=== PATIENT | female | born 1975 | race Caucasian/White ===

== ENCOUNTER 2017-12-19 15:24 | Emergency (ER) | payer OTHER ==
[2017-12-19] MEDS ORDERED: HYDROCODONE/APAP 7.5/325 MG TAB ONE (15:48)
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
== END 2017-12-19 16:55 | disposition home or self-care (01) ==
LOC: ER 15:24
DX: S60.222A Contusion of left hand, initial encounter (principal); V58.5XXA Driver of pick-up truck or van injured in noncollision transport accident in traffic accident, initial encounter; Z88.0 Allergy status to penicillin; Z88.1 Allergy status to other antibiotic agents; Z88.5 Allergy status to narcotic agent; Z88.6 Allergy status to analgesic agent
CPT/HCPCS: 99283

== ENCOUNTER 2020-07-30 17:23 | Inpatient (IN) | payer BC, OTHER ==
--- OUTSIDE RECORDS SUMMARY | 2020-07-30 17:25 | XMS REPORT | Continuity of Care Document ---
:1975 Author Organization [facility] t Address [address] [place] [address] [address] [place] [address] Care Team Providers Name Role Phone Unavailable Unavailable Unavailable Problems This patient has no known problems. Allergies, Adverse Reactions, Alerts This patient has no known allergies or adverse reactions. Medications This patient has no known medications. Procedures This patient has no known procedures. Results This patient has no known results.
[2020-07-30 19:56] LABS: Absolute Lymphocytes (CBC) 3.1 K/uL (0.7-4.9); Basophils % 0.6 % (0-1.3); Hematocrit 41.4 % (36.0-45.0); Lymphocytes % 33.3 % (15.3-44.8); MPV 9.8 fL (7.6-11.3); RBC Red Blood Cell Count 4.84 M/uL (3.86-4.86)
[2020-07-30 20:02] LABS: Protime INR 1.03
--- NOTE | 2020-07-30 20:03 | RAD REPORT ---
EXAM DESCRIPTION: RAD - Chest Single View - 07/30/2020 7:54 pm CLINICAL HISTORY: COUGH, possible preop chest examination for foot surgery COMPARISON: Single-view chest April 2010, rib series June 2016 TECHNIQUE: AP portable chest image was obtained 07/30/2020 7:54 pm . FINDINGS: No mass or consolidation. Interstitial pattern is increased slightly from comparison. Hear t and vasculature are normal. No measurable pleural effusion and no pneumothorax. No acute bony abnor mality seen. No acute aortic findings suspected. IMPRESSION: No focal mass or consolidation. Slight increase in interstitial opacification compared to prior study. A mild edema or infiltrate wou ld be possible.
--- NOTE | 2020-07-30 20:04 | RAD REPORT ---
EXAM DESCRIPTION: RAD - Foot Left 3 View - 07/30/2020 7:55 pm CLINICAL HISTORY: PAINischemic changes first toe COMPARISON: No comparisons FINDINGS: No fracture, dislocation or periosteal reaction. No acute or destructive bony process. No air or foreign body in the soft tissues. IMPRESSION: Negative left foot examination.
[2020-07-30 20:16] LABS: BUN Blood Urea Nitrogen 8 mg/dL (7-18); Bicarbonate 32 mmol/L (21-32); Glucose Level 298 mg/dL (74-106); Potassium 3.6 mmol/L (3.5-5.1); Sodium Level 138 mmol/L (136-145)
[2020-07-30 20:17] LABS: ALT/SGPT 19 U/L (12-78); AST/SGOT 11 U/L (15-37); Albumin 3.2 g/dL (3.4-5.0); Alkaline Phosphatase 74 U/L (45-117); Bilirubin Direct < 0.1 mg/dL (0-0.2); Bilirubin Total 0.3 mg/dL (0.2-1.0); Magnesium 1.5 mg/dL (1.8-2.4); NT PRO-BNP 17 pg/mL (<125); Troponin (Emerg Dept Use Only) < 0.02 ng/mL (0.0-0.045)
[2020-07-30] MEDS ORDERED: NA CHLORIDE 0.9% 1,000 ML ONE (20:18)
[2020-07-30 20:19] LABS: Urine Blood NEGATIVE (NEG); Urine Glucose 2+ (NEG); Urine Protein NEGATIVE (NEG); Urine pH 5.5 (5.0-7.0)
[2020-07-30 20:29] LABS: Barbiturates NEGATIVE (NEGATIVE); Benzodiazepines NEGATIVE (NEGATIVE); Cocaine NEGATIVE (NEGATIVE); METHAMPHETAM NEGATIVE (NEGATIVE); Methadone NEGATIVE (NEGATIVE); Opiates POSITIVE (NEGATIVE); Phencyclidine NEGATIVE (NEGATIVE); THC Cannibis NEGATIVE (NEGATIVE)
--- NOTE | 2020-07-30 21:38 | ER ---
Nurse's Notes [facility] Name: Nohelia Llanes Age: 44 yrs Sex: Female : 1975 Arrival Date: 07/30/2020 Time: 17:24 Bed 19 Private MD: Diagnosis: Type 2 diabetes mellitus;Other peripheral vascular diseases-left foot, ischemic toes;Urinary tract infection, site not specified;Hypomagnesemia Presentation: 07/30 17:52 Chief complaint: Patient states: Woke up this morning with my left big toe purple, jl7 denies trauma, denies pain. Coronavirus screen: Client denies travel out of the [place] in the last 14 days. At this time, the client does not indicate any symptoms associated with coronavirus-19. Ebola Screen: No symptoms or risks identified at this time. Initial Sepsis Screen: Does the patient meet any 2 criteria? No. Patient's initial sepsis screen is negative. Does the patient have a suspected source of infection? No. Patient's initial sepsis screen is negative. Risk Assessment: Do you want to hurt yourself or someone else? Patient reports no desire to harm self or others. Onset of symptoms was July 30, 2020. Care prior to arrival: None. 17:52 Method Of Arrival: Wheelchair jl7 17:52 Acuity: ALISIA 3 jl7 Triage Assessment: 17:55 General: Appears in no apparent distress. uncomfortable, Behavior is calm, cooperative, jl7 appropriate for age. Pain: Denies pain. 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 - Social history:: Smoking status: Patient reports the use of cigarette tobacco products, smokes one pack cigarettes per day. - Family history:: not pertinent. Screenin:00 Abuse screen: Denies threats or abuse. Denies injuries from another. Nutritional ca1 screening: No deficits noted. Tuberculosis screening: No symptoms or risk factors identified. Fall Risk None identified. Assessment: 18:00 General: Appears in no apparent distress. comfortable, Behavior is calm, cooperative, ca1 appropriate for age. Pain: Denies pain. Neuro: Level of Consciousness is awake, alert, obeys commands, Oriented to person, place, time, situation. Derm: Skin is intact, is healthy with good turgor, Skin is pink, warm \\T\\ dry. Bruising that is bright red, on left first toe, left second toe, left third toe, left fourth toe, left fifth toe, Left first toenail, Left second toenail, Left third toenail, Left fourth toenail and Left fifth toenail. Musculoskeletal: Circulation, motion, and sensation intact. Capillary refill is > 3 seconds, in left toes. Range of motion: intact in all extremities. 19:00 Reassessment: Patient appears in no apparent distress at this time. Patient and/or ca1 family updated on plan of care and expected duration. Pain level reassessed. Patient is alert, oriented x 3, equal unlabored respirations, skin warm/dry/pink. 20:00 Reassessment: Patient appears in no apparent distress at this time. Patient and/or ca1 family updated on plan of care and expected duration. Pain level reassessed. Patient is alert, oriented x 3, equal unlabored respirations, skin warm/dry/pink. 20:51 Reassessment: Patient appears in no apparent distress at this time. Patient and/or ca1 family updated on plan of care and expected duration. Pain level reassessed. Patient is alert, oriented x 3, equal unlabored respirations, skin warm/dry/pink. 22:00 Reassessment: pt requesting to go smoke, pt informed that this is a non smoking campus, sg offered a nicoderm patch, pt told me to go to [facility] with that nicoderm patch, told patient I cannot do that, Ashley RN at bedside with pt educated on staying in the ED for the sake of her toe and per orders, pt refusing, notified, he is at bedside speaking with patient at this time. 22:03 Reassessment: Pt crying, states, "I won't do anything unless I get a cigarette. I will ca1 not take these medications. And I don't want the patch, I want a cigarette". Notified charge nurse. Notified provider. Went to pt inform smoking policy. Pt states, "take the IV out, I want to find my " Took the the IV out, pt walked out. Notified CN and Dr. Kay. 22:10 Reassessment: Pt and at pt's room right now. ca1 22:44 Reassessment: Cardiology has been paged, spoke with the answering service who states sg that has been notified and will call the ED to speak with , awaiting a call back at this time. 22:50 Reassessment: Patient would like to know when she will be moved upstairs. Informed aj1 patient that we have no beds available upstairs, but we will get her a hospital bed and keep treating her in ER. Patient states "Then I'm leaving! No way in hell am I staying in this ER all night! Hell no!" Notified Dr. Kay who will speak to the patient. 23:00 Reassessment: Patient and/or family updated on plan of care and expected duration. Pain aj1 level reassessed. General: Appears in no apparent distress. comfortable, Behavior is calm, cooperative, appropriate for age. Pain: Denies pain. Neuro: Level of Consciousness is awake, alert, obeys commands, Oriented to person, place, time, situation. Cardiovascular: Denies chest pain, Heart tones S1 S2 present Patient's skin is warm and dry. Rhythm is sinus rhythm. Respiratory: Airway is patent Respiratory effort is even, unlabored, Respiratory pattern is regular, symmetrical. GI: No signs and/or symptoms were reported involving the gastrointestinal system. : No signs and/or symptoms were reported regarding the genitourinary system. EENT: No signs and/or symptoms were reported regarding the EENT system. Derm: Skin is pink, warm \\T\\ dry. purple discoloration to toes on left foot. Musculoskeletal: Circulation, motion, and sensation intact. Capillary refill is > 3 seconds, in left toes. Range of motion: intact in all extremities. 07/31 00:00 Reassessment: Patient appears in no apparent distress at this time. No changes from aj1 previously documented assessment. Patient and/or family updated on plan of care and expected duration. Pain level reassessed. Patient is alert, oriented x 3, equal unlabored respirations, skin warm/dry/pink. 01:00 Reassessment: Patient appears in no apparent distress at this time. No changes from aj1 previously documented assessment. Patient and/or family updated on plan of care and expected duration. Pain level reassessed. Patient is alert, oriented x 3, equal unlabored respirations, skin warm/dry/pink. 02:00 Reassessment: Patient appears in no apparent distress at this time. No changes from aj1 previously documented assessment. Patient and/or family updated on plan of care and expected duration. Pain level reassessed. Patient is alert, oriented x 3, equal unlabored respirations, skin warm/dry/pink. Vital Signs: 07/30 17:52 BP 112 / 77; Pulse 91; Resp 17; Temp 98.1; Pulse Ox 99% ; Weight 68.04 kg; Height 5 ft. jl7 5 in. (165.10 cm); Pain 0/10; 19:00 BP 114 / 69; Pulse 82; Resp 16 S; Pulse Ox 95% on R/A; ca1 19:45 BP 130 / 79; Pulse 85; Resp 18 S; Pulse Ox 96% on R/A; ca1 20:30 BP 121 / 73; Pulse 70; Resp 15 S; Pulse Ox 98% on R/A; ca1 23:30 BP 140 / 78; Pulse 79; Resp 18; Pulse Ox 100% on R/A; aj1 07/31 00:30 BP 124 / 70; Pulse 81; Resp 18; Pulse Ox 100% on R/A; aj1 01:30 BP 120 / 72; Pulse 98; Resp 18; Pulse Ox 99% on R/A; aj1 02:30 BP 128 / 70; Pulse 79; Resp 18; Pulse Ox 98% on R/A; aj1 07/30 17:52 Body Mass Index 24.96 (68.04 kg, 165.10 cm) jl7 ED Course: 07/30 17:24 Patient arrived in ED. ag5 17:54 Triage completed. jl7 17:55 Arm band placed on right wrist. jl7 17:57 Ashley Kazt, RN is Primary Nurse. ca1 18:00 Patient has correct armband on for positive identification. Placed in gown. Bed in low ca1 position. Call light in reach. Side rails up X2. Pulse ox on. NIBP on. Warm blanket given. 19:22 Danish Kay MD is Attending Physician. [facility] 19:48 Initial lab(s) drawn, by me, sent to lab. Inserted saline lock: 20 gauge in right ca1 antecubital area, using aseptic technique. Blood collected. 19:54 XRAY Chest (1 view) In Process Unspecified. EDMS 19:54 Foot Left 3 View XRAY In Process Unspecified. EDMS 21:35 Socorro Mendosa MD is Hospitalizing Provider. michael 22:03 IV discontinued, intact, bleeding controlled, No redness/swelling at site. Pressure ca1 dressing applied. 22:23 Report given to DARRICK Bains. ca1 22:30 No provider procedures requiring assistance completed. Inserted saline lock: 20 gauge aj1 in right antecubital area, using aseptic technique. 22:41 US LE Arterial Bilateral In Process Unspecified. EDMS 07/31 03:36 Patient admitted, IV remains in place. aj1 Administered Medications: 07/30 20:06 Drug: NS 0.9% 1000 ml Route: IV; Rate: 1 bolus; Site: right antecubital; ca1 21:45 Drug: Pepcid 20 mg Route: IVP; Site: right antecubital; ca1 23:03 Drug: levofloxacin 500 mg Volume: 100 ml; Route: IVPB; Infused Over: 60 mins; Site: aj1 right antecubital; 07/31 00:08 Drug: Nicoderm CQ 21 mg/24 hr 21 mg {Note: Patch applied to right deltoid.} Route: aj1 Transdermal; Site: affected area; 00:08 Drug: Lipitor 20 mg Route: PO; 00:08 Drug: ProTONIX 40 mg Route: IVP; Site: right antecubital; aj 00:08 Drug: Maalox Suspension (200 mg-200 mg-20 mg/5 mL) 30 ml Route: PO; 00:09 Drug: Magnesium Sulfate 1 grams Route: IVPB; Infused Over: 1 hrs; Site: right aj1 antecubital; 00:09 Drug: Aspirin Chewable Tablet 324 mg Route: PO; 00:09 Drug: PlaVIX 300 mg Route: PO; aj1 00:27 Drug: Heparin (MT Drip) 12 units/kg/hr - (HEParin 67427 units, D5W 500 ml) aj1 {Co-Signature: ll2 (Jena Jimenez RN).} Route: IV; Rate: calculated rate; Site: right antecubital; 00:28 Drug: Heparin (MT-Bolus No thrombolytic) - HEParin 60 units/kg {Co-Signature: ll2 aj1 (Jena Jimenez RN).} Route: IVP; Site: right antecubital; Outcome: 07/30 21:37 Decision to Hospitalize by Provider. [facility] 07/31 03:36 Admitted to ER Hold. [facility]. aj1 Condition: good Discharge instructions given to patient, Instructed on the need for admit, Demonstrated understanding of instructions. 11:07 Patient left the ED. sv Signatures: Dispatcher [employer] EDMS Nara Ace RN RN aj1 Lisseth Bedolla RN RN sv Gay, Steven, RN RN sg Anderson, Corey, MD MD cha Leal, Jahala, RN RN jl7 Ashley Katz RN RN ca1 Jaspreet, Gosia 5 Jena Jimenez RN ll2 Corrections: (The following items were deleted from the chart) 07/30 22:22 18:00 Musculoskeletal: Circulation, motion, and sensation intact. Capillary refill < 3 ca1 seconds, Range of motion: intact in all extremities, ca1
--- NOTE | 2020-07-30 21:38 | EDPHYS ---
Physician Documentation [facility] Name: Nohelia Llanes Age: 44 yrs Sex: Female : 1975 Arrival Date: 07/30/2020 Time: 17:24 Bed 19 Private MD: ED Physician Danish Kay HPI: 07/30 21:30 This 44 yrs old Female presents to ER via Wheelchair with complaints of Foot michael Pain, Toe Pain. 21:30 The patient presents with pain, that is acute. The complaints affect the left foot, michael plantar aspect of left first toe, plantar aspect of left second toe, plantar aspect of left fourth toe, left first toe, left second toe and left third toe. Context: The problem was sustained at an unknown location, resulted from an unknown cause. Onset: The symptoms/episode began/occurred 2 day(s) ago. Modifying factors: The symptoms are alleviated by nothing, the symptoms are aggravated by nothing. Associated signs and symptoms: The patient has no apparent associated signs or symptoms. Severity of symptoms: At their worst the symptoms were mild, moderate, in the emergency department the symptoms are unchanged. The patient has not experienced similar symptoms in the past. 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 - Social history:: Smoking status: Patient reports the use of cigarette tobacco products, smokes one pack cigarettes per day. - Family history:: not pertinent. ROS: 21:30 MS/extremity: Positive for ecchymosis, of the lateral aspect of left toes, left first michael toe, left second toe, left third toe and left fourth toe. 21:30 Constitutional: Negative for fever, chills, and weight loss, Eyes: Negative for injury, pain, redness, and discharge, ENT: Negative for injury, pain, and discharge, Neck: Negative for injury, pain, and swelling, Cardiovascular: Negative for chest pain, palpitations, and edema, Respiratory: Negative for shortness of breath, cough, wheezing, and pleuritic chest pain, Abdomen/GI: Negative for abdominal pain, nausea, vomiting, diarrhea, and constipation, Back: Negative for injury and pain, : Negative for injury, bleeding, discharge, and swelling, Neuro: Negative for headache, weakness, numbness, tingling, and seizure, Psych: Negative for depression, anxiety, suicide ideation, homicidal ideation, and hallucinations, Allergy/Immunology: Negative for hives, rash, and allergies, Endocrine: Negative for neck swelling, polydipsia, polyuria, polyphagia, and marked weight changes. 21:30 MS/extremity: Positive for ecchymosis, pain, of the left foot. Exam: 21:30 Constitutional: This is a well developed, well nourished patient who is awake, alert, michael and in no acute distress. Head/Face: Normocephalic, atraumatic. Eyes: Pupils equal round and reactive to light, extra-ocular motions intact. Lids and lashes normal. Conjunctiva and sclera are non-icteric and not injected. Cornea within normal limits. Periorbital areas with no swelling, redness, or edema. ENT: Nares patent. No nasal discharge, no septal abnormalities noted. Tympanic membranes are normal and external auditory canals are clear. Oropharynx with no redness, swelling, or masses, exudates, or evidence of obstruction, uvula midline. Mucous membranes moist. Neck: Trachea midline, no thyromegaly or masses palpated, and no cervical lymphadenopathy. Supple, full range of motion without nuchal rigidity, or vertebral point tenderness. No Meningismus. Chest/axilla: Normal chest wall appearance and motion. Nontender with no deformity. No lesions are appreciated. Cardiovascular: Regular rate and rhythm with a normal S1 and S2. No gallops, murmurs, or rubs. Normal PMI, no JVD. No pulse deficits. Respiratory: Lungs have equal breath sounds bilaterally, clear to auscultation and percussion. No rales, rhonchi or wheezes noted. No increased work of breathing, no retractions or nasal flaring. Abdomen/GI: Soft, non-tender, with normal bowel sounds. No distension or tympany. No guarding or rebound. No evidence of tenderness throughout. Back: No spinal tenderness. No costovertebral tenderness. Full range of motion. Skin: Warm, dry with normal turgor. Normal color with no rashes, no lesions, and no evidence of cellulitis. Psych: Awake, alert, with orientation to person, place and time. Behavior, mood, and affect are within normal limits. 21:30 Musculoskeletal/extremity: ROM: full active range of motion, full passive range of motion, Pulses: noted to be 1+ in the left posterior tibial artery and left dorsalis pedis artery, decreased sensation, Compartment Syndrome exam of affected extremity: is normal. DVT Exam: no swelling, no tenderness, negative Homans' sign noted on exam, no erythema, no increased warmth, pain, bluish discoloration, left great toe cool to touch, decrease capilllary refill. Vital Signs: 17:52 BP 112 / 77; Pulse 91; Resp 17; Temp 98.1; Pulse Ox 99% ; Weight 68.04 kg; Height 5 ft. jl7 5 in. (165.10 cm); Pain 0/10; 19:00 BP 114 / 69; Pulse 82; Resp 16 S; Pulse Ox 95% on R/A; ca1 19:45 BP 130 / 79; Pulse 85; Resp 18 S; Pulse Ox 96% on R/A; ca1 20:30 BP 121 / 73; Pulse 70; Resp 15 S; Pulse Ox 98% on R/A; ca1 23:30 BP 140 / 78; Pulse 79; Resp 18; Pulse Ox 100% on R/A; aj1 07/31 00:30 BP 124 / 70; Pulse 81; Resp 18; Pulse Ox 100% on R/A; aj1 01:30 BP 120 / 72; Pulse 98; Resp 18; Pulse Ox 99% on R/A; aj1 02:30 BP 128 / 70; Pulse 79; Resp 18; Pulse Ox 98% on R/A; aj1 07/30 17:52 Body Mass Index 24.96 (68.04 kg, 165.10 cm) jl7 MDM: 07/30 19:25 Patient medically screened. [facility] 21:34 Differential diagnosis: fracture, sprain, gout, cellulitis. Data reviewed: vital signs, [facility] nurses notes, lab test result(s), EKG, radiologic studies, doppler, plain films. Data interpreted: monitoring specialist: rate is 70 beats/min, rhythm is regular, Pulse oximetry: on room air is 98 %. Test interpretation: by ED physician or midlevel provider: ECG, plain radiologic studies. Counseling: I had a detailed discussion with the patient and/or guardian regarding: the historical points, exam findings, and any diagnostic results supporting the discharge/admit diagnosis, lab results, radiology results, the need for further work-up and treatment in the hospital. 07/30 19:23 Order name: Basic Metabolic Panel; Complete Time: 21:25 [facility] 07/30 19:23 Order name: CBC with Diff; Complete Time: 21:25 [facility] 07/30 19:23 Order name: LFT's; Complete Time: 21:25 [facility] 07/30 19:23 Order name: Magnesium; Complete Time: 21:25 [facility] 07/30 19:23 Order name: NT PRO-BNP; Complete Time: 21:25 [facility] 07/30 19:23 Order name: PT-INR; Complete Time: 21:25 [facility] 07/30 19:23 Order name: Troponin (emerg Dept Use Only); Complete Time: 21:25 [facility] 07/30 19:23 Order name: UDS; Complete Time: 21:25 [facility] 07/30 20:13 Order name: Urine Dipstick--Ancillary (enter results); Complete Time: 21:25 tt3 07/30 20:57 Order name: Blood Culture Adult (2) 07/30 21:29 Order name: Urine Culture [facility] 07/30 21:29 Order name: Ptt, Activated [facility] 07/31 05:57 Order name: Protime (+INR) [facility] 07/31 05:57 Order name: PTT, Activated Partial Thromb [facility] 07/30 19:23 Order name: XRAY Chest (1 view); Complete Time: 21:25 [facility] 07/30 19:23 Order name: Foot Left 3 View XRAY; Complete Time: 21:25 [facility] 07/30 21:29 Order name: US LE Arterial Bilateral [facility] 07/31 06:05 Order name: Lipid Profile [facility] 07/31 06:50 Order name: Magnesium [facility] 07/31 07:28 Order name: Hemoglobin A1c [facility] 07/31 07:51 Order name: Glucose, Ancillary Testing [facility] 07/31 10:35 Order name: PTT, Activated Partial Thromb [facility] 07/30 19:23 Order name: EKG; Complete Time: 19:24 [facility] 07/30 19:23 Order name: Cardiac monitoring; Complete Time: 20:25 [facility] 07/30 19:23 Order name: EKG - Nurse/Tech; Complete Time: 20:25 [facility] 07/30 19:23 Order name: IV Saline Lock; Complete Time: 19:50 [facility] 07/30 19:23 Order name: Labs collected and sent; Complete Time: 19:50 [facility] 07/30 19:23 Order name: O2 Per Protocol; Complete Time: 19:50 [facility] 07/30 19:23 Order name: O2 Sat Monitoring; Complete Time: 19:50 [facility] 07/30 19:23 Order name: Urine Dipstick-Ancillary (obtain specimen); Complete Time: 20:07 [facility] Administered Medications: 20:06 Drug: NS 0.9% 1000 ml Route: IV; Rate: 1 bolus; Site: right antecubital; ca1 21:45 Drug: Pepcid 20 mg Route: IVP; Site: right antecubital; ca1 23:03 Drug: levofloxacin 500 mg Volume: 100 ml; Route: IVPB; Infused Over: 60 mins; Site: aj1 right antecubital; 07/31 00:08 Drug: Nicoderm CQ 21 mg/24 hr 21 mg {Note: Patch applied to right deltoid.} Route: aj1 Transdermal; Site: affected area; 00:08 Drug: Lipitor 20 mg Route: PO; 00:08 Drug: ProTONIX 40 mg Route: IVP; Site: right antecubital; aj1 00:08 Drug: Maalox Suspension (200 mg-200 mg-20 mg/5 mL) 30 ml Route: PO; 00:09 Drug: Magnesium Sulfate 1 grams Route: IVPB; Infused Over: 1 hrs; Site: right aj1 antecubital; 00:09 Drug: Aspirin Chewable Tablet 324 mg Route: PO; 00:09 Drug: PlaVIX 300 mg Route: PO; 00:27 Drug: Heparin (AL Drip) 12 units/kg/hr - (HEParin 82213 units, D5W 500 ml) aj {Co-Signature: ll2 (Jena Jimenez RN).} Route: IV; Rate: calculated rate; Site: right antecubital; 00:28 Drug: Heparin (AL-Bolus No thrombolytic) - HEParin 60 units/kg {Co-Signature: ll2 mahesh1 (Jena Jimenez RN).} Route: IVP; Site: right antecubital; Disposition: 07/30/20 21:37 Hospitalization ordered by Socorro Mendosa for Inpatient Admission. Preliminary diagnosis are Type 2 diabetes mellitus, Other peripheral vascular diseases - left foot, ischemic toes, Urinary tract infection, site not specified, Hypomagnesemia. - Bed requested for Telemetry/MedSurg (Inpatient). - Status is Inpatient Admission. sv - Condition is Stable. - Problem is new. - Symptoms have improved. Signatures: Dispatcher [employer] EDMS Nara Ace RN RN aj1 Lisseth Bedolla RN RN sv Woody, Diana, RN RN dw Anderson, Corey, MD MD cha Leal, Jahala, RN RN jl7 Bettie Logan Cheryl, RN RN ca1 Lacie Linscombe RN ll2 Corrections: (The following items were deleted from the chart) 07/30 21:46 21:37 Hospitalization Ordered by Socorro Mendosa MD for Inpatient Admission. Preliminary dw diagnosis is Type 2 diabetes mellitus; Other peripheral vascular diseases - left foot, ischemic toes. Bed requested for Telemetry/MedSurg (Inpatient). Status is Inpatient Admission. Condition is Stable. Problem is new. Symptoms have improved. michael 21:49 21:46 07/30/2020 21:37 Hospitalization Ordered by Socorro Mendosa MD for Inpatient michael Admission. Preliminary diagnosis is Type 2 diabetes mellitus; Other peripheral vascular diseases - left foot, ischemic toes. Bed requested for [facility]. Status is Inpatient Admission. Condition is Stable. Problem is new. Symptoms have improved. dw 07/31 09:11 07/30 21:49 07/30/2020 21:37 Hospitalization Ordered by Socorro Mendosa MD for Inpatient eb Admission. Preliminary diagnosis is Type 2 diabetes mellitus; Other peripheral vascular diseases - left foot, ischemic toes; Urinary tract infection, site not specified; Hypomagnesemia. Bed requested for [facility]. Status is Inpatient Admission. Condition is Stable. Problem is new. Symptoms have improved. michael 07/31 11:07 09:11 07/30/2020 21:37 Hospitalization Ordered by Socorro Mendosa MD for Inpatient sv Admission. Preliminary diagnosis is Type 2 diabetes mellitus; Other peripheral vascular diseases - left foot, ischemic toes; Urinary tract infection, site not specified; Hypomagnesemia. Bed requested for Telemetry/MedSurg (Inpatient). Status is Inpatient Admission. Condition is Stable. Problem is new. Symptoms have improved. eb
[2020-07-30] MEDS ORDERED: ASPIRIN 81 MG CHEWABLE TABLET ONE (22:01)
[2020-07-30] MEDS ORDERED: FAMOTIDINE 20 MG/2 ML VIAL IV ONE (22:01)
[2020-07-30] MEDS ORDERED: MAGNESIUM SULFATE 1 gm IVPB 1 GM/100 ML BAG IV ONE (22:01)
[2020-07-30] MEDS ORDERED: Levofloxacin500mg IV 500 MG/100 ML BAG IV ONE (22:01)
[2020-07-30] MEDS ORDERED: NICOTINE 21 MG/PAT TD ONE (23:47)
[2020-07-30] MEDS ORDERED: CLOPIDOGREL 75 MG TABLET ONE (23:47)
[2020-07-30] MEDS ORDERED: HEPARIN/D5W 25,000 UNIT/500 ML BAG IV ONE (23:48)
[2020-07-30] MEDS ORDERED: ATORVASTATIN 20 MG TAB ONE (23:48)
[2020-07-31] MEDS ORDERED: MAGNES/ALUMIN/SIMET 30ML UCUP ONE (00:03)
[2020-07-31] MEDS ORDERED: PANTOPRAZOLE 40 MG INJ ONE (00:04)
--- NOTE | 2020-07-31 02:58 | P.HP ---
Certification for Inpatient Patient admitted to: Inpatient With expected LOS: >2 Midnights Patient will require the following post-hospital care: None Practitioner: I am a practitioner with admitting privileges, knowledge of patient current condition, hospital course, and medical plan of care. Services: Services provided to patient in accordance with Admission requirements found in Title 42 Section 412.3 of the Code of Federal Regulations <Myron Yousif - Last Filed: 07/31/20 02:52> Patient History Date of Service: 07/31/20 Reason for admission: Ischemia left leg History of Present Illness: This is a 44-year-old female with history of chronic pain that presented to the emergency room with a 2 day history of increased lower extremity pain to the left side. Patient stated that her foot started to become discolored. Patient was brought to the emergency room at that time were she was worked up for acute arterial occlusion. Patient had ultrasound with arterial Doppler completed to both legs. Right leg stable. Left leg showed biphasic from the common iliac to the common femoral vein which had then went to monophasic all the way down to the distal pedal artery. Patient labs show glucose of 298, magnesium 1.5. Otherwise no other laboratory abnormalities. Patient stated that she is a daily smoker but denies diabetic history although she has had gestational diabetes in the past. Unknown if she has hyperlipidemia. Medicine was consulted at that time for further evaluation. Cardiology was also consulted in the emergency room for the monophasic limb ischemia. Cardiology accepted consult and plans to do angiogram. Home medications list reviewed: Yes - Past Medical/Surgical History Has patient received pneumonia vaccine in the past: No Diabetic: No - Social History Smoking Status: Current every day smoker Counseled patient to stop smoking for: less than 10 minutes Smoking therapy provided: Yes Patient receptive to therapy: Yes Alcohol use: No CD- Drugs: No Caffeine use: Yes Place of Residence: Home <Myron Yousif - Last Filed: 07/31/20 02:52> Date of Service: 07/31/20 <Socorro Mendosa - Last Filed: 08/01/20 06:30> Allergies meperidine HCl [From Demerol] Allergy (Severe, Verified 07/31/20 14:20) Itching/Hives/Rash propoxyphene [From Darvocet-N 100] Allergy (Severe, Verified 07/31/20 14:20) Itching/Hives/Rash acetaminophen [From Darvocet-N 100] Allergy (Intermediate, Verified 07/31/20 14:20) Itching/Hives/Rash cephalexin monohydrate [From Keflex] Allergy (Intermediate, Verified 07/31/20 14:20) Itching/Hives/Rash Penicillins Allergy (Intermediate, Uncoded 07/31/20 14:20) Itching Review of Systems General: Unremarkable Eyes: Unremarkable ENT: Unremarkable Respiratory: Unremarkable Cardiovascular: Unremarkable Gastrointestinal: Unremarkable Genitourinary: Unremarkable Musculoskeletal: As per HPI Integumentary: Unremarkable Neurological: Unremarkable Lymphatics: Unremarkable <Myron Yousif - Last Filed: 07/31/20 02:52> Physical Examination - Vital Signs Temperature: 98.1 F Blood Pressure: 112/77 Pulse: 91 Respirations: 18 Pulse Ox (%): 99 (Room air) - Physical Exam General: Alert, In no apparent distress, Oriented x3, Cooperative HEENT: PERRLA, Mucous membr. moist/pink, EOMI Neck: Supple, 2+ carotid pulse no bruit, JVD not distended, No Thyromegaly Respiratory: Clear to auscultation bilaterally, Normal air movement Cardiovascular: No edema, Normal S1 S2, No gallops, No rubs, No murmurs, Abnormal pulses (Faint left pedal pulse. Right pedal 1+) Capillary refill: <2 Seconds Gastrointestinal: Normal bowel sounds, Soft and benign, Non-distended, No ascites, No tenderness, No masses, No rebound, No guarding Musculoskeletal: No clubbing, No swelling, No contractures, No erythema, No tenderness, No warmth, Other (Patient with Rubar regions to distal left foot and toes. No ulcerative wounds noted) Integumentary: No rashes, No breakdown, No significant lesion, No tenderness/swelling, No erythema, No warmth Neurological: Normal gait, Normal strength at 5/5 x4 extr, Normal tone, Sensation intact, Cranial nerves 3-12 intact, Normal affect Lymphatics: No axilla or inguinal lymphadenopathy - Studies Laboratory Data (last 24 hrs) 07/30/20 19:48: APTT 30.3 07/30/20 19:48: PT 12.2, INR 1.03 12/17/20 19:48: WBC 9.2, Hgb 14.6, Hct 41.4, Plt Count 230 07/30/20 19:48: Sodium 138, Potassium 3.6, BUN 8, Creatinine 0.53 L, Glucose 298 H, Magnesium 1.5 L, Total Bilirubin 0.3, AST 11 L, ALT 19, Alkaline Phosphatase 74 <Myron Yousif - Last Filed: 07/31/20 02:52> Assessment and Plan - Problems (Diagnosis) (1) Chronic pain Current Visit: Yes Status: Chronic Plan: Patient started on her [place] on gabapentin for chronic pain Qualifiers: Chronic pain type: other chronic pain Qualified Code(s): G89.29 - Other chronic pain (2) Peripheral arterial disease Current Visit: Yes Status: Acute Plan: Monophasic left lower extremity noted on arterial Doppler. Cardiology has been consulted for further assessment of this with plan to do angiogram and possible stenting to improve blood flow. Patient also put on heparin to nasrin any further thrombosis. (3) Limb ischemia Current Visit: Yes Status: Acute Plan: Patient has monophasic left lower extremity requiring angiogram with possible angioplasty. Patient started on heparin to nasrin any thrombosis in the lower extremity to improve blood flow. Cardiology has been consulted for the angiogram. Will await further assessment by cardiology to determine next steps. (4) Hyperlipidemia Current Visit: Yes Status: Chronic Plan: Drawn lipid panel in the morning to further assess hyperlipidemic conditions. As patient has prefer arterial disease present and is current smoker. Qualifiers: Hyperlipidemia type: unspecified Qualified Code(s): E78.5 - Hyperlipidemia, unspecified (5) UTI (urinary tract infection) Current Visit: Yes Status: Acute Plan: Patient found to have acute urinary tract infection as well. Patient started on antibiotics for urinary tract infection. Urine was sent for culture and sensitivity and will wait for report. Qualifiers: Urinary tract infection type: acute cystitis Hematuria presence: without hematuria Qualified Code(s): N30.00 - Acute cystitis without hematuria Discharge Plan: Home Plan to discharge in: 48 Hours - Advance Directives Does patient have a Living Will: No Does patient have a Durable POA for Healthcare: No - Code Status/Comfort Care Code Status Assessed: Yes Code Status: Full Code Critical Care: No Time Spent Managing Pts Care (In Minutes): 70 <Myron Yousif - Last Filed: 07/31/20 02:52> Date of Service: 07/31/20 Patient with peripheral arterial disease. Cardiology wants patient on heparin. Arteriogram on Monday chart review reviewed. Agree with the events as above. Continue anticoagulation over the weekend. Continue anti-platelet therapy and statin therapy as well <Socorro Mendosa - Last Filed: 08/01/20 06:30>
[2020-07-31] MEDS ORDERED: D50W 25 GM/50 ML SYRINGE IV PRN (03:01)
[2020-07-31] MEDS ORDERED: GLUCAGON 1 MG/VIAL IM PRN (03:01)
[2020-07-31] MEDS ORDERED: HEPARIN/D5W 25,000 UNIT/500 ML BAG IV SCH (03:01)
[2020-07-31] MEDS ORDERED: ONDANSETRON 4 MG/2 ML VIAL IV PRN (03:01)
[2020-07-31 05:30] VITALS: BMI 25.0
[2020-07-31 05:53] LABS: Protime INR 1.04
[2020-07-31] MEDS: INSULIN -REGULAR HUMAN 50 UNIT/0.5 ML ML SQ SCH ×4 (07:30→20:59)
--- NOTE | 2020-07-31 07:57 | RAD REPORT ---
EXAM DESCRIPTION: US - Lower Extremity Arterial Bilat - 07/30/2020 10:40 pm CLINICAL HISTORY: ecchymosis;Pain;Swelling Preliminary findings provided at the time of the study. COMPARISON: None. TECHNIQUE: Waveforms were obtained along the length of each lower extremity. Doppler evaluation of t he arterial tree performed. Visual inspection of the lower extremity arterial tree performed. FINDINGS: No occlusion or focal flow restricting lesion identifiable. Triphasic waveform pattern see n in the right common femoral, superficial femoral and popliteal arteries. Popliteal artery transitio n to a biphasic waveform pattern with transition to monophasic waveform at the posterior tibial and d orsalis pedis arteries. The left common femoral and superficial femoral arteries were biphasic. Superficial femoral artery tr ansition to a monophasic waveform at the distal aspect and this monophasic pattern continued in the p opliteal posterior tibial and dorsalis pedis arteries. IMPRESSION: No occlusion or flow restricting lesion identified. Atherosclerotic changes are evident but without significant luminal narrowing. Patient does show abnormal waveform patterns indicating underlying peripheral arterial disease.
[2020-07-31] MEDS ORDERED: INSULIN -REGULAR HUMAN 50 UNIT/0.5 ML ML ONE (08:51)
[2020-07-31] MEDS: GABAPENTIN 300 MG CAP PO SCH ×3 (09:00→20:58)
[2020-07-31] MEDS: NICOTINE 21 MG/PAT TD SCH (09:00)
[2020-07-31] MEDS ORDERED: GABAPENTIN 400 MG CAP ONE (09:07)
[2020-07-31] MEDS: HYDROCODONE/APAP 7.5/325 MG TAB PO PRN ×3 (09:08→23:26)
[2020-07-31] MEDS ORDERED: NICOTINE 21 MG/PAT TD ONE (09:09)
[2020-07-31] MEDS ORDERED: HYDROCODONE/APAP 7.5/325 MG TAB ONE (09:14)
[2020-07-31] MEDS ORDERED: Levofloxacin500mg IV 500 MG/100 ML BAG IV SCH (20:00)
[2020-07-31 22:55] VITALS: O2SAT 98
--- NOTE | 2020-08-01 04:11 | CON ---
Date of Consultation: 07/31/2020 Reason For Consultation: Ischemic left foot. History Of Present Illness: Ms. Llanes is a 44-year-old woman with a history of tobacco abuse. She also has a history of gestational diabetes, chronic pain, neuropathy, cholecystectomy, and . She came in with an ischemic foot, cyanotic left toes. No cardiac symptoms. Symptoms have been go ing on for about 2 to 3 days. Has had claudication prior to that. She was placed on Plavix load, he ralph and aspirin. After consultation with Dr. Kay, was admitted for further evaluation and mary atment. Past Medical History: As stated above. Allergies: TO DARVOCET, DEMEROL, KEFLEX, AND PENICILLIN. Medications: At home include gabapentin and [place]. Review of Systems: Negative. Social History: Positive for tobacco. Family History: Noncontributory. Physical Examination: Vital Signs: Stable. She was afebrile. HEENT: Negative. Neck: Supple. No bruit. Chest: Clear to auscultation and percussion. Cardiac: Revealed a regular rhythm and rate. No murmurs, gallops, or rubs. Abdomen: Benign. Extremities: Revealed no clubbing, but she had cyanosis on the left toes. No edema. She had poor p ulses distally bilaterally. Diagnostic Data: Fairly unremarkable. Her glucose was 153, otherwise she was negative. She was pos itive for opiates on her urinalysis. Her chest x-ray was negative. Her Doppler arterial ultrasound showed no occlusion or flow restriction lesion had identified. She had atherosclerotic changes evide nt that were without any luminal narrowing. She had some abnormal waveform pattern indicating underl uche peripheral arterial disease. Impression And Plan: Peripheral artery disease, acute ischemic limb. We will put her on aspirin, Plavix, heparin and see how she does. I would prefer to treat her medica lly for few days on aspirin and Plavix, before performing an abdominal angiogram with runoff. She sh ould really be on nystatin as well. Definitely quit tobacco. We will see how she does over the next day or 2 and make further decisions regarding her on progress. LINDA/KELLEY Voice ID: [id number] Report ID: [id number]
[2020-08-01] MEDS: HYDROCODONE/APAP 10/325 TAB PO PRN ×2 (04:19→12:08)
[2020-08-01] MEDS ORDERED: HYDROCODONE/APAP 10/325 TAB ONE (04:32)
[2020-08-01] MEDS: GABAPENTIN 300 MG CAP PO SCH ×3 (05:09→12:19)
[2020-08-01 05:48] LABS: Absolute Lymphocytes (CBC) 2.7 K/uL (0.7-4.9); Basophils % 0.2 % (0-1.3); Hematocrit 40.4 % (36.0-45.0); Lymphocytes % 29.8 % (15.3-44.8); MPV 9.7 fL (7.6-11.3); RBC Red Blood Cell Count 4.71 M/uL (3.86-4.86)
[2020-08-01 06:01] LABS: BUN Blood Urea Nitrogen 7 mg/dL (7-18); Bicarbonate 30 mmol/L (21-32); Glucose Level 216 mg/dL (74-106); Potassium 3.3 mmol/L (3.5-5.1); Sodium Level 141 mmol/L (136-145)
[2020-08-01 06:09] LABS: Protime INR 1.03
--- NOTE | 2020-08-01 06:39 | P.PN ---
Subjective Date of Service: 07/31/20 Subjective: No new changes, No C/O voiced, Improving Review of Systems 10-point ROS is otherwise unremarkable Physical Examination - Vital Signs Temperature: 97.4 F Blood Pressure: 125/70 Pulse: 79 Respirations: 16 Pulse Ox (%): 97 - Physical Exam General: Alert, In no apparent distress, Oriented x3 HEENT: Atraumatic, PERRLA, EOMI Neck: Supple, JVD not distended Respiratory: Clear to auscultation bilaterally, Normal air movement Cardiovascular: Regular rate/rhythm, Normal S1 S2 Gastrointestinal: Normal bowel sounds, No tenderness Musculoskeletal: No clubbing, No swelling, No tenderness Integumentary: No rashes Neurological: Normal speech, Normal tone, Normal affect Lymphatics: No axilla or inguinal lymphadenopathy - Studies Medications List Reviewed: Yes Assessment & Plan - Problems (Diagnosis) (1) Limb ischemia Current Visit: Yes Status: Acute (2) Peripheral arterial disease Current Visit: Yes Status: Acute (3) Hyperlipidemia Current Visit: Yes Status: Chronic Qualifiers: Hyperlipidemia type: unspecified Qualified Code(s): E78.5 - Hyperlipidemia, unspecified - Plan Plan: 1. Heparin drip 2. PTT q.4 hours 3. Arteriogram on Monday 4. Anti-platelet therapy along with statin therapy 5. Pain control 6. Cardiology consultation 7. GI and DVT prophylaxis Discharge Plan: Home Plan to discharge in: Greater than 2 days - Advance Directives Does patient have a Living Will: No Does patient have a Durable POA for Healthcare: No - Code Status/Comfort Care Code Status: Full Code Critical Care: No Time Spent Managing PTS Care (In Minutes): 35
[2020-08-01] MEDS: INSULIN -REGULAR HUMAN 50 UNIT/0.5 ML ML SQ SCH ×2 (08:52→11:49)
[2020-08-01] MEDS: NICOTINE 21 MG/PAT TD SCH (08:52)
[2020-08-01 09:35] VITALS: BP 108/59; TEMP 97
--- NOTE | 2020-08-01 10:55 | P.PN ---
Subjective Date of Service: 08/01/20 Chief Complaint: Ischemia left leg Subjective: No new changes, No C/O voiced Review of Systems 10-point ROS is otherwise unremarkable Physical Examination - Vital Signs Temperature: 97.0 F Blood Pressure: 108/59 Pulse: 74 Respirations: 16 Pulse Ox (%): 96 - Physical Exam General: Alert, In no apparent distress, Oriented x3 HEENT: Atraumatic, Normocephalic Neck: Supple Respiratory: Clear to auscultation bilaterally, Normal air movement Cardiovascular: Regular rate/rhythm, Normal S1 S2 Capillary refill: <2 Seconds Gastrointestinal: Soft and benign, Non-distended Musculoskeletal: No clubbing, No swelling Integumentary: No rashes, No breakdown Neurological: Normal speech, Normal strength at 5/5 x4 extr Lymphatics: No axilla or inguinal lymphadenopathy - Studies Medications List Reviewed: Yes Assessment & Plan - Problems (Diagnosis) (1) Limb ischemia Current Visit: Yes Status: Acute (2) Peripheral arterial disease Current Visit: Yes Status: Acute Physician Review Additional Text: Monitor closely under telemetry Pain control Continue antiplatelet along with statin Appreciate help from cardiology Continue heparin drip Titrate as per protocol Cardiology consult appreciated Recommended conservative management with antiplatelet and heparin for now Possible abdominal aortogram with distal runoff as outpatient GI/DVT prophylaxis Time Spent Managing Pts Care (In Minutes): 42
--- NOTE | 2020-08-01 13:19 | P.DS ---
Admission Date: 07/31/20 Discharge Date: 08/01/20 Reason for Admission: Ischemia left leg - Problems (1) Limb ischemia Current Visit: Yes Status: Acute (2) Peripheral arterial disease Current Visit: Yes Status: Acute Brief History of Present Illness: 44-year-old female with history of chronic pain that presented to the emergency room with a 2 day history of increased lower extremity pain to the left side. Patient stated that her foot started to become discolored. Patient was brought to the emergency room at that time were she was worked up for acute arterial occlusion. Patient had ultrasound with arterial Doppler completed to both legs. Right leg stable. Left leg showed biphasic from the common iliac to the common femoral vein which had then went to monophasic all the way down to the distal pedal artery. Patient labs show glucose of 298, magnesium 1.5. Otherwise no other laboratory abnormalities. Patient stated that she is a daily smoker but denies diabetic history although she has had gestational diabetes in the past. Unknown if she has hyperlipidemia. Medicine was consulted at that time for further evaluation. Cardiology was also consulted in the emergency room for the monophasic limb ischemia. Cardiology accepted consult and plans to do angiogram. 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 Vital Signs/Physical Exam: Temp Pulse Resp BP Pulse Ox 97.0 F 74 16 108/59 L 96 08/01/20 12:36 08/01/20 12:36 08/01/20 12:36 08/01/20 12:36 08/01/20 12:36 General: Alert, In no apparent distress HEENT: Atraumatic, Normocephalic Neck: Supple Respiratory: Clear to auscultation bilaterally Cardiovascular: Regular rate/rhythm, Normal S1 S2 Capillary refill: <2 Seconds Gastrointestinal: Soft and benign, Non-distended Laboratory Data at Discharge: WBC 9.0 K/uL (4.3-10.9) 08/01/20 05:14 Hgb 14.2 g/dL (12.0-15.0) 08/01/20 05:14 Hct 40.4 % (36.0-45.0) 08/01/20 05:14 Plt Count 213 K/uL (152-406) 08/01/20 05:14 PT 12.2 SECONDS (9.5-12.5) 08/01/20 05:14 INR 1.03 08/01/20 05:14 APTT 65.9 SECONDS (24.3-36.9) H 08/01/20 05:14 Sodium 141 mmol/L (136-145) 08/01/20 05:14 Potassium 3.3 mmol/L (3.5-5.1) L 08/01/20 05:14 BUN 7 mg/dL (7-18) 08/01/20 05:14 Creatinine 0.45 mg/dL (0.55-1.3) L 08/01/20 05:14 Glucose 216 mg/dL (74-106) H 08/01/20 05:14 Magnesium 2.0 mg/dL (1.8-2.4) D 07/31/20 05:02 Total Bilirubin 0.3 mg/dL (0.2-1.0) 07/30/20 19:48 AST 11 U/L (15-37) L 07/30/20 19:48 ALT 19 U/L (12-78) 07/30/20 19:48 Alkaline Phosphatase 74 U/L (45-117) 07/30/20 19:48 Triglycerides 253 mg/dL (<150) H 07/31/20 05:02 Cholesterol 153 mg/dL (<200) 07/31/20 05:02 HDL Cholesterol 35 mg/dL (40-60) L 07/31/20 05:02 Cholesterol/HDL Ratio 4.37 07/31/20 05:02 Home Medications: Gabapentin 300 mg PO TID 07/31/20 Hydrocodone 10/APAP 325 [[place] 10/325*] 1 tab PO Q6H PRN 07/31/20 Aspirin [Aspirin EC 81 MG] 81 mg PO DAILY #30 tablet. 08/01/20 Atorvastatin Calcium 40 mg PO BEDTIME #30 tablet 08/01/20 Clopidogrel Bisulfate [Plavix] 75 mg PO DAILY #30 tablet 08/01/20 New Medications: Aspirin [Aspirin EC 81 MG] 81 mg PO DAILY #30 tablet. Atorvastatin Calcium 40 mg PO BEDTIME #30 tablet Clopidogrel Bisulfate [Plavix] 75 mg PO DAILY #30 tablet Followup: NONE,NONE [Primary Care Provider] - Adolfo Monreal MD [ACTIVE - CAN ADMIT] - Time spent managing pt's care (in minutes): 32
--- NOTE | 2020-08-01 14:02 | EKG ---
Test Date: 2020-07-30 Test Time: 20:17:35 Aggregate Conveyor Operator: TRACEY MEASUREMENT RESULTS: Intervals: Rate: 69 NJ: 144 QRSD: 88 QT: 396 QTc: 424 [place]: P: 54 NJ: 144 QRS: 78 T: 67 INTERPRETIVE STATEMENTS: Normal sinus rhythm Normal ECG Compared to ECG 05/09/1997 09:00:00 Sinus bradycardia no longer present Sinus arrhythmia no longer present Electronically Signed On 08-01-20 13:58:50 LEAD COATER by Adolfo Monreal
== END 2020-08-01 13:16 | disposition left against medical advice (07) | DRG 300 ==
LOC: ER 17:23 → ERHOLD 07-31 00:36 → 2ND 07-31 10:11
PROVIDERS: ADMIT Hospitalist; ATTEND Hospitalist
DX: I73.9 Peripheral vascular disease, unspecified (principal); N30.00 Acute cystitis without hematuria; G89.29 Other chronic pain; E78.5 Hyperlipidemia, unspecified; F17.210 Nicotine dependence, cigarettes, uncomplicated; Z88.6 Allergy status to analgesic agent; Z88.1 Allergy status to other antibiotic agents; Z88.5 Allergy status to narcotic agent; Z88.0 Allergy status to penicillin; Z79.891 Long term (current) use of opiate analgesic; Z79.899 Other long term (current) drug therapy; Z90.49 Acquired absence of other specified parts of digestive tract; Z53.29 Procedure and treatment not carried out because of patient's decision for other reasons; Z79.82 Long term (current) use of aspirin; Z79.02 Long term (current) use of antithrombotics/antiplatelets; Z20.828 Contact with and (suspected) exposure to other viral communicable diseases
CPT/HCPCS: 36415; 71045; 80048; 80061; 80076; 80307; 81003; 82947; 83036; 83735; 83880; 84484; 85025; 85610; 85730; 87040; 87077; 87086; 87088; 87186; 93005; 93925; 96374; 96375; 99285; J1644; J3475; J7030; U0003

== ENCOUNTER 2020-12-02 12:05 | Inpatient (IN) | payer BC ==
[2020-12-02] MEDS ORDERED: NICOTINE 21 MG/PAT TD ONE (15:41)
[2020-12-02] MEDS ORDERED: Levofloxacin 750mg IV 750 MG/150 ML BAG IV ONE (15:41)
[2020-12-02 15:52] LABS: Absolute Lymphocytes (CBC) 2.5 K/uL (0.7-4.9); Basophils % 0.4 % (0-1.3); Hematocrit 36.9 % (36.0-45.0); MPV 8.9 fL (7.6-11.3); RBC Red Blood Cell Count 4.44 M/uL (3.86-4.86)
[2020-12-02] MEDS ORDERED: VANCOMYCIN/NS 1 gm 1 GM/250 ML BAG IVPB ONE (16:00)
--- NOTE | 2020-12-02 16:03 | RAD REPORT ---
EXAM DESCRIPTION: RAD - Foot Left 3 View - 12/02/2020 3:09 pm CLINICAL HISTORY: wound;Pain, left fourth toe COMPARISON: Foot Left 3 View dated 07/30/2020 FINDINGS: Bone destructive changes are present involving the middle and distal phalanges of the left fourth toe. Only small remnants of bone remain for the middle and distal phalanges. No destruction o f the fourth proximal phalanx seen. No air or foreign body in the soft tissues of the left fourth toe. Remaining bony structures show no acute findings. IMPRESSION: Osteomyelitis bone destructive changes involving the left fourth toe middle and distal p halanges
--- NOTE | 2020-12-02 16:06 | EDPHYS ---
Physician Documentation [facility] Name: Nohelia Llanes Age: 45 yrs Sex: Female : 1975 Arrival Date: 12/02/2020 Time: 12:08 Bed 16 Private MD: ED Physician Xander Ortega HPI: 12/02 14:58 This 45 yrs old Female presents to ER via Ambulatory with complaints of Wound jr8 Check - toe infection. 14:58 Patient reports developing wound on lateral aspect of 4th metatarsal in July. She jr8 is non-compliant diabetic. She presents with wound, toe, and foot swelling, redness,and warmth. . Historical: - Allergies: 12:30 Darvocet-N 100; ss 12:30 Demerol; ss 12:30 Keflex; ss 12:30 PENICILLINS; ss - PMHx: 12:30 Chronic pain; neuroapthy; Diabetes - IDDM; ss - PSHx: 12:30 Cholecystectomy; ; ss - Immunization history:: Adult Immunizations up to date. - Social history:: Smoking status: Patient reports the use of cigarette tobacco products, smokes one pack cigarettes per day. ROS: 15:03 Cardiovascular: Negative for chest pain, palpitations, and edema, Respiratory: Negative jr8 for shortness of breath, cough, wheezing, and pleuritic chest pain, Abdomen/GI: Negative for abdominal pain, nausea, vomiting, diarrhea, and constipation, Neuro: Negative for headache, weakness, numbness, tingling, and seizure. 15:03 MS/extremity: Positive for injury or acute deformity, paresthesias, warmth, of the right foot and left foot, L foot swelling with wound on 4th metatarsal . . Exam: 15:04 Constitutional: This is a well developed, well nourished patient who is awake, alert, jr8 and in no acute distress. Cardiovascular: Regular rate and rhythm with a normal S1 and S2. No gallops, murmurs, or rubs. Normal PMI, no JVD. No pulse deficits. Respiratory: Lungs have equal breath sounds bilaterally, clear to auscultation and percussion. No rales, rhonchi or wheezes noted. No increased work of breathing, no retractions or nasal flaring. Abdomen/GI: Soft, non-tender, with normal bowel sounds. No distension or tympany. No guarding or rebound. No evidence of tenderness throughout. Neuro: Awake and alert, GCS 15, oriented to person, place, time, and situation. Cranial nerves II-XII grossly intact. Motor strength 5/5 in all extremities. Sensory grossly intact. Cerebellar exam normal. Normal gait. 15:04 Musculoskeletal/extremity: Extremities: grossly normal except: noted in the right foot and left foot: Wound on lateral 4th metatarsal, ROM: full active range of motion, in all extremities, Circulation is intact in all extremities. Perfusion: the patient is warm, pale, Perfusion: the extremity is pale, the right foot and left foot numbness, decreased sensation. Vital Signs: 12:28 BP 127 / 70; Pulse 98; Resp 18; Temp 98.2(TE); Pulse Ox 99% on R/A; Weight 67.13 kg; ss Pain 9/10; 17:00 BP 116 / 82; Pulse 90; Resp 18; Pulse Ox 98% on R/A; zb 18:00 BP 119 / 78; Pulse 91; Resp 16; Pulse Ox 98% on R/A; zb MDM: 14:[address] 16:01 Data reviewed: vital signs, nurses notes, lab test result(s), radiologic studies, plain [facility] films. Data interpreted: Pulse oximetry: on room air is 99 %. Interpretation: normal. Counseling: I had a detailed discussion with the patient and/or guardian regarding: the historical points, exam findings, and any diagnostic results supporting the discharge/admit diagnosis, lab results, radiology results, the need for further work-up and treatment in the hospital. 12/02 14:51 Order name: CBC with Diff 12/02 14:51 Order name: Basic Metabolic Panel [facility] 12/02 14:51 Order name: LFT's [facility] 12/02 14:51 Order name: Protime (+inr) [facility] 12/02 14:51 Order name: Ptt, Activated; Complete Time: 16:27 [facility] 12/02 14:51 Order name: ESR; Complete Time: 17:52 [facility] 12/02 14:51 Order name: CRP; Complete Time: 16:13 [facility] 12/02 14:51 Order name: Blood Culture Adult (2) [facility] 12/02 14:52 Order name: CBC with Automated Diff; Complete Time: 17:52 EDMS 12/02 14:52 Order name: Basic Metabolic Panel; Complete Time: 16:13 EDMS 12/02 14:52 Order name: Liver (Hepatic) Function; Complete Time: 16:13 EDTN 12/02 14:52 Order name: Protime (+INR); Complete Time: 16:27 EDMS 12/02 19:12 Order name: COVID-19 : Document "Date of Symptom Onset" if Symptomatic. mw2 12/02 19:42 Order name: CORONAVIRUS EDTN 12/02 14:51 Order name: XRAY Foot LEFT 3 View; Complete Time: 16:05 jr8 12/02 20:29 Order name: SARS-COV-2 RT PCR; Complete Time: 21:33 EDMS 12/02 22:17 Order name: Glucose, Ancillary Testing EDMS Administered Medications: 15:40 Drug: Nicoderm CQ 21 mg/24 hr 1 patches Route: Transdermal; Site: affected area; zb 18:04 Follow up: Response: No adverse reaction zb 15:41 Drug: LevaQUIN (levofloxacin) 750 mg Volume: 150 ml; Route: IVPB; Infused Over: 90 zb mins; Site: left antecubital; 18:06 Follow up: Response: No adverse reaction; Marked relief of symptoms; IV Status: zb Completed infusion; IV Intake: 100ml 18:04 Drug: vancoMYCIN 1 grams Route: IVPB; Infused Over: 2 hrs; Site: left antecubital; zb Disposition: 12/03 06:59 Co-signature as Attending Physician, Xander Ortega MD. rn Disposition: 12/02/20 16:05 Hospitalization ordered by Naun Salvador for Inpatient Admission. Preliminary diagnosis are Osteomyelitis, Cellulitis of left lower limb. - Bed requested for Telemetry/MedSurg (Inpatient). - Status is Inpatient Admission. ea - Condition is Stable. - Problem is new. - Symptoms have improved. Signatures: Dispatcher [employer] EDTN Donna Mooney RN RN kl Nieto, Roman, MD MD rn Smirch, Shelby, RN RN ss Roszak, Josh, PA PA jr8 Poly Wooten RN RN ea Brown, Zipporah, RN RN zb Corrections: (The following items were deleted from the chart) 00:06 12/02 16:05 Hospitalization Ordered by Naun Salvador for Inpatient Admission. kl Preliminary diagnosis is Osteomyelitis; Cellulitis of left lower limb. Bed requested for Telemetry/MedSurg (Inpatient). Status is Inpatient Admission. Condition is Stable. Problem is new. Symptoms have improved. jr8 12/03 01:29 00:06 12/02/2020 16:05 Hospitalization Ordered by Naun Salvador for Inpatient ea Admission. Preliminary diagnosis is Osteomyelitis; Cellulitis of left lower limb. Bed requested for Telemetry/MedSurg (Inpatient). Status is Inpatient Admission. Condition is Stable. Problem is new. Symptoms have improved. kl
--- NOTE | 2020-12-02 16:06 | ER ---
Nurse's Notes [facility] Name: Nohelia Llanes Age: 45 yrs Sex: Female : 1975 Arrival Date: 12/02/2020 Time: 12:08 Bed 16 Private MD: Diagnosis: Osteomyelitis;Cellulitis of left lower limb Presentation: 12/02 12:28 Chief complaint: Patient states: "I have an infection in my toe and it needs to be ss amputated." Pt sent by Dr. Conway office and was told to come to the ER. Coronavirus screen: Client denies travel out of the [place] in the last 14 days. Ebola Screen: Patient denies exposure to infectious person. Patient denies travel to an Ebola-affected area in the 21 days before illness onset. Initial Sepsis Screen: Does the patient meet any 2 criteria? No. Patient's initial sepsis screen is negative. Does the patient have a suspected source of infection? No. Patient's initial sepsis screen is negative. Risk Assessment: Do you want to hurt yourself or someone else? Patient reports no desire to harm self or others. Onset of symptoms was July 2021. 12:28 Method Of Arrival: Ambulatory ss 12:28 Acuity: ALISIA 3 ss Historical: - Allergies: 12:30 Darvocet-N 100; ss 12:30 Demerol; ss 12:30 Keflex; ss 12:30 PENICILLINS; ss - PMHx: 12:30 Chronic pain; neuroapthy; Diabetes - IDDM; ss - PSHx: 12:30 Cholecystectomy; ; ss - Immunization history:: Adult Immunizations up to date. - Social history:: Smoking status: Patient reports the use of cigarette tobacco products, smokes one pack cigarettes per day. Screenin:25 Abuse screen: Denies threats or abuse. Denies injuries from another. Nutritional zb screening: No deficits noted. Tuberculosis screening: No symptoms or risk factors identified. Fall Risk None identified. Assessment: 14:30 General: Appears in no apparent distress. comfortable, unkempt, Behavior is agitated. zb Pain: Denies pain. Neuro: Level of Consciousness is awake, alert, obeys commands, Oriented to person, place, time, situation. Cardiovascular: Patient's skin is warm and dry. Edema is 2+ to left foot. Respiratory: Airway is patent Respiratory effort is even, unlabored, Respiratory pattern is regular, symmetrical. GI: No deficits noted. Derm: Wound noted left foot Other: 4th digit toe wound oozing, purulent drainage. and open, foot warm to touch. malodorous smell. patient denies pain states she has numbness to the foot. Musculoskeletal: Swelling present in left foot Reports numbness in left foot. 15:30 Reassessment: Patient appears in no apparent distress at this time. Patient and/or zb family updated on plan of care and expected duration. Pain level reassessed. Patient is alert, oriented x 3, equal unlabored respirations, skin warm/dry/pink. supplied warm blankets. 16:30 Reassessment: Patient appears in no apparent distress at this time. Patient and/or zb family updated on plan of care and expected duration. Pain level reassessed. Patient is alert, oriented x 3, equal unlabored respirations, skin warm/dry/pink. patient refused covid swab notified charge nurse and ecp /. Vital Signs: 12:28 BP 127 / 70; Pulse 98; Resp 18; Temp 98.2(TE); Pulse Ox 99% on R/A; Weight 67.13 kg; ss Pain 9/10; 17:00 BP 116 / 82; Pulse 90; Resp 18; Pulse Ox 98% on R/A; zb 18:00 BP 119 / 78; Pulse 91; Resp 16; Pulse Ox 98% on R/A; zb ED Course: 12:08 Patient arrived in ED. as 12:29 Triage completed. ss 12:30 Arm band placed on right wrist. ss 14:18 Camilo Yousif PA is PHCP. jr8 14:18 Xander Ortega MD is Attending Physician. jr8 14:28 Sarah Thompson RN is Primary Nurse. zb 15:09 XRAY Foot LEFT 3 View In Process Unspecified. EDMS 15:25 No provider procedures requiring assistance completed. Missed attempt(s): 22 gauge in zb right forearm. 15:26 Patient has correct armband on for positive identification. Bed in low position. Call zb light in reach. Side rails up X 1. Pulse ox on. NIBP on. 15:46 Inserted saline lock: 20 gauge in left antecubital area, using aseptic technique. Blood dh4 collected. 16:02 Naun Salvador is Hospitalizing Provider. jr8 12/03 01:28 Patient admitted, IV remains in place. ea Administered Medications: 12/02 15:40 Drug: Nicoderm CQ 21 mg/24 hr 1 patches Route: Transdermal; Site: affected area; zb 18:04 Follow up: Response: No adverse reaction zb 15:41 Drug: LevaQUIN (levofloxacin) 750 mg Volume: 150 ml; Route: IVPB; Infused Over: 90 zb mins; Site: left antecubital; 18:06 Follow up: Response: No adverse reaction; Marked relief of symptoms; IV Status: zb Completed infusion; IV Intake: 100ml 18:04 Drug: vancoMYCIN 1 grams Route: IVPB; Infused Over: 2 hrs; Site: left antecubital; zb Intake: 18:06 IV: 100ml; Total: 100ml. zb Outcome: 16:05 Decision to Hospitalize by Provider. jr8 12/03 01:28 Admitted to Med/surg accompanied by nurse, with chart, Report called to Receiving ea nurse on fourth Condition: stable Instructed on the need for admit, Demonstrated understanding of instructions. 01:29 Patient left the ED. ea Signatures: Dispatcher [employer] EDMS Manisha Miner Shelby, RN Camilo Carranza PA PA jr8 Poly Wooten RN Gerardo Whitaker ea 4 Sarah Thompson RN RN zb
[2020-12-02 16:09] LABS: ALT/SGPT 28 U/L (12-78); AST/SGOT 15 U/L (15-37); Albumin 3.1 g/dL (3.4-5.0); Alkaline Phosphatase 78 U/L (45-117); BUN Blood Urea Nitrogen 9 mg/dL (7-18); Bicarbonate 31 mmol/L (21-32); Bilirubin Direct 0.1 mg/dL (0-0.2); Bilirubin Total 0.4 mg/dL (0.2-1.0); Glucose Level 148 mg/dL (74-106); Potassium 3.5 mmol/L (3.5-5.1); Protein, Total 7.4 g/dL (6.4-8.2); Protime INR 1.09; Sodium Level 138 mmol/L (136-145)
--- NOTE | 2020-12-02 17:20 | P.HP ---
Certification for Inpatient Patient admitted to: Inpatient With expected LOS: >2 Midnights Practitioner: I am a practitioner with admitting privileges, knowledge of patient current condition, hospital course, and medical plan of care. Services: Services provided to patient in accordance with Admission requirements found in Title 42 Section 412.3 of the Code of Federal Regulations Patient History Date of Service: 12/02/20 Reason for admission: Wound check History of Present Illness: 45 Yo woman with a history of diabetes mellitus, noncompliant with therapy, history of chronic wound of the left lower extremity presented to the emergency department due to worsening left 1st toe and 4th toe chronic wounds. Patient stated she her PCP who directed her to the emergency department because her wound was getting worse. X-ray of the foot shows destructive changes involving the phalances of the left 4th toe. Patient has no leukocytosis, not septic. There is a concern for osteomyelitis. She is admitted for further management. Allergies meperidine HCl [From Demerol] Allergy (Severe, Verified 07/31/20 14:20) Itching/Hives/Rash propoxyphene [From Darvocet-N 100] Allergy (Severe, Verified 07/31/20 14:20) Itching/Hives/Rash acetaminophen [From Darvocet-N 100] Allergy (Intermediate, Verified 07/31/20 14:20) Itching/Hives/Rash cephalexin monohydrate [From Keflex] Allergy (Intermediate, Verified 07/31/20 14:20) Itching/Hives/Rash Penicillins Allergy (Intermediate, Uncoded 07/31/20 14:20) Itching Home Medications: Gabapentin 300 mg PO TID 07/31/20 Hydrocodone 10/APAP 325 [[place] 10/325*] 1 tab PO Q6H PRN 07/31/20 Aspirin [Aspirin EC 81 MG] 81 mg PO DAILY #30 tablet. 08/01/20 Atorvastatin Calcium 40 mg PO BEDTIME #30 tablet 08/01/20 Clopidogrel Bisulfate [Plavix] 75 mg PO DAILY #30 tablet 08/01/20 - Past Medical/Surgical History Diabetic: No -: Neuropathy -: Mitral valve prolapse -: Cholecystectomy -: Tubal ligation -: - Social History Alcohol use: No CD- Drugs: No Caffeine use: Yes Review of Systems Other: Except as documented, all other systems reviewed and negative. Physical Examination - Physical Exam General: Alert, In no apparent distress, Oriented x3 HEENT: Mucous membr. moist/pink, Sclerae nonicteric Neck: Supple, JVD not distended Respiratory: Clear to auscultation bilaterally, Normal air movement Cardiovascular: No edema, Regular rate/rhythm, Normal S1 S2 Gastrointestinal: Normal bowel sounds, Soft and benign, Non-distended, No tenderness Musculoskeletal: Other Integumentary: No rashes, Erythema (Left 4th toe.) Neurological: Normal strength at 5/5 x4 extr, Cranial nerves 3-12 intact - Studies Laboratory Data (last 24 hrs) 12/02/20 15:40: PT 12.5, INR 1.09, APTT 28.2 12/02/20 15:40: Sodium 138, Potassium 3.5, BUN 9, Creatinine 0.41 L, Glucose 148 H, Total Bilirubin 0.4, AST 15, ALT 28, Alkaline Phosphatase 78 12/02/20 15:40: WBC 9.30, Hgb 12.3, Hct 36.9, Plt Count 359 Assessment and Plan - Problems (Diagnosis) (1) Osteomyelitis of foot, left, acute Current Visit: Yes Status: Acute (2) Diabetes mellitus type 2 in nonobese Current Visit: Yes Status: Acute (3) Peripheral neuropathy Current Visit: Yes Status: Acute (4) Peripheral arterial disease Current Visit: No Status: Acute - Plan Admit to the medical floor. Start IV vancomycin and cefepime. Consult infectious disease Consult general surgery to evaluate for amputation. Glucose management with insulin sliding scale. Check hemoglobin A1c. Continue home dose gabapentin for peripheral neuropathy. - Advance Directives Does patient have a Living Will: No Does patient have a Durable POA for Healthcare: No
[2020-12-02] MEDS ORDERED: ACETAMINOPHEN 500 MG TAB PO PRN (19:58)
[2020-12-02] MEDS: NA CHLORIDE 0.9% 1,000 ML IV SCH (19:58)
[2020-12-02] MEDS: CEFEPIME/SWI 1gm 10 ML IV SCH (21:00)
[2020-12-02] MEDS ORDERED: CEFEPIME 1 GM/VIAL IV SCH (21:00)
[2020-12-02] MEDS ORDERED: ATORVASTATIN 40 MG TAB PO SCH (21:00)
[2020-12-02] MEDS: INSULIN -REGULAR HUMAN 50 UNIT/0.5 ML ML SQ SCH (21:00)
[2020-12-02] MEDS ORDERED: NA CHLORIDE 0.9% 1,000 ML ONE (22:27)
[2020-12-02] MEDS ORDERED: CEFEPIME/SWI 1gm 10 ML ONE (22:27)
[2020-12-02] MEDS: MORPHINE 2 MG/ML SYR IV PRN (23:52)
[2020-12-02] MEDS: ONDANSETRON 4 MG/2 ML VIAL IV PRN (23:52)
[2020-12-03] MEDS ORDERED: MORPHINE 2 MG/ML SYR ONE (00:01)
[2020-12-03] MEDS ORDERED: ONDANSETRON 4 MG/2 ML VIAL ONE (00:04)
[2020-12-03 00:59] VITALS: BMI 24.6
[2020-12-03] MEDS: HYDROCODONE/APAP 10/325 TAB PO PRN ×3 (02:25→16:59)
[2020-12-03] MEDS: MORPHINE 2 MG/ML SYR IV PRN ×3 (03:32→13:39)
[2020-12-03] MEDS: ONDANSETRON 4 MG/2 ML VIAL IV PRN ×3 (03:37→13:39)
[2020-12-03] MEDS: VANCOMYCIN 1.25 GM in NA CHLORIDE 0.9% 250 ML IVPB SCH ×2 (04:00→17:01)
[2020-12-03 04:18] LABS: Absolute Lymphocytes (CBC) 2.5 K/uL (0.7-4.9); Basophils % 0.4 % (0-1.3); Hematocrit 35.7 % (36.0-45.0); Lymphocytes % 31.2 % (15.3-44.8); RBC Red Blood Cell Count 4.28 M/uL (3.86-4.86)
[2020-12-03 04:35] LABS: BUN Blood Urea Nitrogen 8 mg/dL (7-18); Bicarbonate 31 mmol/L (21-32); Glucose Level 114 mg/dL (74-106); Phosphorus 3.5 mg/dL (2.5-4.9); Potassium 3.4 mmol/L (3.5-5.1); Sodium Level 140 mmol/L (136-145)
[2020-12-03 04:46] LABS: Magnesium 1.4 mg/dL (1.8-2.4)
[2020-12-03] MEDS ORDERED: Magnesium Sulfate 2gm IVPB 2 G/50 ML BAG IV ONE (05:05)
[2020-12-03] MEDS ORDERED: POTASSIUM CL SA 10 MEQ TAB PO ONE (05:06)
[2020-12-03] MEDS: INSULIN -REGULAR HUMAN 50 UNIT/0.5 ML ML SQ SCH ×3 (07:30→16:30)
[2020-12-03] MEDS: ENOXAPARIN 40 MG/0.4 ML SQ SCH (08:49)
[2020-12-03] MEDS ORDERED: ASPIRIN EC 81 MG TAB PO SCH (09:00)
[2020-12-03] MEDS ORDERED: CLOPIDOGREL 75 MG TABLET PO SCH (09:00)
[2020-12-03] MEDS: NA CHLORIDE 0.9% 1,000 ML IV SCH (09:18)
[2020-12-03] MEDS ORDERED: GABAPENTIN 300 MG CAP PO SCH ×2 (09:38→14:00)
[2020-12-03 10:13] LABS: Urine Appearance CLEAR (Clear); Urine Bilirubin NEGATIVE (Negataive); Urine Blood NEGATIVE (Negative); Urine Color YELLOW (Yellow); Urine Glucose NEGATIVE (Negative); Urine Protein NEGATIVE (Negative); Urine Specific Gravity 1.015 (1.005-1.030)
[2020-12-03 10:21] LABS: Urine Microscopic Reflex NO UMIC
[2020-12-03] MEDS: CEFEPIME/SWI 1gm 10 ML IV SCH ×2 (10:52→21:54)
--- NOTE | 2020-12-03 13:11 | P.PN ---
Subjective Date of Service: 12/03/20 Chief Complaint: Wound check Patient has no new complain. Her blood sugar readings are within normal range. Physical Examination - Vital Signs Temperature: 97.5 F Blood Pressure: 106/60 Pulse: 89 Respirations: 15 Pulse Ox (%): 96 - Physical Exam General: Alert, In no apparent distress, Oriented x3 Neck: Supple Respiratory: Clear to auscultation bilaterally, Normal air movement Cardiovascular: No edema, Regular rate/rhythm, Normal S1 S2 Gastrointestinal: Soft and benign, Non-distended, No tenderness Musculoskeletal: No contractures Integumentary: No rashes Neurological: Normal strength at 5/5 x4 extr - Studies Laboratory Data (last 24 hrs) 12/02/20 15:40: PT 12.5, INR 1.09, APTT 28.2 12/02/20 15:40: Sodium 138, Potassium 3.5, BUN 9, Creatinine 0.41 L, Glucose 148 H, Total Bilirubin 0.4, AST 15, ALT 28, Alkaline Phosphatase 78 12/02/20 15:40: WBC 9.30, Hgb 12.3, Hct 36.9, Plt Count 359 Assessment And Plan - Current Problems (Diagnosis) (1) Osteomyelitis of foot, left, acute Current Visit: Yes Status: Acute (2) Diabetes mellitus type 2 in nonobese Current Visit: Yes Status: Acute (3) Peripheral neuropathy Current Visit: Yes Status: Acute (4) Peripheral arterial disease Current Visit: No Status: Acute - Plan Continue IV vancomycin and cefepime. Infectious disease consulted to evaluate. Dr. Miner also consulted to evaluate. Glucose management with insulin sliding scale. Continue home dose gabapentin for peripheral neuropathy.
[2020-12-03] MEDS: GABAPENTIN 300 MG CAP PO SCH ×2 (13:39→21:54)
--- NOTE | 2020-12-03 14:09 | CON ---
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 History Of Present Illness: This is the case of a 45-year-old patient with multiple medical problems , comes to us with the open wounds over the left fourth toe region. She has been seen by the primary doctor. They were making some progress, but recently she has not been able to go to him and she cla imed that it is her fault that she did not pay much attention to this and now when they came to the [facility] doctor, found to have extensive deterioration of the area with ulcerations and broken bone fee ling when she had an x-ray done and shows destructive osteomyelitis. She was admitted to the [facility] for IV antibiotics and for amputation, and a surgical consult was obtained. She does not remember any other trauma. Review of Systems: Denies any dysuria, hematuria, hematochezia, melena. Denies any recent traveling out of the country. [place] points otherwise unremarkable. Medications: Include hydrocodone, aspirin, Plavix, gabapentin. Past Medical History: Includes neuropathy, mitral valve prolapse. Past Surgical History: Includes cholecystectomy, tubal ligation, C-sections. Allergies: INCLUDE DEMEROL, DARVOCET, KEFLEX, PENICILLIN. Physical Examination: General: The patient is awake, alert. HEENT: Pupils anicteric. Neck: Supple. Chest: Clear. Abdomen: Soft and depressible. Extremity: Good capillary refill. Peripheral pulses still present, although diminished. The patien t advised the importance of peripheral vascular disease workup. On the fourth toe, the patient has m ultiple ulcerations medial and lateral of the fourth toe with ischemic changes in the area, cyanosis of the toe consistent with early gangrene. The patient has neuropathy over the area. Laboratory Data: WBC count of 8, hemoglobin of 12. INR is 1.09. Potassium 3.4. 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 Assessment: This is a 45-year-old patient with osteomyelitis, ischemic changes over the left fourth toe and destructive osteomyelitis. She fully explained different options. She wants an amputation o f the toe with benefits, alternatives, and risks fully explained to her including, but not limited to infection, bleeding, damage to adjacent structures, anesthesia complication, nonhealing wound, [place] an d even . She also understands this may not relieve any symptoms. She might need more than one surgical intervention. She understands the importance of avoiding trauma to that region and also the importance of following up [facility] since we are going to have to do woun d care in this patient and eventually send her for a peripheral vascular disease workup if she has no t done that yet. The patient just ate, so we are going to keep her n.p.o. after midnight and we will proceed accordingly with the amputation of the fourth toe. TAMI/KELLEY Voice ID: [id number] Report ID: [id number]
[2020-12-03 17:38] LABS: Magnesium 1.9 mg/dL (1.8-2.4); Potassium 4.2 mmol/L (3.5-5.1)
[2020-12-03] MEDS: NICOTINE 21 MG/PAT TD SCH (17:39)
--- NOTE | 2020-12-03 21:56 | CON ---
Date of Consultation: 12/03/2020 Reason For Consultation: Preop evaluation for toe amputation. History Of Present Illness: A 45-year-old female with history of diabetes, who was admitted with a f oot wound and planned for a fourth toe amputation on the left. I was asked to evaluate her preoperat ively. The patient denies having any history of cardiac disease, reported normal stress test back in August and normal arterial Doppler as well. Denies having any chest pain. No shortness of breath. She is active and can climb stairs to the second floor without shortness of breath or chest pain. Past Medical History: As outlined above in HPI. Medications: Refer to reconciliation sheet for detailed list. Allergies: LIST OF ALLERGIES WAS REVIEWED. Social History: Does not smoke or drink. Does not use any drugs. Family History: No premature coronary artery disease or cancer. Review of Systems: All systems reviewed and they were negative except for what is mentioned in the HPI. Physical Examination: Vital Signs: Temperature is 97.5, pulse is 89, breathing at 15, blood pressure 106/60, saturating 96 % on room air. General: Pleasant young female, in no distress. Head and Neck: Pupils are equal, reactive to light. Intact eye movements. No JVD. No cervical lym phadenopathy. Neck: Supple. Thyroid is not enlarged. Lungs: Clear to auscultation bilaterally. No rhonchi, rales, or crackles. No accessory muscle use. Heart: Regular rate and rhythm. No extra sounds. Abdomen: Soft, nontender. Bowel sounds positive. No organomegaly. No masses or hernia. No rigidi ty or rebound. Extremities: No clubbing, cyanosis. Intact pulses. Skin: No rash noted. Neurologic: Alert, awake. No acute focal deficits appreciated. Investigations: Creatinines 0.37. Assessment And Recommendation: Cardiac preoperative evaluation. The patient had reported a normal s tress test recently and no symptoms. Able to climb more than 2 flights of stairs without symptoms th at will put her at low cardiac risk for the toe amputation. Recommend to proceed without further wor kup. Thank you for the consult. /KELLEY Voice ID: [id number] Report ID: [id number]
[2020-12-04] MEDS: INSULIN -REGULAR HUMAN 50 UNIT/0.5 ML ML SQ SCH ×3 (00:08→11:30)
[2020-12-04] MEDS: ONDANSETRON 4 MG/2 ML VIAL IV PRN ×2 (03:45→11:39)
[2020-12-04] MEDS: MORPHINE 2 MG/ML SYR IV PRN ×2 (03:45→11:39)
[2020-12-04] MEDS: NA CHLORIDE 0.9% 1,000 ML IV SCH ×2 (03:45→09:40)
[2020-12-04] MEDS: VANCOMYCIN 1.25 GM in NA CHLORIDE 0.9% 250 ML IVPB SCH (06:22)
[2020-12-04] MEDS: NICOTINE 21 MG/PAT TD SCH (06:22)
[2020-12-04] MEDS ORDERED: propofoL 200 MG/20 ML VIAL IV ONE (07:35)
[2020-12-04] MEDS ORDERED: MIDAZOLAM HCL 2 MG/2 ML INJ ONE (07:35)
[2020-12-04] MEDS ORDERED: FENTANYL CITR 100 MCG/2 ML ONE (07:35)
[2020-12-04] MEDS ORDERED: KETOROLAC 30 MG/ML INJ ONE (07:38)
[2020-12-04] MEDS ORDERED: ONDANSETRON 4 MG/2 ML VIAL ONE (07:38)
[2020-12-04] MEDS ORDERED: LIDOCAINE 2% MPF 5 ML VIAL ONE (07:38)
--- NOTE | 2020-12-04 08:00 | P.BOP ---
Preoperative diagnosis: gangrenous left 4th toe, destructive osteomyelitis Postoperative diagnosis: same Primary procedure: LEft 4th toe amputation Estimated blood loss: <5cc Specimen: toe Findings: as above Anesthesia: General Complications: None Drain(s): Other (wet to dry NS packing) Transferred to: Recovery Room Condition: Good
[2020-12-04] MEDS: ENOXAPARIN 40 MG/0.4 ML SQ SCH (09:00)
[2020-12-04] MEDS: GABAPENTIN 300 MG CAP PO SCH ×2 (09:38→13:23)
[2020-12-04] MEDS: CEFEPIME/SWI 1gm 10 ML IV SCH (09:38)
--- NOTE | 2020-12-04 09:45 | OP ---
Date of Procedure: 12/04/2020 Surgeon: Case Miner MD Preoperative Diagnosis: Gangrenous left fourth toe with destructive osteomyelitis. Postoperative Diagnosis: Gangrenous left fourth toe with destructive osteomyelitis. Procedure: Left fourth toe amputation. Estimated Blood Loss: Less than 5 cc. Anesthesia: General plus local. Findings: Destructive osteomyelitis. Pieces of bone were taken out of the site of the toe. Indications: This is the case of a 45-year-old patient with destructive osteomyelitis with multiple fracture in the toe, bone exposed, recommended to have amputation of left fourth toe with benefits, a lternatives, and risks including, but not limited to infection, bleeding, damage to adjacent structur es, anesthesia complication, nonhealing wound, PR, and even . She also understands this may not relieve any symptoms. She might need more than one surgical intervention. She understands importan ce of wound care after surgery, also the importance of glucose control and keep the area clean. She signed a consent. Description Of Procedure: The patient was brought to the operating room and placed in supine positio n. Anesthesia was done without complication. A time-out was called. Left foot was prepped and drap ed in a sterile fashion. We proceeded to make an incision on the base of the toe. Incision was aiken ied down to subcutaneous tissue. Cauterization was done of the bleeding. We removed the toe at the metatarsophalangeal joint and then excoriated the proximal metatarsal region. The toe was removed. This consists of a fragment of the bone distally from that destructive osteomyelitis. The area was i rrigated profusely and then the area was packed with normal saline, wet-to-dry dressing. The patient tolerated the procedure well. Local anesthesia was applied. The patient will be sent to the floor. TAMI/DOTTIEL Voice ID: [id number] Report ID: [id number]
[2020-12-04 10:44] VITALS: O2SAT 97
[2020-12-04 12:42] VITALS: BP 138/71; TEMP 98
--- NOTE | 2020-12-04 12:57 | P.DS ---
Admission Date: 12/02/20 Discharge Date: 12/04/20 Disposition: ROUTINE DISCHARGE Discharge Condition: FAIR Reason for Admission: Wound check - Problems (1) Osteomyelitis of foot, left, acute Current Visit: Yes Status: Acute (2) Diabetes mellitus type 2 in nonobese Current Visit: Yes Status: Acute (3) Peripheral neuropathy Current Visit: Yes Status: Acute (4) Peripheral arterial disease Current Visit: No Status: Acute Brief History of Present Illness: 45 Yo woman with a history of diabetes mellitus, noncompliant with therapy, history of chronic wound of the left lower extremity presented to the emergency department due to worsening left 1st toe and 4th toe chronic wounds. Patient stated she her PCP who directed her to the emergency department because her wound was getting worse. X-ray of the foot shows destructive changes involving the phalances of the left 4th toe. Patient has no leukocytosis, not septic. There was concern for osteomyelitis. Patient admitted for further management. Hospital Course: Patient started on IV vancomycin and Cefepime. General surgery consulted, patient seen by Dr. Miner who performed left 4th toe amputation. Surgery was uneventful. Patient is currently without symptoms. Blood sugar readings are within normal range. Hemoglobin A1c 7.9. Patient is discharged with oral Levaquin and doxycycline to continue treatment. She will follow with Dr. Miner next week Monday. She can bear weight on her heel. Her metformin dose has been increased to 1000 mg b.i.d. to improve blood sugar control. Vital Signs/Physical Exam: Temp Pulse Resp BP Pulse Ox 98 F 79 18 138/71 96 12/04/20 12:00 12/04/20 12:00 12/04/20 12:09 12/04/20 12:00 12/04/20 12:09 General: Alert, In no apparent distress, Oriented x3 Respiratory: Clear to auscultation bilaterally, Normal air movement Cardiovascular: No edema, Regular rate/rhythm, Normal S1 S2 Gastrointestinal: Soft and benign, Non-distended, No tenderness Integumentary: No rashes Neurological: Normal strength at 5/5 x4 extr Laboratory Data at Discharge: WBC 8.00 K/uL (4.3-10.9) 12/03/20 03:32 Hgb 12.0 g/dL (12.0-15.0) 12/03/20 03:32 Hct 35.7 % (36.0-45.0) L 12/03/20 03:32 Plt Count 312 K/uL (152-406) 12/03/20 03:32 PT 12.5 SECONDS (9.5-12.5) 12/02/20 15:40 INR 1.09 12/02/20 15:40 APTT 28.2 SECONDS (24.3-36.9) 12/02/20 15:40 Sodium 140 mmol/L (136-145) 12/03/20 03:32 Potassium 4.2 mmol/L (3.5-5.1) 12/03/20 16:55 BUN 8 mg/dL (7-18) 12/03/20 03:32 Creatinine 0.37 mg/dL (0.55-1.3) L 12/03/20 03:32 Glucose 114 mg/dL (74-106) H 12/03/20 03:32 Phosphorus 3.5 mg/dL (2.5-4.9) 12/03/20 03:32 Magnesium 1.9 mg/dL (1.8-2.4) D 12/03/20 16:55 Total Bilirubin 0.4 mg/dL (0.2-1.0) 12/02/20 15:40 AST 15 U/L (15-37) 12/02/20 15:40 ALT 28 U/L (12-78) 12/02/20 15:40 Alkaline Phosphatase 78 U/L (45-117) 12/02/20 15:40 Home Medications: Aspirin [Aspirin EC 81 MG] 81 mg PO DAILY #30 tablet. 08/01/20 Atorvastatin Calcium 40 mg PO BEDTIME #30 tablet 08/01/20 Clopidogrel Bisulfate [Plavix*] 75 mg PO DAILY #30 tablet 08/01/20 Doxycycline Hyclate 100 mg PO BID #20 capsule 12/04/20 Gabapentin 1,200 mg PO TID #180 tablet 12/04/20 Hydrocodone 10/APAP 325 [[place] 10/325*] 1 tab PO Q6H PRN #15 tab 12/04/20 Lactobacillus Acidophilus [Acidophilus] 1 each PO TID #90 capsule 12/04/20 Metformin HCl 1,000 mg PO BID #60 tablet 12/04/20 levoFLOXacin [Levaquin] 750 mg PO DAILY #10 tab 12/04/20 New Medications: Lactobacillus Acidophilus [Acidophilus] 1 each PO TID #90 capsule Doxycycline Hyclate 100 mg PO BID #20 capsule Gabapentin 1,200 mg PO TID #180 tablet levoFLOXacin [Levaquin] 750 mg PO DAILY #10 tab Metformin HCl 1,000 mg PO BID #60 tablet Hydrocodone 10/APAP 325 [[place] 10/325*] 1 tab PO Q6H PRN #15 tab PRN Reason: Pain Diet: ADA Activity: Non-weight bearing (left foot) Followup: NONE,NONE [Primary Care Provider] - Case Miner MD [ACTIVE - CAN ADMIT] - ([facility] Time spent managing pt's care (in minutes): 40
[2020-12-04] MEDS ORDERED: VANCOMYCIN 1.5 GM in NA CHLORIDE 0.9% 500 ML IVPB SCH (16:00)
[2020-12-04] MEDS ORDERED: METFORMIN HCL 500 MG TAB PO SCH (17:00)
--- NOTE | 2020-12-05 13:08 | PN ---
Date of Progress Note: 12/04/2020 Subjective: Ms. Llanes was seen by Dr. Littlejohn for cardiac clearance for a left fourth toe amputation . On 12/04/2020, she underwent the surgery successfully by Dr. Miner. There were no hemodynamic compromise. She remained in sinus rhythm. No reports of chest pain or congestive heart failure. Sh e is to continue her present regimen. No needs for any cardiac workup. I am comfortable with her go ing home whenever it is okay with Dr. Miner and Dr. Salvador. We will see her in the office as an o utpatient. LINDA/DOTTIEL Voice ID: [id number] Report ID: [id number]
== END 2020-12-04 14:56 | disposition home or self-care (01) | DRG 617 ==
LOC: ER 12:05 → ERHOLD 17:09 → 4TH 12-03 01:20
PROVIDERS: ADMIT Internal Medicine; ATTEND Internal Medicine
PROC: 0Y6W0Z0 Detachment at Left 4th Toe, Complete, Open Approach (ICD-10-PCS; principal; 2020-12-04 07:30)
DX: E11.69 Type 2 diabetes mellitus with other specified complication (principal); E11.52 Type 2 diabetes mellitus with diabetic peripheral angiopathy with gangrene; I96 Gangrene, not elsewhere classified; M86.172 Other acute osteomyelitis, left ankle and foot; E11.42 Type 2 diabetes mellitus with diabetic polyneuropathy; F17.210 Nicotine dependence, cigarettes, uncomplicated; Z88.0 Allergy status to penicillin; Z88.5 Allergy status to narcotic agent; Z88.8 Allergy status to other drugs, medicaments and biological substances; Z88.1 Allergy status to other antibiotic agents; Z91.19 Patient's noncompliance with other medical treatment and regimen; Z79.82 Long term (current) use of aspirin; Z79.02 Long term (current) use of antithrombotics/antiplatelets; Z79.84 Long term (current) use of oral hypoglycemic drugs; Z79.899 Other long term (current) drug therapy; Z90.49 Acquired absence of other specified parts of digestive tract; Z98.51 Tubal ligation status; Z20.822 Contact with and (suspected) exposure to COVID-19
CPT/HCPCS: 36415; 80048; 80076; 80202; 81003; 82947; 83036; 83735; 84100; 84132; 85025; 85610; 85652; 85730; 86140; 87040; 88305; 88311; 94760; 96365; 96366; 96375; 99285; J0692; J1650; J2250; J2270; J2405; J2704; J3010; J3370; J3475; J7030; J7040; J7050; U0003

== ENCOUNTER 2021-12-01 18:18 | Emergency (ER) | payer BC, SELFPAY ==
--- OUTSIDE RECORDS SUMMARY | 2021-12-01 18:21 | XMS REPORT | Continuity of Care Document ---
:1975 Author Organization [facility] t Address [address] [place] [address] Dr. Marshall [address] [place] [address] Care Team Providers Name Role Phone Unavailable Unavailable Unavailable Problems This patient has no known problems. Allergies, Adverse Reactions, Alerts This patient has no known allergies or adverse reactions. Medications This patient has no known medications. Procedures This patient has no known procedures. Results This patient has no known results.
--- NOTE | 2021-12-01 19:24 | EDPHYS ---
Physician Documentation [facility] Name: Nohelia Llanes Age: 46 yrs Sex: Female : 1975 Arrival Date: 12/01/2021 Time: 18:20 Bed Waiting Private MD: Roselyn Machado ED Physician Xander Ortega HPI: 12/01 19:20 This 46 yrs old Female presents to ER via Ambulatory with complaints of Redness of Eye, rn Eye Swelling. 19:20 The patient is experiencing matting or discharge, pain, redness, tearing, The patient rn sustained None. to both eyes, caused by an unknown mechanism. Onset: The symptoms/episode began/occurred 1 week(s) ago. Aggravated by nothing. Alleviated by nothing. Associated signs and symptoms: Pertinent positives: None. Pertinent negatives: fever, headache. Patient does not utilize any form of vision correction. Severity of symptoms: At their worst the symptoms were moderate in the emergency department the symptoms are unchanged. The patient has not experienced similar symptoms in the past. The patient has not recently seen a physician. Pt reports both eyes hurting and draining for 1 week, wakes up with eyes matted shut. No fever. No trauma or splash. Began after mowing yard. Does not recall anything getting into eyes. . Historical: - Allergies: 19:18 Darvocet-N 100; ab2 19:18 Demerol; ab2 19:18 Keflex; ab2 19:18 PENICILLINS; ab2 - PMHx: 19:18 Chronic pain; gestational diabetes; Diabetes - IDDM; neuroapthy; ab2 - Immunization history:: Adult Immunizations up to date. - Social history:: Smoking status: Patient reports the use of cigarette tobacco products, smokes one pack cigarettes per day. - Family history:: not pertinent. - Hospitalizations: : No recent hospitalization is reported. ROS: 19:20 Constitutional: Negative for fever, chills, and weight loss, Eyes: + bilateral eye rn drainage and redness ENT: Negative for injury, pain, and discharge, Neck: Negative for injury, pain, and swelling, Cardiovascular: Negative for chest pain, palpitations, and edema, Neuro: Negative for headache, weakness, numbness, tingling, and seizure. Exam: 19:20 Visual Acuity: Visual acuity is within normal limits. rn 19:20 Constitutional: This is a well developed, well nourished patient who is awake, alert, and in no acute distress. Head/Face: Normocephalic, atraumatic. Eyes: + bilateral conjunctival injection with clear drainage, no swelling around eyes, no pain with ocular ROM. Cornea intact and normal. No foriegn bodies identified. NO hyphema or hypopyon. Vital Signs: 19:16 BP 142 / 82; Pulse 99; Resp 18; Temp 97.9; Pulse Ox 99% on R/A; Weight 69.85 kg; Height ab2 5 ft. 4 in. (162.56 cm); Pain 8/10; 19:16 Body Mass Index 26.43 (69.85 kg, 162.56 cm) ab2 MDM: 19:20 Patient medically screened. rn 19:20 Differential diagnosis: Acute iritis of Data reviewed: vital signs, nurses notes, and rn as a result, I will discharge patient. Counseling: I had a detailed discussion with the patient and/or guardian regarding: the historical points, exam findings, and any diagnostic results supporting the discharge/admit diagnosis, the need for outpatient follow up, to return to the emergency department if symptoms worsen or persist or if there are any questions or concerns that arise at home. Special discussion: I discussed with the patient/guardian in detail that at this point there is no indication for admission to the hospital. It is understood, however, that if the symptoms persist or worsen the patient needs to return immediately for re-evaluation. Based on the history and exam findings, there is no indication for further emergent testing or inpatient evaluation. I discussed with the patient/guardian the need to see the opthamologist for further evaluation of the symptoms. Administered Medications: No medications were administered Disposition Summary: 12/01/21 19:23 Discharge Ordered Location: Home rn Problem: new rn Symptoms: are unchanged rn Condition: Stable rn Diagnosis - Unspecified acute conjunctivitis, bilateral rn Followup: rn - With: Yo Freeman MD - When: As needed - Reason: Recheck today's complaints, Re-evaluation by your physician Discharge Instructions: - Discharge Summary Sheet rn - Bacterial Conjunctivitis, Adult rn Forms: - Medication Reconciliation Form rn - Thank You Letter rn - Antibiotic rn home health - Prescription Opioid Use rn Prescriptions: - Vigamox 0.5 % Ophthalmic Drops - instill 1 drop by OPHTHALMIC route every 8 hours for 7 days; 5 milliliter; rn Refills: 0, Product Selection Permitted Signatures: Xander Ortega MD MD rn Bleininger, Alexis ab2
--- NOTE | 2021-12-01 19:24 | ER ---
Nurse's Notes [facility] Name: Nohelia Llanes Age: 46 yrs Sex: Female : 1975 Arrival Date: 12/01/2021 Time: 18:20 Bed Waiting Private MD: Roselyn Machado Diagnosis: Unspecified acute conjunctivitis, bilateral Presentation: 12/01 19:16 Chief complaint: Patient states: "A week ago I was mowing the grass and my eyes were ab2 all itchy and burning. My eyes are still red and swollen and have not gotten better." Pt c/o bilateral eye pain, itching and swelling. Pt denies any trauma to the eyes. Coronavirus screen: Vaccine status: Patient reports being unvaccinated. Client denies travel out of the [place] in the last 14 days. Ebola Screen: Patient negative for fever greater than or equal to 101.5 degrees Fahrenheit, and additional compatible Ebola Virus Disease symptoms Patient denies exposure to infectious person. Patient denies travel to an Ebola-affected area in the 21 days before illness onset. No symptoms or risks identified at this time. Initial Sepsis Screen: Does the patient meet any 2 criteria? Does the patient have a suspected source of infection? Yes: Skin breakdown/wound. Risk Assessment: Do you want to hurt yourself or someone else? Patient reports no desire to harm self or others. Onset of symptoms is unknown. 19:16 Method Of Arrival: Ambulatory ab2 19:16 Acuity: ALISIA 4 ab2 Triage Assessment: 19:18 General: Appears in no apparent distress. uncomfortable, Behavior is calm, cooperative, ab2 appropriate for age. Pain: Complains of pain in right eye and left eye Pain currently is 8 out of 10 on a pain scale. EENT: Reports pain in right eye and left eye. Historical: - Allergies: 19:18 Darvocet-N 100; ab2 19:18 Demerol; ab2 19:18 Keflex; ab2 19:18 PENICILLINS; ab2 - PMHx: 19:18 Chronic pain; gestational diabetes; Diabetes - IDDM; neuroapthy; ab2 - Immunization history:: Adult Immunizations up to date. - Social history:: Smoking status: Patient reports the use of cigarette tobacco products, smokes one pack cigarettes per day. - Family history:: not pertinent. - Hospitalizations: : No recent hospitalization is reported. Screenin:32 Abuse screen: Denies threats or abuse. Denies injuries from another. Nutritional ab2 screening: No deficits noted. Tuberculosis screening: No symptoms or risk factors identified. Fall Risk None identified. Vital Signs: 19:16 BP 142 / 82; Pulse 99; Resp 18; Temp 97.9; Pulse Ox 99% on R/A; Weight 69.85 kg; Height ab2 5 ft. 4 in. (162.56 cm); Pain 8/10; 19:16 Body Mass Index 26.43 (69.85 kg, 162.56 cm) ab2 ED Course: 18:20 Patient arrived in ED. as 18:21 Roselyn Machado is Private Physician. as 19:18 Triage completed. ab2 19:19 Arm band placed on right wrist. ab2 19:20 Xander Ortega MD is Attending Physician. rn 19:23 Yo Freeman MD is Referral Physician. rn 19:32 No provider procedures requiring assistance completed. Patient did not have IV access ab2 during this emergency room visit. Administered Medications: No medications were administered Outcome: 19:23 Discharge ordered by . rn 19:32 Discharged to home ambulatory, with family. ab2 19:32 Condition: good 19:32 Discharge instructions given to patient, family, Instructed on discharge instructions, follow up and referral plans. medication usage, Demonstrated understanding of instructions, follow-up care, medications, Prescriptions given X 1. 19:32 Patient left the ED. ab2 Signatures: Manisha Miner as Xander Ortega MD MD rn Bleininger, Alexis ab2
[2021-12-02 01:57] VITALS: BP 142/82; TEMP 97.9; O2SAT 99
== END 2021-12-01 19:32 | disposition home or self-care (01) ==
LOC: ER 18:18
DX: H10.33 Unspecified acute conjunctivitis, bilateral (principal); E11.9 Type 2 diabetes mellitus without complications; F17.210 Nicotine dependence, cigarettes, uncomplicated; Z88.0 Allergy status to penicillin; Z88.1 Allergy status to other antibiotic agents; Z88.5 Allergy status to narcotic agent
CPT/HCPCS: 99282

== ENCOUNTER 2022-03-29 19:21 | Emergency (ER) | payer SELFPAY ==
--- OUTSIDE RECORDS SUMMARY | 2022-03-29 19:24 | XMS REPORT | Continuity of Care Document ---
:1975 Author Organization [facility] t Address [address] [place] [address] Dr. Marshall [address] [place] [address] Care Team Providers Name Role Phone Unavailable Unavailable Unavailable Problems This patient has no known problems. Allergies, Adverse Reactions, Alerts This patient has no known allergies or adverse reactions. Medications This patient has no known medications. Procedures This patient has no known procedures. Results This patient has no known results.
--- NOTE | 2022-03-29 21:43 | ER ---
Nurse's Notes [facility] Name: Nohelia Llanes Age: 46 yrs Sex: Female : 1975 Arrival Date: 03/29/2022 Time: 19:23 Bed Waiting Private MD: Diagnosis: Blister (nonthermal) of foot-right foot Presentation: 03/29 19:55 Chief complaint: Blister on bottom of right foot x 2 days. Coronavirus screen: At this hb time, the client does not indicate any symptoms associated with coronavirus-19. Ebola Screen: No symptoms or risks identified at this time. Initial Sepsis Screen: Does the patient meet any 2 criteria? No. Patient's initial sepsis screen is negative. Does the patient have a suspected source of infection? No. Patient's initial sepsis screen is negative. Risk Assessment: Do you want to hurt yourself or someone else? Patient reports no desire to harm self or others. Onset of symptoms was March 27, 2022. 19:55 Method Of Arrival: Ambulatory hb 19:55 Acuity: ALISIA 4 hb Triage Assessment: 19:58 General: Appears in no apparent distress. Behavior is calm, cooperative. Pain: Denies hb pain. Neuro: Level of Consciousness is awake, alert, obeys commands, Oriented to person, place, time, situation. Cardiovascular: Patient's skin is warm and dry. Respiratory: Respiratory effort is even, unlabored, Respiratory pattern is regular, symmetrical. Historical: - Allergies: 19:58 Darvocet-N 100; hb 19:58 Demerol; hb 19:58 Keflex; hb 19:58 PENICILLINS; hb - Home Meds: 19:58 gabapentin 300 mg Oral cap 1 cap 3 times per day [Active]; [place] 10-325 mg Oral tab 1 hb tab every 4-6 hours [Active]; - PMHx: 19:58 Chronic pain; Diabetes - IDDM; neuroapthy; gestational diabetes; hb - Immunization history:: Adult Immunizations up to date. - Social history:: Smoking status: Patient reports the use of cigarette tobacco products, smokes one pack cigarettes per day. Vital Signs: 19:55 BP 162 / 84; Pulse 99; Resp 18; Temp 98.2; Pulse Ox 99% on R/A; Weight 72.57 kg; Height hb 5 ft. 4 in. (162.56 cm); Pain 0/10; 19:55 Body Mass Index 27.46 (72.57 kg, 162.56 cm) hb ED Course: 19:23 Patient arrived in ED. ag3 19:44 Danish Smalls PA is PHCP. cp 19:44 Jaiden Greene MD is Attending Physician. cp 19:55 Arm band placed on. hb 19:57 Triage completed. hb Administered Medications: No medications were administered Outcome: 21:43 Discharge ordered by . cp 21:48 Patient left the ED. hb Signatures: Danish Smalls PA PA cp Wen Gomez, RN RN hb Patty Wolfe ag3
--- NOTE | 2022-03-29 21:44 | EDPHYS ---
Physician Documentation [facility] Name: Nohelia Llanes Age: 46 yrs Sex: Female : 1975 Arrival Date: 03/29/2022 Time: 19:23 Bed Waiting Private MD: ED Physician Jaiden Greene HPI: 03/29 21:30 This 46 yrs old Female presents to ER via Ambulatory with complaints of BLISTER ON cp BOTTOM OF FOOT. 21:30 The patient presents with tenderness, blister, concern for infection. cp 21:30 The complaints affect the plantar surface of right foot. Context: resulted from an cp unknown cause, the patient can fully bear weight, the patient is able to ambulate, without difficulty. Onset: The symptoms/episode began/occurred yesterday. Associated signs and symptoms: The patient has no apparent associated signs or symptoms. Historical: - Allergies: 19:58 Darvocet-N 100; hb 19:58 Demerol; hb 19:58 Keflex; hb 19:58 PENICILLINS; hb - Home Meds: 19:58 gabapentin 300 mg Oral cap 1 cap 3 times per day [Active]; [place] 10-325 mg Oral tab 1 hb tab every 4-6 hours [Active]; - PMHx: 19:58 Chronic pain; Diabetes - IDDM; neuroapthy; gestational diabetes; hb - Immunization history:: Adult Immunizations up to date. - Social history:: Smoking status: Patient reports the use of cigarette tobacco products, smokes one pack cigarettes per day. ROS: 21:33 Skin: Positive for of the plantar surface medial arch of right foot, blister. cp 21:33 Constitutional: Negative for body aches, chills, fever, poor PO intake. cp 21:33 Eyes: Negative for injury, pain, redness, and discharge. cp 21:33 ENT: Negative for drainage from ear(s), ear pain, sore throat, difficulty swallowing, difficulty handling secretions. 21:33 Cardiovascular: Negative for chest pain, edema, palpitations. 21:33 Respiratory: Negative for cough, shortness of breath, wheezing. 21:33 Abdomen/GI: Negative for abdominal pain, nausea, vomiting, and diarrhea. 21:33 Back: Negative for pain at rest, pain with movement. 21:33 Neuro: Negative for altered mental status, headache, weakness. 21:33 All other systems are negative. Exam: 21:37 Constitutional: The patient appears in no acute distress, alert, awake, comfortable, cp non-toxic, well developed, well nourished. 21:37 Head/Face: Normocephalic, atraumatic. cp 21:37 Cardiovascular: Rate: normal. 21:37 Respiratory: the patient does not display signs of respiratory distress, Respirations: normal. 21:37 Skin: quarter size fluid filled bullae noted medial aspect of arch plantar surface right foot with minimal erythema and minimal tenderness to touch. no swelling noted. Vital Signs: 19:55 BP 162 / 84; Pulse 99; Resp 18; Temp 98.2; Pulse Ox 99% on R/A; Weight 72.57 kg; Height hb 5 ft. 4 in. (162.56 cm); Pain 0/10; 19:55 Body Mass Index 27.46 (72.57 kg, 162.56 cm) hb MDM: 21:43 Patient medically screened. cp 21:43 Differential diagnosis: cellulitis, abscess, skin blister. cp 21:43 Data reviewed: vital signs, nurses notes, and as a result, I will discharge patient. cp Counseling: I had a detailed discussion with the patient and/or guardian regarding: the historical points, exam findings, and any diagnostic results supporting the discharge/admit diagnosis, to return to the emergency department if symptoms worsen or persist or if there are any questions or concerns that arise at home. Administered Medications: No medications were administered Disposition: 03/30 06:38 Co-signature as Attending Physician, Jaiden Greene MD. [email or web address] Disposition Summary: 03/29/22 21:43 Discharge Ordered Location: Home cp Problem: new cp Symptoms: are unchanged cp Condition: Stable cp Diagnosis - Blister (nonthermal) of foot - right foot cp Followup: cp - With: Private Physician - When: 1 - 2 days - Reason: Worsening of condition Discharge Instructions: - Discharge Summary Sheet cp - Blisters, Adult cp Forms: - Medication Reconciliation Form cp - Thank You Letter cp - Antibiotic Education cp - Prescription Opioid Use cp Prescriptions: - Doxycycline Hyclate 100 mg Oral Tablet - take 1 tablet by ORAL route 2 times per day for 7 days; 14 tablet; Refills: 0, cp Product Selection Permitted Signatures: Danish Smalls PA PA cp Baxter, Heather, RN RN hb Jaiden Greene MD MD [email or web address] Corrections: (The following items were deleted from the chart) 03/29 21:42 21:41 This 46 yrs old Female presents to ER via Ambulatory with complaints of BLISTER cp ON BOTTOM OF FOOT. cp :42 21:41 Skin: Positive for of the plantar surface medial arch of right foot, blister, cp cp
[2022-03-29 23:01] VITALS: BP 162/84; TEMP 98.2; O2SAT 99
== END 2022-03-29 21:48 | disposition home or self-care (01) ==
LOC: ER 19:21
DX: S90.821A Blister (nonthermal), right foot, initial encounter (principal); E11.40 Type 2 diabetes mellitus with diabetic neuropathy, unspecified; F17.210 Nicotine dependence, cigarettes, uncomplicated; Z88.0 Allergy status to penicillin; Z88.1 Allergy status to other antibiotic agents; Z88.5 Allergy status to narcotic agent

== ENCOUNTER 2022-06-01 16:47 | Inpatient (IN) | payer SELFPAY ==
--- OUTSIDE RECORDS SUMMARY | 2022-06-01 16:50 | XMS REPORT | Continuity of Care Document ---
:1975 Author Organization [facility] t Address [address] [place] [address] Dr. Marshall [address] [place] [id number] Care Team Providers Name Role Phone Unavailable Unavailable Unavailable Problems This patient has no known problems. Allergies, Adverse Reactions, Alerts This patient has no known allergies or adverse reactions. Medications This patient has no known medications. Procedures This patient has no known procedures. Results This patient has no known results.
--- NOTE | 2022-06-01 18:53 | RAD REPORT ---
EXAM DESCRIPTION: RAD - Foot Left 3 View - 06/01/2022 6:44 pm CLINICAL HISTORY: PAIN COMPARISON: Foot Left 3 View dated 12/02/2020; Foot Left 3 View dated 07/30/2020 FINDINGS: Previous fourth toe amputation noted. There is soft tissue swelling along the dorsum of th e forefoot. Mild demineralization affects the fourth metatarsal head, suspicious for osteomyelitis. M RI the foot could be obtained for confirmation.
[2022-06-01] MEDS ORDERED: FENTANYL CITR 100 MCG/2 ML ONE (19:16)
--- NOTE | 2022-06-01 19:41 | RAD REPORT ---
EXAM DESCRIPTION: US - Extremity Venous Uni Ltd - 06/01/2022 7:25 pm CLINICAL HISTORY: SWELLING Leg swelling and edema. COMPARISON: No comparisons FINDINGS: Left lower extremity venous system was interrogated with Doppler technique. Normal flow, c ompressibility and augmentation was noted. There is no DVT present. IMPRESSION: No evidence of left lower extremity deep venous thrombosis.
[2022-06-01] MEDS ORDERED: MORPHINE 4 MG/ML SYR ONE (19:53)
[2022-06-01] MEDS ORDERED: NICOTINE 21 MG/PAT TD ONE (19:53)
[2022-06-01 20:09] LABS: Hematocrit 41.3 % (36.0-45.0); MCV 86.4 fL (80-100); MPV 9.4 fL (7.6-11.3); RBC Red Blood Cell Count 4.78 M/uL (3.86-4.86)
[2022-06-01 20:19] LABS: Absolute Lymphocytes (CBC) 2.5 K/uL (0.7-4.9); Lymphocytes % 30.2 % (15.3-44.8)
[2022-06-01 20:22] LABS: Albumin 3.2 g/dL (3.4-5.0); Bilirubin Total 0.6 mg/dL (0.2-1.0); C-Reactive Protein 44.5 mg/L (<3.00); Potassium 3.6 mmol/L (3.5-5.1); Protein, Total 7.2 g/dL (6.4-8.2)
[2022-06-01] MEDS ORDERED: ONDANSETRON 4 MG/2 ML VIAL ONE (20:45)
--- NOTE | 2022-06-01 21:29 | ER ---
Nurse's Notes [facility] Name: Nohelia Llanes Age: 46 yrs Sex: Female : 1975 Arrival Date: 06/01/2022 Time: 16:54 Bed External Waiting Private MD: Roselyn Machado Diagnosis: Presentation: 06/01 17:04 Chief complaint: Patient states: Left foot ulcer on bottom of foot - my foot began to ld1 smell two days ago. Coronavirus screen: At this time, the client does not indicate any symptoms associated with coronavirus-19. Ebola Screen: No symptoms or risks identified at this time. Initial Sepsis Screen: Does the patient meet any 2 criteria? No. Patient's initial sepsis screen is negative. Does the patient have a suspected source of infection? No. Patient's initial sepsis screen is negative. Risk Assessment: Do you want to hurt yourself or someone else? Patient reports no desire to harm self or others. Onset of symptoms was June 01, 2022 at 17:06. 17:04 Method Of Arrival: Wheelchair ld1 17:04 Acuity: ALISIA 3 ld1 Triage Assessment: 17:04 General: Appears in no apparent distress. comfortable, Behavior is calm, cooperative, ld1 appropriate for age. Pain: Complains of pain in left foot Pain does not radiate. Pain currently is 10 out of 10 on a pain scale. Quality of pain is described as throbbing. EENT: No signs and/or symptoms were reported regarding the EENT system. Neuro: Level of Consciousness is awake, alert, obeys commands, Oriented to person, place, time, situation. Cardiovascular: Capillary refill < 3 seconds Patient's skin is warm and dry. Respiratory: Airway is patent Respiratory effort is even, unlabored. GI: Abdomen is flat, non-distended. : No signs and/or symptoms were reported regarding the genitourinary system. Derm: No signs and/or symptoms reported regarding the dermatologic system. Musculoskeletal: No signs and/or symptoms reported regarding the musculoskeletal system. 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 - Social history:: Smoking status: Patient reports the use of cigarette tobacco products, smokes one pack cigarettes per day. Patient/guardian denies using alcohol. Screenin:54 Abuse screen: Denies threats or abuse. Denies injuries from another. Nutritional ph screening: No deficits noted. Tuberculosis screening: No symptoms or risk factors identified. Fall Risk None identified. Assessment: 18:52 General: Appears in no apparent distress. comfortable, well groomed, Behavior is calm, ph cooperative, appropriate for age, Denies fever, feeling ill. Pain: Denies pain. Neuro: Level of Consciousness is awake, alert, obeys commands, Oriented to person, place, time, situation. Cardiovascular: Capillary refill < 3 seconds in bilateral fingers Patient's skin is warm and dry. Respiratory: Airway is patent Respiratory effort is even, unlabored, Respiratory pattern is regular, symmetrical. Derm: Skin is pink, warm \\T\\ dry. Derm: Wound noted sole of left foot below 5 th toe. Musculoskeletal: Circulation, motion, and sensation intact. Range of motion: intact in all extremities. 19:15 Reassessment: US at bedside. ph 19:55 General: Appears comfortable, Behavior is calm, cooperative, pt given a warm blanket kd3 for comfort . Pt would not like fentanyl for her pain because "she has seen her friend get it before and she went crazy" This RN requested change in patient medication. . 21:45 General: Appears comfortable. kd3 21:45 Reassessment: Patient and/or family updated on plan of care and expected duration. Pain kd3 level reassessed. Patient is alert, oriented x 3, equal unlabored respirations, skin warm/dry/pink. Patient states feeling better. Patient states symptoms have improved. 22:14 General: PT notified that in order to be admitted to the hospital, a COVID test would kd3 have to be done. pt refused covid test. pt notified that there may be a delay in assigning a room to the patient if she refuse a covid test. Pt stated "then ill just go home. Why would I stay here if I don't have insurance. what am I supposed to do, wait until Monday? " This RN explained to the patient that she does have infection in the bone of her foot and she would potentially loose the foot entirely but if she stayed we would treat her with antibiotics until further planning was made.. Pt stated "I don't know why they give me all the shitty nurses. Take this IV out. I am leaving. Ill just go to [facility]." This RN removed the IV. PT reminded that she can loose her foot due to the infection in the bone and it would be in her best interest to stay and receive treatment despite lack of insurance. PT continued to call this RN derogatory names as she left. . Vital Signs: 17:04 BP 166 / 87; Pulse 96; Resp 18; Temp 97.8(O); Pulse Ox 99% on R/A; Weight 72.57 kg; ld1 Height 5 ft. 6 in. (167.64 cm); Pain 10/10; 17:04 Body Mass Index 25.82 (72.57 kg, 167.64 cm) ld1 ED Course: 16:54 Patient arrived in ED. am2 16:55 Roselyn Machado is Private Physician. am2 16:56 [facility] cp 16:56 Danish Kay MD is Attending Physician. cp 17:04 Arm band placed on right wrist. ld1 17:06 Triage completed. ld1 17:38 Nancy Cardozo, RN is Primary Nurse. ld1 18:46 XRAY Foot LEFT 3 View In Process Unspecified. EDMS 18:54 Patient has correct armband on for positive identification. Call light in reach. Side ph rails up X2. Pulse ox on. NIBP on. 19:27 US Extremity Venous Unilateral Ltd In Process Unspecified. EDMS 20:02 No provider procedures requiring assistance completed. Inserted saline lock: 22 gauge kd3 in right antecubital area, using aseptic technique. Blood collected. Missed attempt(s): 22 gauge in left forearm. 20:03 CRP Sent. kd3 20:03 Wound Culture Sent. kd3 20:03 ESR Sent. kd3 20:03 Procalcitonin Sent. kd3 20:04 CBC with Diff Sent. kd3 20:04 CMP Sent. kd3 21:27 Naun Salvador is Hospitalizing Provider. cp 22:27 IV discontinued, intact, bleeding controlled, No redness/swelling at site. Pressure kd3 dressing applied. Administered Medications: 19:52 Not Given (Physician Discretion): fentaNYL (PF) 25 mcg IVP once cp 20:03 Drug: Nicoderm CQ Patch 21 mg/24 hr 1 patches Route: Transdermal; Site: affected area; kd3 20:03 Drug: morphine 4 mg Route: IVP; Infused Over: 4 mins; Site: right antecubital; kd3 22:28 Follow up: Response: No adverse reaction; Pain is decreased kd3 22:09 Not Given (Patient Refused): vancoMYCIN 1 grams IVPB once over 2 hrs kd3 22:09 Not Given (Patient Refused): Cefepime 1 grams IVPB at 200 ml/hr once over 30 mins; (mix kd3 in NS 100 mL) Medication: 18:54 VIS not applicable for this client. ph Outcome: 21:29 Decision to Hospitalize by Provider. cp 22:27 Discharged to home ambulatory. kd3 22:27 Condition: stable 22:27 Condition: stable 22:27 Discharge instructions given to patient, family, Instructed on discharge instructions, follow up and referral plans. possible worsting of infection in the bone of the foot. possible worsting of condition. Demonstrated understanding of instructions. 23:35 Patient left the ED. kl Signatures: Dispatcher [employer] EDDonna Dixon RN RN kl Hall, Patricia, RN RN ph Page, Corey, PA PA cp Sheryl Riddle am2 Nancy Cardozo RN RN ld1 Lena Gama RN RN kd3 Corrections: (The following items were deleted from the chart) 22:26 19:55 General: Appears comfortable, Behavior is calm, cooperative, pt given a warm kd3 blanket for comfort . kd3
--- NOTE | 2022-06-01 21:30 | EDPHYS ---
Physician Documentation [facility] Name: Nohelia Llanes Age: 46 yrs Sex: Female : 1975 Arrival Date: 06/01/2022 Time: 16:54 Bed External Waiting Private MD: Roselyn Machado ED Physician Danish Kay HPI: 06/01 18:15 This 46 yrs old Female presents to ER via Wheelchair with complaints of Foot Pain - cp diabetic ulcer. 18:15 The patient presents with pain, that is acute. The complaints affect the left foot. cp 18:15 Context: resulted from an unknown cause, the patient can fully bear weight, the patient cp is able to ambulate, with mild difficulty. 18:15 Onset: The symptoms/episode began/occurred last week, and became worse 2 day(s) ago. cp Associated signs and symptoms: Pertinent negatives fever. 18:15 Treatment prior to arrival includes: no previous treatment. Patient reports noticing cp wound to bottom of left foot last week. Patient c/o foul smelling drainage over past 2 days. Patient reports history of left fourth toe amputation last year due to infection. 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 - Social history:: Smoking status: Patient reports the use of cigarette tobacco products, smokes one pack cigarettes per day. Patient/guardian denies using alcohol. ROS: 18:20 MS/extremity: Positive for pain, tenderness. cp 18:20 Constitutional: Negative for body aches, chills, fever, poor PO intake. cp 18:20 Eyes: Negative for injury, pain, redness, and discharge. cp 18:20 Cardiovascular: Negative for chest pain, palpitations. 18:20 Respiratory: Negative for cough, shortness of breath, wheezing. 18:20 Abdomen/GI: Negative for abdominal pain, nausea, vomiting, and diarrhea. 18:20 Back: Negative for pain at rest, pain with movement. 18:20 Skin: Positive for of the plantar surface of left foot, wound. 18:20 Neuro: Negative for altered mental status, headache, weakness. 18:20 All other systems are negative. Exam: 18:25 Constitutional: The patient appears in no acute distress, alert, awake, cp non-diaphoretic, non-toxic, well developed, well nourished. 18:25 Head/Face: Normocephalic, atraumatic. cp 18:25 Eyes: Periorbital structures: appear normal, Conjunctiva: normal, no exudate, no injection, Sclera: no appreciated abnormality, Lids and lashes: appear normal, bilaterally. 18:25 ENT: External ear(s): are unremarkable, Nose: is normal, Mouth: Lips: moist, Oral mucosa: moist, Posterior pharynx: Airway: no evidence of obstruction, patent. 18:25 Neck: ROM/movement: is normal, is supple, without pain, no range of motions limitations. 18:25 Chest/axilla: Inspection: normal. 18:25 Cardiovascular: Rate: normal, Rhythm: regular, Pulses: Pulses are 2+ in left dorsalis pedis artery. JVD: is not appreciated. 18:25 Respiratory: the patient does not display signs of respiratory distress, Respirations: normal, no use of accessory muscles, no retractions, labored breathing, is not present, Breath sounds: are clear throughout, no decreased breath sounds, no stridor, no wheezing. 18:25 Abdomen/GI: Exam negative for discomfort, distension, guarding, Inspection: abdomen appears normal. 18:25 Back: pain, is absent, ROM is normal. 18:25 Musculoskeletal/extremity: Extremities: grossly normal except: noted in the left foot: amputated fourth toe, small dime size superficial wound noted left fifth metatarsal head plantar side with scant drainage expressed, erythema and swelling noted. 18:25 Neuro: Orientation: to person, place \T\ time. Mentation: is normal, Motor: moves all fours, strength is normal. Vital Signs: 17:04 BP 166 / 87; Pulse 96; Resp 18; Temp 97.8(O); Pulse Ox 99% on R/A; Weight 72.57 kg; ld1 Height 5 ft. 6 in. (167.64 cm); Pain 10; 17:04 Body Mass Index 25.82 (72.57 kg, 167.64 cm) ld1 MDM: 17:15 Patient medically screened. cp 20:00 Differential diagnosis: cellulitis, abscess, osteomyelitis, sepsis. cp 21:20 Physician consultation: Cynthia Thompson PA-C was contacted at 21:20, regarding admission, cp to the medical/surgical unit. patient's condition, and will see patient in ED, shortly. 22:00 Data reviewed: vital signs, nurses notes, lab test result(s), radiologic studies, plain cp films, ultrasound. 22:00 Test interpretation: by ED physician or midlevel provider: plain radiologic studies. cp 06/01 18:00 Order name: CBC with Diff; Complete Time: 20:42 cp 06/01 20:43 Interpretation: Reviewed. cp 06/01 18:00 Order name: CMP; Complete Time: 20:42 cp 06/01 20:42 Interpretation: Normal except: NA 135; GLUC 289; BUN 6; AST 13; ALB 3.2; GLOB 4.0; A/G cp 0.8. 06/01 18:00 Order name: CRP; Complete Time: 20:42 cp 06/01 20:42 Interpretation: Abnormal: C-REACTIVE PROT 44.50. cp 06/01 18:00 Order name: Wound Culture cp 06/01 18:00 Order name: ESR; Complete Time: 20:42 cp 06/01 18:00 Order name: Procalcitonin; Complete Time: 20:42 cp 06/01 18:00 Order name: US Extremity Venous Unilateral Ltd; Complete Time: 19:49 cp 06/01 19:50 Interpretation: Report reviewed. cp 06/01 18:00 Order name: XRAY Foot LEFT 3 View; Complete Time: 19:49 cp 06/01 19:50 Interpretation: Reviewed report. cp 06/01 20:59 Order name: Lactate; Complete Time: 21:56 cp 06/01 20:59 Order name: Blood Culture Adult (2) cp 06/01 21:57 Order name: SARS RAPID kd3 06/01 18:00 Order name: IV Saline Lock; Complete Time: 20:03 cp 06/01 18:00 Order name: Labs collected and sent; Complete Time: 20:03 cp Administered Medications: 19:52 Not Given (Physician Discretion): fentaNYL (PF) 25 mcg IVP once cp 20:03 Drug: Nicoderm CQ Patch 21 mg/24 hr 1 patches Route: Transdermal; Site: affected area; kd3 20:03 Drug: morphine 4 mg Route: IVP; Infused Over: 4 mins; Site: right antecubital; kd3 22:28 Follow up: Response: No adverse reaction; Pain is decreased kd3 22:09 Not Given (Patient Refused): vancoMYCIN 1 grams IVPB once over 2 hrs kd3 22:09 Not Given (Patient Refused): Cefepime 1 grams IVPB at 200 ml/hr once over 30 mins; (mix kd3 in NS 100 mL) Disposition Summary: 06/01/22 22:39 Eloped Disposition: after being seen by provider sb4 Reason: (see nurse's notes) sb4 Signatures: Dispatcher [employer] EDMS Danish Smalls PA PA cp Garcia, Cindy, RN RN cg Nancy Cardozo RN RN ld1 Lena Gama RN RN kd3 Cynthia Thompson PA-C PA-C sb4 Corrections: (The following items were deleted from the chart) 22:03 21:29 Telemetry/MedSurg (Inpatient) cp cg 22:03 21:29 cp cg 22:38 21:29 Inpatient Admission cp sb4 22:38 21:29 Naun Salvador cp sb4 22:38 21:29 Stable cp sb4 22:38 21:29 new cp sb4 22:38 21:29 have improved cp sb4 22:38 21:29 Standard cp sb4 22:38 21:29 Other acute osteomyelitis, other site - left fourth metatarsal cp sb4 22:38 22:03 [facility] ER HOLD cg sb4 22:38 22:03 ERHOLD- cg sb4
[2022-06-01] MEDS ORDERED: VANCOMYCIN 1 GM/VIAL ONE (21:58)
[2022-06-01] MEDS ORDERED: NA CHLORIDE 0.9% 250 ML ONE (21:59)
[2022-06-01] MEDS ORDERED: NA CHLORIDE 0.9% 100 ML IV ONE (21:59)
[2022-06-01] MEDS ORDERED: CEFEPIME 1 GM/VIAL ONE (21:59)
[2022-06-01 23:46] VITALS: BP 166/87; TEMP 97.8; O2SAT 99
== END 2022-06-01 23:00 | disposition left against medical advice (07) | DRG 639 ==
LOC: ER 16:47 → ERHOLD 21:35
PROVIDERS: ADMIT Internal Medicine; ATTEND Internal Medicine
DX: E11.621 Type 2 diabetes mellitus with foot ulcer (principal); L97.529 Non-pressure chronic ulcer of other part of left foot with unspecified severity; E11.40 Type 2 diabetes mellitus with diabetic neuropathy, unspecified; F17.210 Nicotine dependence, cigarettes, uncomplicated; Z88.0 Allergy status to penicillin; Z88.5 Allergy status to narcotic agent; Z88.8 Allergy status to other drugs, medicaments and biological substances; Z53.29 Procedure and treatment not carried out because of patient's decision for other reasons; Z89.422 Acquired absence of other left toe(s)
CPT/HCPCS: 36415; 80053; 83605; 84145; 85025; 85652; 86140; 87040; 87070; 87205; 93971; 96374; 99284; J0692; J2405; J3010; J3370; J7050

== ENCOUNTER 2023-04-20 12:05 | Inpatient (IN) | payer SELFPAY ==
--- OUTSIDE RECORDS SUMMARY | 2023-04-20 13:01 | XMS REPORT | Continuity of Care Document ---
:1975 Author Organization [facility] [place] t Address [address] [place] [address] Care Team Providers Name Role Phone Kerry Pichardo Primary Care Physician Denia Rios MD Attending Clinician Tirso Dias DO Attending Clinician TIRSO DIAS Attending Clinician Unavailable LAURENCE COTA Attending Clinician Unavailable JASPER FIELDS Attending Clinician Unavailable JASON DIAMOND Attending Clinician Unavailable LAB90 Attending Clinician Unavailable LAB91 Attending Clinician Unavailable BARB BENITO Attending Clinician Unavailable KARLA SR Attending Clinician Unavailable MEKHI TRAN Attending Clinician Unavailable Mekhi Tran NP Attending Clinician SUSANA CRUZ Attending Clinician Unavailable Susana Cruz MD Attending Clinician Tirso Dias DO Admitting Clinician TIRSO DIAS Admitting Clinician Unavailable MEKHI TRAN Admitting Clinician Unavailable SUSANA CRUZ Admitting Clinician Unavailable Payers Payer Name Policy Type Policy Number Effective Date Expiration Date Janis malhotra [employer]GARDOMERLIN [employer] 9 [id number] 2022 SILVER: HMO ON 00:00:00 [facility] [id number] 2016 PPO 00:00:00 Problems Condition Condition Condition Status Onset Resolution Last Treating Co mments Source Name Details Category Date Date Treatment Clinician Date Ulcer of Ulcer of Disease Active Unive rs left foot, left foot, 04-19 it y of unspecifie [place] ulcer d ulcer 00 Medical stage stage Branch 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- Seybold claudicati claudicati 00:00: - on on Externa l Diabetes 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- Seybol d with with 00:00: - peripheral peripheral 00 Ex terna vascular vascular l disease disease Immunodefi Immunodefi Disease Active K elsey ciency due ciency due 09-13 Se ybold to to 00:00: - conditions conditions 00 Ex terna classified classified l elsewhere elsewhere No known No known Disease Kelse y active active Seybold problems problems - Externa l Allergies, Adverse Reactions, Alerts Allergy Allergy Status Severity Reaction(s) Onset Inactive Treating Comm ents Source Name Type Date Date Clinician Vancomyc Propensi Active Hives 2021-08 Cynthia in ty to 0-20 Seybold adverse 00:00: - reaction 00 Externa s l VANCOMYC DRUG Active ITCHING 2021-08 Univers IN 0-20 ity of (BULK) 00:00: [place] 00 Medical Branch Vancomyc Propensi Active Itching 2021-08 Unive rs in ty to 0-20 ity of (Bulk) adverse 00:00: [place] reaction 00 Medical s Branch Acetamin Propensi Active Other Cynthia ophen ty to 4-22 reaction( Seybold Injectio adverse 00:00: s): - n reaction 00 Itching/H Exter na s trupti/Rash l Cephalex Propensi Active Other Cynthia in ty to 4-22 reaction( Seybold Monohydr adverse 00:00: s): - ate reaction 00 Itching/H Exter na s trupti/Rash l Meperidi Propensi Active Other Cynthia ne Hcl ty to 4-22 reaction( Seybold adverse 00:00: s): - reaction 00 Itching/H Exter na s trupti/Rash l Propoxyp Propensi Active Other Cynthia hene ty to 4-22 reaction( Seybold adverse 00:00: s): - reaction 00 Itching/H Exter na s trupti/Rash l Penicill Propensi Active 2019-08 Other Cynthia ins ty to 2-18 reaction( Seybold adverse 00:00: s): - reaction 00 Itching Externa s l Propoxyp Propensi Active Swelling Allergic Un olamide hene ty to 8-14 to ity of N-Acetam adverse 00:00: propoxyph [place] inophen reaction 00 [facility] Cephalex Propensi Active Rash Univer s in ty to 814 ity of adverse 00:00: [place] reaction 00 Medical s Branch PROPOXYP DRUG Active Swelling Univer s HENE 814 ity of N-ACETAM 00:00: [place] INOPHEN 00 Medical Branch CEPHALEX DRUG Active Rash Univers IN INGREDI 8 ity of 00:00: [address] Social History Social Habit Start Date Stop Date Quantity Comments Source History of tobacco Passive smoker Un iversity of use [facility] Gender identity Universit y of [facility] Sexual orientation Univer sity of [facility] Tobacco use and 2023-04-19 2023-04-19 Smokeless Universit y of exposure 00:00:00 00:00:00 tobacco non-user [facility] [place] History of Social 2023-04-19 2023-04-19 Univers ity of function 00:00:00 00:00:00 [facility] Education 2023-04-19 2023-04-19 13 University of 00:00:00 00:00:00 [facility] Tobacco Comment 2023-04-19 2023-04-19 Patient stated Unive rsity of 00:00:00 00:00:00 that she wants [facility] [place] [facility] to quit but [facility] is too stressful at this times due to life. Patient reports 1PPD Cigarettes smoked 2022-09-01 2022-09-01 Cynthia Evans - current (pack per 00:00:00 00:00:00 Externa l day) - Reported Cigarette 2022-09-01 2022-09-01 Cynthia Evans - pack-years 00:00:00 00:00:00 External Exposure to 2022-07-06 2022-07-16 Not sure University of SARS-CoV-2 (event) 00:00:00 18:31:00 [facility] Sex Ass[birth year] At [birth year] Cynthia Campbell ybold - 00:00:00 00:00:00 External Smoking Status Start Date Stop Date Source Tobacco smoking consumption [facility] unknown Branch Smokes tobacco daily 2023-04-19 00:00:00 Univers ity [facility] Medications Ordered Filled Start Stop Current Ordering Indication Dosage Frequency Signature Comments Components Source Medication Medication Date Date Medication? Clinician (SIG) Name Name docusate Yes 100mg 100 mg, Unive rs (COLACE) 07 Oral, ity of capsule 100 14:00: DAILY, [place] mg 00 First dose Medical on [place] Branch 04/20/23 at 0900, Until Discontinu ed, Routine nicotine Yes 1{patch 1 Patch, Un olamide (NICODERM) 9-06 } Topical, ity o f 21 mg/24 hr 23:30: Administer [place] patch 1 00 over 24 Medical Patch Hours, Branch Q24H, First dose on Mon04/19/23 at 1830, Until Discontinu ed, Routine HYDROcodone Yes 1{tbl} Take 1 Un olamide -acetaminop 9-06 tablet by ity of hen (NORCO) 22:35: mouth [place] 10-325 mg 45 every 6 Medical tablet (six) Branch hours as needed. gabapentin 0 Yes 900mg Take 3 Univ ers (NEURONTIN) 9-06 capsules ity of 300 mg 22:35: by mouth [place] capsule 45 in the Medical morning Branch and 3 capsules at noon and 3 capsules in the evening. atorvastati 0 Yes 10mg Take 1 Univ ers n 10 mg 9-06 tablet by ity of tablet 22:35: mouth at [place] 45 bedtime. Medical Patient Branch reports she is supposed to take this medication but has not since October. Due to "lost (her) insurance and can not afford it." glipiZIDE 5 2022-0 Yes 5mg Take 1 Univ ers mg tablet 9-06 tablet by ity o f 22:35: mouth in [place] 45 the Medical morning. Branch Patient reports she is supposed to take this medication but has not since October. Due to "lost (her) insurance and can not afford it." aspirin 81 Yes 81mg Take 1 Unive rs mg chewable 04-19 tablet by ity of tablet 22:35: mouth in [place] [address] the Medical morning. Branch metFORMIN Yes 500mg Take 1 Unive rs 500 mg 04-19 tablet by ity of tablet 22:35: mouth in [place] [address] the Medical morning Branch and 1 tablet in the evening. Take with meals. Patient reports she is supposed to take this medication but has not since October. Due to "lost (her) insurance and can not afford it." DULoxetine Yes 60mg Take 1 Unive rs 60 mg 04-19 capsule by ity of capsule 22:35: mouth in [place] [address] the Medical morning. Branch Sliding Yes Subcutaneo Univ ers Scale 04-19 us, TID ity of Insulin - 22:00: MEALS+HS, Albert as Lispro 00 First dose Medical (HumaLOG) on Mon Branch 04/19/23 at 1700, Until Discontinu ed, Routine enoxaparin Yes 40mg 40 mg, Unive rs (LOVENOX) 04-19 Subcutaneo ity of injection 22:00: [place], DAILY, [place] 40 mg 00 First dose Medical on Mon Branch 04/19/23 at 1700, Until Discontinu ed, Routine metroNIDAZO 2022- Yes 500mg 500 mg, IV Univers LE in NaCl 04-19 Infusion, ity of (iso-os) 19:30: 19:29 Q12H ABX, Albert as (FLAGYL 00 :00 14 doses, Medical I.V.) RTU First dose Bran ch IV infusion on Mon 500 mg 04/19/23 at 1430, Last dose on Mon04/26/23 at 0230, Administer over 60 Minutes, 100 mL
Reas on for Anti-Infec tive: Empiric Therapy for Suspected Infection< br>Empiric Therapy Site: Skin / Soft tissue
Duration of therapy: 5 days levoFLOXaci 2022- Yes 750mg 750 mg, IV Univers n in D5W 04-19 Piggyback, ity of (LEVAQUIN) 19:30: 19:29 Q24H ABX, [place] 750 mg/150 00 :00 7 doses, Medic al mL First dose Branch Piggyback on Mon 750 mg 04/19/23 at 1430, Last dose on Mon04/25/23 at 1430, Administer over 90 Minutes, 150 mL
Reas on for Anti-Infec tive: Empiric Therapy for Suspected Infection< br>Empiric Therapy Site: Wound
D uration of therapy: 5 days glucagon 2022-0 Yes 1mg 1 mg, Univers (GLUCAGEN 04-19 Intramuscu ity of DIAGNOSTIC 18:43: lar, PRN, [place] KIT) 34 Starting Medical injection 1 on Mon Branch mg 04/19/23 at 1343, Until Discontinu ed, KENNY, Blood Glucose < or = 70 mg/dL and patient is NPO, unable to swallow or has mental changes. dextrose 50 2022-0 Yes 25mL 25 mL, Univ ers % in water 04-19 Slow IV ity of (D50W) 18:43: Push, PRN, [place] injection 34 Starting Medica l 25 mL on Mon Branch 04/19/23 at 1343, Until Discontinu ed, KENNY, Blood Glucose < or = 70 mg/dL and patient is NPO, unable to swallow or has mental status changes. ondansetron 2022-0 Yes 4mg 4 mg, Slow Univers (ZOFRAN 04-19 IV Push, ity of (PF)) 18:43: Q6HPRN, [place] injection 4 20 Starting Medi bill mg on Mon Branch 04/19/23 at 1343, Until Discontinu ed, Routine, Nausea and Vomiting (N/V) HYDROcodone 2022-0 202- Yes 1{tbl} 1 tablet, Univers -acetaminop 04-19 09-08 Oral, ity of hen (NORCO 18:43: 18:42 Q6HPRN, Albert as 5) 5-325 mg 12 :12 Starting Medi bill tablet 1 on Mon Branch tablet 04/19/23 at 1343, Until Mon04/21/23 at 1342, Routine, Pain (scale 4-6) acetaminoph 2022-0 Yes 650mg 650 mg, Un olamide en 04-19 Oral, ity of (TYLENOL) 18:43: Q6HPRN, [place] tablet 650 09 Starting Medic al mg on Mon04/19/23 at 1343, Until Discontinu ed, Routine, Pain (scale 1-3) HYDROcodone 0 Yes 1{tbl} Q.25D Take 1 K elsey -Acetaminop 2-02 tablet by Linnea Quat-E hen 09:03: mouth - MG oral 04 every 6 Externa Tablet hours as l needed Gabapentin 2022-0 2022- No 900mg Take 900 K elsey 300 MG oral 2-02 02-02 mg by Seybol d Capsule 09:02: 00:00 mouth 3 - 44 :00 times Externa daily l Trulicity 0 Yes [id number] .75mg Inject K elsey 0.75 2-02 0.75 mg Seybold MG/0.5ML 00:00: into the - subcutaneou 00 skin once Ext mariam s Solution a week l Pen-injecto r Mupirocin Yes [id number] Apply 1 Cynthia (BACTROBAN) 2-02 [id number] applicatio Seybold 2 % apply 00:00: n - externally 00 topically Exte rna Ointment 3 times l daily Metformin 2022-0 Yes [id number] 1000mg Take 2 Cynthia HCl 500 MG 1-20 tablets Seybol d oral Tablet 00:00: (1,000 mg - 00 total) by Externa mouth in l the morning and 2 tablets (1,000 mg total) in the evening. Take with meals. Duloxetine 0 Yes 120mg Take 120 Ke lsey HCl 60 MG 1-19 mg by Seybold oral Cap DR 15:17: mouth - Particles 08 daily Externa l HYDROcodone 2022-0 Yes 1{tbl} Q.25D Take 1 K elsey -Acetaminop 1-19 tablet by Linnea Quat-E gillian 15:11: mouth - MG oral 36 every 6 Externa Tablet hours as l needed Metformin 2022-0 Yes [id number] 1000mg Take 2 Cynthia HCl 500 MG 1-19 tablets Seybol d oral Tablet 00:00: (1,000 mg - 00 total) by Externa mouth in l the morning and 2 tablets (1,000 mg total) in the evening. Take with meals. Duloxetine Yes [id number] 120mg Take 2 Cynthia HCl 60 MG 1-19 capsules Seybol d oral Cap DR 00:00: (120 mg - Particles 00 total) by Exter na mouth l daily Gabapentin Yes [id number] 1200mg Take 2 Cynthia 600 MG oral -19 tablets Seybo ld Tablet 00:00: (1,200 mg - 00 total) by Externa mouth 3 l times daily Benzonatate 2022- No [id number] 100mg [id number] Take 1 Cynthia (Tessalon 09-01 [id number] capsule Seybold Maximilian) 100 00:00: 00:00 3D (100 mg - MG oral 00 :00 total) by Externa Capsule mouth 3 l times daily as needed for cough methylPREDN 2022- No [id number] 1{lana} Take 1 lana Cynthia ISolone 4 09-01 by mouth Seybo ld MG oral 00:00: 00:00 See Admin - Tablet 00 :00 Instructio Externa Therapy ns Use as l Pack directed Dicloxacill 2021-08- No 1{capsu Take 1 Cynthia in Sodium 10-03 le} capsule by Sey bold 500 MG oral 00:00: 00:00 mouth - Capsule 00 :00 daily Externa l Metformin 2021-08- No TAKE 1 Kelse y HCl 500 MG 09-18 TABLET BY Sey bold oral Tablet 00:00: 00:00 MOUTH - 00 :00 TWICE Externa DAILY IN l THE MORNING AND IN THE EVENING- DO ALL THIS FOR 30 DAYS Indomethaci 2021-08- No TAKE 1 Wilman sey n 50 MG 09-18 CAPSULE BY Seybo ld oral 00:00: 00:00 MOUTH - Capsule 00 :00 THREE Externa TIMES l DAILY WITH MEALS NEEDED FOR PAIN ketorolac 2021-08- No 30mg 30 mg, Unive rs (TORADOL) 09-17- Slow IV ity of injection 03:15: 02:15 Push, [place] 30 mg 00 :00 ONCE, 1 Medical dose, On Branch 07/16/22 at 2115, Routine NaCl 0.9% 2021-08- No 1000mL at 999 Uni vers (NS) bolus 09-17-04 mL/hr, ity of infusion 01:00: 02:29 1,000 mL, Albert as 1,000 mL 00 :00 IV Medical Infusion, Branch ONCE, 1 dose, On 07/16/22 at 1900, KENNY ampicillin- 2021-08- No 3g 3 g, IV Un olamide sulbactam 09-17 Piggyback, ity of (UNASYN) 3 00:15: 02:12 ONCE, 1 Albert as g in NaCl 00 :00 dose, On Medica l 0.9% (NS) Sat Branch 100 mL 07/16/22 at MINI-BAG 1815, Administer over 30 Minutes, 100 mL
Reas on for Anti-Infec tive: Documented Infection< br>Documen ronald Infection Site: Skin / Soft Tissue
Duration of Therapy: 7 days indomethaci 2021-08 Yes [id number] 50mg Take 1 Univers n 50 mg 29100 capsule by ity of capsule 00:00: mouth 3 [place] 00 (three) Medical times Branch daily with meals as needed for Pain. indomethaci 2021-08- No [id number] 50mg Take 1 Univers n 50 mg 09-16 9101 capsule by ity o f capsule 00:00: 00:00 mouth 3 [place] 00 :00 (three) Medical times Branch daily with meals as needed for Pain. metFORMIN 2021-08- No [id number] 500mg Take 1 Univers 500 mg 09-16 tablet by ity of tablet 00:00: 05:59 mouth in [place] 00 :00 the Medical morning Branch and 1 tablet in the evening. Do all this for 30 days. dicloxacill 2021-08- No [id number] 500mg Take 1 Univers in 500 mg 09-16 capsule by ity of capsule 00:00: 05:59 mouth 4 [place] 00 :00 (four) Medical times Branch daily for 7 days. Gabapentin 2021-08 Yes 1200mg Take 1,200 Cynthia 600 MG oral 1-12 mg by Seybold Tablet 00:00: mouth 3 - 00 times Externa daily l nicotine 2021-08 Yes 1{patch 1 Patch, Un olamide (NICODERM) 0-20 } Topical, ity o f 21 mg/24 hr 21:30: Administer [place] patch 1 00 over 24 Medical Patch Hours, Branch Q24H, First dose on Roc[place]le 06/02/22 at 1630, Until Discontinu ed, Routine diphenhydrA 2021-08 No 25mg 25 mg, Uni vers MINE 0-20 10-20 Oral, ity of (BENADRYL) 21:30: 21:24 ONCE, 1 Albert as tablet 25 00 :00 dose, On Medica l mg [place] Branch 06/02/22 at 1630, KENNY vancomycin 2021-08 Yes 1000mg 1,000 mg, Univers (VANCOCIN) 0-20 IV ity of 1,000 mg in 20:00: Piggyback, [place] NaCl 0.9% 00 Q12H ABX, Medic al (NS) 250 mL First dose Br anch VIAL-MATE on Rochelle IV 06/02/22 piggyback at 1500, Until Discontinu ed, Administer over 60 Minutes, 250 mL
Reas on for Anti-Infec tive: Documented Infection< br>Documen ronald Infection Site: Skin / Soft Tissue
Duration of Therapy: Other (see Comments) ondansetron 2021-08 No 4mg 4 mg, Slow Univers (ZOFRAN 0-20 10-20 IV Push, ity of (PF)) 19:45: 19:47 ONCE, 1 [place] injection 4 00 :00 dose, On Medi blil mg [place] Branch 06/02/22 at 1445, KENNY morpHINE (4 2021-08 No 4mg 4 mg, Slow Univers mg/mL) 0-20 10-20 IV Push, ity of injection 4 19:00: 19:52 ONCE, 1 [place] mg 00 :00 dose, On Medical [place] Branch 06/02/22 at 1400, STAT piperacilli 2021-08- No 3.375g 3.375 g, Univers n-tazobacta 0-20 10-20 IV ity of m (ZOSYN) 19:00: 20:29 [place]gyback, [place] 3.375 g in 00 :00 ONCE, 1 Medica l NaCl 0.9% dose, On Branch (NS) 50 mL [place] MINI-BAG 06/02/22 at 1400, Administer over 30 Minutes, 50 mL
Reas on for Anti-Infec tive: Documented Infection< br>Documen ronlad Infection Site: Skin / Soft Tissue
Duration of Therapy: Other (see Comments) gabapentin 2021-08 Yes 900mg Take 900 Un olamide (NEURONTIN) 0-20 mg by ity of 300 mg 16:10: mouth 3 [place] capsule 56 (three) Medical times Branch daily. gabapentin 2021-08 Yes 900mg Take 900 Un olamide (NEURONTIN) 0-20 mg by ity of 300 mg 16:10: mouth 3 [place] capsule 56 (three) Medical times Branch daily. sulfamethox 2021-08- No [id number] 1{tbl} Take 1 Univers azole-trime 0-20 10-28 tablet by it y of thoprim 00:00: 04:59 mouth [place] 800-160 mg 00 :00 every 12 Medic al per tablet (twelve) Branc h hours for 7 days. dicloxacill 2021-08- No [id number] 500mg Take 1 Univers in 500 mg 0-20 10-28 capsule by ity of capsule 00:00: 04:59 mouth 4 [place] 00 :00 (four) Medical times Branch daily for 7 days. gabapentin 2021-08- No [id number] 300mg Take 1 Univers 300 mg 0-20 10-28 capsule by ity of capsule 00:00: 04:59 mouth in [place] 00 :00 the Medical morning Branch and 1 capsule at noon and 1 capsule in the evening. Do all this for 7 days. lidocaine Yes [id number] 1{patch Apply 1 Univers % (700 5 [id number] } Patch to ity of mg/patch) 00:00: area(s) [place] patch 00 every 8 Medical (eight) Branch hours as needed for Localized pain. lidocaine Yes [id number] 1{patch Apply 1 Univers % (700 5-07 [id number] } Patch to ity of mg/patch) 00:00: area(s) [place] patch 00 every 8 Medical (eight) Branch hours as needed for Localized pain. lidocaine 2022- No [id number] 1{patch Apply 1 Univers % (700 5-07 09-06 [id number] } Patch to ity of mg/patch) 00:00: 00:00 area(s) [place] patch 00 :00 every 8 Medical (eight) Branch hours as needed for Localized pain. HYDROcodone Yes 1{tbl} Take 1 Un olamide -acetaminop 8-20 tablet by ity of hen (NORCO) 01:38: mouth [place] 10-325 mg 54 every 6 Medical tablet (six) Branch hours as needed. HYDROcodone Yes 1{tbl} Take 1 Un olamide -acetaminop 8-20 tablet by ity of hen (NORCO) 01:38: mouth [place] 10-325 mg 54 every 6 Medical tablet (six) Branch hours as needed. albuterol Yes 2{puff} Inhale 2 U nivers (VENTOLIN) 8-20 Puffs ity of 90 00:00: every 4 [place] mcg/actuati 00 (four) Medica l on inhaler hours as Branc h needed for Wheezing or Shortness of Breath. albuterol Yes 2{puff} Inhale 2 U nivers (VENTOLIN) 8-20 Puffs ity of 90 00:00: every 4 [place] mcg/actuati 00 (four) Medica l on inhaler hours as Branc h needed for Wheezing or Shortness of Breath. albuterol Yes 2{puff} Inhale 2 U nivers (VENTOLIN) 8-20 Puffs ity of 90 00:00: every 4 [place] mcg/actuati 00 (four) Medica l on inhaler hours as Branc h needed for Wheezing or Shortness of Breath. Vital Signs Vital Name Observation Time Observation Value Comments Source Systolic blood 2023-04-20 00:27:00 122 mm[Hg] [facility] Diastolic blood 2023-04-20 00:27:00 79 mm[Hg] [facility] Heart rate 2023-04-20 00:27:00 93 /min [facility] Body temperature 2023-04-20 00:27:00 36.22 [facility] Respiratory rate 2023-04-20 00:27:00 18 /min [facility] Oxygen saturation in 2023-04-20 00:27:00 100 /min [facility] Arterial blood by [facility] [place] [facility] Pulse oximetry Branch Body height 2023-04-19 20:54:00 162.6 cm [facility] Body weight 2023-04-19 20:54:00 72 kg [facility] BMI 2023-04-19 20:54:00 27.25 kg/m2 [facility] Systolic blood 2022-09-15 14:58:00 148 mm[Hg] Cynthia Seybold - pressure External Diastolic blood 2022-09-15 14:58:00 74 mm[Hg] Kelse y Seybold - pressure External Heart rate 2022-09-15 14:58:00 101 /min Cynthia S eybold - External Body temperature 2022-09-15 14:58:00 36.67 Cecilia Katherine ey Seybold - External Respiratory rate 2022-09-15 14:58:00 15 /min Katherine ey Seybold - External Body height 2022-09-15 14:58:00 162.6 cm Cynthia S eybold - External Body weight 2022-09-15 14:58:00 70.761 kg Cynthia S eybold - External BMI 2022-09-15 14:58:00 26.78 kg/m2 Cynthia S eybold - External Systolic blood 2022-09-01 21:12:00 137 mm[Hg] Cynthia Seybold - pressure External Diastolic blood 2022-09-01 21:12:00 74 mm[Hg] Kelse y Seybold - pressure External Heart rate 2022-09-01 21:12:00 82 /min Cynthia S eybold - External Body temperature 2022-09-01 21:12:00 36.61 Cecilia Katherine ey Seybold - External Respiratory rate 2022-09-01 21:12:00 12 /min Katherine ey Seybold - External Body height 2022-09-01 21:12:00 165.1 cm Cynthia S eybold - External Body weight 2022-09-01 21:12:00 70.308 kg Cynthia S eybold - External BMI 2022-09-01 21:12:00 25.79 kg/m2 Cynthia Bruce eybold - External Oxygen saturation in 2022-09-01 21:12:00 97 /min Cynthia Evans - Arterial blood by External Pulse oximetry Systolic blood 2022-07-17 01:40:00 128 mm[Hg] Univer sity of pressure [place] [facility] [place] Diastolic blood 2022-07-17 01:40:00 66 mm[Hg] Unive rsity of pressure [facility] Heart rate 2022-07-17 01:40:00 88 /min Universi ty of [facility] Respiratory rate 2022-07-17 01:40:00 16 /min Univ ersity of [facility] Oxygen saturation in 2022-07-17 01:40:00 99 /min University of Arterial blood by [facility] [place] [facility] Pulse oximetry Branch Body temperature 2022-07-16 23:42:00 37.22 Cecilia Univ ersity of [facility] Body height 2022-07-16 23:42:00 165.1 cm Universi ty of [facility] Body weight 2022-07-16 23:42:00 72.122 kg Universi ty of [facility] BMI 2022-07-16 23:42:00 26.46 kg/m2 Universi ty [facility] Systolic blood 2022-06-02 22:00:00 132 mm[Hg] Univer sity of pressure [facility] Diastolic blood 2022-06-02 22:00:00 78 mm[Hg] Unive rsity of pressure [facility] Heart rate 2022-06-02 22:00:00 89 /min Universi ty of [facility] Respiratory rate 2022-06-02 22:00:00 15 /min Univ ersity of [facility] Oxygen saturation in 2022-06-02 22:00:00 100 /min University of Arterial blood by [facility] [place] [facility] Pulse oximetry Branch Body temperature 2022-06-02 18:10:00 36.72 Cecilia Univ ersity of [facility] Body weight 2022-06-02 18:10:00 72.576 kg Universi ty of [facility] BMI 2022-06-02 18:10:00 26.63 kg/m2 Universi ty [facility] Procedures Procedure Date / Time Performing Clinician Source Performed MR FOOT LEFT WO CONTRAST 2023-04-19 23:19:07 Tirso Dias [facility] POCT GLUCOSE (AUTOMATED) 2023-04-19 21:45:00 Tirso Dias [facility] TEST, SERUM 2023-04-19 18:39:00 Larissa, Tirso [facility] [place] XR FOOT 3+ VW LEFT 2023-04-19 17:31:[address] [facility] COMP. METABOLIC PANEL 2023-04-19 17:01:00 Denia Rios [facility] ([id number]) Medical [place] CBC WITH DIFF 2023-04-19 17:01:00 Gabriel Denia [place] o f [facility] GLYCOSYLATED HEMOGLOBIN 2023-04-19 17:01:00 Tirso Dias [facility] (A1C) Medical [place] CONSENT/REFUSAL FOR 2023-04-19 16:10:45 [facility] Name Medical Branch XR FOOT <3 VW LEFT 2022-07-17 00:48:57 Mekhi Tran [facility] COMP. METABOLIC PANEL 2022-07-17 00:35:00 Mekhi Tran [facility] ([id number]) [facility] CBC WITH DIFF 2022-07-17 00:35:00 Mekhi Tran [facility] GLYCOSYLATED HEMOGLOBIN 2022-07-17 00:35:00 Mekhi Tran [facility] (A1C) [facility] URINALYSIS 2022-07-17 00:35:00 Mekhi Tran [facility] URINE DRUG (IMMUNOASSAY) 2022-07-17 00:35:00 Mekhi Tran Un [facility] DRUG [facility] nch SCREEN W/O REFLEX LACTIC ACID WHOLE BLOOD 2022-07-17 00:32:00 Mekhi Tran [facility] CONSENT/REFUSAL FOR 2022-07-16 23:35:46 Doctor Unassigned, No Un [facility] DIAGNOSIS AND TREATMENT Name Medical Branch XR FOOT 3+ VW LEFT 2022-06-02 19:31:01 Susana Cruz [facility] COMP. METABOLIC PANEL 2022-06-02 19:20:00 Susana Cruz [facility] ([id number]) [facility] CBC WITH DIFF 2022-06-02 19:20:00 Susana Cruz [facility] URINALYSIS 2022-06-02 19:20:00 Susana Cruz [facility] CONSENT/REFUSAL FOR 2022-06-02 17:56:13 Doctor Unassigned, No Un [facility] DIAGNOSIS AND TREATMENT Name [facility] Plan of Care Planned Activity Planned Date Details Comments Source Encounters Start End Encounter Admission Attending Care Care Encounter Source Date/Time Date/Time Type Type Clinicians Facility Department ID 2023-04-19 2023-04-19 [facility] Denia Rios [facility] [id number] Univers 11:22:00 21:15:00 Encounter LarissaTirso [id number] [facility] [id number] [facility] [id number] [place] [id number] [address] 2023-04-19 2023-04-19 Inpatient X LARISSA [facility] NIMA [id number] Univers 11:22:00 21:15:00 TIRSO velazquez [facility] 2023-02-23 2023-02-23 Outpatient CYNTHIA COTA [id number] Cynthia 00:00:00 00:00:00 LAURENCE Seybol d 2023-01-20 2023-01-20 Outpatient JASPER FIELDS [id number] Cynthia 14:40:00 14:40:00 Seybol d 2022-12-31 2022-12-31 Outpatient CYNTHIA COTA [id number] Cynthia 00:00:00 00:00:00 LAURENCE Seybol d 2022-12-11 2022-12-11 Outpatient CYNTHIA COTA [id number] Cynthia 00:00:00 00:00:00 LAURENCE Seybol d 2022-12-08 2022-12-08 Outpatient JASON DIAMOND [id number] Cynthia 00:00:00 00:00:00 Seybol d 2022-11-07 2022-11-07 Outpatient CYNTHIA COTA [id number] Cynthia 00:00:00 00:00:00 LAURENCE Seybol d 2022-11-02 2022-11-02 Outpatient CYNTHIA COTA [id number] Cynthia 00:00:00 00:00:00 LAURENCE Seybol d 2022-10-31 2022-10-31 Outpatient HUNDL, CYNTHIA CYNTHIA [id number] Cynthia 14:00:00 14:00:00 LAURENCE Seybol d 2022-10-13 2022-10-13 Outpatient HUNDL, CYNTHIA CYNTHIA [id number] Cynthia 09:00:00 09:00:00 LAURENCE Seybol d 2022-10-13 2022-10-13 Outpatient HUNDL, CYNTHIA DIAZ [id number] Cynthia 00:00:00 00:00:00 LAURENCE Seybol d 2022-10-13 2022-10-13 Outpatient HUNDL, CYNTHIA CYNTHIA [id number] Cynthia 00:00:00 00:00:00 LAURENCE Seybol d 2022-09-26 2022-09-26 Outpatient HUNDL, CYNTHIA DIAZ [id number] Cynthia 00:00:00 00:00:00 LAURENCE Seybol d 2022-09-20 2022-09-20 Outpatient HUNDL, CYNTHIA DIAZ [id number] Cynthia 00:00:00 00:00:00 LAURENCE Seybol d 2022-09-17 2022-09-17 Outpatient HUNDL, CYNTHIA DIAZ [id number] Cynthia 00:00:00 00:00:00 LAURENCE Seybol d 2022-09-15 2022-09-15 Outpatient LAB90 CYNTHIA DIAZ [id number] Cynthia 10:05:00 10:05:00 Seybol d 2022-09-15 2022-09-15 Outpatient HUNDL, CYNTHIA DIAZ [id number] Cynthia 09:00:00 09:00:00 LAURENCE Seybol d 2022-09-07 2022-09-07 Outpatient LAB91 CYNTHIA DIAZ [id number] Cynthia 11:45:00 11:45:00 Seybol d 2022-09-07 2022-09-07 Outpatient CYNTHIA BENITO [id number] Cynthia 11:00:00 11:00:00 BARB Seybol d 2022-09-06 2022-09-06 Outpatient CYNTHIA BENITO [id number] Cynthia 00:00:00 00:00:00 BARB Seybol d 2022-09-01 2022-09-01 Outpatient CYNTHIA COTA CYNTHIA [id number] Cynthia 15:00:00 15:00:00 LAURENCE Seybol d 2022-09-01 2022-09-01 Outpatient CYNTHIA COTASEY [id number] Cynthia 00:00:00 00:00:00 LAURENCE Seybol d 2022-09-01 2022-09-01 Outpatient CYNTHIA SR CYNTHIA [id number] Cynthia 00:00:00 00:00:00 AHMED Seybol d 2022-08-29 2022-08-29 Outpatient CYNTHIA COTA CYNTHIA [id number] Cynthia 11:00:00 11:00:00 LAURENCE Seybol d 2022-07-16 2022-07-16 Emergency X [facility] ERT [id number] Univers 17:45:00 21:16:00 MEKHI velazquez [facility] 2022-07-16 2022-07-16 Emergency [facility] [id number] Univers 17:45:00 21:16:00 Mekhichintan POWELL [id number] [facility] [id number] [facility] [id number] [address] 2022-06-02 2022-06-02 Emergency X [facility] ERT [id number] Univers 13:12:00 17:06:00 SUSANA [facility] 2022-06-02 2022-06-02 Emergency [facility] [id number] Univers 13:12:00 17:06:00 Susana POWELL [id number] [facility] [id number] [facility] [id number] [address] Results Test Description Test Time Test Comments Results Result Comments Source POCT GLUCOSE (AUTOMATED) 2023-04-19 21:46:40 Test Item Value Reference Range Interpretation Comme nts POCT GLU (test code = 9900936770) 347 mg/dL 70-110 H Lab Interpretation (test code = 85127-8) [id number] 00:43:06 Test Item Value Reference Range Interpretation Comments LACTIC ACID (test code = 1.18 mmol/L 0.50-2.20 0287897288) Lab Interpretation (test code = Normal 20750-0) [facility]. METABOLIC PANEL (81820)2022-06-02 19:55:41 Test Item Value Reference Range Interpretation Comments NA (test code = 135 mmol/L 135-145 1518809969) K (test code = 4.0 mmol/L 3.5-5 5903406892) CL (test code = 99 mmol/L 98-108 7613353661) CO2 TOTAL (test code = 29 mmol/L 23-31 4436767874) AGAP (test code = 2-16 2567040250) BUN (test code = 5 mg/dL 7-23 L 2888563472) GLUCOSE (test code = 281 mg/dL 70-110 H 8364032901) CREATININE (test code = 0.35 mg/dL 0.5-1.04 L 2239120727) TOTAL BILI (test code = 1.0 mg/dL 0.1-1.5 2903372876) CALCIUM (test code = 9.2 mg/dL 8.6-10.6 7059044391) T PROTEIN (test code = 6.2 g/dL 6.3-8.2 L 6003135766) ALBUMIN (test code = 3.6 g/dL 3.5-5 9410680987) ALK PHOS (test code = 72 U/L 34-122 3642800881) ALTv (test code = 18 U/L 5-35 1742-6) AST(SGOT) (test code = 20 U/L 13-40 3428250183) eGFR (test code = mL/min/1.73m2 7970490121) FRANCISCO (test code = FRANCISCO) Association of Glomerular Filtration Rate (GFR) and Staging of Kidney Disease* + --+ --+ ------+| GFR (mL/min/1.73 m2) ?| With Kidney Damage ?| ?Without Kidney Damage+ --------+ --------+ +| ?>90 ?| ?Stage one ?| ? Normal ?+ ---+ ---+ -------+| ?60-89 ?| ?Stage two ?| ? Decreased GFR ? + --+ --+ ------+| ?30-59 ?| ?Stage three ?| ? Stage three ? + --+ --+ ------+| ?15-29 ?| ?Stage four ? | ? Stage four ?+ ---+ ---+ -------+| ?<15 (or dialysis) ? ?| ?Stage five ? | ? Stage five ?+ ---+ ---+ -------+ *Each stage assumes the associated GFR level has been in effect for at least three months. ?Stages 1 to 5, with or without kidney disease, indicate chronic kidney disease. Notes: Determination of stages one and two (with eGFR >59mL/min/1.73 m2) requires estimation of kidney damage for at least three months as defined by structural or functional abnormalities of the kidney, manifested by either:Pathological abnormalities or Markers of kidney damage (including abnormalities in the composition of the blood or urine or abnormalities in imaging tests). Lab Interpretation Abnormal (test code = 03179-6) [facility] WITH [id number] 19:41:53 Test Item Value Reference Range Interpretation Comments WBC (test code = See_Comment [Automated message] 6690-2) The system [employer] generated this result transmitted ref erence range: 4.30 - 1 1.10 10*3/?L. The re ference range was not u sed to interpret this result as normal/abnor mal. RBC (test code = See_Comment [Automated message] 789-8) The system [employer] generated this result transmitted ref erence range: 3.93 - 5 .25 10*6/?L. The re ference range was not u sed to interpret this result as normal/abnor mal. HGB (test code = 14.6 g/dL 11.6-15 718-7) HCT (test code = 42.2 % 35.7-45.2 4544-3) MCV (test code = 86.5 fL 80.6-95.5 787-2) MCH (test code = 29.9 pg 25.9-32.8 785-6) MCHC (test code = 34.6 g/dL 31.6-35.1 786-4) RDW-SD (test code 41.0 fL 39-49.9 = 65318-7) RDW-CV (test code 13.2 % 12-15.5 = 788-0) PLT (test code = See_Comment [Automated message] 777-3) The system whic h generated this result transmitted ref erence range: 166 - 35 8 10*3/?L. The re ference range was not u sed to interpret this result as normal/abnor mal. MPV (test code = 11.3 fL 9.5-12.9 58662-6) NRBC/100 WBC (test See_Comment [Automat ed message] code = 7379359788) The syste m which generated this result transmitted ref erence range: 0.0 - 10 .0 /100 WBCs. The refer ence range was not u sed to interpret this result as normal/abnor mal. NRBC x10^3 (test See_Comment [Automated message] code = 3989702859) The syste m which generated this result transmitted ref erence range: 10*3/?L. The reference range was not used to interpr et this result as normal/abnormal . GRAN MAT (NEUT) % 74.6 % (test code = 770-8) IMM GRAN % (test 0.60 % code = 3412801936) LYMPH % (test code 18.5 % = 736-9) MONO % (test code 5.4 % = 5905-5) EOS % (test code = 0.6 % 713-8) BASO % (test code 0.3 % = 706-2) GRAN MAT 6.61 10*3/uL 1.88-7.09 x10^3(ANC) (test code = 8612571392) IMM GRAN x10^3 0.05 10*3/uL 0-0.06 (test code = 0489907257) LYMPH x10^3 (test 1.64 10*3/uL 1.32-3.29 code = 731-0) MONO x10^3 (test 0.48 10*3/uL 0.33-0.92 code = 742-7) EOS x10^3 (test 0.05 10*3/uL 0.03-0.39 code = 711-2) BASO x10^3 (test 0.03 10*3/uL 0.01-0.07 code = 704-7) [facility] Notes Date/Time Note Provider Source 2023-04-19 Formatting of this note might be differe nt from the original. Jennifer Schneider RN [facility] 14:58:37-00:00 Pt up via personal wheelchair to 2214 with PCT Electronically signed by Jennifer Schneider RN a t 04/19/2023 2:58 PM CDT 2023-04-19 [facility] 14:53:50-00:00 Nurse Report Report given to Juani HOLLINGSWORTH, Chief complaint, assessment findings, infusion verify and orders reviewed. Pt prepared for transport Jennifer Schneider RN Electronically signed by Jennifer Schneider RN a t 04/19/2023 2:54 PM CDT 2023-04-19 [facility] 14:34:00-00:00 Called to give report reciving unavailable Electronically signed by Jennifer Schneider RN a t 04/19/2023 2:42 PM CDT 2023-04-19 [facility] 13:27:01-00:00 Pt continues in no distress, awaiting dispositio n Electronically signed by Jennifer Schneider RN a t 04/19/2023 1:27 PM CDT 2023-04-19 [facility] 11:50:38-00:00 Pt hasn't been to the doctor in almost a year, had a callus on the bottom of her foot 2 yrs ago and while in the shower in came off and she has had an open wound since then. doesn't take her diabetes medicine d/t no insurance, last took meds in October, states her foot is more swollen and warmer than usual, no drainage from the foot wound noted, quarter size to bottom of left foot, smokes daily, denies etoh, does take gabapentin and norco that she gets from friends, states takes 3 norco daily Electronically signed by Jennifer Schneider RN a t 04/19/2023 12:05 PM CDT 2023-04-19 [facility] 11:15:54-00:00 Pt arrived via private car w ith c/o a chronic diabetic wound on her left foot. States states that "it was doing really well, and a couple of weeks ago it started getting bigger and by foot swells, this is the first time I have not been able to walk on it." States since october she has been off her diabetic medications due to finances and insurance issues. 2023-04-19 Formatting of this note is different from the or iginal. [facility] 11:10:00-00:00 Images from the original note were not included. EMERGENCY DEPARTMENT ENCOUNTER [facility] Patient Name: Kenny Llanes Date of : 1975 47 year old Exam Room:9/9 Primary Care Physician: Kerry Pichardo [facility] Patient Escorted by: Family [5] Mode of Arrival: Personal means [1] EMS Treatment Prior to ED Arrival: ED Events Date/Time Event User Comments 04/19/23 1149 Medical Screening Begins DENIA LARES -- 04/19/23 1149 First Provider Evaluation DENIA RIOS MD -- Chief Complaint Chief Complaint Patient presents with Diabetic Foot Ulcer left ED Triage Notes Jenny Mccloud RN 04/19/2023 11:20 Pt arrived via private car w ith c/o a chronic diabetic wound on her left foot. States states that "it was doing really well, and a couple of weeks ago it started getting bigger and by foot swells, this is the first time I have not been able to walk on it." States since october she has been off her diabetic medications due to finances and insurance issues. HPI The is the patient is a 47-y ear-old female with history of diabetes who presents for left foot swelling. The patient states she has had funding issues and has not taken her medications follow-up with an y physicians. She denies any systemic symptoms for such as nausea, vomiting, or fever. The patient presents for evaluation. Foot Pain Location: Foot Time since incident: 2 weeks Injury: no Foot location: L foot Pain details: Quality: swelling. Radiates to: Does not radiate Severity: Moderate Onset quality: Gradual Duration: 2 weeks Timing: Constant Chronicity: New Relieved by: Nothing Worsened by: Nothing Associated symptoms: no fatigue and no fever Past Medical History / Immunizations Past Medical History: Diagnosis Date Mitral valve prolapse Neuropathy Tetanus received in last 5 years: Unknown Childhood immunizations: Up-to-date Past Surgical History No past surgical history on file. Allergies Allergies Allergen Reactions Darvocet A500 [Propoxyphene N-Acetaminophen] Sw elling Keflex [Cephalexin] Rash Vancomycin (Bulk) Itching Social History Substance & Sexual Activity No substance use or sexual activity history on file. Review of Systems Review of Systems Constitutional: Negative. Ne gative for chills, fatigue, fever and unexpected weight change. HENT: Negative. Eyes: Negative. Negative for discharge and itchi ng. Respiratory: Negative. Negat yoli for cough, chest tightness, shortness of breath and wheezing. Cardiovascular: Negative. Negative for chest pablito n and palpitations. Gastrointestinal: Negative. Negative for abdominal distention, abdominal pain, nausea and vomiting. Genitourinary: Negative. Neg ative for dysuria, urgency, frequency and flank pain. Musculoskeletal: Negative. Skin: Negative. Negative for color change, pallo r and wound. Neurological: Negative. Nega tive for dizziness, syncope, light-headedness and headaches. Psychiatric/Behavioral: Nega tive. Negative for agitation and behavioral problems. All other systems reviewed and are negative. Endocrine: Endocrine negative Physical Exam ED Triage Vitals [04/19/23 1119] Weight 69.9 kg (154 lb) Actual or estimated Estimated by patient/family report Height BP (!) 154/91 Pulse 93 Resp 16 Temp 36.7 ?C (98.1 ?F) Temp source Oral SpO2 100 % Measured on Room air Physical Exam Vitals reviewed. Constitutional: Appearance: She is well-developed. HENT: Head: Normocephalic and atraumatic. Nose: Nose normal. Eyes: Conjunctiva/sclera: Conjunctivae normal. Neck: Trachea: No tracheal deviation. Cardiovascular: Rate and Rhythm: Normal rate and regular rhythm . Heart sounds: Normal heart sounds. No murmur he max. No friction rub. Pulmonary: Effort: Pulmonary effort is normal. No respirat ory distress. Breath sounds: Normal breath sounds. No stridor . No wheezing or rales. Abdominal: General: Bowel sounds are normal. There is no d istension. Palpations: Abdomen is soft. Tenderness: There is no abd ominal tenderness. There is no guarding or rebound. Musculoskeletal: General: Normal range of motion. Cervical back: Normal range of motion and neck supple. Legs: Skin: General: Skin is warm. Comments: Cellulitis Left foot Neurological: Mental Status: She is alert and oriented to per son, place, and time. Cranial Nerves: No cranial nerve deficit. Sensory: No sensory deficit. Psychiatric: Behavior: Behavior normal. Thought Content: Thought content normal. Judgment: Judgment normal. Labs Lab Results - No data to display Imaging No orders to display Orders and Treatments Orders Placed This Encounter Procedures XR FOOT 3+ VW LEFT CBC WITH DIFF COMP. METABOLIC PANEL (40086) No orders of the defined types were placed in th is encounter. Procedures Procedures Notes & MDM Patient was evaluated for an emergency medical condition related to Diabetic Foot Ulcer (left) . History and/or review of systems is limited by:H istory limited: None. Diagnosis/Impression as of 04/19/23 1208 Ulcer of left foot, unspecified ulcer stage Medical Decision Making Problems Addressed: Ulcer of left foot, unspecified ulcer stage: acu te illness or injury Amount and/or Complexity of Data Reviewed Labs: ordered. Decision-making details documente d in ED Course. Radiology: ordered and indep endent interpretation performed. Decision-making details documented in ED Course. Risk Decision regarding hospitalization. Limitations to patient care and compliance: none . Assessment/Summary: The patient is a 47-year-old female with a history of diabetes and a diabetic foot ulcer who presents for redness and swelling of the left foot. She has been having difficulty this wound for some time. She has been noncompliant wi th her at home meds secondary to funding issues. She states recently left foot has become more swollen. Work-up today demonstrates that she has cellulitis of the left foot x- ray does not demonstrate any free air however she does have signs of osteomyelitis. The patient was started on IV antibiotics. The patient was admitted to the medicine service. History, physical exam findi ngs, results of visit, differential diagnosis, medication regimens and plan of future care have been considered. Additional MDM may be found in the ED course. Differential di agnosis considered and final disposition made based on information gathered during evaluation and may not be completely ruled out or specifically listed. Vital signs were rechecked before final disposition. Diagnosis Final diagnoses: [L94.154] Ulcer of left foot, unspecified ulcer stage (Primary) Disposition & Follow Up ED Disposition None Patient's Medications START taking these medications No medications on file CONTINUE taking these medications which have NOT CHANGED ALBUTEROL (VENTOLIN) 90 MCG /ACTUATION INHALER Inhale 2 Puffs every 4 (four) hours as needed for Wheezing or Shortness of Breath. GABAPENTIN (NEURONTIN) 300 MG CAPSULE Take 900 mg by mouth 3 (three) times daily. HYDROCODONE-ACETAMINOPHEN ( NORCO) 10-325 MG TABLET Take 1 tablet by mouth every 6 (six) hours as needed. INDOMETHACIN 50 MG CAPSULE Take 1 capsule by mouth 3 (three) times daily with meals as needed for Pain. LIDOCAINE 5 % (700 MG/PATCH ) PATCH Apply 1 Patch to area(s) every 8 (eight) hours as needed for Localized pain. START taking Modified Medications as Prescribed No medications on file STOP taking these medications No medications on file Denia Rios Jr., MD Clinical Office Employee [facility] Emergency Department [employer] is used frequently and may produce errors. Promptly contact for obvious discrepancies. Denia Rios MD 04/19/23 9700
--- NOTE | 2023-04-20 15:15 | EDPHYS ---
Physician Documentation [facility] Name: Nohelia Llanes Age: 47 yrs Sex: Female : 1975 Arrival Date: 04/20/2023 Time: 12:05 Bed 7 Private MD: ED Physician Matt Beth HPI: 04/20 17:04 This 47 yrs old Female presents to ER via Wheelchair with complaints of Foot Pain - ms3 left. 17:04 47-year-old female with past medical history of chronic pain, diabetes, neuropathy ms3 presents for left diabetic foot ulcer. Patient states she was admitted to [facility] yesterday for diabetic foot ulcer with new ulcer appearing and she signed out AMA last night after she was not given her pain medicationsgabapentin. Patient states her current pain is a 9/10 described as throbbing. Patient states the ulceration on the bottom of her foot has been there for 1 year and the new area of erythema has been present for 2 days. Patient denies fevers, chills, nausea, vomiting.. Historical: - Allergies: 12:34 Darvocet-N 100; cm10 12:34 Demerol; cm10 12:34 Keflex; cm10 12:34 PENICILLINS; cm10 12:34 Vancomycin; cm10 - PMHx: 12:34 Chronic pain; Diabetes - IDDM; gestational diabetes; neuroapthy; cm10 - PSHx: 12:34 toe amputation; Cholecystectomy; cm10 - Immunization history:: Adult Immunizations unknown. - Social history:: Smoking status: Patient reports the use of cigarette tobacco products, smokes one pack cigarettes per day. ROS: 17:04 MS/extremity: Positive for erythema, pain. ms3 17:04 Constitutional: Negative for fever, and chills. Neck: Negative for injury, pain, and swelling, Cardiovascular: Negative for chest pain, and palpitations. Respiratory: Negative for shortness of breath, cough, wheezing, and pleuritic chest pain, Abdomen/GI: Negative for abdominal pain, nausea, vomiting, diarrhea, and constipation, MS/Extremity: Negative for injury and deformity. 17:04 All other systems are negative. Exam: 17:04 Constitutional: This is a well developed, well nourished patient who is awake, alert, ms3 and in no acute distress. Head/Face: Normocephalic, atraumatic. Eyes: Pupils equal round and reactive to light, extra-ocular motions intact. Lids and lashes normal. Conjunctiva and sclera are non-icteric and not injected. Periorbital areas with no swelling, redness, or edema. Neck: Trachea midline, no cervical lymphadenopathy. Supple, full range of motion without nuchal rigidity, or vertebral point tenderness. No Meningismus. Chest/axilla: Normal chest wall appearance and motion. Nontender with no deformity. Cardiovascular: Regular rate and rhythm with a normal S1 and S2. No gallops, murmurs, or rubs. Normal PMI, no JVD. No pulse deficits. Respiratory: Lungs have equal breath sounds bilaterally, clear to auscultation and percussion. No rales, rhonchi or wheezes noted. No increased work of breathing, no retractions or nasal flaring. Abdomen/GI: Soft, non-tender, with normal bowel sounds. No distension or tympany. No guarding or rebound. No evidence of tenderness throughout. 17:04 Musculoskeletal/extremity: Extremities: noted in the left foot: erythema, pain, plantar ulceration; dorsum medial foot erythema. Vital Signs: 12:32 BP 120 / 68; Pulse 95; Resp 18; Temp 98.3; Pulse Ox 99% ; Weight 72.57 kg; Height 5 ft. cm10 4 in. ; Pain 9/10; 15:41 BP 127 / 62; Pulse 80; Resp 18; Pulse Ox 99% on R/A; mb9 16:45 BP 120 / 54; Pulse 75; Resp 16; Pulse Ox 97% on R/A; mb9 17:45 BP 136 / 79; Pulse 64; Resp 18; Pulse Ox 96% on R/A; mb9 19:54 BP 153 / 79; Pulse 74; Resp 16; Pulse Ox 97% on R/A; jb4 22:07 BP 149 / 70; Pulse 86; Resp 16; Temp 97.7(O); Pulse Ox 100% on R/A; jb4 12:32 Body Mass Index 27.46 (72.57 kg, 162.56 cm) cm10 12:32 Pain Scale: Adult cm10 MDM: 12:51 Patient medically screened. ms3 17:04 Differential diagnosis: cellulitis, Osteoarthritis vs Diabetic foot ulcer. Data ms3 reviewed: vital signs, nurses notes, and as a result, I will admit patient. Consideration of Admission/Observation Patient was admitted/placed on observation. Management of patient was discussed with the following: Hospitalist: . I considered the following discharge prescriptions or medication management in the emergency department Medications were administered in the Emergency Department. See MAR. Historians other than the Patient: Spouse/Significant Other: . Care significantly affected by the following Social Determinants of Health: Poor access to healthcare and/or lack of insurance. Counseling: I had a detailed discussion with the patient and/or guardian regarding the historical points, exam findings, and any diagnostic results supporting the discharge/admit diagnosis, lab results, the need for further work-up and treatment in the hospital, smoking cessation. 04/20 12:51 Order name: BMP; Complete Time: 16:58 ms3 04/20 12:51 Order name: CBC with Diff; Complete Time: 16:58 ms3 04/20 12:51 Order name: CRP; Complete Time: 16:58 ms3 04/20 15:15 Order name: Blood Culture Adult (2) ms3 04/20 20:12 Order name: Urinalysis w/ reflexes EDMS 04/20 20:12 Order name: Basic Metabolic Panel EDMS 04/20 20:12 Order name: Basic Metabolic Panel EDMS 04/20 20:12 Order name: Basic Metabolic Panel EDMS 04/20 20:12 Order name: Basic Metabolic Panel EDMS 04/20 20:12 Order name: Comprehensive Metabolic Panel EDMS 04/20 20:12 Order name: Comprehensive Metabolic Panel EDMS 04/20 20:12 Order name: Comprehensive Metabolic Panel EDMS 04/20 20:12 Order name: Comprehensive Metabolic Panel EDMS 04/20 20:12 Order name: Magnesium EDMS 04/20 20:12 Order name: Magnesium EDMS 04/20 20:12 Order name: Magnesium EDMS 04/20 20:12 Order name: Magnesium EDMS 04/20 20:18 Order name: Wound Culture EDMS 04/20 22:30 Order name: Glucose, Ancillary Testing EDMS 04/20 20:12 Order name: Foot Left 3 View EDMS 04/20 20:12 Order name: 60g Consistent Carbohydrate (ADA 1800/2000) EDMS 04/20 20:12 Order name: NPO EDMS 04/20 15:37 Order name: IV Saline Lock; Complete Time: 15:55 iw Administered Medications: No medications were administered Disposition Summary: 04/20/23 15:15 Hospitalization Ordered Hospitalization Status: Inpatient Admission ms3 Provider: Socorro Mendosa ms3 Location: Telemetry/MedSur (Inpatient) ms3 Condition: Stable ms3 Problem: new ms3 Symptoms: are unchanged ms3 Bed/Room Type: Standard ms3 Room Assignment: 225(04/20/23 21:48) mw Diagnosis - Diabetic foot ulcer ms3 - Foot cellulitis ms3 Forms: - Medication Reconciliation Form ms3 - SBAR form ms3 - Leadership Thank You Letter ms3 Signatures: Dispatcher [employer] Brit Fabian RN RN Gretta Sharma RN RN iw Sims, Marcus, DO DO ms3 Tess Miner RN RN cm10 Corrections: (The following items were deleted from the chart) 21:48 15:15 ms3 mw
--- NOTE | 2023-04-20 15:15 | ER ---
Nurse's Notes [facility] Name: Nohelia Llanes Age: 47 yrs Sex: Female : 1975 Arrival Date: 04/20/2023 Time: 12:05 Bed 7 Private MD: Diagnosis: Diabetic foot ulcer;Foot cellulitis Presentation: 04/20 12:32 Chief complaint: Patient states: diabetic foot ulcer X2 to left foot. PT states that he cm10 has had one wound for the last year and one started a few days ago and was seen at [facility] last night and was given IV ABX X2 and left AMA due to not being able to get pain medicine. Pt states that the wound is now getting bigger and is now having purulent drainage. Coronavirus screen: Vaccine status: Patient reports being unvaccinated. Client denies travel out of the [place] in the last 14 days. Ebola Screen: Patient denies travel to an Ebola-affected area in the 21 days before illness onset. No symptoms or risks identified at this time. Initial Sepsis Screen: Does the patient meet any 2 criteria? No. Patient's initial sepsis screen is negative. Does the patient have a suspected source of infection? Yes: Skin breakdown/wound. Risk Assessment: Do you want to hurt yourself or someone else? Patient reports no desire to harm self or others. Onset of symptoms was April 20, 2023. 12:32 Method Of Arrival: Wheelchair cm10 12:32 Acuity: ALISIA 3 cm10 Historical: - Allergies: 12:34 Darvocet-N 100; cm10 12:34 Demerol; cm10 12:34 Keflex; cm10 12:34 PENICILLINS; cm10 12:34 Vancomycin; cm10 - PMHx: 12:34 Chronic pain; Diabetes - IDDM; gestational diabetes; neuroapthy; cm10 - PSHx: 12:34 toe amputation; Cholecystectomy; cm10 - Immunization history:: Adult Immunizations unknown. - Social history:: Smoking status: Patient reports the use of cigarette tobacco products, smokes one pack cigarettes per day. Screenin:[facility] ED Fall Risk Assessment (Adult) History of falling in the last 3 months, mb9 including since admission No falls in past 3 months (0 pts) Confusion or Disorientation No (0 pts) Intoxicated or Sedated No (0 pts) Impaired Gait No (0 pts) Mobility Assist Device Used No (0 pt) Altered Elimination No (0 pt) Score/Fall Risk Level 0 - 2 = Low Risk Oriented to surroundings, Maintained a safe environment, Educated pt \T\ family on fall prevention, incl call for assistance when getting out of bed. Abuse screen: Denies threats or abuse. Nutritional screening: No deficits noted. Tuberculosis screening: No symptoms or risk factors identified. Assessment: 15:25 Reassessment: pt brought back to ER 7. mb9 15:45 General: Appears in no apparent distress. Behavior is calm, cooperative. mb9 15:45 Pain: Complains of pain in left hand Pain does not radiate. Quality of pain is mb9 described as throbbing. Neuro: Valadez Agitation-Sedation Scale (RASS): 0 - Alert and Calm Level of Consciousness is awake, alert, obeys commands, Oriented to person, place, time, situation, Appropriate for age. Cardiovascular: Heart tones S1 S2 present Patient's skin is warm and dry. Respiratory: Airway is patent Respiratory effort is even, unlabored, Respiratory pattern is regular, symmetrical, Breath sounds are clear bilaterally. GI: Abdomen is flat, non-distended, Bowel sounds present X 4 quads. Abd is soft and non tender X 4 quads. : No signs and/or symptoms were reported regarding the genitourinary system. EENT: No signs and/or symptoms were reported regarding the EENT system. Derm: Wound noted left foot Wound is ulcer with purulent drainage. Derm:. Musculoskeletal: Range of motion: intact in all extremities. Musculoskeletal: Swelling present in left foot. 16:45 Reassessment: No changes from previously documented assessment. Patient and/or family mb9 updated on plan of care and expected duration. Pain level reassessed. Patient is alert, oriented x 3, equal unlabored respirations, skin warm/dry/pink. 17:45 Reassessment: No changes from previously documented assessment. Patient and/or family mb9 updated on plan of care and expected duration. Pain level reassessed. Patient is alert, oriented x 3, equal unlabored respirations, skin warm/dry/pink. 19:15 Reassessment: Pt is resting in bed with eyes closed, respirations are even and jb4 unlabored with no s/s of pain or distress noted. 19:54 Reassessment: Patient appears in no apparent distress at this time. No changes from jb4 previously documented assessment. Patient and/or family updated on plan of care and expected duration. Pain level reassessed. 22:07 Reassessment: Patient appears in no apparent distress at this time. Patient and/or jb4 family updated on plan of care and expected duration. Pain level reassessed. Patient is alert, oriented x 3, equal unlabored respirations, skin warm/dry/pink. Pt is now being more agreeable. Allowed this nurse to restart her IV and recheck vital signs. Vital Signs: 12:32 BP 120 / 68; Pulse 95; Resp 18; Temp 98.3; Pulse Ox 99% ; Weight 72.57 kg; Height 5 ft. cm10 4 in. ; Pain 9/10; 15:41 BP 127 / 62; Pulse 80; Resp 18; Pulse Ox 99% on R/A; mb9 16:45 BP 120 / 54; Pulse 75; Resp 16; Pulse Ox 97% on R/A; mb9 17:45 BP 136 / 79; Pulse 64; Resp 18; Pulse Ox 96% on R/A; mb9 19:54 BP 153 / 79; Pulse 74; Resp 16; Pulse Ox 97% on R/A; jb4 22:07 BP 149 / 70; Pulse 86; Resp 16; Temp 97.7(O); Pulse Ox 100% on R/A; jb4 12:32 Body Mass Index 27.46 (72.57 kg, 162.56 cm) cm10 12:32 Pain Scale: Adult cm10 ED Course: 12:08 Patient arrived in ED. im 12:34 Triage completed. cm10 12:35 Arm band placed on Patient placed in waiting room. cm10 12:37 Matt Beth DO is Attending Physician. ms3 14:15 faxed release of information to [facility]. bd 15:15 Socorro Mendosa MD is Hospitalizing Provider. ms3 15:25 Alessandra Templeton, DARRICK is Primary Nurse. mb9 15:55 CRP Sent. ap3 15:55 CBC with Diff Sent. ap3 15:55 BMP Sent. ap3 15:55 Inserted saline lock: 22 gauge in right wrist, using aseptic technique. Blood collected.ap3 15:55 Initial lab(s) drawn, by me, sent to lab. First set of blood cultures drawn by me. ap3 16:31 Blood Culture Adult (2) Sent. mb9 20:50 Radiology exam delayed due to PT WAS ROUNDED TWICE AND WAS NOT FOUND IN THE ROOM. az 22:07 No provider procedures requiring assistance completed. Inserted saline lock: 22 gauge jb4 in right antecubital area, using aseptic technique. 23:53 Patient admitted, IV remains in place. as6 Administered Medications: No medications were administered Medication: 15:25 VIS not applicable for this client. mb9 Outcome: 15:15 Decision to Hospitalize by Provider. ms3 23:53 Admitted to Med/surg as6 23:53 Condition: stable 23:53 Instructed on the need for admit. 23:53 Patient left the ED. as6 Signatures: Mary Winston James, RN RN jb4 Sheryl Rojo RN RN ap3 Maria G Anna Marcus, DO DO ms3 Timi Otoole, RN RN as6 Alessandra Templeton, RN RN mb9 Luz Maria Horn Clarissa, RN RN cm10 Corrections: (The following items were deleted from the chart) 12:38 12:32 Chief complaint: Patient states: diabetic foot ulcer to left foot. PT states that cm10 he has had this wound for the last year and was seen at [facility] last night and was given IV ABX X2 and left AMA due to not being able to get pain medicine. Pt states that the wound is now getting bigger and is now having purulent drainage. cm10
[2023-04-20 16:01] LABS: Absolute Lymphocytes (CBC) 2.1 K/uL (0.7-4.9); Hematocrit 41.3 % (36.0-45.0); MCV 86.9 fL (80-100); MPV 9.1 fL (7.6-11.3); Platelets 386 thou/uL (152-406); RBC Red Blood Cell Count 4.75 M/uL (3.86-4.86)
[2023-04-20 16:18] LABS: C-Reactive Protein 57.1 mg/L (<3.00); Potassium 3.9 mEq/L (3.5-5.1)
--- NOTE | 2023-04-20 20:00 | P.HP ---
Certification for Inpatient Patient admitted to: Inpatient With expected LOS: <2 Midnights Patient will require the following post-hospital care: None Practitioner: I am a practitioner with admitting privileges, knowledge of patient current condition, hospital course, and medical plan of care. Services: Services provided to patient in accordance with Admission requirements found in Title 42 Section 412.3 of the Code of Federal Regulations Patient History Date of Service: 04/21/23 History of Present Illness: 47-year-old female with a history of DM, noncompliant with therapy, history of chronic wound of the left lower extremity, chronic pain, neuropathy, presents to the emergency room for worsening left diabetic foot ulcer, left lower extremity foot pain, patient was seen yesterday at [facility] and signed out AMA. She reports left lower extremity foot wound chronic greater over the last year, she reports that has a new ulcer with drainage that started a couple months ago Is progressively getting worse. She denies fever, chills, nausea vomiting diarrhea, shortness of breath or chest pain. She reports being uninsured, not being treated with recent antibiotics. She reports left lower extremity associated pain that is chronic. Prior toe amputation. She reports her current pain is 9 out of 10 and takes hydrocodone's 10 mg with gabapentin 1200 3 times daily. Patient is a current smoker, has left the room several times to smoke, nurse thought patient left AMA. patient later returned to room. Patient is very angry, argumentative, requesting pain meds, and nicotine patch. Patient refused further testing x-ray, cultures, due to test being completed at [facility]. ED physician requested prior medical records. Plan to admit for diabetic foot ulcer, uncontrolled diabetes, cellulitis, chronic pain. Surgery consulted to eval diabetic foot wound, infectious disease consulted for antibiotic management. Laboratory evaluation CBC unremarkable, mild hyponatremia 134, blood glucose 380, repeat 254, BUN/creatinine stable, patient refused left lower extremity foot x-ray, cultures. Allergies meperidine HCl [From Demerol] Allergy (Severe, Verified 12/03/20 00:43) Itching/Hives/Rash propoxyphene [From Darvocet-N 100] Allergy (Severe, Verified 12/03/20 00:43) Itching/Hives/Rash acetaminophen [From Darvocet-N 100] Allergy (Intermediate, Verified 12/03/20 00:43) Itching/Hives/Rash cephalexin monohydrate [From Keflex] Allergy (Intermediate, Verified 12/03/20 00:43) Itching/Hives/Rash Penicillins Allergy (Intermediate, Uncoded 07/31/20 14:20) Itching Home Medications: Aspirin [Aspirin EC 81 MG] 81 mg PO DAILY #30 tablet. 08/01/20 Atorvastatin Calcium 40 mg PO BEDTIME #30 tablet 08/01/20 Doxycycline Hyclate 100 mg PO BID #20 capsule 12/04/20 Gabapentin 1,200 mg PO TID #180 tablet 12/04/20 Hydrocodone 10/APAP 325 [[place] 10/325*] 1 tab PO Q6H PRN #15 tab 12/04/20 Clopidogrel Bisulfate [Plavix*] 1 tab PO DAILY 12/10/20 Metformin HCl 1 tab PO BID 12/10/20 levoFLOXacin [Levaquin*] 1 tab PO BEDTIME 12/10/20 - Past Medical/Surgical History Diabetic: Yes -: Neuropathy -: Mitral valve prolapse -: Diabetes -: Cholecystectomy 1996 -: Tubal ligation -: -: Left 4th toe Amputation - Social History Smoking Status: Current every day smoker Patient receptive to therapy: No Alcohol use: Yes CD- Drugs: No Caffeine use: Yes Review of Systems 10-point ROS is otherwise unremarkable Physical Examination - Physical Exam General: Alert, In no apparent distress, Oriented x3 HEENT: Atraumatic, Normocephalic, PERRLA, Mucous membr. moist/pink Neck: Supple, 2+ carotid pulse no bruit, JVD not distended Respiratory: Clear to auscultation bilaterally, Normal air movement Cardiovascular: No edema, Normal pulses, Regular rate/rhythm, Normal S1 S2 Capillary refill: <2 Seconds Gastrointestinal: Normal bowel sounds, Soft and benign Musculoskeletal: No clubbing, No swelling Integumentary: Other (LLE plantar ulceration, erythema) Neurological: Normal speech, Normal strength at 5/5 x4 extr, Sensation intact - Studies Laboratory Data (last 24 hrs) 04/20/23 04/20/23 15:52 15:52 WBC 7.80 Hgb 14.1 Hct 41.3 Plt Count 386 Sodium 134 L Potassium 3.9 BUN 11 Creatinine 0.77 Glucose 380 H Assessment and Plan - Plan Assessment plan Left lower extremity diabetic foot ulcer Diabetes type 2 uncontrolled History of osteomyelitis with toe amputation Peripheral neuropathy Peripheral arterial disease Tobacco use Assessment plan Left lower extremity diabetic foot ulcer History of osteomyelitis with toe amputation IV doxycycline, IV cefepime, allergies of vancomycin Blood cultures, wound cultures ordered, completed at [facility] yesterday Surgery consult, infectious disease consult Please obtain medical records requested from the ED department from [facility] 04/20/23 Wound care consult to evaluate left lower extremity wound Diabetes type 2 uncontrolled Accu-Cheks, sliding scale insulin A1c ordered for the a.m. Peripheral neuropathy Peripheral arterial disease Chronic pain As needed analgesics, resume gabapentin Tobacco use Nicotine patch educated on tobacco cessation Full code DVT SCDs Diet diabetic n.p.o. after midnight . Discharge Plan: Home Plan to discharge in: 48 Hours - Advance Directives Does patient have a Living Will: No Does patient have a Durable POA for Healthcare: No - Code Status/Comfort Care Code Status: Full Code Physician Review: Patient Assessed, Agree with Above Assessment and Plan Critical Care: No Time Spent Managing Pts Care (In Minutes): 50
[2023-04-20] MEDS ORDERED: ZOLPIDEM TARTRATE 5 MG TABLET PO PRN (20:10)
[2023-04-20] MEDS ORDERED: ONDANSETRON 4 MG/2 ML VIAL IV PRN (20:10)
[2023-04-20] MEDS ORDERED: INSULIN -REGULAR HUMAN 50 UNIT/0.5 ML ML SQ SCH (21:00)
[2023-04-20] MEDS ORDERED: NICOTINE 21 MG/PAT TD SCH (21:15)
[2023-04-20] MEDS: HYDROCODONE/APAP 10/325 TAB PO PRN (21:56)
[2023-04-20] MEDS ORDERED: NICOTINE 21 MG/PAT TD ONE (21:57)
[2023-04-20] MEDS: GABAPENTIN 300 MG CAP PO SCH (21:57)
[2023-04-20] MEDS ORDERED: GABAPENTIN 300 MG CAP ONE (21:58)
[2023-04-20] MEDS ORDERED: INSULIN -REGULAR HUMAN 50 UNIT/0.5 ML ML ONE (22:35)
[2023-04-20] MEDS: LACTOBACILLUS/ACIDOPHILUS TAB PO SCH (22:45)
[2023-04-20] MEDS: DOXYCYCLINE 100 MG in NA CHLORIDE 0.9% 100 ML IVPB SCH (22:45)
[2023-04-20] MEDS ORDERED: NA CHLORIDE 0.9% 100 ML ONE (22:46)
[2023-04-20] MEDS ORDERED: DOXYCYCLINE HYCLATE 100MG INJ ONE (22:46)
[2023-04-20] MEDS ORDERED: LACTOBACILLUS/ACIDOPHILUS TAB ONE (22:48)
[2023-04-20] MEDS ORDERED: GLUCAGON 1 MG/VIAL IM PRN (23:54)
[2023-04-20] MEDS ORDERED: D50W 25 GM/50 ML SYRINGE IV PRN (23:54)
[2023-04-21] MEDS: CEFEPIME 1 GM in NA CHLORIDE 0.9% 100 ML IV SCH ×3 (00:41→20:51)
[2023-04-21] MEDS ORDERED: D10W 125 ML IV PRN (00:55)
[2023-04-21 01:28] VITALS: BMI 27.6
[2023-04-21] MEDS: HYDROCODONE/APAP 10/325 TAB PO PRN ×2 (04:06→14:30)
[2023-04-21 04:33] LABS: Albumin 2.5 g/dL (3.4-5.0); Bilirubin Total 0.3 mg/dL (0.2-1.0); Magnesium 1.4 mg/dL (1.6-2.4); Potassium 3.4 mEq/L (3.5-5.1); Protein, Total 6.6 g/dL (6.4-8.2)
[2023-04-21] MEDS ORDERED: VANCOMYCIN 1.25 GM in NA CHLORIDE 0.9% 250 ML IVPB SCH (07:00)
[2023-04-21] MEDS: INSULIN -REGULAR HUMAN 50 UNIT/0.5 ML ML SQ SCH ×4 (07:30→22:11)
[2023-04-21] MEDS ORDERED: DOXYCYCLINE 100 MG in NA CHLORIDE 0.9% 100 ML IVPB SCH (08:00)
[2023-04-21] MEDS ORDERED: MORPHINE 2 MG/ML SYR IV PRN (08:18)
[2023-04-21 08:44] LABS: Urine Bacteria None Seen /HPF (<20); Urine Bilirubin NEGATIVE (Negative); Urine Blood Negative (Negative); Urine Clarity Turbid (Clear); Urine Color Light-Yellow (Yellow); Urine Glucose 1+ (Negative); Urine Mucus Slight /HPF (None Seen); Urine Protein TRACE (Negative); Urine RBC <5 /HPF (None Seen); Urine Urobilinogen Normal (Normal)
[2023-04-21] MEDS: GABAPENTIN 300 MG CAP PO SCH ×3 (08:46→20:52)
[2023-04-21] MEDS: LACTOBACILLUS/ACIDOPHILUS TAB PO SCH ×2 (08:46→20:53)
[2023-04-21] MEDS: DOXYCYCLINE 100 MG in NA CHLORIDE 0.9% 100 ML IVPB SCH ×3 (08:47→21:00)
[2023-04-21] MEDS ORDERED: CEFEPIME 1 GM in NA CHLORIDE 0.9% 100 ML IV SCH (09:00)
--- NOTE | 2023-04-21 09:01 | P.CNS ---
Date of Consult: 04/21/23 Reason for Consult: LLE diabetic foot ulcer Chief Complaint: Diabetic foot ulcer History of Present Illness: Patient is a 47-year-old female with a past medical history of diabetes with chronic diabetic foot wound of the left lower extremity, neuropathy who p resented to the emergency department with complaints of worsening left diabetic foot ulcer and pain. She was reportedly seen at [facility] 1 day prior to arrival which she signed out AMA. Infectious disease was consulted for infected diabetic foot ulcer. Allergies meperidine HCl [From Demerol] Allergy (Severe, Verified 12/03/20 00:43) Itching/Hives/Rash propoxyphene [From Darvocet-N 100] Allergy (Severe, Verified 12/03/20 00:43) Itching/Hives/Rash acetaminophen [From Darvocet-N 100] Allergy (Intermediate, Verified 12/03/20 00:43) Itching/Hives/Rash cephalexin monohydrate [From Keflex] Allergy (Intermediate, Verified 12/03/20 00:43) Itching/Hives/Rash vancomycin Allergy (Intermediate, Verified 04/21/23 00:58) Itching Penicillins Allergy (Intermediate, Uncoded 07/31/20 14:20) Itching Home Medications: Gabapentin 1,200 mg PO TID #180 tablet 12/04/20 Hydrocodone 10/APAP 325 [[place] 10/325*] 1 tab PO TID 04/21/23 - Past Medical/Surgical History Diabetic: Yes -: Neuropathy -: Mitral valve prolapse -: Diabetes -: HLD -: Cholecystectomy 1996 -: Tubal ligation -: -: Left 4th toe Amputation - Family History Father Medical History: Hypertension, Stroke, Other (see notes) Notes: PVD Mother Medical History: Hypertension, Diabetes - Social History Smoking Status: Current every day smoker Alcohol use: Yes CD- Drugs: No Caffeine use: Yes Place of Residence: Home Review of Systems 10-point ROS is otherwise unremarkable Integumentary: As per HPI Physical Examination Temp Pulse Resp BP Pulse Ox 97.8 F 83 16 125/62 95 04/21/23 04:00 04/21/23 04:00 04/21/23 04:00 04/21/23 04:00 04/21/23 04:00 General: Alert, In no apparent distress, Oriented x3 HEENT: Atraumatic, Normocephalic Neck: Supple Respiratory: Clear to auscultation bilaterally, Normal air movement Cardiovascular: No edema Gastrointestinal: Normal bowel sounds, Soft and benign Integumentary: Diabetic ulcer (left plantar foot) Laboratory Data (last 24 hrs) 04/20/23 04/20/23 15:52 15:52 WBC 7.80 Hgb 14.1 Hct 41.3 Plt Count 386 Sodium 134 L Potassium 3.9 BUN 11 Creatinine 0.77 Glucose 380 H Conclusions/Impression: Problem list Diabetes mellitus Diabetic foot ulcer, chronic Diabetic neuropathy Diabetic Ulcer of Left Foot with Abscess -Left foot wound culture 04/21 pending -Blood cultures 04/20 pending - No leukocytosis. afebrile - scheduled for debridement of left foot diabetic ulcer 04/21 - Currently on Cefepime Recommendations - Continue cefepime and doxycycline for now. - Depending on culture results, consider switch to Ciprofloxacin PO plus Clindamycin PO - Pending debridement 04/21; follow up with report - Strict blood glucose control Case discussed with Kwabean Bonilla
[2023-04-21] MEDS ORDERED: NA CHLORIDE 0.9% 1,000 ML ONE (11:59)
[2023-04-21] MEDS ORDERED: propofoL 200 MG/20 ML VIAL IV ONE (12:54)
[2023-04-21] MEDS ORDERED: KETOROLAC 30 MG/ML INJ ONE (12:54)
[2023-04-21] MEDS ORDERED: LIDOCAINE 2% MPF 5 ML VIAL ONE (12:54)
[2023-04-21] MEDS: BUPIVACAINE 0.25% PF 30 ML VIAL ONE ×2 (13:00→13:04)
--- NOTE | 2023-04-21 13:15 | P.OP ---
Preoperative diagnosis: LEFT Foot Infected Diabetic Foot Wound Postoperative diagnosis: LEFT Foot Infected Diabetic Foot Wound Primary procedure: Debridement of LEFT Foot Infected Diabetic Foot Wound Anesthesia: MAC + Local Estimated blood loss: <5cc Specimen: Cultures, Debridement Tissues Findings: Necrotic Tissue with exposed 5th MT head, abscess Complications: None Transferred to: Recovery Room Condition: Good
--- NOTE | 2023-04-21 15:00 | OP ---
Date of Procedure: 04/21/2023 Surgeon: Federico Lee MD, Preoperative Diagnosis: Left foot infected diabetic wound. Postoperative Diagnosis: Left foot infected diabetic wound. Procedure Performed: Debridement of left foot infected diabetic foot wound. Anesthesia: MAC plus local with 1% lidocaine without epinephrine. Estimated Blood Loss: Less than 5 cc. Specimen: Culture sent for aerobic and anaerobic speciation, debridement tissue. Findings: 1.Necrotic tissue was appreciated with obvious exposure of the fifth metatarsal head. 2.Abscess which was multiloculated extending from the plantar aspect of the foot to the dorsal aspec t of the foot on the lateral plantar aspect extending to the dorsal aspect of the fifth metatarsal. Complications: None. Disposition: The patient was transferred to the recovery room in good condition. Procedure In Detail: After informed consent was obtained, the patient was brought to the operating r oom, prepped and draped in the usual sterile fashion after adequate anesthesia was achieved. I made a curvilinear incision around an obvious diabetic foot wound along the fifth metatarsal head down to subcutaneous tissues. I could see the fifth metatarsal head prior to removing any tissue and I remov ed all necrotic tissue circumferentially using an electrocautery and sharp dissection extending up to the metatarsal head. I palpated the area and found to be fluctuance extending on the lateral aspect of the fifth digit extending to the dorsal aspect of the same said foot and as such, I made a counte r incision on the superior aspect of the plantar metatarsal head area and I immediately encountered a dditional abscess type material. As such, I dilated this tract and removed all necrotic tissue and I extended the incision from the plantar aspect of foot slightly lateral up to, but not communicating with the dorsal incision. At this point, all necrotic tissue was swept clean. I then packed the wou nd by passing a quarter-inch plain packing soaked in Vashe into the wound to allow for tight packing of this area and a sterile dressing placed over top. The patient tolerated the procedure well withou t evidence of complication and transferred to PACU in good condition. All counts were correct at the end of the case. VANESSA/MODL Voice ID: [id number] Report ID: [id number]
[2023-04-21] MEDS: HYDROCODONE/APAP 10/325 TAB PO SCH (20:52)
[2023-04-21 23:52] VITALS: O2SAT 95
[2023-04-22] MEDS: HYDROCODONE/APAP 10/325 TAB PO PRN (02:32)
[2023-04-22 02:51] LABS: Albumin 2.6 g/dL (3.4-5.0); Bilirubin Total 0.2 mg/dL (0.2-1.0); Magnesium 1.3 mg/dL (1.6-2.4); Potassium 3.7 mEq/L (3.5-5.1); Protein, Total 6.7 g/dL (6.4-8.2)
[2023-04-22] MEDS ORDERED: NICOTINE 21 MG/PAT TD SCH (02:56)
[2023-04-22] MEDS ORDERED: MAGNESIUM SULFATE 1 gm IVPB 1 GM/100 ML BAG IV ONE (06:00)
[2023-04-22] MEDS ORDERED: Magnesium Sulfate 2gm IVPB 2 G/50 ML BAG IV ONE (07:00)
[2023-04-22] MEDS: INSULIN -REGULAR HUMAN 50 UNIT/0.5 ML ML SQ SCH ×2 (07:30→11:30)
[2023-04-22] MEDS: LACTOBACILLUS/ACIDOPHILUS TAB PO SCH (08:40)
[2023-04-22] MEDS: GABAPENTIN 300 MG CAP PO SCH ×2 (08:40→14:11)
[2023-04-22] MEDS: HYDROCODONE/APAP 10/325 TAB PO SCH ×2 (08:41→14:11)
[2023-04-22] MEDS: CEFEPIME 1 GM in NA CHLORIDE 0.9% 100 ML IV SCH (08:42)
[2023-04-22] MEDS: DOXYCYCLINE 100 MG in NA CHLORIDE 0.9% 100 ML IVPB SCH (08:43)
[2023-04-22] MEDS ORDERED: POTASSIUM CL SA 10 MEQ TAB PO ONE (09:00)
[2023-04-22] MEDS ORDERED: CEFEPIME 2 GM in NA CHLORIDE 0.9% 100 ML IV SCH (09:00)
[2023-04-22 13:41] VITALS: BP 165/75; TEMP 98.4
== END 2023-04-22 15:45 | disposition home or self-care (01) | DRG 264 ==
LOC: ER 12:05 → ERHOLD 20:00 → 2ND 22:08
PROVIDERS: ADMIT Hospitalist; ATTEND Hospitalist
PROC: 0JBR0ZZ Excision of Left Foot Subcutaneous Tissue and Fascia, Open Approach (ICD-10-PCS; principal; 2023-04-21 11:30)
DX: E11.52 Type 2 diabetes mellitus with diabetic peripheral angiopathy with gangrene (principal); E87.1 Hypo-osmolality and hyponatremia; L02.612 Cutaneous abscess of left foot; E11.42 Type 2 diabetes mellitus with diabetic polyneuropathy; E11.40 Type 2 diabetes mellitus with diabetic neuropathy, unspecified; E11.621 Type 2 diabetes mellitus with foot ulcer; L97.529 Non-pressure chronic ulcer of other part of left foot with unspecified severity; G89.29 Other chronic pain; F17.210 Nicotine dependence, cigarettes, uncomplicated; Z88.0 Allergy status to penicillin; Z88.8 Allergy status to other drugs, medicaments and biological substances; Z88.1 Allergy status to other antibiotic agents; Z88.5 Allergy status to narcotic agent; Z98.51 Tubal ligation status; Z90.49 Acquired absence of other specified parts of digestive tract; Z79.82 Long term (current) use of aspirin; Z79.02 Long term (current) use of antithrombotics/antiplatelets; Z79.84 Long term (current) use of oral hypoglycemic drugs; Z79.899 Other long term (current) drug therapy; Z91.199 Patient's noncompliance with other medical treatment and regimen due to unspecified reason; Z89.429 Acquired absence of other toe(s), unspecified side; Z89.422 Acquired absence of other left toe(s)
CPT/HCPCS: 36415; 80048; 80053; 80061; 81001; 82947; 83036; 83735; 85025; 86140; 87040; 87070; 87075; 87077; 87186; 87205; 88304; 99285; J0692; J1815; J2001; J2270; J2704; J3475; J7030

== ENCOUNTER 2023-08-11 13:48 | Inpatient (IN) | payer OTHER, SELFPAY ==
--- OUTSIDE RECORDS SUMMARY | 2023-08-11 13:52 | XMS REPORT | Continuity of Care Document ---
Author Name Unknown Address [address] [facility] [address] th[address] Address [address] [facility]. [address] [place] [address] Care Team Providers [facility] [employer] [facility] Operator Name Role Phone LAURENCE COTA Attending Clinician Unavailable KARLA SR Attending Clinician Unavailable HUSSEIN PETERSON Attending Clinician Unavailable LAB90 Attending Clinician Unavailable JASPER FIELDS Attending Clinician Unavailable JASON DIAMOND Attending Clinician Unavailable LAB91 Attending Clinician Unavailable BARB BENITO Attending Clinician Unavailabl e Payers Payer Name Policy Type Policy Number Effective Date Expirati on Date Source [employer] MP [employer] 2: [employer] 94 ON 9 [id number] 2023 00:00:00 Problems Condition Name Condition Details Condition Category Status Onset Date Resolution Date Last Treatment Date Treating Clinician Comments Source Intermitte nt claudicati on Intermitte nt claudicati on Disease Active 09-15 00:00: 00 Cynthia Lopezold - Externa l Diabetes mellitus with peripheral vascular disease (multi HCC) Diabetes mellitus with peripheral vascular disease (multi HCC) Disease Active 09-15 00:00: 00 Cynthia Seybold - Externa l 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) Disease Active 09-13 00:00: 00 Cynthia Seybold - Externa l No known active problems No known active problems Disease Cynthia Seybold - Externa l Allergies, Adverse Reactions, Alerts Allergy Name Allergy Type Status Severity Reaction(s) Onset Date Inactive Date Treating Clinician Comments Source Vancomyc in Propensi ty to adverse reaction s Active Hives 2021-08 0-20 00:00: 00 Cynthia Seybold - Externa l Acetamin ophen Injectio n Propensi ty to adverse reaction s Active 12-03 00:00: 00 Other reaction( s): Itching/H trupti/Rash Cynthia Seybold - Externa l Cephalex in Monohydr ate Propensi ty to adverse reaction s Active 12-03 00:00: 00 Other reaction( s): Itching/H trupti/Rash Cynthia Seybold - Externa l Meperidi ne Hcl Propensi ty to adverse reaction s Active 12-03 00:00: 00 Other reaction( s): Itching/H trupti/Rash Cynthia Seybold - Externa l Propoxyp hene Propensi ty to adverse reaction s Active 12-03 00:00: 00 Other reaction( s): Itching/H trupti/Rash Cynthia Seybold - Externa l Penicill ins Propensi ty to adverse reaction s Active 2019-08 00:00: 00 Other reaction( s): Itching Cynthia Seybold - Externa l Social History Social Habit Start Date Stop Date Quantity Comments Source History of tobacco use Cigarette Smoker Cynthia farrar - External Sexual orientation K mana Nathan - External Cigarettes smoked current (pack per day) - Reported 2023-06-19 00:00:00 2023-06-19 00:00:00 Cynthia Evans - External Cigarette pack-years 2023-06-19 00:00:00 2023-06-19 00:00:00 Cynthia Evans - External History of Social function 2022-09-15 00:00:00 2022-09-15 00:00:00 Cynthia Evans - External Sex Assigned At 1975 00:00:00 1975 00:00:00 Cynthia Evans - External Smoking Status Start Date Stop Date Source Smokes tobacco daily 2023-06-19 00:00:00 Cynthia Evans - External Medications Ordered Medication Name Filled Medication Name Start Date Stop Date Current Medication? Ordering Clinician Indication Dosage Frequency Signature (SIG) Comments Components Source HYDROcodone -Acetaminop hen 10-325 MG oral Tablet 2022-08 12:46: 39 07-05 00:00 :00 No 1{tbl} Q.25D Take 1 tablet by mouth every 6 hours as needed. Cynthia wilkinson Clopidogrel Bisulfate (PLAVIX) 75 MG oral Tablet 2022-08 11:39: 35 Yes 1{tbl} Take 1 tablet (75 mg total) by mouth. Cynthia wilkinson HYDROcodone -Acetaminop hen 10-325 MG oral Tablet 2022-08 00:00: 00 Yes 1{tbl} Q.19073554 [id number] 3D Take 1 tablet by mouth every 8 hours as needed. Cynthia wilkinson Trazodone HCl 50 MG oral Tablet 2022-08 11:24: 16 06-19 00:00 :00 No Cynthia wilkinson HYDROcodone -Acetaminop hen 10-325 MG oral Tablet 2022-08 11:23: 52 Yes 1{tbl} Q.25D Take 1 tablet by mouth every 6 hours as needed. Cynthia wilkinson Flurandreno lide 0.05 % apply externally Lotion 2022-08 11:22: 36 06-19 00:00 :00 No Cynthia wilkinson Cyclobenzap rine HCl 10 MG oral Tablet 2022-08 11:22: 20 06-19 00:00 :00 No 10mg Q.5D Take 1 tablet (10 mg total) by mouth 2 times daily as needed. Cynthia wilkinson Clopidogrel Bisulfate (PLAVIX) 75 MG oral Tablet 2022-08 11:22: 19 Yes 75mg Take 1 tablet (75 mg total) by mouth. Cynthia wilkinson Aspirin 81 MG oral Chewable Tablet 2022-08 11:21: 56 06-19 00:00 :00 No 81mg Take 1 tablet (81 mg total) by mouth daily. Cynthia wilkinson Atorvastati n Calcium 10 MG oral Tablet 2022-08 00:00: 00 Yes [id number] 10mg Take 1 tablet (10 mg total) by mouth nightly. Cynthia wilkinson Duloxetine HCl [address] Particles 2022-08 00:00: 00 Yes [id number] 120mg Take 2 capsules (120 mg total) by mouth daily. Cynthia wilkinson Gabapentin 600 MG oral Tablet 2022-08 00:00: 00 Yes [id number] 1200mg Take 2 tablets (1,200 mg total) by mouth 3 times daily. Cynthia wilkinson GlipiZIDE 5 MG oral TABLET SR 24 HR 2022-08 00:00: 00 Yes [id number] 5mg Take 1 tablet (5 mg total) by mouth daily. Cynthia wilkinson Metformin HCl 1000 MG oral Tablet 2022-08 00:00: 00 Yes [id number] 1000mg Take 1 tablet (1,000 mg total) by mouth in the morning and 1 tablet (1,000 mg total) in the evening. Take with meals. Cynthia wilkinson Trulicity 0.75 MG/0.5ML subcutaneou s Solution Pen-injecto r 2022-08 00:00: 00 Yes [id number] .75mg Inject 0.75 mg into the skin once a week. Cynthia wilkinson Atorvastati n Calcium 10 MG oral Tablet 2022-08 00:00: 00 Yes [id number] 10mg Take 1 tablet (10 mg total) by mouth nightly. Cynthia wilkinson Duloxetine HCl [address] Particles 2022-08 00:00: 00 Yes [id number] 120mg Take 2 capsules (120 mg total) by mouth daily. Cynthia wilkinson Gabapentin 600 MG oral Tablet 2022-08 00:00: 00 Yes [id number] 1200mg Take 2 tablets (1,200 mg total) by mouth 3 times daily. Cynthia wilkinson GlipiZIDE 5 MG oral TABLET SR 24 HR 2022-08 00:00: 00 Yes [id number] 5mg Take 1 tablet (5 mg total) by mouth daily. Cynthia wilkinson Metformin HCl 1000 MG oral Tablet 2022-08 00:00: 00 Yes [id number] 1000mg Take 1 tablet (1,000 mg total) by mouth in the morning and 1 tablet (1,000 mg total) in the evening. Take with meals. Cynthia wilkinson Trulicity 0.75 MG/0.5ML subcutaneou s Solution Pen-injecto r 2022-08 00:00: 00 Yes [id number] .75mg Inject 0.75 mg into the skin once a week. Cynthia wilkinson Dulaglutide (Trulicity) 3 MG/0.5ML subcutaneou s Solution Pen-injecto r 2022-08 00:00: 00 06-19 00:00 :00 No [id number] 3mg Inject 3 mg into the skin once a week. Cynthia wilkinson TRIMETHOPRI M-SULFAMETH OXAZOLE (BACTRIM DS) 800-160 MG oral Tablet 04-22 00:00: 00 Yes 1{tbl} Take 1 tablet by mouth 2 times daily. Cynthia wilkinson TRIMETHOPRI M-SULFAMETH OXAZOLE (BACTRIM DS) 800-160 MG oral Tablet 04-22 00:00: 00 Yes 1{tbl} Take 1 tablet by mouth 2 times daily. Cynthia wilkinson Minocycline HCl 100 MG oral Capsule 04-22 00:00: 00 06-19 00:00 :00 No 100mg Take 1 capsule (100 mg total) by mouth 2 times daily. Cynthia wilkinson Duloxetine HCl [address] Particles 01-02 00:00: 00 06-19 00:00 :00 No [id number] TAKE 2 CAPSULES BY MOUTH EVERY DAY Cynthia wilkinson Trulicity 3 MG/0.5ML subcutaneou s Solution Pen-injecto r 01-02 00:00: 00 06-19 00:00 :00 No [id number] 3mg Inject 3 mg into the skin once a week Cynthia wilkinson Atorvastati n Calcium 10 MG oral Tablet 5- 00:00: 00 06-19 00:00 :00 No [id number] TAKE 1 TABLET BY MOUTH EVERY DAY yCnthia wilkinson Metformin HCl 1000 MG oral Tablet 11-08 00:00: 00 06-19 00:00 :00 No [id number] 1000mg Take 1 tablet (1,000 mg total) by mouth in the morning and 1 tablet (1,000 mg total) in the evening. Take with meals. Cynthia wilkinson GlipiZIDE 5 MG oral TABLET SR 24 HR 11-08 00:00: 00 06-19 00:00 :00 No [id number] 5mg TAKE 1 TABLET (5 MG TOTAL) BY MOUTH DAILY. Cynthia wilkinson Gabapentin 600 MG oral Tablet 10-13 00:00: 00 06-19 00:00 :00 No [id number] 1200mg Take 2 tablets (1,200 mg total) by mouth 3 times daily Cynthia wilkinson HYDROcodone -Acetaminop hen 10-325 MG oral Tablet 09-15 09:03: 04 Yes 1{tbl} Q.25D Take 1 tablet by mouth every 6 hours as needed Cynthia wilkinson Gabapentin 300 MG oral Capsule 09-15 09:02: 44 09-15 00:00 :00 No 900mg Take 900 mg by mouth 3 times daily Cynthia wilkinson Mupirocin (BACTROBAN) 2 % apply externally Ointment 09-15 00:00: 00 Yes [id number] Apply 1 applicatio n topically 3 times daily Cynthia wilkinson Trulicity 0.75 MG/0.5ML subcutaneou s Solution Pen-injecto r 09-15 00:00: 00 Yes [id number] .75mg Inject 0.75 mg into the skin once a week Cynthia wilkinson Mupirocin (BACTROBAN) 2 % apply externally Ointment 09-15 00:00: 00 Yes [id number] Apply 1 applicatio n topically 3 times daily Cynthia wilkinson Mupirocin (BACTROBAN) 2 % apply externally Ointment 09-15 00:00: 00 Yes [id number] Apply 1 applicatio n topically 3 times daily Cynthia wilkinson Metformin HCl 500 MG oral Tablet 09-02 00:00: 00 Yes [id number] 1000mg Take 2 tablets (1,000 mg total) by mouth in the morning and 2 tablets (1,000 mg total) in the evening. Take with meals. Cynthia wilkinson Duloxetine HCl [address] Particles 09-01 15:17: 08 Yes 120mg Take 120 mg by mouth daily Cynthia wilkinson HYDROcodone -Acetaminop hen 10-325 MG oral Tablet 09-01 15:11: 36 Yes 1{tbl} Q.25D Take 1 tablet by mouth every 6 hours as needed Cynthia wilkinson Metformin HCl 500 MG oral Tablet 09-01 00:00: 00 Yes [id number] 1000mg Take 2 tablets (1,000 mg total) by mouth in the morning and 2 tablets (1,000 mg total) in the evening. Take with meals. Cynthia wilkinson Duloxetine HCl [address] Particles 09-01 00:00: 00 Yes [id number] 120mg Take 2 capsules (120 mg total) by mouth daily Cynthia wilkinson Gabapentin 600 MG oral Tablet 09-01 00:00: 00 Yes [id number] 1200mg Take 2 tablets (1,200 mg total) by mouth 3 times daily Cynthia wilkinson Benzonatate (Tessalon Perles) 100 MG oral Capsule 09-01 00:00: 00 09-15 00:00 :00 No [id number] 100mg Q.[id number] 3D Take 1 capsule (100 mg total) by mouth 3 times daily as needed for cough Cynthia wilkinson methylPREDN ISolone 4 MG oral Tablet Therapy Pack 09-01 00:00: 00 09-15 00:00 :00 No [id number] 1{lana} Take 1 lana by mouth See Admin Instructio ns Use as directed Cynthia wilkinson Dicloxacill in Sodium 500 MG oral Capsule 2021-08 00:00: 00 09-01 00:00 :00 No 1{capsu le} Take 1 capsule by mouth daily Cynthia wilkinson Metformin HCl 500 MG oral Tablet 2021-08 00:00: 00 09-01 00:00 :00 No TAKE 1 TABLET BY MOUTH TWICE DAILY IN THE MORNING AND IN THE EVENING- DO ALL THIS FOR 30 DAYS Cynthia wilkinson Indomethaci n 50 MG oral Capsule 2021-08 00:00: 00 09-01 00:00 :00 No TAKE 1 CAPSULE BY MOUTH THREE TIMES DAILY WITH MEALS NEEDED FOR PAIN Cynthia wilkinson Gabapentin 600 MG oral Tablet 2021-08 00:00: 00 Yes 1200mg Take 1,200 mg by mouth 3 times daily Cynthia wilkinson Vital Signs Vital Name Observation Time Observation Value Comments S ource Systolic blood pressure 2023-07-05 17:39:00 126 mm[Hg] Cynthia Farr ld - External Diastolic blood pressure 2023-07-05 17:39:00 72 mm[Hg] Cynthia Farr ld - External Heart rate 2023-07-05 17:39:00 92 /min Kel y Seybold - External Respiratory rate 2023-07-05 17:39:00 16 /min Cynthia Evans - External Body height 2023-07-05 17:39:00 167.6 cm Katherine ey Seybold - External Body weight 2023-07-05 17:39:00 73.483 kg Katherine ey Seybold - External BMI 2023-07-05 17:39:00 26.15 kg/m2 Katherine ey Seybold - External Body weight 2023-06-19 17:18:00 70.308 kg Katherine ey Seybold - External BMI 2023-06-19 17:18:00 26.61 kg/m2 Katherine ey Seybold - External Systolic blood pressure 2023-06-19 17:18:00 122 mm[Hg] Cynthia Seybo ld - External Diastolic blood pressure 2023-06-19 17:18:00 64 mm[Hg] Cynthia Seybo ld - External Heart rate 2023-06-19 17:18:00 91 /min Kelse y Seybold - External Body temperature 2023-06-19 17:18:00 36.5 Cecilia Cynthia Seybold - External Body height 2023-06-19 17:18:00 162.6 cm Katherine ey Seybold - External Systolic blood pressure 2022-09-15 14:58:00 148 mm[Hg] Cynthia Seybo ld - External Diastolic blood pressure 2022-09-15 14:58:00 74 mm[Hg] Cynthia Seybo ld - External Heart rate 2022-09-15 14:58:00 101 /min Kelse y Seybold - External Body temperature 2022-09-15 14:58:00 36.67 Cecilia Cynthia Seybold - External Respiratory rate 2022-09-15 14:58:00 15 /min Cynthia Seybold - External Body height 2022-09-15 14:58:00 162.6 cm Katherine ey Seybold - External Body weight 2022-09-15 14:58:00 70.761 kg Katherine ey Seybold - External BMI 2022-09-15 14:58:00 26.78 kg/m2 Katherine ey Seybold - External Systolic blood pressure 2022-09-01 21:12:00 137 mm[Hg] Cynthia Seybo ld - External Diastolic blood pressure 2022-09-01 21:12:00 74 mm[Hg] Cynthia Seybo ld - External Heart rate 2022-09-01 21:12:00 82 /min Kelse y Seybold - External Body temperature 2022-09-01 21:12:00 36.61 Cecilia Cynthia Seybold - External Respiratory rate 2022-09-01 21:12:00 12 /min Cynthia Seybold - External Body height 2022-09-01 21:12:00 165.1 cm Katherine ey Seybold - External Body weight 2022-09-01 21:12:00 70.308 kg Katherine ey Seybold - External BMI 2022-09-01 21:12:00 25.79 kg/m2 Katherine ey Seybold - External Oxygen saturation in Arterial blood by Pulse oximetry 2022-09-01 21:12:00 97 /min Cynthia Farr ld - External Encounters Start Date/Time End Date/Time Encounter Type Admission Type Attending [facility] Care Department Encounter ID Source 2023-09-19 10:30:00 2023-09-19 10:30:00 Outpatient LAURENCE COTA [id number] Cynthia Nathan 2023-08-22 10:00:00 2023-08-22 10:00:00 Outpatient REMBERTO MACEYDARIUS DIAZ [id number] Cynthia Nathan 2023-07-19 00:00:00 2023-07-19 00:00:00 Outpatient NICOLEJanisHUSSEIN [id number] Cynthia [facility] 2023-07-10 00:00:00 2023-07-10 00:00:00 Outpatient REMBERTO MACEYDARIUS DAIZ [id number] [facility] 2023-07-05 13:45:00 2023-07-05 13:45:00 Outpatient REMBERTOMACEYDARIUS DIAZ [id number] [facility] 2023-06-21 00:00:00 2023-06-21 00:00:00 Outpatient LAURENCE COTA [id number] Cynthia [facility] 2023-06-21 00:00:00 2023-06-21 00:00:00 Outpatient LAURENCE COTA [id number] Cynthia [facility] 2023-06-19 11:55:00 2023-06-19 11:55:00 Outpatient LAB90 CYNTHIA DIAZ [id number] Cynthia Jessicacharan 2023-06-19 11:00:00 2023-06-19 11:00:00 Outpatient LAURENCE COTA [id number] Cynthia [facility] 2023-06-19 00:00:00 2023-06-19 00:00:00 Outpatient CYNTHIA DIAZ [id number] [facility]23-[facility] 00:00:00 2023-02-23 00:00:00 Outpatient HUNDL, LAURENCE CYNTHIA DIAZ [id number] Cynthia Seybold 2023-01-20 14:40:00 2023-01-20 14:40:00 Outpatient DONNIE, JASPER CYNTHIA DIAZ [id number] Cynthia Seybold 2022-12-31 00:00:00 2022-12-31 00:00:00 Outpatient HUNDL, LAURENCE DIAZ [id number] [facility] 2022-12-11 00:00:00 2022-12-11 00:00:00 Outpatient HUNDL, LAURENCE DIAZ [id number] [facility] 2022-12-08 00:00:00 2022-12-08 00:00:00 Outpatient TING, JASON CYNTHIA DIAZ [id number] [facility] 2022-11-07 00:00:00 2022-11-07 00:00:00 Outpatient HUNDL, LAURENCE DIAZ [id number] [facility] 2022-11-02 00:00:00 2022-11-02 00:00:00 Outpatient HUNDL, LAURENCE DIAZ [id number] [facility] 2022-10-31 14:00:00 2022-10-31 14:00:00 Outpatient HUNDL, LAURENCE DIAZ [id number] Cynthia Seybold 2022-10-13 09:00:00 2022-10-13 09:00:00 Outpatient HUNDL, LAURENCE DIAZ [id number] Cynthia Seybold 2022-10-13 00:00:00 2022-10-13 00:00:00 Outpatient HUNDL, LAURENCE DIAZ [id number] Cynthia Seybold 2022-10-13 00:00:00 2022-10-13 00:00:00 Outpatient HUNDL, LAURENCE DIAZ [id number] Cynthia Seybold 2022-09-26 00:00:00 2022-09-26 00:00:00 Outpatient HUNDL, LAURENCE DIAZ [id number] Cynthia Seybold 2022-09-20 00:00:00 2022-09-20 00:00:00 Outpatient HUNDL, ALURENCE CYNTHIA DIAZ [id number] Cynthia [facility] 2022-09-17 00:00:00 2022-09-17 00:00:00 Outpatient LAURENCE COTA CYNTHIA DIAZ [id number] Cynthia ybcharan 2022-09-15 10:05:00 2022-09-15 10:05:00 Outpatient LAB90 CYNTHIA DIAZ [id number] Cynthia Seybold 2022-09-15 09:00:00 2022-09-15 09:00:00 Outpatient LAURENCE COTA CYNTHIA DIAZ [id number] Cynthia ybcharan 2022-09-07 11:45:00 2022-09-07 11:45:00 Outpatient LAB91 [facility]NTHIA DIAZ [id number] [facility] 2022-09-07 11:00:00 2022-09-07 11:00:00 Outpatient ANSBARB BRASHER [id number] [facility] 2022-09-06 00:00:00 2022-09-06 00:00:00 Outpatient ANSOANLETICIAR, BARB DIAZ [id number] [facility] 2022-09-01 15:00:00 2022-09-01 15:00:00 Outpatient LAURENCE COTA CYNTHIA DIAZ [id number] [facility] 2022-09-01 00:00:00 2022-09-01 00:00:00 Outpatient JOSManan LAURENCE DIAZ [id number] Cynthia Seybcharan 2022-09-01 00:00:00 2022-09-01 00:00:00 Outpatient KARLA SR [id number] Cynthia Seybold 2022-08-29 11:00:00 2022-08-29 11:00:00 Outpatient CIPRIANO LAURENCE DIAZ [id number] Cynthia Campbellybold
--- NOTE | 2023-08-11 14:52 | RAD REPORT ---
EXAM DESCRIPTION: RAD - Foot Left 3 View - 08/11/2023 2:45 pm CLINICAL HISTORY: foot abscess COMPARISON: Foot Left 3 View dated 06/01/2022; Foot Left 3 View dated 12/02/2020 TECHNIQUE: Left foot, 3 views. FINDINGS: Deformity with periosteal reaction along the mid to distal shaft of the fifth metatarsal. Overlying pronounced lateral foot and dorsal soft tissue swelling as well as crescentic areas of mine ralization in the soft tissues near the fifth metatarsal head. Sequelae of fourth digit amputation ag ain seen. No air or foreign body in the soft tissues. IMPRESSION: Deformity with periosteal reaction along the mid to distal fifth metatarsal shaft with o verlying soft tissue swelling and mineralization as above. Findings may relate to acute or chronic os teomyelitis.
[2023-08-11 14:58] LABS: Absolute Lymphocytes (CBC) 2.1 K/uL (0.7-4.9); Hematocrit 41.5 % (36.0-45.0); Lymphocytes % 16.1 % (15.3-44.8); MCV 86.4 fL (80-100); MPV 9.5 fL (7.6-11.3); Platelets 250 thou/uL (152-406)
[2023-08-11 15:16] LABS: Protime INR 1.17
--- NOTE | 2023-08-11 15:22 | EDPHYS ---
Physician Documentation [facility] Name: Nohelia Llanes Age: 47 yrs Sex: Female : 1975 Arrival Date: 08/11/2023 Time: 13:48 Bed 18 Private MD: ED Physician Rambo Rey HPI: 08/11 15:25 This 47 yrs old Female presents to ER via Wheelchair with complaints of Foot Abscess. kb 15:25 Pt is a 47 year old female who presents with redness, swelling, pain and open wound to kb left foot. States symptoms started 2 days ago and became worse this morning. Reports she did have chills one night, but unknown fever. Historical: - Allergies: 14:06 Darvocet-N 100; hb 14:06 Demerol; hb 14:06 Keflex; hb 14:06 PENICILLINS; hb 14:06 Vancomycin; hb - PMHx: 14:06 Diabetes - IDDM; Chronic pain; gestational diabetes; neuroapthy; hb - PSHx: 14:06 toe amputation; Cholecystectomy; hb - Immunization history:: Adult Immunizations unknown. - Social history:: Smoking status: Patient reports the use of cigarette tobacco products, smokes one pack cigarettes per day. ROS: 15:23 Constitutional: Negative for fever, chills, and weight loss, kb 15:23 Skin: Positive for cellulitis, ecchymosis, swelling, of the left foot, open wound, 15:23 All other systems are negative, Exam: 15:23 Constitutional: This is a well developed, well nourished patient who is awake, alert, kb and in no acute distress. Head/Face: Normocephalic, atraumatic. ENT: Moist Mucous membranes Cardiovascular: Regular rate Respiratory: Respirations even and unlabored. No increased work of breathing. Talking in full sentences Neuro: Awake and alert, GCS 15, oriented to person, place, time, and situation. Moves all extremities. Normal gait. 15:23 Skin: cellulitis, that is moderate, on the left foot, open wound to lateral aspect of left foot. 16:07 ECG was reviewed by the Attending Physician. Vital Signs: 14:06 BP 136 / 84; Pulse 97; Resp 18; Temp 97.8(TE); Pulse Ox 98% ; Weight 72.57 kg; Height 5 hb ft. 0 in. ; Pain 8/10; 16:50 BP 126 / 71; Pulse 87; Resp 18; Pulse Ox 97% on R/A; db 19:45 BP 132 / 69; Pulse 86; Pulse Ox 97% on R/A; tm6 19:45 Pain 0/10; tm6 14:06 Body Mass Index 31.25 (72.57 kg, 152.4 cm) hb 14:06 Pain Scale: Adult hb 19:45 Pain Scale: Adult tm6 MDM: 13:53 Patient medically screened. kb 15:22 Data reviewed: vital signs, nurses notes. kb 15:24 Differential diagnosis: abscess, allergic reaction, cellulitis, insect bite. kb Consideration of Admission/Observation Patient was admitted/placed on observation. Escalation of care including admission/observation considered. Management of patient was discussed with the following: Hospitalist: Hospitalist team, accepted for admission under Dr Salvador. Inspector Process: Dr Lee consulted, out of town and unavailable until next week. Care significantly affected by the following chronic conditions: Diabetes. Counseling: I had a detailed discussion with the patient and/or guardian regarding the historical points, exam findings, and any diagnostic results supporting the discharge/admit diagnosis, lab results, radiology results, the need for further work-up and treatment in the hospital. 08/11 14:08 Order name: Blood Culture Adult (2) 08/11 14:08 Order name: CBC with Diff 08/11 14:08 Order name: CMP 08/11 14:08 Order name: Lactate w/ 2H reflex if indic. 08/11 14:08 Order name: Protime (+inr) 08/11 14:08 Order name: Ptt, Activated 08/11 15:05 Order name: CBC with Automated Diff; Complete Time: 17:28 EDNV 08/11 15:11 Order name: Lactate w/ 2H reflex if indic.; Complete Time: 17:28 EDNV 08/11 15:16 Order name: Protime (+INR); Complete Time: 17:28 EDNV 08/11 15:16 Order name: PTT, Activated Partial Thromb; Complete Time: 17:28 EDNV 08/11 17:35 Order name: Comprehensive Metabolic Panel; Complete Time: 17:37 EDNV 08/11 14:08 Order name: Foot Left 3 View XRAY 08/11 14:52 Order name: RAD; Complete Time: 14:57 EDMS 08/11 18:10 Order name: MRI; Complete Time: 18:10 EDMS 08/11 14:08 Order name: EKG; Complete Time: 19:10 kb 08/11 14:08 Order name: Accucheck; Complete Time: 17:19 kb 08/11 14:08 Order name: Cardiac monitoring; Complete Time: 17:18 kb 08/11 14:08 Order name: EKG - Nurse/Tech; Complete Time: 16:07 kb 08/11 14:08 Order name: IV Saline Lock - Large Bore; Complete Time: 17:18 kb 08/11 14:08 Order name: Labs collected and sent; Complete Time: 17:18 kb 08/11 14:08 Order name: O2 Per Protocol; Complete Time: 17:18 kb 08/11 14:08 Order name: O2 Sat Monitoring; Complete Time: 17:18 kb 08/11 14:08 Order name: Vital Signs; Complete Time: 17:18 kb 08/11 15:01 Order name: Labs - recollect needed: recollect green tube per pawan hemolyzed; eb Complete Time: 17:28 EC:07 Rate is 91 beats/min. Rhythm is regular. QRS [place] is Normal. MA interval is normal at kb 150 msec. QRS interval is normal at 80 msec. QT interval is normal at 432 msec. Administered Medications: 17:20 Drug: levofloxacin IVPB 750 mg 150 ml IVPB once over 90 mins Volume: 150 ml; Route: db IVPB; Infused Over: 90 mins; Site: right forearm; 18:59 Follow up: Response: No adverse reaction; IV Status: Completed infusion db 17:27 Drug: Nicotine Transdermal Patch 21 mg/24 hr 1 patches Transdermal once Route: db Transdermal; Site: affected area; 17:43 Drug: diphenhydrAMINE PO 25 mg PO once Route: PO; db Disposition Summary: 08/11/23 15:22 Hospitalization Ordered Notes: Hospitalization Status: Inpatient Admission kb Provider: Naun Salvador Condition: Stable kb Problem: new kb Symptoms: are unchanged kb Bed/Room Type: Standard kb Location: Telemetry/MedSurg (Inpatient)(08/11/23 18:12) iw Room Assignment: 410(08/11/23 18:12) iw Diagnosis - Cellulitis of left lower limb - foot kb - Osteomyelitis, unspecified kb Forms: - Medication Reconciliation Form kb - SBAR form kb - Leadership Thank You Letter kb Addendum: 08/12/2023 21:16 I was immediately available for consultation during this patient's visit. I did not e c2 personally see the patient or guide the patient's care. . Signatures: Dispatcher [employer] EDDana Teran, DIRECTOR OF BUSINESS DEVELOPMENT-C DIRECTOR OF BUSINESS DEVELOPMENT-Gretta Coronado, RN RN iw Wen Gomez RN RN Bettie Degroot Kelly RN RN kb3 Joceline He RN RN db Rambo Rey MD MD ec2 Corrections: (The following items were deleted from the chart) 08/11 16:45 15:22 Telemetry/MedSurg (Inpatient) kb kb3 16:45 15:22 kb kb3 18:12 16:45 [facility] ER HOLD kb3 iw 18:12 16:45 ERHOLD- kb3 iw
--- NOTE | 2023-08-11 15:22 | ER ---
Nurse's Notes [facility] Name: Nohelia Llanes Age: 47 yrs Sex: Female : 1975 Arrival Date: 08/11/2023 Time: 13:48 Bed 18 Private MD: Diagnosis: Cellulitis of left lower limb-foot;Osteomyelitis, unspecified Presentation: 08/11 14:05 Chief complaint: Left foot abscess + swelling and drainage x 2 days. Coronavirus hb screen: At this time, the client does not indicate any symptoms associated with coronavirus-19. Ebola Screen: No symptoms or risks identified at this time. Initial Sepsis Screen: Does the patient meet any 2 criteria? No. Patient's initial sepsis screen is negative. Does the patient have a suspected source of infection? No. Patient's initial sepsis screen is negative. Risk Assessment: Do you want to hurt yourself or someone else? Patient reports no desire to harm self or others. Onset of symptoms was August 09, 2023. 14:05 Method Of Arrival: Wheelchair hb 14:06 Acuity: ALISIA 3 hb Historical: - Allergies: 14:06 Darvocet-N 100; hb 14:06 Demerol; hb 14:06 Keflex; hb 14:06 PENICILLINS; hb 14:06 Vancomycin; hb - PMHx: 14:06 Diabetes - IDDM; Chronic pain; gestational diabetes; neuroapthy; hb - PSHx: 14:06 toe amputation; Cholecystectomy; hb - Immunization history:: Adult Immunizations unknown. - Social history:: Smoking status: Patient reports the use of cigarette tobacco products, smokes one pack cigarettes per day. Screenin:00 [facility] ED Fall Risk Assessment (Adult) History of falling in the last 3 months, db including since admission No falls in past 3 months (0 pts) Score/Fall Risk Level 0 - 2 = Low Risk Oriented to surroundings, Maintained a safe environment. Abuse screen: Denies threats or abuse. Denies injuries from another. Nutritional screening: No deficits noted. Tuberculosis screening: No symptoms or risk factors identified. Assessment: 15:45 Reassessment: Patient appears in no apparent distress at this time. Patient and/or db family updated on plan of care and expected duration. Pain level reassessed. Patient is alert, oriented x 3, equal unlabored respirations, skin warm/dry/pink. General: Appears in no apparent distress. comfortable, Behavior is calm, cooperative. Pain: Complains of pain in left foot. Neuro: Level of Consciousness is awake, alert, obeys commands, Oriented to person, place, time, situation. 16:35 Reassessment: PATIENT RETURNED TO ROOM FROM MRI. db 16:35 Reassessment: Patient appears in no apparent distress at this time. Patient and/or db family updated on plan of care and expected duration. Pain level reassessed. Patient is alert, oriented x 3, equal unlabored respirations, skin warm/dry/pink. 17:45 Reassessment: PT YELLING UPSET BECAUSE MEAL TRAY DID NOT COME. CALLED KITCHEN BUT NO db ANSWER. PROVIDED PT WITH CHIPS AND SANDWICH PT REFUSED STATES "I AM A DIABETIC I CAN'T EAT THAT.". 17:45 Reassessment: Patient appears in no apparent distress at this time. Patient and/or db family updated on plan of care and expected duration. Pain level reassessed. Patient is alert, oriented x 3, equal unlabored respirations, skin warm/dry/pink. PT NOW RESTING CALMLY. NAD REFUSES TO HAVE BP CUFF AND MONITORING DEVICE. Respiratory: Airway is patent Respiratory effort is even, unlabored, Respiratory pattern is regular, symmetrical. 18:29 Reassessment: CALLED 4TH FLOOR TO GIVE REPORT NO ANSWER. db 19:36 Reassessment: report called to Brigido HOLLINGSWORTH. tm6 19:38 Reassessment: Patient appears in no apparent distress at this time. Patient and/or tm6 family updated on plan of care and expected duration. Pain level reassessed. Patient is alert, oriented x 3, equal unlabored respirations, skin warm/dry/pink. Vital Signs: 14:06 BP 136 / 84; Pulse 97; Resp 18; Temp 97.8(TE); Pulse Ox 98% ; Weight 72.57 kg; Height 5 hb ft. 0 in. ; Pain 8/10; 16:50 BP 126 / 71; Pulse 87; Resp 18; Pulse Ox 97% on R/A; db 19:45 BP 132 / 69; Pulse 86; Pulse Ox 97% on R/A; tm6 19:45 Pain 0/10; tm6 14:06 Body Mass Index 31.25 (72.57 kg, 152.4 cm) hb 14:06 Pain Scale: Adult hb 19:45 Pain Scale: Adult 6 ED Course: 13:51 Patient arrived in ED. rg4 13:53 [facility]endiz FNP-C [facility] kb 13:53 Rambo Rey MD is Attending Physician. kb 14:06 Arm band placed on. hb 14:08 Triage completed. hb 15:21 Naun Salvador is Hospitalizing Provider. kb 15:47 Joceline He, RN is Primary Nurse. db 16:45 Lab(s) recollected, by me, sent to lab. Second set of blood cultures drawn by me. db 17:00 Client placed on continuous cardiac and pulse oximetry monitoring. NIBP monitoring db applied. 18:27 Patient has correct armband on for positive identification. Bed in low position. Call db light in reach. Side rails up X 1. Provided Education on: ADMISSION. 18:27 No provider procedures requiring assistance completed. Patient admitted, IV remains in db place. Administered Medications: 17:20 Drug: levofloxacin IVPB 750 mg 150 ml IVPB once over 90 mins Volume: 150 ml; Route: db IVPB; Infused Over: 90 mins; Site: right forearm; 18:59 Follow up: Response: No adverse reaction; IV Status: Completed infusion db 17:27 Drug: Nicotine Transdermal Patch 21 mg/24 hr 1 patches Transdermal once Route: db Transdermal; Site: affected area; 17:43 Drug: diphenhydrAMINE PO 25 mg PO once Route: PO; db Medication: 18:28 VIS not applicable for this client. db Outcome: 15:22 Decision to Hospitalize by Provider. kb 18:28 Admitted to ER Hold. Please see [facility] for further documentation. db 18:28 Condition: stable 18:28 Instructed on the need for admit, 19:45 Admitted to Med/surg accompanied by tech, room 410, with chart, Report called to tm6 Brigido HOLLINGSWORTH 20:07 Patient left the ED. 6 Signatures: Dana Resendiz FNP-C FNP-Ckb Baxter, Heather, RN Mignon Boland rg4 Joceline He, RN RN Nora Noel RN RN 6
[2023-08-11] MEDS ORDERED: CEFEPIME 1 GM/VIAL IV SCH (16:15)
--- NOTE | 2023-08-11 16:18 | P.HP ---
Certification for Inpatient Patient admitted to: Inpatient With expected LOS: <2 Midnights Practitioner: I am a practitioner with admitting privileges, knowledge of patient current condition, hospital course, and medical plan of care. Services: Services provided to patient in accordance with Admission requirements found in Title 42 Section 412.3 of the Code of Federal Regulations Patient History Date of Service: 08/11/23 Reason for admission: Osteomyelitis of the left foot, diabetic ulcer History of Present Illness: 47-year-old female with a past medical history with a history of DM, noncompliant with therapy, history of chronic wound of the left lower extremity, chronic pain, neuropathy, presents to the emergency room for worsening left diabetic foot ulcer, left lower extremity foot pain, She reports Left lower extremity foot wound that has gotten worse over the last 2 days. She reports foot wound with drainge, she denies fever, chills, NVD. She reports left lower extremity foot wound prior amputation. Plan to admit for osteomyelitis of the left lower extremity, diabetes type 2 with hyperglycemia, noncompliance. Surgery to eval. Laboratory evaluation leukocytosis WBCs 13.0, left shift 74.3, mild hypokalemia 3.4 blood glucose 354, left lower extremity foot x-ray IMPRESSION: Deformity with periosteal reaction along the mid to distal fifth metatarsal shaft with overlying soft tissue swelling and mineralization as above. Findings may relate to acute or chronic osteomyelitis. MRI of the left foot ordered in the emergency room. IV vancomycin, cefepime ordered, wound cultures, wound care consult. Allergies meperidine HCl [From Demerol] Allergy (Severe, Verified 12/03/20 00:43) Itching/Hives/Rash propoxyphene [From Darvocet-N 100] Allergy (Severe, Verified 12/03/20 00:43) Itching/Hives/Rash acetaminophen [From Darvocet-N 100] Allergy (Intermediate, Verified 12/03/20 00:43) Itching/Hives/Rash cephalexin monohydrate [From Keflex] Allergy (Intermediate, Verified 12/03/20 00:43) Itching/Hives/Rash vancomycin Allergy (Intermediate, Verified 04/21/23 00:58) Itching Penicillins Allergy (Intermediate, Uncoded 07/31/20 14:20) Itching Home Medications: Gabapentin 1,200 mg PO TID #180 tablet 12/04/20 Hydrocodone 10/APAP 325 [Isabel 10/325*] 1 tab PO Q6HP PRN #30 tab 04/22/23 Minocycline HCl 100 mg PO BID #20 tab 04/22/23 Mupirocin Oint [Bactroban 2% Ointment] 22 appl TOP TID #1 tube 04/22/23 Smz./Tmp. [Bactrim Ds 800 MG/160 MG] 1 tab PO BID #20 tab 04/22/23 Hydrocodone 10/APAP 325 [Isabel 10/325*] 1 tab PO TID #30 tab 04/23/23 - Past Medical/Surgical History Diabetic: Yes -: Neuropathy -: Mitral valve prolapse -: Diabetes -: HLD -: Cholecystectomy 1996 -: Tubal ligation -: -: Left 4th toe Amputation - Family History Father -: Hypertension, Stroke, Other (see notes) Notes: PVD Mother -: Hypertension, Diabetes - Social History Alcohol use: Yes CD- Drugs: No Caffeine use: Yes Review of Systems per HPI Physical Examination - Physical Exam General: Alert, In no apparent distress, Oriented x3 HEENT: Atraumatic, Normocephalic Neck: Supple, 2+ carotid pulse no bruit Respiratory: Clear to auscultation bilaterally, Normal air movement Cardiovascular: Normal pulses, Regular rate/rhythm Capillary refill: <2 Seconds Gastrointestinal: Normal bowel sounds, Soft and benign Musculoskeletal: Other (LLE foot pain, worse with range of motion,) Integumentary: Venous stasis ulcer (Left foot) Neurological: Normal speech, Normal strength at 5/5 x4 extr - Studies Laboratory Data (last 24 hrs) 08/11/23 08/11/23 14:35 14:35 WBC 13.00 H Hgb 14.2 Hct 41.5 Plt Count 250 PT 12.8 H INR 1.17 APTT 28.7 Assessment and Plan - Plan Assessment and Plan Assessment plan Left lower extremity diabetic foot ulcer Osteomyelitis left lower extremity History of osteomyelitis with toe amputation IV doxycycline, IV cefepime, allergies of vancomycin Blood cultures, wound cultures ordered Surgery consult, Dr Epperson Wound care consult to evaluate left lower extremity wound left lower extremity foot x-ray IMPRESSION: Deformity with periosteal reaction along the mid to distal fifth metatarsal shaft with overlying soft tissue swelling and mineralization as above. Findings may relate to acute or chronic osteomyelitis. MRI of the left foot ordered in the emergency room. Laboratory evaluation leukocytosis WBCs 13.0, left shift 74.3 Diabetes type 2 uncontrolled medication noncompliance Accu-Cheks, sliding scale insulin A1c ordered for the a.m. blood glucose 354, Hypokalemia mild hypokalemia 3.4 Peripheral neuropathy Peripheral arterial disease Chronic pain As needed analgesics, resume gabapentin Tobacco use Nicotine patch educated on tobacco cessation Full code DVT SCDs Diet diabetic n.p.o. after midnight Discharge Plan: Home - Advance Directives Does patient have a Living Will: No Does patient have a Durable POA for Healthcare: No - Code Status/Comfort Care Code Status: Full Code Critical Care: No Time Spent Managing Pts Care (In Minutes): 60
[2023-08-11] MEDS ORDERED: CEFEPIME 1 GM in NA CHLORIDE 0.9% 100 ML IV SCH (17:00)
[2023-08-11] MEDS ORDERED: Levofloxacin 750mg IV 750 MG/150 ML BAG IV ONE (17:12)
[2023-08-11] MEDS ORDERED: NICOTINE 21 MG/PAT TD ONE (17:12)
[2023-08-11 17:35] LABS: Albumin 2.7 g/dL (3.4-5.0); Bilirubin Total 0.7 mg/dL (0.2-1.0); Potassium 3.4 mEq/L (3.5-5.1); Protein, Total 7.1 g/dL (6.4-8.2)
[2023-08-11] MEDS ORDERED: DIPHENHYDRAMINE 25 MG TAB/CAP ONE (17:41)
[2023-08-11] MEDS ORDERED: VANCOMYCIN 1.75 GM in NA CHLORIDE 0.9% 500 ML IVPB ONE (18:00)
--- NOTE | 2023-08-11 18:10 | RAD REPORT ---
EXAM DESCRIPTION: MRI - Foot Left Wo Cont - 08/11/2023 4:45 pm CLINICAL HISTORY: Left foot open wound. Concern for osteomyelitis. COMPARISON: Left foot radiographs of the same day TECHNIQUE: Multiplanar multisequence left foot MRI, performed without IV contrast. FINDINGS: Cortical irregularity, nonhealing midshaft fracture, and periosteal reaction along the sha ft and head of the fifth metatarsal, with central marrow signal abnormalities including T1 hypointens e and T2 hyperintense signal. Multiloculated fluid collection along the subperiosteal zone of the fifth metatarsal shaft inferiorly , laterally, and superiorly, with components measuring up to 2 cm in greatest AP dimension and 8 mm i n thickness. A component extends peripherally towards the hypo dermal lateral forefoot margin, measur ing 13 mm in greatest dimension. See axial series 4 images 5-9, and sagittal series 8 image 21 among others. Sequelae of left toe amputation. Soft tissue irregularity along the lateral aspect of the foot. Linear hypointense structure coursing lateral to the shaft of the fifth metatarsal, with no continuat ion past the level of the head of the metatarsal, may relate to a torn flexor tendon. IMPRESSION: Findings suggestive of acute osteomyelitis of the left fifth metatarsal shaft, a tear hatfield perimposed on chronic osteomyelitis or a nonhealing fracture. Subperiosteal multiloculated abscess along the shaft of the fifth metatarsal with extension towards t he hypo dermal aspect of the lateral forefoot as described above.
[2023-08-11] MEDS ORDERED: NA CHLORIDE 0.9% 100 ML ONE ×2 (19:08→22:01)
[2023-08-11] MEDS ORDERED: CEFEPIME 1 GM/VIAL ONE (19:09)
[2023-08-11] MEDS ORDERED: ACETAMINOPHEN 500 MG TAB PO PRN (20:41)
[2023-08-11] MEDS ORDERED: ONDANSETRON 4 MG/2 ML VIAL IV PRN (20:41)
[2023-08-11] MEDS ORDERED: HYDROCODONE/APAP 10/325 TAB PO PRN (20:41)
[2023-08-11] MEDS ORDERED: VANCOMYCIN 1.25 GM in NA CHLORIDE 0.9% 250 ML IVPB SCH (21:00)
[2023-08-11] MEDS: INSULIN REGULAR (HUMAN) 100 UNIT/ML SQ SCH ×2 (21:00→22:32)
[2023-08-11] MEDS: DOXYCYCLINE 100 MG in NA CHLORIDE 0.9% 100 ML IVPB SCH (22:33)
[2023-08-12] MEDS: INSULIN REGULAR (HUMAN) 100 UNIT/ML SQ SCH ×4 (07:30→21:16)
[2023-08-12 07:42] LABS: Hematocrit 38.1 % (36.0-45.0); Lymphocytes % 25.4 % (15.3-44.8); MCV 86.4 fL (80-100); MPV 8.9 fL (7.6-11.3); Platelets 248 thou/uL (152-406)
[2023-08-12 07:54] LABS: Magnesium 1.5 mg/dL (1.6-2.4); Potassium 3.4 mEq/L (3.5-5.1)
[2023-08-12] MEDS: DOXYCYCLINE 100 MG in NA CHLORIDE 0.9% 100 ML IVPB SCH (08:09)
--- NOTE | 2023-08-12 08:40 | P.PN ---
Subjective Date of Service: 08/12/23 Chief Complaint: Osteomyelitis of the left foot, diabetic ulcer reports moderate pain with LLE foot wound, will resume home pain meds, surgery stated patient could eat today Physical Exam General: Alert, In no apparent distress, Oriented x3 HEENT: Atraumatic, Normocephalic Neck: Supple, 2+ carotid pulse no bruit Respiratory: Clear to auscultation bilaterally, Normal air movement Cardiovascular: Normal pulses, Regular rate/rhythm Capillary refill: <2 Seconds Gastrointestinal: Normal bowel sounds, Soft and benign Musculoskeletal: Other LLE edema, (LLE foot pain, worse with range of motion,) Integumentary: Venous stasis ulcer (Left foot) Neurological: Normal speech, Normal strength at 5/5 x4 extr <Laurel Toney - Last Filed: 08/12/23 15:58> Date of Service: 08/12/23 <Noe Rider - Last Filed: 08/12/23 18:41> Review of Systems per hpi <Laurel Toney - Last Filed: 08/12/23 15:58> Physical Examination - Vital Signs Temperature: 97.8 F Blood Pressure: 118/51 Pulse: 70 Respirations: 18 Pulse Ox (%): 97 - Studies Laboratory Data (last 24 hrs) 08/11/23 08/11/23 08/11/23 14:35 14:35 14:08 WBC 13.00 H Hgb 14.2 Hct 41.5 Plt Count 250 PT 12.8 H Cancelled INR 1.17 Cancelled APTT 28.7 Cancelled Sodium Potassium BUN Creatinine Glucose Total Bilirubin AST ALT Alkaline Phosphatase 08/11/23 08/11/23 14:08 14:08 WBC Cancelled Hgb Cancelled Hct Cancelled Plt Count Cancelled PT INR APTT Sodium Cancelled Potassium Cancelled BUN Cancelled Creatinine Cancelled Glucose Cancelled Total Bilirubin Cancelled AST Cancelled ALT Cancelled Alkaline Phosphatase Cancelled <Laurel Toney - Last Filed: 08/12/23 15:58> - Studies Laboratory Data (last 24 hrs) 08/11/23 08/11/23 08/11/23 14:08 14:08 14:08 WBC Cancelled Hgb Cancelled Hct Cancelled Plt Count Cancelled PT Cancelled INR Cancelled APTT Cancelled Sodium Cancelled Potassium Cancelled BUN Cancelled Creatinine Cancelled Glucose Cancelled Total Bilirubin Cancelled AST Cancelled ALT Cancelled Alkaline Phosphatase Cancelled <Noe Rider - Last Filed: 08/12/23 18:41> Assessment And Plan - Plan Assessment and Plan Assessment plan Left lower extremity diabetic foot ulcer Osteomyelitis left lower extremity History of osteomyelitis with toe amputation IV doxycycline, IV cefepime, allergies of vancomycin Blood cultures, wound cultures ordered Surgery consult, Dr Epperson Wound care consult to evaluate left lower extremity wound left lower extremity foot x-ray IMPRESSION: Deformity with periosteal reaction along the mid to distal fifth metatarsal shaft with overlying soft tissue swelling and mineralization as above. Findings may relate to acute or chronic osteomyelitis. MRI of the left foot ordered in the emergency room. Laboratory evaluation leukocytosis WBCs 13.0, left shift 74.3, wbc improved on IV ABX WBCs 8.10 no left shift, Elevated CRP 139 Wound culture no organism seen, blood culture canceled by attending resume home po prn pain medications Diabetes type 2 uncontrolled medication noncompliance Accu-Cheks, sliding scale insulin A1c ordered for the a.m. blood glucose 354, Hypokalemia mild hypokalemia 3.4, Repeat potassium 3.4 place prn Peripheral neuropathy Peripheral arterial disease Chronic pain As needed analgesics, resume gabapentin Tobacco use Nicotine patch educated on tobacco cessation Full code DVT SCDs Diet diabetic n.p.o. after midnight Discharge Plan: Home - Code Status/Comfort Care Code Status: Full Code Critical Care: No Time Spent Managing PTS Care (In Minutes): 35 <Laurel Toney - Last Filed: 08/12/23 15:58> Physician Review: Patient Assessed, Agree with Above Assessment and Plan Physician Review Additional Text: Her MRI is consistent with osteomyelitis. She reports burning/pruritus with the doxycycline, so this was stopped. She also reports an allergy to vancomycin. Per her prior microbiology results in April 2023, she grew fluoroquinolone- sensitive Enterobacter Cloacae. Will start her on levofloxacin. Infectious Diseases has been consulted and I spoke with NANCY Witt (for Dr. Miranda) - recommendations appreciated. Noe Rider M.D. <Noe Rider - Last Filed: 08/12/23 18:41>
[2023-08-12] MEDS ORDERED: HYDROCODONE/APAP 10/325 TAB PO PRN (08:54)
[2023-08-12] MEDS ORDERED: HOME MED 1 EA UNK (Gabapentin [Gabapentin] 600 MG Tablet) PO PRN (08:54)
[2023-08-12] MEDS ORDERED: CEFEPIME 1 GM in NA CHLORIDE 0.9% 100 ML IV SCH (09:00)
[2023-08-12] MEDS: HYDROCODONE/APAP 10/325 TAB PO PRN ×2 (14:09→20:53)
[2023-08-12] MEDS: GABAPENTIN 300 MG CAP PO PRN ×2 (14:10→20:53)
[2023-08-12] MEDS: Levofloxacin 750mg IV 750 MG/150 ML BAG IV SCH (16:34)
[2023-08-12] MEDS ORDERED: POTASSIUM CL SA 10 MEQ TAB PO ONE (19:25)
[2023-08-12] MEDS ORDERED: Magnesium Sulfate 2gm IVPB 2 G/50 ML BAG IV ONE (19:26)
[2023-08-12] MEDS: ATORVASTATIN 10 MG TAB PO SCH (21:16)
[2023-08-13] MEDS: NICOTINE 14 MG/PAT TD SCH ×2 (00:50→07:49)
[2023-08-13 02:13] LABS: Absolute Lymphocytes (CBC) 2.2 K/uL (0.7-4.9); Hematocrit 37.4 % (36.0-45.0); Lymphocytes % 34.1 % (15.3-44.8); MCV 86.1 fL (80-100); MPV 9.1 fL (7.6-11.3); Platelets 256 thou/uL (152-406); RBC Red Blood Cell Count 4.34 M/uL (3.86-4.86)
[2023-08-13 02:32] LABS: C-Reactive Protein 78.4 mg/L (<3.00); Magnesium 1.7 mg/dL (1.6-2.4); Potassium 4.3 mEq/L (3.5-5.1)
[2023-08-13] MEDS: INSULIN REGULAR (HUMAN) 100 UNIT/ML SQ SCH ×5 (07:30→21:28)
--- NOTE | 2023-08-13 08:58 | P.PN ---
Subjective Date of Service: 08/13/23 Chief Complaint: Osteomyelitis of the left foot, diabetic ulcer reports moderate pain with LLE foot wound, will resume home pain meds, she has refused nictotine patch, goes down in wheel chair to smoke, educated on smoking cessation Physical Exam General: Alert, In no apparent distress, Oriented x3 HEENT: Atraumatic, Normocephalic Neck: Supple, 2+ carotid pulse no bruit Respiratory: Clear to auscultation bilaterally, Normal air movement Cardiovascular: Normal pulses, Regular rate/rhythm Capillary refill: <2 Seconds Gastrointestinal: Normal bowel sounds, Soft and benign Musculoskeletal: Other LLE edema, (LLE foot pain, worse with range of motion,) Integumentary: Venous stasis ulcer (Left foot) Neurological: Normal speech, Normal strength at 5/5 x4 extr <Laurel Toney - Last Filed: 08/13/23 13:37> Date of Service: 08/13/23 <Noe Rider - Last Filed: 08/13/23 17:56> Review of Systems per HPI <Laurel Toney - Last Filed: 08/13/23 13:37> Physical Examination - Vital Signs Temperature: 97.2 F Blood Pressure: 141/61 Pulse: 66 Respirations: 18 Pulse Ox (%): 97 <Laurel Toney - Last Filed: 08/13/23 13:37> Assessment And Plan - Plan Assessment and Plan Assessment plan Left lower extremity diabetic foot ulcer Osteomyelitis left lower extremity History of osteomyelitis with toe amputation IV doxycycline, IV cefepime, allergies of vancomycin Blood cultures, wound cultures ordered Surgery consult, Dr Epperson Wound care consult to evaluate left lower extremity wound left lower extremity foot x-ray IMPRESSION: Deformity with periosteal reaction along the mid to distal fifth metatarsal shaft with overlying soft tissue swelling and mineralization as above. Findings may relate to acute or chronic osteomyelitis. MRI of the left foot ordered in the emergency room. Laboratory evaluation leukocytosis WBCs 13.0, left shift 74.3, wbc improved on IV ABX WBCs 8.10 no left shift, Elevated CRP 139, CRP 78.40 improving Wound culture no organism seen, blood culture canceled by attending resume home po prn pain medications Infectious disease consult will likely need long-term antibiotics, will eval need for PICC after ID note Diabetes type 2 uncontrolled medication noncompliance Accu-Cheks, sliding scale insulin A1c ordered for the a.m. blood glucose 354, A1C ordered Hypokalemia mild hypokalemia 3.4, Repeat potassium 3.4, normal 4.3 place prn Peripheral neuropathy Peripheral arterial disease Chronic pain As needed analgesics, resume gabapentin Tobacco use Nicotine patch educated on tobacco cessation refused patch, insists on going outside to smoke Full code DVT per surgery Diet diabetic diet Discharge Plan: Home - Code Status/Comfort Care Code Status: Full Code Critical Care: No Time Spent Managing PTS Care (In Minutes): 35 <Laurel Toney - Last Filed: 08/13/23 13:37> Physician Review: Patient Assessed, Agree with Above Assessment and Plan Physician Review Additional Text: No new changes today. Appreciate ID and Surgery recs. Noe Rider M.D. <Noe Rider - Last Filed: 08/13/23 17:56>
[2023-08-13] MEDS ORDERED: MAGNESIUM SULFATE 1 gm IVPB 1 GM/100 ML BAG IV ONE (09:00)
[2023-08-13] MEDS: GABAPENTIN 400 MG CAP PO PRN ×2 (14:22→21:27)
[2023-08-13] MEDS: HYDROCODONE/APAP 10/325 TAB PO PRN ×2 (14:22→21:27)
--- NOTE | 2023-08-13 15:21 | P.CNS ---
Date of Consult: 08/13/23 PC: I was asked to see this patient in regards to osteomyelitis of her left fifth metatarsal. HPC: Patient has been treated before for osteomyelitis of this fifth metatarsal. She has been having ongoing problems with it. She presents back now, MRI confirms again osteo. PSHx: Previous surgeries for peripheral vascular disease PMHx: Diabetic, PVD Social Hx: Allergies noted, still smokes cigarettes. Sys R: No cough, wheeze, or shortness of breath. No chest pain or palpitations. Has diminished sensation in lower limb O/E: Awake alert frustrated HEENT: Not jaundiced Chest: NAD [place]: Osteomyelitis of the fifth metatarsal Data: Foot x-ray, and MRI reviewed. Impression: Osteomyelitis of the fifth metatarsal Plan: Patient is unsure what she was to have done. At the current time I would recommend that she be kept on IV antibiotics to treat her osteo. We do have a consult in for Dr. Harman beckwith of infectious diseases. I have explained to her what the surgery would involve, amputation of the fifth metatarsal, and possible long-term side effects of disabilities with that procedure. She has had these discussions before with other surgeons as this has been an ongoing problem for the last 12 months. At the current time the patient is frustrated, wants to go home due to the fact that the bed is very uncomfortable for her despite even having an air mattress. I have told her that I would prefer her to stay in the hospital. She has a health plan [HMO] that she says. Take care of her wounds. I have told her that if she waits we will try have psychosocial rehabilitation counselor coordinate this, as well as treat her with her IV antibiotics, but Monday would probably be the soonest that we could get IV therapy arranged as an outpatient. She says she will think about it and decide what she wants to do. Her is here as well.
[2023-08-13] MEDS: Levofloxacin 750mg IV 750 MG/150 ML BAG IV SCH (16:38)
[2023-08-13] MEDS ORDERED: NA CHLORIDE 0.9% 500 ML ONE (17:06)
[2023-08-13] MEDS: MEDIHONEY 44 ML TOPICAL TUBE TOP SCH (19:38)
[2023-08-13] MEDS: ATORVASTATIN 10 MG TAB PO SCH (21:28)
[2023-08-14] MEDS: HYDROCODONE/APAP 10/325 TAB PO PRN ×4 (03:28→21:30)
[2023-08-14 06:03] LABS: Absolute Lymphocytes (CBC) 2.8 K/uL (0.7-4.9); Hematocrit 39.1 % (36.0-45.0); Lymphocytes % 40.1 % (15.3-44.8); MCV 86.2 fL (80-100); MPV 8.7 fL (7.6-11.3); Platelets 271 thou/uL (152-406); RBC Red Blood Cell Count 4.54 M/uL (3.86-4.86)
[2023-08-14 06:17] LABS: C-Reactive Protein 39.5 mg/L (<3.00); Magnesium 1.5 mg/dL (1.6-2.4); Potassium 3.4 mEq/L (3.5-5.1)
[2023-08-14] MEDS: GABAPENTIN 400 MG CAP PO PRN ×3 (08:58→21:29)
[2023-08-14] MEDS: INSULIN REGULAR (HUMAN) 100 UNIT/ML SQ SCH ×4 (08:59→21:30)
[2023-08-14] MEDS: NICOTINE 14 MG/PAT TD SCH (08:59)
[2023-08-14] MEDS ORDERED: POTASSIUM CL SA 10 MEQ TAB PO ONE (09:00)
[2023-08-14] MEDS ORDERED: Magnesium Sulfate 2gm IVPB 2 G/50 ML BAG IV ONE (09:00)
--- NOTE | 2023-08-14 10:00 | P.CNS ---
Date of Consult: 08/14/23 Reason for Consult: osteomyelitis left foot Chief Complaint: Osteomyelitis of the left foot, diabetic ulcer History of Present Illness: "47-year-old female with a past medical history with a history of DM, noncompliant with therapy, history of chronic wound of the left lower extremity, chronic pain, neuropathy, presents to the emergency room for worsening left diabetic foot ulcer, left lower extremity foot pain, She reports Left lower extremity foot wound that has gotten worse over the last 2 days." Admitted for acute osteomyelitis left fifth metatarsal, started on empiric antibiotics. Infectious disease was consulted. Allergies meperidine HCl [From Demerol] Allergy (Severe, Verified 12/03/20 00:43) Itching/Hives/Rash propoxyphene [From Darvocet-N 100] Allergy (Severe, Verified 12/03/20 00:43) Itching/Hives/Rash acetaminophen [From Darvocet-N 100] Allergy (Intermediate, Verified 12/03/20 00:43) Itching/Hives/Rash cephalexin monohydrate [From Keflex] Allergy (Intermediate, Verified 12/03/20 00:43) Itching/Hives/Rash vancomycin Allergy (Intermediate, Verified 04/21/23 00:58) Itching Penicillins Allergy (Intermediate, Uncoded 07/31/20 14:20) Itching Home medications list reviewed: Yes Home Medications: Atorvastatin Calcium 1 tab PO BEDTIME 08/11/23 Duloxetine HCl 120 mg PO DAILY 08/11/23 Gabapentin 2 tab PO TID PRN 08/11/23 Hydrocodone Bit/Acetaminophen [Molena 10-325 Tablet] 1 tab PO Q8H PRN 08/11/23 Metformin HCl 1 tab PO BID 08/11/23 glipiZIDE [Glipizide] 1 tab PO DAILY 08/11/23 - Past Medical/Surgical History Diabetic: Yes -: Neuropathy -: Mitral valve prolapse -: Diabetes -: HLD -: Cholecystectomy 1996 -: Tubal ligation -: -: Left 4th toe Amputation - Family History Father Medical History: Hypertension, Stroke, Other (see notes) Notes: PVD Mother Medical History: Hypertension, Diabetes - Social History Smoking Status: Current every day smoker Alcohol use: Yes CD- Drugs: No Caffeine use: Yes Place of Residence: Home Review of Systems Integumentary: As per HPI Physical Examination Temp Pulse Resp BP Pulse Ox 97.8 F 98 H 14 125/82 94 08/14/23 08:00 08/14/23 08:00 08/14/23 08:57 08/14/23 08:00 08/14/23 08:57 General: Alert, In no apparent distress, Oriented x3 HEENT: Atraumatic, Normocephalic Neck: Supple Respiratory: Clear to auscultation bilaterally, Normal air movement Cardiovascular: Regular rate/rhythm, Abnormal pulses Gastrointestinal: Normal bowel sounds, Soft and benign Integumentary: Diabetic ulcer (left foot) Neurological: Normal speech, Normal tone, Normal affect Laboratory Data - Reviewed Microbiology Data - Reviewed Imagings Data: - Reviewed Conclusions/Impression: Problem List Osteomyelitis left foot Diabetic foot ulcer left foot Diabetes Mellitus type II PVD Acute Osteomyelitis Left Fifth Metatarsal - Blood cultures: no growth to date - Wound left foot cultures 08/11: no growth to date - Currently on Levaquin IV. prior wound culture growitn E.cloacae on 04/21. - MRI left foot 08/11: "Findings suggestive of acute osteomyelitis of the left fifth metatarsal shaft, a tear superimposed on chronic osteomyelitis or a nonhealing fracture. Subperiosteal multiloculated abscess along the shaft of the fifth metatarsal with extension towards the hypo dermal aspect of the lateral forefoot as described above." High risk MRSA due to recent long-term antibiotic use, recent hospitalization. * allergy to Vancomycin * Recommendations - Osteomyelitis: Recommend continuing antibiotic therapy for 6 weeks duration. Continue with Levaquin and add Linezolid 600mg PO BID to cover MRSA. - Monitor CBC, BMP - Wound care per surgery team - Smoking cessation counseling - strict blood glucose control Case discussed with Kwabena Bonilla
[2023-08-14] MEDS: MEDIHONEY 44 ML TOPICAL TUBE TOP SCH (10:58)
--- NOTE | 2023-08-14 15:20 | P.PN ---
Subjective Date of Service: 08/14/23 Chief Complaint: Osteomyelitis of the left foot, diabetic ulcer Pt is resting comfortably in bed. She had a good night rest. Waiting for shoe parts caser to set up home iv abx therapy tomorrow, per Gen surgery recommendation. No other complaints. Review of Systems Unremarkable General: Unremarkable Eyes: Unremarkable ENT: Unremarkable Respiratory: Unremarkable Cardiovascular: Unremarkable Gastrointestinal: Unremarkable Genitourinary: Unremarkable Musculoskeletal: Unremarkable Integumentary: Other (left foot osteomyelitis) Neurological: Unremarkable Lymphatics: Unremarkable Physical Examination - Vital Signs Temperature: 98.5 F Blood Pressure: 125/62 Pulse: 79 Respirations: 18 Pulse Ox (%): 99 - Physical Exam General: Alert, In no apparent distress, Oriented x3 HEENT: Atraumatic, Normocephalic Neck: Supple, 2+ carotid pulse no bruit Respiratory: Clear to auscultation bilaterally, Normal air movement Cardiovascular: No edema, Normal pulses, Regular rate/rhythm, Normal S1 S2 Capillary refill: <2 Seconds Gastrointestinal: Normal bowel sounds, Soft and benign, Non-distended Musculoskeletal: No clubbing, No swelling Integumentary: No rashes, No breakdown, Other (left foot osteomyelitis) Neurological: Normal gait, Normal speech, Normal strength at 5/5 x4 extr Assessment And Plan - Plan Left lower extremity diabetic foot ulcer/ Osteomyelitis left lower extremity: Pt has history of osteomyelitis with toe amputation. Will continue doxycycline and cefepime. She is allergic to vancomycin. Will follo wup cultures. Gen surgeon, Dr. Epperson, wants pt to have iv abx at home. shoe parts caser will help to set it up. Consulted ID. Waiting for ID recommendation. left lower extremity foot x-ray IMPRESSION: Deformity with periosteal reaction along the mid to distal fifth metatarsal shaft with overlying soft tissue swelling and mineralization as above. Findings may relate to acute or chronic osteomyelitis. MRI of the left foot ordered in the emergency room. Diabetes type 2 uncontrolled: Will continue accuchek, SSI and ADA diet. Follow up A1c. Hypokalemia: K is 3.4. Will replete andmonitor. Peripheral neuropathy / Peripheral arterial disease: Continue gabapentin Chronic pain: Continue gabapentin Tobacco use: Pt was advised to quit smoking. Will continue nicotine patch. Code: Full Dispo: Will dc home by tomorrow Physician Review: Patient Assessed, Agree with Above Assessment and Plan
[2023-08-14] MEDS: Levofloxacin 750mg IV 750 MG/150 ML BAG IV SCH (16:28)
[2023-08-14 18:12] LABS: Magnesium 1.9 mg/dL (1.6-2.4); Potassium 4.2 mEq/L (3.5-5.1)
[2023-08-14] MEDS: ATORVASTATIN 10 MG TAB PO SCH (19:43)
[2023-08-15 07:19] LABS: Absolute Lymphocytes (CBC) 3.4 K/uL (0.7-4.9); Hematocrit 39.5 % (36.0-45.0); Lymphocytes % 35.3 % (15.3-44.8); MCV 86.2 fL (80-100); MPV 8.4 fL (7.6-11.3); Platelets 309 thou/uL (152-406); RBC Red Blood Cell Count 4.58 M/uL (3.86-4.86)
[2023-08-15 07:33] LABS: Potassium 4.1 mEq/L (3.5-5.1)
[2023-08-15] MEDS: NICOTINE 14 MG/PAT TD SCH (09:00)
--- NOTE | 2023-08-15 09:02 | P.PN ---
Date of Service: 08/15/23 Chief Complaint: Osteomyelitis of the left foot, diabetic ulcer Subjective: In no apparent distress. Sitting up on side of bed eating breakfast. Denies any new or worsening complaints at this time. Physical Examination Temp Pulse Resp BP Pulse Ox 97.3 F 97 H 20 145/69 H 92 08/15/23 08:00 08/15/23 08:00 08/15/23 08:00 08/15/23 08:00 08/15/23 08:00 General: Alert, In no apparent distress, Oriented x3 HEENT: Atraumatic, Normocephalic. Respiratory: Clear to auscultation bilaterally, Normal air movement Cardiovascular: Regular rate/rhythm, Abnormal pulses Gastrointestinal: Normal bowel sounds, Soft and benign Integumentary: Diabetic ulcer (left foot) Neurological: Normal speech, Normal tone, Normal affect Laboratory Data - Reviewed Microbiology Data - Reviewed Imagings Data: - Reviewed Medications List: Reviewed Assessment and Plan Problem List Osteomyelitis left foot Diabetic foot ulcer left foot Diabetes Mellitus type II PVD Acute Osteomyelitis Left Fifth Metatarsal - Blood cultures: no growth to date - Wound left foot cultures 08/11: no growth to date - Currently on Levaquin IV. prior wound culture growitn E.cloacae on 04/21. - MRI left foot 08/11: "Findings suggestive of acute osteomyelitis of the left fifth metatarsal shaft, a tear superimposed on chronic osteomyelitis or a nonhealing fracture. Subperiosteal multiloculated abscess along the shaft of the fifth metatarsal with extension towards the hypo dermal aspect of the lateral forefoot as described above." High risk MRSA due to recent long-term antibiotic use, recent hospitalization. * allergy to Vancomycin, penicillin, cephalexin* Recommendations - Osteomyelitis: Recommend continuing antibiotic therapy for 6 weeks duration. Continue with Levaquin and add Linezolid 600mg PO BID. PICC line placement pending. - Patient to follow up with podiatry and wound care as outpatient. - Monitor CBC, BMP - Wound care per surgery team - Smoking cessation counseling - strict blood glucose control Case discussed with Kwabena Bonilla
[2023-08-15] MEDS: HYDROCODONE/APAP 10/325 TAB PO PRN ×3 (09:10→21:12)
[2023-08-15] MEDS: GABAPENTIN 400 MG CAP PO PRN ×3 (09:11→21:12)
[2023-08-15] MEDS: INSULIN REGULAR (HUMAN) 100 UNIT/ML SQ SCH ×4 (09:12→21:16)
[2023-08-15] MEDS: MEDIHONEY 44 ML TOPICAL TUBE TOP SCH (09:13)
--- NOTE | 2023-08-15 12:30 | P.PN ---
Subjective Date of Service: 08/15/23 Chief Complaint: Osteomyelitis of the left foot, diabetic ulcer Pt is resting comfortably in bed. She had a good night rest. Waiting for dependency case manager to set up home iv levaquin. PICC line has been ordered. No other complaints. Review of Systems Unremarkable General: Unremarkable Eyes: Unremarkable ENT: Unremarkable Respiratory: Unremarkable Cardiovascular: Unremarkable Gastrointestinal: Unremarkable Genitourinary: Unremarkable Musculoskeletal: Unremarkable Integumentary: Unremarkable Neurological: Unremarkable Lymphatics: Unremarkable Physical Examination - Vital Signs Temperature: 97.2 F Blood Pressure: 140/65 Pulse: 72 Respirations: 17 Pulse Ox (%): 91 - Physical Exam General: Alert, In no apparent distress, Oriented x3 HEENT: Atraumatic, Normocephalic, PERRLA Neck: Supple, 2+ carotid pulse no bruit Respiratory: Clear to auscultation bilaterally, Normal air movement Cardiovascular: No edema, Normal pulses, Regular rate/rhythm, Normal S1 S2 Capillary refill: <2 Seconds Gastrointestinal: Normal bowel sounds, Soft and benign Musculoskeletal: No clubbing, No swelling Integumentary: No rashes Neurological: Normal gait, Normal speech, Normal strength at 5/5 x4 extr Lymphatics: No axilla or inguinal lymphadenopathy Assessment And Plan - Plan Left lower extremity diabetic foot ulcer/ Osteomyelitis left lower extremity: Pt has history of osteomyelitis with toe amputation. Will continue doxycycline and cefepime. She is allergic to vancomycin. Will follow up cultures. Gen surgeon, Dr. Epperson, wants pt to have iv abx at home. sort manager will help to set it up. Consulted ID. Will complete 6 weeks of abc ( linezolid and levaquin). Pt will take iv levaquin for at least 4 weeks. PICC line has been ordered. left lower extremity foot x-ray IMPRESSION: Deformity with periosteal reaction along the mid to distal fifth metatarsal shaft with overlying soft tissue swelling and mineralization as above. Findings may relate to acute or chronic osteomyelitis. MRI of the left foot ordered in the emergency room. Diabetes type 2 uncontrolled: Will continue accuchek, SSI and ADA diet. Follow up A1c. Hypokalemia: K is 4.1 <- 3.4. Will replete andmonitor. Peripheral neuropathy / Peripheral arterial disease: Continue gabapentin Chronic pain: Continue gabapentin Tobacco use: Pt was advised to quit smoking. Will continue nicotine patch. Code: Full Dispo: Will dc home soon Physician Review: Patient Assessed, Agree with Above Assessment and Plan
--- NOTE | 2023-08-15 14:36 | P.PN ---
Date of Service: 08/15/23 S: Went to see the patient, she is not in her room and apparently is downstairs smoking. Will try and find her. O: [] A: Patient consented to stay to get her outpatient care set up. She does have PICC line, will be started on antibiotics. P: When patient is discharged, she can follow-up with me at the wound care center, call for an appointment.
[2023-08-15] MEDS: Levofloxacin 750mg IV 750 MG/150 ML BAG IV SCH (17:17)
--- NOTE | 2023-08-15 18:21 | RAD REPORT ---
EXAM DESCRIPTION: [facility] Single View08/15/2023 4:38 pm CLINICAL HISTORY: PICC line placement/patency COMPARISON: Chest Single View dated 07/30/2020; ABDOMEN ACUTE SERIES dated 05/06/2010 TECHNIQUE: Portable AP view of the chest. FINDINGS: Right arm PICC in place, catheter tip projects at the superior cavoatrial junction. The imtiaz ngs are clear. Dextroconvex midthoracic scoliotic curvature, stable. No pneumothorax or effusion. The cardiomediastinal contours are unremarkable. IMPRESSION: Satisfactory positioning of the right arm PICC. No acute cardiopulmonary process.
[2023-08-15] MEDS: Mupirocin NASAL 2 APPL/1 GM TUBE NAS SCH (21:13)
[2023-08-15] MEDS: ATORVASTATIN 10 MG TAB PO SCH (21:17)
[2023-08-16 05:02] VITALS: BMI 26.4
[2023-08-16] MEDS: HYDROCODONE/APAP 10/325 TAB PO PRN ×2 (05:54→12:02)
[2023-08-16] MEDS: GABAPENTIN 400 MG CAP PO PRN ×2 (05:54→12:02)
[2023-08-16 07:03] LABS: Absolute Lymphocytes (CBC) 3.8 K/uL (0.7-4.9); Hematocrit 39.7 % (36.0-45.0); Lymphocytes % 34.2 % (15.3-44.8); MCV 86.2 fL (80-100); MPV 8.3 fL (7.6-11.3); Platelets 336 thou/uL (152-406)
[2023-08-16 07:15] LABS: Potassium 4.1 mEq/L (3.5-5.1)
[2023-08-16] MEDS: INSULIN REGULAR (HUMAN) 100 UNIT/ML SQ SCH ×3 (08:34→17:12)
[2023-08-16] MEDS: Mupirocin NASAL 2 APPL/1 GM TUBE NAS SCH (08:34)
[2023-08-16] MEDS: NICOTINE 14 MG/PAT TD SCH (08:35)
[2023-08-16] MEDS: MEDIHONEY 44 ML TOPICAL TUBE TOP SCH (08:35)
[2023-08-16] MEDS ORDERED: INSULIN GLARGINE 100 UNIT/ML SQ SCH (09:00)
--- NOTE | 2023-08-16 09:55 | P.PN ---
Date of Service: 08/16/23 Chief Complaint: Osteomyelitis of the left foot, diabetic ulcer Subjective: A&Ox4. In no apparent distress. No acute events. No new or worsening complaints. Patient states she wants to go home. Physical Examination Temp Pulse Resp BP Pulse Ox 97 F 77 17 116/58 L 99 08/16/23 08:00 08/16/23 08:00 08/16/23 08:00 08/16/23 08:00 08/16/23 08:00 General: Alert, In no apparent distress, Oriented x3 HEENT: Atraumatic, Normocephalic. Respiratory: Clear to auscultation bilaterally, Normal air movement Cardiovascular: Regular rate/rhythm, Abnormal pulses Gastrointestinal: Normal bowel sounds, Soft and benign Integumentary: Diabetic ulcer left foot, dressing clean dry and intact. Neurological: Normal speech, Normal tone, Normal affect Laboratory Data - Reviewed Microbiology Data - Reviewed Imagings Data: - Reviewed Medications List: Reviewed Assessment and Plan Problem List Osteomyelitis left foot Diabetic foot ulcer left foot Diabetes Mellitus type II PVD Acute Osteomyelitis Left Fifth Metatarsal - Blood cultures: no growth to date - Wound left foot cultures 08/11: no growth to date - Currently on Levaquin IV. prior wound culture growitn E.cloacae on 04/21. - MRI left foot 08/11: "Findings suggestive of acute osteomyelitis of the left fifth metatarsal shaft, a tear superimposed on chronic osteomyelitis or a nonhealing fracture. Subperiosteal multiloculated abscess along the shaft of the fifth metatarsal with extension towards the hypo dermal aspect of the lateral forefoot as described above." High risk MRSA due to recent long-term antibiotic use, recent hospitalization. * allergy to Vancomycin, penicillin, cephalexin* Recommendations - Osteomyelitis: Recommend continuing antibiotic therapy for 6 weeks duration. Continue with Levaquin IV and add Linezolid 600mg PO BID. PICC line placed 08/15. - Patient to follow up with podiatry and wound care as outpatient. - Monitor CBC, BMP - Wound care per surgery team - Smoking cessation counseling - strict blood glucose control Case discussed with Kwabena Bonilla
[2023-08-16 10:04] VITALS: O2SAT 99
--- NOTE | 2023-08-16 12:04 | P.PN ---
Subjective Date of Service: 08/16/23 Chief Complaint: Osteomyelitis of the left foot, diabetic ulcer Pt is resting comfortably in bed. She is eager to go home. case sealer is waiting for her insurance to set up home iv levaquin. PICC line is in place. No other complaints. Review of Systems Unremarkable General: Unremarkable Eyes: Unremarkable ENT: Unremarkable Respiratory: Unremarkable Cardiovascular: Unremarkable Gastrointestinal: Unremarkable Genitourinary: Unremarkable Musculoskeletal: Unremarkable Integumentary: Lesions (left foot) Neurological: Unremarkable Lymphatics: Unremarkable Physical Examination - Vital Signs Temperature: 97 F Blood Pressure: 116/58 Pulse: 77 Respirations: 17 Pulse Ox (%): 99 - Physical Exam General: Alert, In no apparent distress, Oriented x3 HEENT: Atraumatic, Normocephalic Neck: Supple, 2+ carotid pulse no bruit Respiratory: Clear to auscultation bilaterally, Normal air movement Cardiovascular: No edema, Normal pulses, Regular rate/rhythm Capillary refill: <2 Seconds Gastrointestinal: Normal bowel sounds, Soft and benign, Non-distended Musculoskeletal: No clubbing, No swelling Integumentary: No rashes, Skin lesion (left foot) Neurological: Normal gait, Normal speech, Normal strength at 5/5 x4 extr Lymphatics: No axilla or inguinal lymphadenopathy Assessment And Plan - Plan Left lower extremity diabetic foot ulcer/ Osteomyelitis left lower extremity: Pt has history of osteomyelitis with toe amputation. Will continue doxycycline and cefepime. She is allergic to vancomycin. Will follow up cultures. Gen surgeon, Dr. Epperson, wants pt to have iv abx at home. buffet manager will help to set it up. Consulted ID. Will complete 6 weeks of abc ( linezolid and levaquin). Pt will take iv levaquin for at least 4 weeks. PICC line has been ordered. left lower extremity foot x-ray IMPRESSION: Deformity with periosteal reaction along the mid to distal fifth metatarsal shaft with overlying soft tissue swelling and mineralization as above. Findings may relate to acute or chronic osteomyelitis. MRI of the left foot ordered in the emergency room. Diabetes type 2 uncontrolled: Will continue accuchek, SSI, lantus 15u qhs and ADA diet. Follow up A1c. Hypokalemia: K is 4.1 <- 3.4. Will replete andmonitor. Peripheral neuropathy / Peripheral arterial disease: Continue gabapentin Chronic pain: Continue gabapentin Tobacco use: Pt was advised to quit smoking. Will continue nicotine patch. Code: Full Dispo: Will dc home once her insurance sets up home iv abx. Physician Review: Patient Assessed, Agree with Above Assessment and Plan
[2023-08-16] MEDS: Levofloxacin 750mg IV 750 MG/150 ML BAG IV SCH (16:12)
[2023-08-16 16:54] VITALS: BP 138/75; TEMP 97.8
--- NOTE | 2023-08-16 17:01 | P.DS ---
Admission Date: 08/11/23 Discharge Date: 08/16/23 Disposition: ROUTINE DISCHARGE Discharge Condition: GOOD Reason for Admission: Osteomyelitis of the left foot, diabetic ulcer Brief History of Present Illness: 47-year-old female with a past medical history with a history of DM, noncompliant with therapy, history of chronic wound of the left lower extremity, chronic pain, neuropathy, presents to the emergency room for worsening left diabetic foot ulcer, left lower extremity foot pain, She reports Left lower extremity foot wound that has gotten worse over the last 2 days. She reports foot wound with drainge, she denies fever, chills, NVD. She reports left lower extremity foot wound prior amputation. Plan to admit for osteomyelitis of the left lower extremity, diabetes type 2 with hyperglycemia, noncompliance. Surgery to eval. Laboratory evaluation leukocytosis WBCs 13.0, left shift 74.3, mild hypokalemia 3.4 blood glucose 354, left lower extremity foot x-ray IMPRESSION: Deformity with periosteal reaction along the mid to distal fifth metatarsal shaft with overlying soft tissue swelling and mineralization as above. Findings may relate to acute or chronic osteomyelitis. MRI of the left foot ordered in the emergency room. IV vancomycin, cefepime ordered, wound cultures, wound care consult. Hospital Course: Pt is a 47-yo female with a past medical history with a history of DM, noncompliant with therapy, chronic wound of the left lower extremity, chronic pain, and neuropathy who presented to the emergency room for worsening left diabetic foot ulcer, left lower extremity foot pain. On admission, lab studies showed leukocytosis WBCs 13.0, left shift 74.3, mild hypokalemia 3.4 blood glucose 354. Left foot x-ray showed deformity with periosteal reaction along the mid to distal fifth metatarsal shaft with overlying soft tissue swelling and mineralization. It was concerning for acute or chronic osteomyelitis. MRI of the left foot showed acute osteomyelitis of the left fifth metatarsal shaft, a tear superimposed on chronic osteomyelitis or a non-healing fracture. We admitted pt, obtained wound culture and started iv vanc and cefepime. We later stopped vancomycin due to her history of alergic reaction to vancomycin. It was changed to doxycycline. ID evaluated pt and recommended 6 weeks of levaquin and linezolid. Pt will follo wup with PCP and ID in clinic. We placed PICC line for outpt iv levaquin infusion. We repleted electrolytes and continued home med for other chronic medical problems. We advised her to quit smoking and use nicotine patch. Pt was in NAD prior to discharge. Vital Signs/Physical Exam: Temp Pulse Resp BP Pulse Ox 97 F 77 17 116/58 L 99 08/16/23 12:07 08/16/23 12:07 08/16/23 12:07 08/16/23 12:07 08/16/23 12:07 Laboratory Data at Discharge: WBC 11.20 thou/uL (4.3-10.9) H 08/16/23 06:40 Hgb 13.9 g/dL (12.0-15.0) 08/16/23 06:40 Hct 39.7 % (36.0-45.0) 08/16/23 06:40 Plt Count 336 thou/uL (152-406) 08/16/23 06:40 PT 12.8 SECONDS (9.5-12.5) H 08/11/23 14:35 INR 1.17 08/11/23 14:35 APTT 28.7 SECONDS (24.3-36.9) 08/11/23 14:35 Sodium 134 mEq/L (136-145) L D 08/16/23 06:40 Potassium 4.1 mEq/L (3.5-5.1) 08/16/23 06:40 BUN 12 mg/dL (7-18) 08/16/23 06:40 Creatinine 0.64 mg/dL (0.55-1.02) 08/16/23 06:40 Glucose 235 mg/dL (74-106) H 08/16/23 06:40 Magnesium 1.9 mg/dL (1.6-2.4) 08/14/23 17:30 Total Bilirubin 0.7 mg/dL (0.2-1.0) 08/11/23 17:05 AST 14 U/L (15-37) L 08/11/23 17:05 ALT 22 U/L (13-56) 08/11/23 17:05 Alkaline Phosphatase 98 U/L (45-117) 08/11/23 17:05 Home Medications: Atorvastatin Calcium 1 tab PO BEDTIME 08/11/23 Duloxetine HCl 120 mg PO DAILY 08/11/23 Gabapentin 2 tab PO TID PRN 08/11/23 Hydrocodone Bit/Acetaminophen [[place] 10-325 Tablet] 1 tab PO Q8H PRN 08/11/23 Metformin HCl 1 tab PO BID 08/11/23 glipiZIDE [Glipizide] 1 tab PO DAILY 08/11/23 Nicotine [Nicoderm*] 14 mg TD DAILY 42 Days #42 patch 08/16/23 New Medications: Nicotine [Nicoderm*] 14 mg TD DAILY 42 Days #42 patch Physician Discharge Instructions: Continue ad britany activity. Take levaquin 750mg iv daily and linezolid for 6 week s. Follow up with PCP and ID within 2 weeks Diet: AHA Activity: Ad britany Followup: [facility] [Primary Care Provider] -
--- NOTE | 2023-08-18 14:03 | EKG ---
Test Date: 2023-08-11 Test Time: 16:03:59 Order Management Specialist: ELIAS MEASUREMENT RESULTS: Intervals: Rate: 91 [place]: 150 QRSD: 80 QT: 352 QTc: 432 [place]: P: 65 [place]: 150 QRS: 77 T: 74 INTERPRETIVE STATEMENTS: Normal sinus rhythm Normal ECG Compared to ECG 07/30/2020 20:17:35 No significant changes Electronically Signed On 08-18-23 13:47:58 NEWS DEPARTMENT INTERN by Eugenio Littlejohn
== END 2023-08-16 18:30 | disposition home or self-care (01) | DRG 638 ==
LOC: ER 13:48 → ERHOLD 16:06 → 4TH 19:40
PROVIDERS: ADMIT Internal Medicine; ATTEND Hospitalist
PROC: 02HV33Z Insertion of Infusion Device into Superior Vena Cava, Percutaneous Approach (ICD-10-PCS; principal; 2023-08-14)
DX: E11.69 Type 2 diabetes mellitus with other specified complication (principal); L03.116 Cellulitis of left lower limb; M86.172 Other acute osteomyelitis, left ankle and foot; E11.42 Type 2 diabetes mellitus with diabetic polyneuropathy; E11.65 Type 2 diabetes mellitus with hyperglycemia; E11.51 Type 2 diabetes mellitus with diabetic peripheral angiopathy without gangrene; E11.621 Type 2 diabetes mellitus with foot ulcer; L97.529 Non-pressure chronic ulcer of other part of left foot with unspecified severity; E87.6 Hypokalemia; E78.5 Hyperlipidemia, unspecified; G89.29 Other chronic pain; I83.029 Varicose veins of left lower extremity with ulcer of unspecified site; F17.210 Nicotine dependence, cigarettes, uncomplicated; B96.89 Other specified bacterial agents as the cause of diseases classified elsewhere; Z88.1 Allergy status to other antibiotic agents; Z88.0 Allergy status to penicillin; Z88.8 Allergy status to other drugs, medicaments and biological substances; Z98.51 Tubal ligation status; Z90.49 Acquired absence of other specified parts of digestive tract; Z91.199 Patient's noncompliance with other medical treatment and regimen due to unspecified reason; Z89.422 Acquired absence of other left toe(s); Z79.84 Long term (current) use of oral hypoglycemic drugs; Z79.899 Other long term (current) drug therapy
CPT/HCPCS: 36415; 71045; 80048; 80053; 82947; 83036; 83605; 83735; 84132; 85025; 85610; 85730; 86140; 87040; 87070; 87205; 93005; 96365; 96366; 99285; J0692; J1815; J3475; J7040

== ENCOUNTER → 2023-09-03 | Emergency (ER) | payer OTHER ==
--- OUTSIDE RECORDS SUMMARY | 2023-09-03 01:09 | XMS REPORT | Continuity of Care Document ---
Author Name Unknown Address [address] [facility] [address] [place] [address] [facility] Address [address] [facility] 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 Name Role Phone MarinoKerry benz Niki Primary Care Physician [phone] KARLA STANLEY Attending Clinician Unavailable LAURENCE COTA Attending Clinician Unavailable LAB39 Attending Clinician Unavailable HUSSEIN PETERSON Attending Clinician Unavailable Ale Harvey RN Attending Clinician [phone] LAB90 Attending Clinician Unavailable Alessandra Gramajo RN Attending Clinician [phone] Ofelia Olivier LVN Attending Clinician [phone] Denia Rios MD Attending Clinician [phone] Tirso Dias DO Attending Clinician [phone] TIRSO DIAS Attending Clinician Unavailable JASPER FIELDS Attending Clinician Unavailable JASON DIAMNOD Attending Clinician Unavailable LAB91 Attending Clinician Unavailable BARB BENITO Attending Clinician UnavailROSETTE Rich Attending Clinician Unavailable Rosette Tran NP Attending Clinician [phone] SUSANA CRUZ Attending Clinician Unavailable Susana Cruz MD Attending Clinician [phone] Tirso Dias DO Admitting Clinician TIRSO DIAS Admitting Clinician Unavailable ROSETTE TRAN Admitting Clinician Unavailable SUSANA CRUZ Admitting Clinician Unavailable Payers Payer Name Policy Type Policy Number Effective Date Expirati on Date Source 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 9 [id number] 2023 00:00:00 [facility] [id number] 2016 00:00:00 Problems Condition Name Condition Details Condition Category Status Onset Date Resolution Date Last Treatment Date Treating Clinician Comments Source Ulcer of left foot, unspecifie d ulcer stage Ulcer of left foot, unspecifie d ulcer stage Disease Active 9- 00:00: 00 [facility] Intermitte nt claudicati on Intermitte nt claudicati on Disease Active 2- 00:00: 00 Cynthia Seybold - Externa l Diabetes mellitus with peripheral vascular disease (multi HCC) Diabetes mellitus with peripheral vascular disease (multi HCC) Disease Active 2- 00:00: 00 Cynthia Seybold - Externa l 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) Disease Active 1- 00:00: 00 Cynthia Seybold - Externa l No known active problems No known active problems Disease Cynthia Seybold - Externa l Allergies, Adverse Reactions, Alerts Allergy Name Allergy Type Status Severity Reaction(s) Onset Date Inactive Date Treating Clinician Comments Source VANCOMYC IN (BULK) DRUG Active ITCHING 2021-08 0-20 00:00: 00 [facility] Vancomyc in (Bulk) Propensi ty to adverse reaction s Active Itching 2021-08 0-20 00:00: 00 [facility] Vancomyc in Propensi ty to adverse reaction s Active Hives 2021-08 0-20 00:00: 00 Cynthia Evans - Externa l Acetamin ophen Injectio n Propensi ty to adverse reaction s Active 4-22 00:00: 00 Other reaction( s): Itching/H trupti/Rash Cynthia Evans - Externa l Cephalex in Monohydr ate [...] s): Itching Cynthia Seybold - Externa l Propoxyp hene N-Acetam inophen Propensi ty to adverse reaction s Active Swelling 03-27 00:00: 00 Allergic to propoxyph akash [facility] Cephalex in Propensi ty to adverse reaction s Active Rash 03-27 00:00: 00 [facility] PROPOXYP HENE N-ACETAM INOPHEN DRUG Active Swelling 03-27 00:00: 00 [facility] CEPHALEX IN DRUG INGREDI Active Rash 03-27 00:00: 00 [facility] Social History Social Habit Start Date Stop Date Quantity Comments Source History of tobacco use Cigarette Smoker Cynthia farrar - External Sexual orientation Niki Evans - External Gender identity [facility] Cigarettes smoked current (pack per day) - Reported 2023-06-19 00:00:00 2023-06-19 00:00:00 Cynthia Evans - External Cigarette pack-years 2023-06-19 00:00:00 2023-06-19 00:00:00 Cynthia Evans - External Tobacco use and exposure 2023-04-19 00:00:00 2023-04-19 00:00:00 Smokeless tobacco non-user [facility] Education - What is the highest level of school you have completed or the highest degree you have received? 2023-04-19 00:00:00 2023-04-19 00:00:00 High school graduate [facility] Tobacco Comment 2023-04-19 00:00:00 2023-04-19 00:00:00 Patient stated that she wants to quit but it is too stressful at this times due to life. Patient reports 1PPD [facility] History of Social function 2022-09-15 00:00:00 2022-09-15 00:00:00 Cynthia Montelongo Exposure to SARS-CoV-2 (event) 2022-07-06 00:00:00 2022-07-16 18:31:00 Not sure [facility] Sex Assigned At 1975 00:00:00 1975 00:00:00 Cynthia Montelongo Smoking Status Start Date Stop Date Source Tobacco smoking consumption unknown [facility] Smokes tobacco daily 2023-06-19 00:00:00 Cynthia Montelongo Medications Ordered Medication Name Filled Medication Name Start Date Stop Date Current Medication? Ordering Clinician Indication Dosage Frequency Signature (SIG) Comments Components Source Clopidogrel Bisulfate (PLAVIX) 75 MG oral Tablet 08-22 10:30: 15 Yes 75mg Take 1 tablet (75 mg total) by mouth. Cynthia wilkinson HYDROcodone -Acetaminop hen 10-325 MG oral Tablet 08-22 00:00: 00 Yes 1{tbl} Q.[id number] 3D Take 1 tablet by mouth every 8 hours as needed. Cynthia wilkinson HYDROcodone -Acetaminop hen 10-325 MG oral Tablet 2022-08 00:00: 00 08-21 00:00 :00 No 1{tbl} Q.[id number] 3D Take 1 tablet by mouth every 8 hours as needed. Cynthia wilkinson HYDROcodone -Acetaminop hen 10-325 MG [...] oral Tablet 2022-08 00:00: 00 Yes 1{tbl} Q.[id number] 3D Take 1 tablet by mouth every [...] MG oral Tablet 2022-08 00:00: 00 Yes [id number] 10mg Take 1 tablet (10 mg total) by mouth nightly. Cynthia wilkinson Duloxetine HCl [address] Particles 2022-08 00:00: 00 Yes [id number] 120mg Take 2 capsules (120 mg total) by mouth daily. Cynthia wilkinson Gabapentin 600 MG oral Tablet 2022-08 00:00: 00 Yes [id number] 1200mg Take 2 tablets (1,200 mg total) by mouth 3 times daily. Cynthia wilkinson GlipiZIDE 5 MG oral TABLET SR 24 HR 2022-08 00:00: 00 Yes [id number] 5mg Take 1 tablet (5 mg total) by mouth daily. Cynthia wilkinson Metformin HCl 1000 MG oral Tablet 2022-08 00:00: 00 Yes [id number] 1000mg Take 1 tablet (1,000 mg total) by mouth in the morning and 1 tablet (1,000 mg total) in the evening. Take with meals. Cynthia wilkinson Trulicity 0.75 MG/0.5ML subcutaneou s Solution Pen-injecto r 2022-08 00:00: 00 Yes [id number] .75mg Inject 0.75 mg into the skin once a week. Cynthia wilkinson Atorvastati n Calcium 10 MG oral Tablet 2022-08 00:00: 00 Yes [id number] 10mg Take 1 tablet (10 mg total) by mouth nightly. Cynthia wilkinson Duloxetine HCl [address] Particles 2022-08 00:00: 00 Yes [id number] 120mg Take 2 capsules (120 mg total) by mouth daily. Cynthia wilkinson Gabapentin 600 MG oral Tablet 2022-08 00:00: 00 Yes [id number] 1200mg Take 2 tablets (1,200 mg total) by mouth 3 times daily. Cynthia wilkinson GlipiZIDE 5 MG oral TABLET SR 24 HR 2022-08 00:00: 00 Yes [id number] 5mg Take 1 tablet (5 mg total) by mouth daily. Cynthia wilkinson Metformin HCl 1000 MG oral Tablet 2022-08 00:00: 00 Yes [id number] 1000mg Take 1 tablet (1,000 mg total) by mouth in the morning and 1 tablet (1,000 mg total) in the evening. Take with meals. Cynthia wilkinson Trulicity 0.75 MG/0.5ML subcutaneou s Solution Pen-injecto r 2022-08 00:00: 00 Yes [id number] .75mg Inject 0.75 mg into the skin once a week. Cynthia wilkinson Atorvastati n Calcium 10 MG oral Tablet 2022-08 00:00: 00 Yes [id number] 10mg Take 1 tablet (10 mg total) by mouth nightly. Cynthia wilkinson Duloxetine HCl [address] Particles 2022-08 00:00: 00 Yes [id number] 120mg Take 2 capsules (120 mg total) by mouth daily. Cynthia wilkinson Gabapentin 600 MG oral Tablet 2022-08 00:00: 00 Yes [id number] 1200mg Take 2 tablets (1,200 mg total) by mouth 3 times daily. Cynthia wilkinson GlipiZIDE 5 MG oral TABLET SR 24 HR 2022-08 00:00: 00 Yes [id number] 5mg Take 1 tablet (5 mg total) by mouth daily. Cynthia wilkinson Metformin HCl 1000 MG oral Tablet 2022-08 00:00: 00 Yes [id number] 1000mg Take 1 tablet (1,000 mg total) by mouth in the morning and 1 tablet (1,000 mg total) in the evening. Take with meals. Cynthia wilkinson Trulicity 0.75 MG/0.5ML subcutaneou s Solution Pen-injecto r 2022-08 00:00: 00 Yes [id number] .75mg Inject 0.75 mg into the skin once a week. Cynthia wilkinson Dulaglutide (Trulicity) 3 MG/0.5ML subcutaneou s Solution Pen-injecto r 2022-08 00:00: 00 06-19 00:00 :00 No [id number] 3mg Inject 3 mg into the skin once a week. Cynthia wilkinson TRIMETHOPRI M-SULFAMETH OXAZOLE (BACTRIM DS) 800-160 MG oral Tablet 04-22 00:00: 00 Yes 1{tbl} Take 1 tablet by mouth 2 times daily. Cynthia Campbellkenncharan Hi Mufrancis wilkinson TRIMETHOPRI M-SULFAMETH OXAZOLE (BACTRIM DS) 800-160 MG oral Tablet 04-22 00:00: 00 Yes 1{tbl} Take 1 tablet by mouth 2 times daily. Cynthia Campbellkenncharan iH Mua l TRIMETHOPRI M-SULFAMETH OXAZOLE (BACTRIM DS) 800-160 MG oral Tablet 04-22 00:00: 00 Yes 1{tbl} Take 1 tablet by mouth 2 times daily. Cynthia Campbelljh Sussy Chavo jaja Minocycline HCl 100 MG oral Capsule 04-22 00:00: 00 06-19 00:00 :00 No 100mg Take 1 capsule (100 mg total) by mouth 2 times daily. Cynthia Campbelljh Sussy Chavo jaja docusate (COLACE) capsule 100 mg 04-20 14:00: 00 Yes 100mg 100 mg, Oral, DAILY, First dose on Mon04/20/23 at 0900, Until Discontinu ed, Routine [facility] nicotine (NICODERM) 21 mg/24 hr patch 1 Patch 04-19 23:30: 00 Yes 1{patch } 1 Patch, Topical, Administer over 24 Hours, Q24H, First dose on Mon04/19/23 at 1830, Until Discontinu ed, Routine [facility] HYDROcodone -acetaminop hen (NORCO) 10-325 mg tablet 04-19 22:35: 45 Yes 1{tbl} Take 1 tablet by mouth every 6 (six) hours as needed. [facility] gabapentin (NEURONTIN) 300 mg capsule 04-19 22:35: 45 Yes 900mg Take 3 capsules by mouth in the morning and 3 capsules at noon and 3 capsules in the evening. [facility] atorvastati n 10 mg tablet 04-19 22:35: 45 Yes 10mg Take 1 tablet by mouth at bedtime. Patient reports she is supposed to take this medication but has not since October. Due to "lost (her) insurance and can not afford it." [facility] glipiZIDE 5 mg tablet 04-19 22:35: 45 Yes 5mg Take 1 tablet by mouth in the morning. Patient reports she is supposed to take this medication but has not since October. Due to "lost (her) insurance and can not afford it." [facility] aspirin 81 mg chewable tablet 04-19 22:35: 45 Yes 81mg Take 1 tablet by mouth in the morning. [facility] metFORMIN 500 mg tablet 04-19 22:35: 45 Yes 500mg Take 1 tablet by mouth in the morning and 1 tablet in the evening. Take with meals. Patient reports she is supposed to take this medication but has not since October. Due to "lost (her) insurance and can not afford it." [facility] DULoxetine 60 mg capsule 04-19 22:35: 45 Yes 60mg Take 1 capsule by mouth in the morning. [facility] HYDROcodone -acetaminop hen (NORCO) 10-325 mg tablet 04-19 22:35: 45 Yes 1{tbl} Take 1 tablet by mouth every 6 (six) hours as needed. [facility] gabapentin (NEURONTIN) 300 mg capsule 04-19 22:35: 45 Yes 900mg Take 3 capsules by mouth in the morning and 3 capsules at noon and 3 capsules in the evening. [facility] atorvastati n 10 mg tablet 04-19 22:35: 45 Yes 10mg Take 1 tablet by mouth at bedtime. Patient reports she is supposed to take this medication but has not since October. Due to "lost (her) insurance and can not afford it." [facility] glipiZIDE 5 mg tablet 04-19 22:35: 45 Yes 5mg Take 1 tablet by mouth in the morning. Patient reports she is supposed to take this medication but has not since October. Due to "lost (her) insurance and can not afford it." [facility] aspirin 81 mg chewable tablet 04-19 22:35: 45 Yes 81mg Take 1 tablet by mouth in the morning. [facility] metFORMIN 500 mg tablet 04-19 22:35: 45 Yes 500mg Take 1 tablet by mouth in the morning and 1 tablet in the evening. Take with meals. Patient reports she is supposed to take this medication but has not since October. Due to "lost (her) insurance and can not afford it." [facility] DULoxetine 60 mg capsule 04-19 22:35: 45 Yes 60mg Take 1 capsule by mouth in the morning. [facility] HYDROcodone -acetaminop hen (NORCO) 10-325 mg tablet 04-19 22:35: 45 Yes 1{tbl} Take 1 tablet by mouth every 6 (six) hours as needed. [facility] gabapentin (NEURONTIN) 300 mg capsule 04-19 22:35: 45 Yes 900mg Take 3 capsules by mouth in the morning and 3 capsules at noon and 3 capsules in the evening. [facility] atorvastati n 10 mg tablet 04-19 22:35: 45 Yes 10mg Take 1 tablet by mouth at bedtime. Patient reports she is supposed to take this medication but has not since October. Due to "lost (her) insurance and can not afford it." [facility] glipiZIDE 5 mg tablet 04-19 22:35: 45 Yes 5mg Take 1 tablet by mouth in the morning. Patient reports she is supposed to take this medication but has not since October. Due to "lost (her) insurance and can not afford it." [facility] aspirin 81 mg chewable tablet 04-19 22:35: 45 Yes 81mg Take 1 tablet by mouth in the morning. [facility] metFORMIN 500 mg tablet 04-19 22:35: 45 Yes 500mg Take 1 tablet by mouth in the morning and 1 tablet in the evening. Take with meals. Patient reports she is supposed to take this medication but has not since October. Due to "lost (her) insurance and can not afford it." [facility] DULoxetine 60 mg capsule 04-19 22:35: 45 Yes 60mg Take 1 capsule by mouth in the morning. [facility] HYDROcodone -acetaminop hen (NORCO) 10-325 mg tablet 04-19 22:35: 45 Yes 1{tbl} Take 1 tablet by mouth every 6 (six) hours as needed. [facility] gabapentin (NEURONTIN) 300 mg capsule 04-19 22:35: 45 Yes 900mg Take 3 capsules by mouth in the morning and 3 capsules at noon and 3 capsules in the evening. [facility] atorvastati n 10 mg tablet 04-19 22:35: 45 Yes 10mg Take 1 tablet by mouth at bedtime. Patient reports she is supposed to take this medication but has not since October. Due to "lost (her) insurance and can not afford it." [facility] glipiZIDE 5 mg tablet 04-19 22:35: 45 Yes 5mg Take 1 tablet by mouth in the morning. Patient reports she is supposed to take this medication but has not since October. Due to "lost (her) insurance and can not afford it." [facility] aspirin 81 mg chewable tablet 04-19 22:35: 45 Yes 81mg Take 1 tablet by mouth in the morning. [facility] metFORMIN 500 mg tablet 04-19 22:35: 45 Yes 500mg Take 1 tablet by mouth in the morning and 1 tablet in the evening. Take with meals. Patient reports she is supposed to take this medication but has not since October. Due to "lost (her) insurance and can not afford it." [facility] DULoxetine 60 mg capsule 04-19 22:35: 45 Yes 60mg Take 1 capsule by mouth in the morning. [facility] HYDROcodone -acetaminop hen (NORCO) 10-325 mg tablet 04-19 22:35: 45 Yes 1{tbl} Take 1 tablet by mouth every 6 (six) hours as needed. [facility] gabapentin (NEURONTIN) 300 mg capsule 04-19 22:35: 45 Yes 900mg Take 3 capsules by mouth in the morning and 3 capsules at noon and 3 capsules in the evening. [facility] atorvastati n 10 mg tablet 04-19 22:35: 45 Yes 10mg Take 1 tablet by mouth at bedtime. Patient reports she is supposed to take this medication but has not since October. Due to "lost (her) insurance and can not afford it." [facility] glipiZIDE 5 mg tablet 04-19 22:35: 45 Yes 5mg Take 1 tablet by mouth in the morning. Patient reports she is supposed to take this medication but has not since October. Due to "lost (her) insurance and can not afford it." [facility] aspirin 81 mg chewable tablet 04-19 22:35: 45 Yes 81mg Take 1 tablet by mouth in the morning. [facility] metFORMIN 500 mg tablet 04-19 22:35: 45 Yes 500mg Take 1 tablet by mouth in the morning and 1 tablet in the evening. Take with meals. Patient reports she is supposed to take this medication but has not since October. Due to "lost (her) insurance and can not afford it." [facility] DULoxetine 60 mg capsule 04-19 22:35: 45 Yes 60mg Take 1 capsule by mouth in the morning. [facility] HYDROcodone -acetaminop hen (NORCO) 10-325 mg tablet 04-19 22:35: 45 Yes 1{tbl} Take 1 tablet by mouth every 6 (six) hours as needed. [facility] gabapentin (NEURONTIN) 300 mg capsule 04-19 22:35: 45 Yes 900mg Take 3 capsules by mouth in the morning and 3 capsules at noon and 3 capsules in the evening. [facility] atorvastati n 10 mg tablet 04-19 22:35: 45 Yes 10mg Take 1 tablet by mouth at bedtime. Patient reports she is supposed to take this medication but has not since October. Due to "lost (her) insurance and can not afford it." [facility] glipiZIDE 5 mg tablet 04-19 22:35: 45 Yes 5mg Take 1 tablet by mouth in the morning. Patient reports she is supposed to take this medication but has not since October. Due to "lost (her) insurance and can not afford it." [facility] aspirin 81 mg chewable tablet 04-19 22:35: 45 Yes 81mg Take 1 tablet by mouth in the morning. [facility] metFORMIN 500 mg tablet 04-19 22:35: 45 Yes 500mg Take 1 tablet by mouth in the morning and 1 tablet in the evening. Take with meals. Patient reports she is supposed to take this medication but has not since October. Due to "lost (her) insurance and can not afford it." [facility] DULoxetine 60 mg capsule 04-19 22:35: 45 Yes 60mg Take 1 capsule by mouth in the morning. [facility] Sliding Scale Insulin - Lispro (HumaLOG) 04-19 22:00: 00 Yes Subcutaneo us, TID MEALS+HS, First dose on Mon04/19/23 at 1700, Until Discontinu ed, Routine [facility] enoxaparin (LOVENOX) injection 40 mg 04-19 22:00: 00 Yes 40mg 40 mg, Subcutaneo us, DAILY, First dose on Mon04/19/23 at 1700, Until Discontinu ed, Routine [facility] metroNIDAZO LE in NaCl (iso-os) (FLAGYL I.V.) RTU IV infusion 500 mg 04-19 19:30: 00 04-26 19:29 :00 No 500mg 500 mg, IV Infusion, Q12H ABX, 14 doses, First dose on Mon04/19/23 at 1430, Last dose on Mon04/26/23 at 0230, Administer over 60 Minutes, 100 mL
Reas on for Anti-Infec tive: Empiric Therapy for Suspected Infection< br>Empiric Therapy Site: Skin / Soft tissue
Duration of therapy: 5 days [facility] levoFLOXaci n in D5W (LEVAQUIN) 750 mg/150 mL Piggyback 750 mg 04-19 19:30: 00 04-26 19:29 :00 No 750mg 750 mg, IV Piggyback, Q24H ABX, 7 doses, First dose on Mon04/19/23 at 1430, Last dose on Mon04/25/23 at 1430, Administer over 90 Minutes, 150 mL
Reas on for Anti-Infec tive: Empiric Therapy for Suspected Infection< br>Empiric Therapy Site: Wound
D uration of therapy: 5 days [facility] glucagon (GLUCAGEN DIAGNOSTIC KIT) injection 1 mg 04-19 18:43: 34 Yes 1mg 1 mg, Intramuscu lar, PRN, Starting on Mon04/19/23 at 1343, Until Discontinu ed, KENNY, Blood Glucose < or = 70 mg/dL and patient is NPO, unable to swallow or has mental changes. [facility] dextrose 50 % in water (D50W) injection 25 mL 04-19 18:43: 34 Yes 25mL 25 mL, Slow IV Push, PRN, Starting on Mon04/19/23 at 1343, Until Discontinu ed, KENNY, Blood Glucose < or = 70 mg/dL and patient is NPO, unable to swallow or has mental status changes. [facility] ondansetron (ZOFRAN (PF)) injection 4 mg 04-19 18:43: 20 Yes 4mg 4 mg, Slow IV Push, Q6HPRN, Starting on Mon04/19/23 at 1343, Until Discontinu ed, Routine, Nausea and Vomiting (N/V) [facility] HYDROcodone -acetaminop hen (NORCO 5) 5-325 mg tablet 1 tablet 04-19 18:43: 12 04-21 18:42 :12 No 1{tbl} 1 tablet, Oral, Q6HPRN, Starting on Mon04/19/23 at 1343, Until Mon04/21/23 at 1342, Routine, Pain (scale 4-6) [facility] acetaminoph en (TYLENOL) tablet 650 mg 04-19 18:43: 09 Yes 650mg 650 mg, Oral, Q6HPRN, Starting on Mon04/19/23 at 1343, Until Discontinu ed, Routine, Pain (scale 1-3) [facility] Duloxetine HCl [address] Particles 01-02 00:00: 00 06-19 00:00 :00 No [id number] TAKE 2 CAPSULES BY MOUTH EVERY DAY Cynthia wilkinson Trulicity 3 MG/0.5ML subcutaneou s Solution Pen-injecto r 01-02 00:00: 00 06-19 00:00 :00 No [id number] 3mg Inject 3 mg into the skin once a week Cynthia wilkinson Atorvastati n Calcium 10 MG oral Tablet 12-13 00:00: 00 06-19 00:00 :00 No [id number] TAKE 1 TABLET BY MOUTH EVERY DAY Cynthia wilkinson Metformin HCl 1000 MG oral Tablet 11-08 00:00: 00 06-19 00:00 :00 No [id number] 1000mg Take 1 tablet (1,000 mg total) by mouth in the morning and 1 tablet (1,000 mg total) in the evening. Take with meals. Cynthia wilkinson GlipiZIDE 5 MG oral TABLET SR 24 HR 11-08 00:00: 00 06-19 00:00 :00 No [id number] 5mg TAKE 1 TABLET (5 MG TOTAL) BY MOUTH DAILY. Cynthia wilkinson Gabapentin 600 MG oral Tablet 10-13 00:00: 00 06-19 00:00 :00 No [id number] 1200mg Take 2 tablets (1,200 mg total) by mouth 3 times daily Cynthia wilkinson HYDROcodone -Acetaminop hen 10-325 MG oral Tablet 09-15 09:03: 04 Yes 1{tbl} Q.25D Take 1 tablet by mouth every 6 hours as needed Cynthia wilkinson Gabapentin 300 MG oral Capsule - 09:02: 44 09-15 00:00 :00 No 900mg Take 900 mg by mouth 3 times daily Cynthia wilkinson Mupirocin (BACTROBAN) 2 % apply externally Ointment 09-15 00:00: 00 Yes [id number] Apply 1 applicatio n topically 3 times daily Cynthia wilkinson Mupirocin (BACTROBAN) 2 % apply externally Ointment 09-15 00:00: 00 Yes [id number] Apply 1 applicatio n topically 3 times daily Cynthia wilkinson Mupirocin (BACTROBAN) 2 % apply externally Ointment 09-15 00:00: 00 Yes [id number] Apply 1 applicatio n topically 3 times daily Cynthia wilkinson Trulicity 0.75 MG/0.5ML subcutaneou s Solution Pen-injecto r 09-15 00:00: 00 Yes [id number] .75mg Inject 0.75 mg into the skin once a week Cynthia wilkinson Mupirocin (BACTROBAN) 2 % apply externally Ointment 09-15 00:00: 00 Yes [id number] Apply 1 applicatio n topically 3 times daily Cynthia wilkinson Metformin HCl 500 MG oral Tablet 09-02 00:00: 00 Yes [id number] 1000mg Take 2 tablets (1,000 mg total) [...] MG oral Tablet 09-01 00:00: 00 Yes [id number] 1000mg Take 2 tablets (1,000 mg total) by mouth in the morning and 2 tablets (1,000 mg total) in the evening. Take with meals. Cynthia wilkinson Duloxetine HCl [address] Particles 09-01 00:00: 00 Yes [id number] 120mg Take 2 capsules (120 mg total) by mouth daily Cynthia wilkinson Gabapentin 600 MG oral Tablet 09-01 00:00: 00 Yes [id number] 1200mg Take 2 tablets (1,200 mg total) by mouth 3 times daily Cynthia wilkinson Benzonatate (Tessalon Perles) 100 MG oral Capsule 09-01 00:00: 00 09-15 00:00 :00 No [id number] 100mg Q.[id number] 3D Take 1 capsule (100 mg total) by mouth 3 times daily as needed for cough Cynthia wilkinson methylPREDN ISolone 4 MG oral Tablet Therapy Pack 09-01 00:00: 00 09-15 00:00 :00 No [id number] 1{lana} Take 1 lana by mouth See [...] WITH MEALS NEEDED FOR PAIN Cynthia wilkinson ketorolac (TORADOL) injection 30 mg 2021-08 03:15: 00 07-17 02:15 :00 No 30mg 30 mg, Slow IV Push, ONCE, 1 dose, On 07/16/22 at 2115, Routine [facility] NaCl 0.9% (NS) bolus infusion 1,000 mL 2021-08 01:00: 00 07-17 02:29 :00 No 1000mL at 999 mL/hr, 1,000 mL, IV Infusion, ONCE, 1 dose, On 07/16/22 at 1900, KENNY [facility] ampicillin- sulbactam (UNASYN) 3 g in NaCl 0.9% (NS) 100 mL MINI-BAG 2021-08 00:15: 00 07-17 02:12 :00 No 3g 3 g, IV Piggyback, ONCE, 1 dose, On 07/16/22 at 1815, Administer over 30 Minutes, 100 mL
Reas on for Anti-Infec tive: Documented Infection< br>Documen ronald Infection Site: Skin / Soft Tissue
Duration of Therapy: 7 days [facility] indomethaci n 50 mg capsule 2021-08 00:00: 00 Yes [id number] 50mg Take 1 capsule by mouth 3 (three) times daily with meals as needed for Pain. [facility] indomethaci n 50 mg capsule 2021-08 00:00: 00 04-19 00:00 :00 No [id number] 9101 50mg Take 1 capsule by mouth 3 (three) times daily with meals as needed for Pain. [facility] metFORMIN 500 mg tablet 2021-08 00:00: 00 08-16 05:59 :00 No [id number] 500mg Take 1 tablet by mouth in the morning and 1 tablet in the evening. Do all this for 30 days. [facility] dicloxacill in 500 mg capsule 2021-08 00:00: 00 07-24 05:59 :00 No [id number] 500mg Take 1 capsule by mouth 4 (four) times daily for 7 days. [facility] Gabapentin 600 MG oral Tablet 2021-08 00:00: 00 Yes 1200mg Take 1,200 mg by mouth 3 times daily Cynthia wilkinson nicotine (NICODERM) 21 mg/24 hr patch 1 Patch 2021-08 0-20 21:30: 00 Yes 1{patch } 1 Patch, Topical, Administer over 24 Hours, Q24H, First dose on Mon06/02/22 at 1630, Until Discontinu ed, Routine [facility] diphenhydrA MINE (BENADRYL) tablet 25 mg 2021-08 21:30: 00 06-02 21:24 :00 No 25mg 25 mg, Oral, ONCE, 1 dose, On Mon06/02/22 at 1630, KENNY [facility] vancomycin (VANCOCIN) 1,000 mg in NaCl 0.9% (NS) 250 mL VIAL-MATE IV piggyback 2021-08 20:00: 00 Yes 1000mg 1,000 mg, IV Piggyback, Q12H ABX, First dose on Mon06/02/22 at 1500, Until Discontinu ed, Administer over 60 Minutes, 250 mL
Reas on for Anti-Infec tive: Documented Infection< br>Documen ronald Infection Site: Skin / Soft Tissue
Duration of Therapy: Other (see Comments) [facility] ondansetron (ZOFRAN (PF)) injection 4 mg 2021-08 19:45: 00 06-02 19:47 :00 No 4mg 4 mg, Slow IV Push, ONCE, 1 dose, On Mon06/02/22 at 1445, KENNY [facility] morpHINE (4 mg/mL) injection 4 mg 2021-08 19:00: 00 06-02 19:52 :00 No 4mg 4 mg, Slow IV Push, ONCE, 1 dose, On Mon06/02/22 at 1400, STAT [facility] piperacilli n-tazobacta m (ZOSYN) 3.375 g in NaCl 0.9% (NS) 50 mL MINI-BAG 2021-08 19:00: 00 06-02 20:29 :00 No 3.375g 3.375 g, IV Piggyback, ONCE, 1 dose, On Mon06/02/22 at 1400, Administer over 30 Minutes, 50 mL
Reas on for Anti-Infec tive: Documented Infection< br>Documen ronald Infection Site: Skin / Soft Tissue
Duration of Therapy: Other (see Comments) [facility] gabapentin (NEURONTIN) 300 mg capsule 2021-08 16:10: 56 Yes 900mg Take 900 mg by mouth 3 (three) times daily. [facility] gabapentin (NEURONTIN) 300 mg capsule 2021-08 16:10: 56 Yes 900mg Take 900 mg by mouth 3 (three) times daily. [facility] sulfamethox azole-trime thoprim 800-160 mg per tablet 2021-08 00:00: 06-10 04:59 :00 No [id number] 1{tbl} Take 1 tablet by mouth every 12 (twelve) hours for 7 days. [facility] dicloxacill in 500 mg capsule 2021-08 00:00: 00 06-10 04:59 :00 No [id number] 500mg Take 1 capsule by mouth 4 (four) times daily for 7 days. [facility] gabapentin 300 mg capsule 2021-08 00:00: 06-10 04:59 :00 No [id number] 300mg Take 1 capsule by mouth in the morning and 1 capsule at noon and 1 capsule in the evening. Do all this for 7 days. [facility] lidocaine 5 % (700 mg/patch) patch 12-18 00:00: 00 Yes [id number] 1{patch } Apply 1 Patch to area(s) every 8 (eight) hours as needed for Localized pain. [facility] lidocaine 5 % (700 mg/patch) patch 12-18 00:00: 00 Yes [id number] 1{patch } Apply 1 Patch to area(s) every 8 (eight) hours as needed for Localized pain. [facility] lidocaine 5 % (700 mg/patch) patch 12-18 00:00: 00 04-19 00:00 :00 No [id number] 1{patch } Apply 1 Patch to area(s) every 8 (eight) hours as needed for Localized pain. [facility] HYDROcodone -acetaminop hen (NORCO) 10-325 mg tablet 04-02 01:38: 54 Yes 1{tbl} Take 1 tablet by mouth every 6 (six) hours as needed. [facility] HYDROcodone -acetaminop hen (NORCO) 10-325 mg tablet 04-02 01:38: 54 Yes 1{tbl} Take 1 tablet by mouth every 6 (six) hours as needed. [facility] albuterol (VENTOLIN) 90 mcg/actuati on inhaler 04-02 00:00: 00 Yes 2{puff} Inhale 2 Puffs every 4 (four) hours as needed for Wheezing or Shortness of Breath. [facility] albuterol (VENTOLIN) 90 mcg/actuati on inhaler 04-02 00:00: 00 Yes 2{puff} Inhale 2 Puffs every 4 (four) hours as needed for Wheezing or Shortness of Breath. [facility] albuterol (VENTOLIN) 90 mcg/actuati on inhaler 04-02 00:00: 00 Yes 2{puff} Inhale 2 Puffs every 4 (four) hours as needed for Wheezing or Shortness of Breath. [facility] albuterol (VENTOLIN) 90 mcg/actuati on inhaler 04-02 00:00: 00 Yes 2{puff} Inhale 2 Puffs every 4 (four) hours as needed for Wheezing or Shortness of Breath. [facility] albuterol (VENTOLIN) 90 mcg/actuati on inhaler 04-02 00:00: 00 Yes 2{puff} Inhale 2 Puffs every 4 (four) hours as needed for Wheezing or Shortness of Breath. [facility] albuterol (VENTOLIN) 90 mcg/actuati on inhaler 04-02 00:00: 00 Yes 2{puff} Inhale 2 Puffs every 4 (four) hours as needed for Wheezing or Shortness of Breath. [facility] albuterol (VENTOLIN) 90 mcg/actuati on inhaler 04-02 00:00: 00 Yes 2{puff} Inhale 2 Puffs every 4 (four) hours as needed for Wheezing or Shortness of Breath. [facility] albuterol (VENTOLIN) 90 mcg/actuati on inhaler 04-02 00:00: 00 Yes 2{puff} Inhale 2 Puffs every 4 (four) hours as needed for Wheezing or Shortness of Breath. [facility] Vital Signs Vital Name Observation Time Observation Value Comments Janis malhotra Systolic blood pressure 2023-07-05 17:39:00 126 mm[Hg] Cynthia Seybo ld - External Diastolic blood pressure 2023-07-05 17:39:00 72 mm[Hg] Cynthia Seybo ld - External Heart rate 2023-07-05 17:39:00 92 /min Kelse y Seybold - External Respiratory rate 2023-07-05 17:39:00 16 /min Cynthia Seybold - External Body height 2023-07-05 17:39:00 167.6 [...] ey Seybold - External Systolic blood pressure 2023-04-20 00:27:00 122 mm[Hg] [facility] Diastolic blood pressure 2023-04-20 00:27:00 79 mm[Hg] [facility] Heart rate 2023-04-20 00:27:00 93 /min [facility] Body temperature 2023-04-20 00:27:00 36.22 Cecilia [facility] Respiratory rate 2023-04-20 00:27:00 18 /min [facility] Oxygen saturation in Arterial blood by Pulse oximetry 2023-04-20 00:27:00 100 /min [place] [facility] Body height 2023-04-19 20:54:00 162.6 cm [facility] Body weight 2023-04-19 20:54:00 72 kg [facility] BMI 2023-04-19 20:54:00 27.25 kg/m2 [facility] Systolic blood pressure 2022-09-15 14:58:00 148 mm[Hg] [...] Pulse oximetry 2022-09-01 21:12:00 97 /min Cynthia Sekennsaqib ld - External Systolic blood pressure 2022-07-17 01:40:00 128 mm[Hg] [facility] Diastolic blood pressure 2022-07-17 01:40:00 66 mm[Hg] [facility] Heart rate 2022-07-17 01:40:00 88 /min Unive [facility] Respiratory rate 2022-07-17 01:40:00 16 /min [facility] Oxygen saturation in Arterial blood by Pulse oximetry 2022-07-17 01:40:00 99 /min [facility] Body temperature 2022-07-16 23:42:00 37.22 Cecilia [facility] Body height 2022-07-16 23:42:00 165.1 cm [facility] Body weight 2022-07-16 23:42:00 72.122 kg [facility] BMI 2022-07-16 23:42:00 26.46 kg/m2 [facility] Systolic blood pressure 2022-06-02 22:00:00 132 mm[Hg] [facility] Diastolic blood pressure 2022-06-02 22:00:00 78 mm[Hg] [facility] Heart rate 2022-06-02 22:00:00 89 /min Unive [facility] Respiratory rate 2022-06-02 22:00:00 15 /min [facility] Oxygen saturation in Arterial blood by Pulse oximetry 2022-06-02 22:00:00 100 /min [facility] Body temperature 2022-06-02 18:10:00 36.72 Cecilia [facility] Body weight 2022-06-02 18:10:00 72.576 kg [facility] BMI 2022-06-02 18:10:00 26.63 kg/m2 [facility] Procedures Procedure Date / Time Performed Performing Clinician Source MR FOOT LEFT WO CONTRAST 2023-04-19 23:19:07 Chelita Dias [facility] POCT GLUCOSE (AUTOMATED) 2023-04-19 21:45:00 Chelita Dias [facility] TEST, SERUM 2023-04-19 18:39:00 Zev Dias [facility] XR FOOT 3+ VW LEFT 2023-04-19 17:31:44 Denia Rios [facility] COMP. METABOLIC PANEL ([id number]) 2023-04-19 17:01:00 Denia Rios [facility] CBC WITH DIFF 2023-04-19 17:01:00 Denia Rios [facility] GLYCOSYLATED HEMOGLOBIN (A1C) 2023-04-19 17:01:00 Tirso Dias [facility] CONSENT/REFUSAL FOR DIAGNOSIS AND TREATMENT 2023-04-19 16:10:45 Doctor Unassigned, [facility] XR FOOT <3 VW LEFT 2022-07-17 00:48:57 Rosette Tran [facility] COMP. METABOLIC PANEL ([id number]) 2022-07-17 00:35:00 Rosette Tran [facility] CBC WITH DIFF 2022-07-17 00:35:00 Rosette Tran [facility] GLYCOSYLATED HEMOGLOBIN (A1C) 2022-07-17 00:35:00 Rosette Tran [facility] URINALYSIS 2022-07-17 00:35:00 Rosette Tran [facility] URINE DRUG (IMMUNOASSAY) - COMPREHENSIVE DRUG SCREEN W/O REFLEX 2022-07-17 00:35:00 Rosette Tran [facility] LACTIC ACID WHOLE BLOOD 2022-07-17 00:32:00 Miah Tran [facility] CONSENT/REFUSAL FOR DIAGNOSIS AND TREATMENT 2022-07-16 23:35:46 Doctor Unassigned, [facility] XR FOOT 3+ VW LEFT 2022-06-02 19:31:01 Susana Cruz [facility] COMP. METABOLIC PANEL ([id number]) 2022-06-02 19:20:00 Susana Cruz [facility] CBC WITH DIFF 2022-06-02 19:20:00 Susana Cruz [facility] URINALYSIS 2022-06-02 19:20:00 Susana Cruz [facility] CONSENT/REFUSAL FOR DIAGNOSIS AND TREATMENT 2022-06-02 17:56:13 Doctor Unassigned, [facility] Encounters Start Date/Time End Date/Time Encounter Type Admission Type Attending [facility] Care Department Encounter ID Source 2023-10-17 10:00:00 2023-10-17 10:00:00 Outpatient KARLA STANLEY [id number] [facility] 2023-09-19 10:30:00 2023-09-19 10:30:00 Outpatient LAURENCE COTA [id number] [facility] 2023-08-22 10:55:00 2023-08-22 10:55:00 Outpatient LAB39 CYNTHIA DIAZ [id number] [facility] 2023-08-22 10:00:00 2023-08-22 10:00:00 Outpatient KENDALLKARLA ANGEL CYNTHIA DIAZ [id number] [facility] 2023-08-18 00:00:00 2023-08-18 00:00:00 Outpatient CYNTHIA DIAZ [id number] [facility] 2023-08-13 00:00:00 2023-08-13 00:00:00 Outpatient CYNTHIA DIAZ [id number] [facility] 2023-07-19 00:00:00 2023-07-19 00:00:00 Outpatient HUSSEIN PETERSON [id number] [facility] 2023-07-12 00:00:00 2023-07-12 00:00:00 Patient Outreach Ale Harvey 1.2.840.114 350.1.13.10 4.2.7.2.686 [id number] [facility] 2023-07-10 00:00:00 2023-07-10 00:00:00 Outpatient KARLA STANLEY CYNTHIA DIAZ [id number] [facility] 2023-07-05 13:45:00 2023-07-05 13:45:00 Outpatient KARLA STANLEY CYNTHIA DIAZ [id number] [facility] 2023-06-30 00:00:00 2023-06-30 00:00:00 Patient Outreach WesAle ALFREDA VENCES 1..840.114 350.1.13.10 4.2.7.2.686 [id number] [facility] 2023-06-21 00:00:00 2023-06-21 00:00:00 Outpatient LAURENCE COTA [id number] [facility] 2023-06-21 00:00:00 2023-06-21 00:00:00 Outpatient LAURENCE COTA [id number] [facility] 2023-06-19 11:55:00 2023-06-19 11:55:00 Outpatient LAB90 CYNTHIA DIAZ [id number] [facility] 2023-06-19 11:00:00 2023-06-19 11:00:00 Outpatient CIPRIANO LAURENCE DIAZ [id number] [facility] 2023-06-19 00:00:00 2023-06-19 00:00:00 Outpatient CYNTHIA DIAZ [id number] [facility] 2023-05-16 00:00:00 2023-05-16 00:00:00 Patient Outreach Alessandra Gramajo ALFREDA VENCES ..840.114 350.1.13.10 4.2.7.2.686 [id number] [facility] 2023-04-20 00:00:00 2023-04-20 00:00:00 Transition of Care Ofelia Olivier 1..840.114 350.1.13.10 4.2.7.2.686 [id number] [facility] 2023-04-20 00:00:00 2023-04-20 00:00:00 Transition of Care Ofelia Olivier 1.2.840.114 350.1.13.10 4.2.7.2.686 [id number] [facility] 2023-04-19 11:22:00 2023-04-19 21:15:00 Hospital Encounter Denia Rios David [facility] 1..840.114 350.1.13.10 4.2.7.2.686 [id number] [facility] 2023-04-19 11:22:00 2023-04-19 21:15:00 Inpatient Remi TIRSO DIAS [facility] [id number] [facility] 2023-02-23 00:00:00 2023-02-23 00:00:00 Outpatient LAURENCE COTA [id number] [facility] 2023-01-20 14:40:00 2023-01-20 14:40:00 Outpatient JASPER FIELDS [id number] [facility] 2022-12-31 00:00:00 2022-12-31 00:00:00 Outpatient LAURENCE COTA [id number] [facility] 2022-12-11 00:00:00 2022-12-11 00:00:00 Outpatient LAURENCE COTA [id number] [facility] 2022-12-08 00:00:00 2022-12-08 00:00:00 Outpatient JASON DIAMOND [id number] [facility] 2022-11-07 00:00:00 2022-11-07 00:00:00 Outpatient LAURENCE COTA [id number] [facility] 2022-11-02 00:00:00 2022-11-02 00:00:00 Outpatient LAURENCE COTA [id number] [facility] 2022-10-31 14:00:2022-10-31 14:00:00 Outpatient HUNDL, LAURENCE CYNTHIA DIAZ [id number] Cynthia Sey[facility] 2022-10-13 09:00:00 2022-10-13 09:00:00 Outpatient HUNDL, LAURENCE CYNTHIA DIAZ [id number] Cynthia Seybold 2022-10-13 00:00:00 2022-10-13 00:00:00 Outpatient HUNDL, LAURENCE DIAZ [id number] Cyn[facility] 2022-10-13 00:00:00 2022-10-13 00:00:00 Outpatient HUNDL, LAURENCE DIAZ [id number] Cyn[facility] Sey[facility] 2022-09-26 00:00:00 2022-09-26 00:00:00 Outpatient HUNDL, LAURENCE DIAZ [id number] Cynthia Seybold 2022-09-20 00:00:00 2022-09-20 00:00:00 Outpatient HUNDL, LAURENCE DIAZ [id number] Cynthia Seybold 2022-09-17 00:00:00 2022-09-17 00:00:00 Outpatient HUNDL, LAURENCE DIAZ [id number] Cynthia Seybold 2022-09-15 10:05:00 2022-09-15 10:05:00 Outpatient LAB90 CYNTHIA DIAZ [id number] Cynthia Seybold 2022-09-15 09:00:00 2022-09-15 09:00:00 Outpatient HUNDL, LAURENCE DIAZ [id number] Cyn[facility] Sey[facility] 2022-09-07 11:45:00 2022-09-07 11:45:00 Outpatient LAB91 CYNTHIA DIAZ [id number] Cynthia Sey[facility] 2022-09-07 11:00:00 2022-09-07 11:00:00 Outpatient ANSBARB BRASHER [id number] Cynthia Sey[facility] 2022-09-06 00:00:00 2022-09-06 00:00:00 Outpatient ANSBARB BRASHER [id number] Cynthia Sey[facility] 2022-09-01 15:00:00 2022-09-01 15:00:00 Outpatient LAURENCE COTA [id number] [facility] 2022-09-01 00:00:00 2022-09-01 00:00:00 Outpatient LAURENCE COTA [id number] [facility] 2022-09-01 00:00:00 2022-09-01 00:00:00 Outpatient KARLA STANLEY [id number] [facility] 2022-08-29 11:00:00 2022-08-29 11:00:00 Outpatient LAURENCE COTA [id number] [facility] 2022-07-16 17:45:00 2022-07-16 21:16:00 Emergency X ROSETTE TRAN [facility] ERT [id number] [facility] 2022-07-16 17:45:00 2022-07-16 21:16:00 Emergency Rosette Tran [facility] 1.2.840.114 350.1.13.10 4.2.7.2.686 [id number] [facility] 2022-06-02 13:12:00 2022-06-02 17:06:00 Emergency X SUSANA CRUZ [facility] ERT [id number] [facility] 2022-06-02 13:12:00 2022-06-02 17:06:00 Emergency Susana Cruz [facility] 1.2.840.114 350.1.13.10 4.2.7.2.686 [id number] [facility] Results Test Description Test Time Test Comments Results Result Co mments Source [facility] [id number] 00:43:06* Test Item Value Reference Range Interpretation Comme nts LACTIC ACID (test code = 2875953454) 1.18 mmol/L 0.50-2.20 Lab Interpretation (test cod e = 43626-1) [facility] ([facility]2022-06-02 19:55:41* Test Item Value Reference Range Interpretation Comme nts NA (test code = 7693503331) 135 mmol/L 135-145 K (test code = 5325071232) 4.0 mmol/L 3.5-5 CL (test code = 5173599436) 99 mmol/L 98-108 CO2 TOTAL (test code = 2167237384) 29 mmol/L 23-31 AGAP (test code = 5335448848) 2-16 BUN (test code = 7922091291) 5 mg/dL 7-23 L GLUCOSE (test code = 6405078087) 281 mg/dL 70-110 H CREATININE (test code = 8769286316) 0.35 mg/dL 0.5-1.04 L TOTAL BILI (test code = 4713614192) 1.0 mg/dL 0.1-1.1 CALCIUM (test code = 6877942277) 9.2 mg/dL 8.6-10.6 T PROTEIN (test code = 5803051613) 6.2 g/dL 6.3-8.2 L ALBUMIN (test code = 1983798051) 3.6 g/dL 3.5-5 ALK PHOS (test code = 8349363148) 72 U/L 34-122 ALTv (test code = 1742-6) 18 U/L 5-35 AST(SGOT) (test code = 7702527369) 20 U/L 13-40 eGFR (test code = 8372214113) mL/min/1.73m2 FRANCISCO (test code = FRANCISCO) Association of [...] or abnormalities in imaging tests). Lab Interpretation (test code = 36340-7) Abnormal [facility] WITH [id number] 19:41:53* Test Item Value Reference Range Interpretation Comme nts WBC (test code = 6690-2) See_Comment [Automated TheTakes] The system which generated this result transmitted reference range: 4.30 - 11.10 10*3/?L. The reference range was not used to interpret this result as normal/abnormal. RBC (test code = 789-8) See_Comment [Automated RidePost[employer] ozuke] The system which generated this result transmitted reference range: 3.93 - 5.25 10*6/?L. The reference range was not used to interpret this result as normal/abnormal. HGB (test code = 718-7) 14.6 g/dL 11.6-15 HCT (test code = 4544-3) 42.2 % 35.7-45.2 MCV (test code = 787-2) 86.5 fL 80.6-95.5 MCH (test code = 785-6) 29.9 pg 25.9-32.8 MCHC (test code = 786-4) 34.6 g/dL 31.6-35.1 RDW-SD (test code = 19486-2) 41.0 fL 39-49.9 RDW-CV (test code = 788-0) 13.2 % 12-15.5 PLT (test code = 777-3) See_Comment [Automated TheTakes] The system which generated this result transmitted reference range: 166 - 358 10*3/?L. The reference range was not used to interpret this result as normal/abnormal. MPV (test code = 23866-3) 11.3 fL 9.5-12.9 NRBC/100 WBC (test code = 7821301153) See_Comment [Automated me ssage] The system which generated this result transmitted reference range: 0.0 - 10.0 /100 WBCs. The reference range was not used to interpret this result as normal/abnormal. NRBC x10^3 (test code = 3484022591) See_Comment [Automated me ssage] The system which generated this result transmitted reference range: 10*3/?L. The reference range was not used to interpret this result as normal/abnormal. GRAN MAT (NEUT) % (test code = 770-8) 74.6 % IMM GRAN % (test code = 3071937317) 0.60 % LYMPH % (test code = 736-9) 18.5 % MONO % (test code = 5905-5) 5.4 % EOS % (test code = 713-8) 0.6 % BASO % (test code = 706-2) 0.3 % GRAN MAT x10^3(ANC) (test code = 7089237876) 6.61 10*3/uL 1.88-7.09 IMM GRAN x10^3 (test code = 0101471121) 0.05 10*3/uL 0-0.06 LYMPH x10^3 (test code = 731-0) 1.64 10*3/uL 1.32-3.29 MONO x10^3 (test code = 742-7) 0.48 10*3/uL 0.33-0.92 EOS x10^3 (test code = 711-2) 0.05 10*3/uL 0.03-0.39 BASO x10^3 (test code = 704-7) 0.03 10*3/uL 0.01-0.07 [facility] History and Physical Notes Date/Time Note Provider Source 2023-08-22 10:34:04 [id number] 0:34:04 Images from the original note were not included.Pain Management ClinicKarla Stanley MD, Matt Wiley PA-C, MPASASSESSMENT1. Chronic pain syndrome2. Diabetic peripheral neuropathy (multi HCC)3. Lumbar radiculitis4. Chronic prescription opiate use5. Pain management contract agreement6. Chronic central neuropathic painBlood Thinners: NonePLANPt Declined Psych referralPT:NoPt Declined Physical therapySURGERY:NoMEDS:Opioids: Hydrocodone,Anti-epileptic drugs Neurontin,Muscle Relaxant: ZanaflexNSAIDs (OTC or Rx)Other:INJECTIONS: NoTODAY:UDS WNL 09/05UDS - Last Hydrocodone, dosage - this AMNorco 1 PO q 8 prn #90 x 12 monthsSignificant education provided today on diagnosis, conservative management options, injections, and when surgical consultation is indicated. Patient agrees with current plan and management options as described below.Recommend routine physicalContinue bowel managementPatient instructed to continue with home exercise program.Patient instructed to go to nearest ER if developed any sudden weakness in the extremities or sudden bowel and/or bladder incontinence.Pt's chart and history were reviewed; physical exam have been updated with no significant changes of the above chronic pain noted.07/05/2023 Opiate agreement and opiate risk tool calculated and signed.Pt was given [facility] instruction list of opioids DO's and DON'T's, risks and side effects related to intermittent/chronic usage of scheduled CII and CIII opioids.Chief complaint or Subjective:Area of pain : Foot: bilateralWhat is the duration of your pain? constantlyKind of pain (quality):Sharp, Burning, Pins/[place], Stabbing, Throbbing, Cramping, NumbnessWhat makes it worse? Sitting, Bending, Standing, Walking, Lying Down, Climbing Stairs, Lifting, Driving, Coughing, SquattingDo you have any - WEAKNESS Bilateral LOWER extremityNUMBNESS Bilateral LOWER extremityChanges in pattern of pain or weakness? NoCurrent modalities for pain management: RestFunctional Status: Independent with all Activities of Daily Living and mobilityRoutine physical within the past year? YESHISTORY:Kenny Llanes is a female, with PMH of:Chronic PainCentral pain syndromeComplaining of Foot: bilateral, with chronic intermittet muscle spasms,spontaneously.Denies any recent bowel or bladder incontinence or rentention, saddle paresthesia, or sexual dysfunctionDenies fever, chills, unintentional weight loss or any associated constiutional changes.Denies any suicide thoughts or ideation, no diagnosis of psychological disorders..Conservative teatments including trial of PT, OTC analgesics, and non opioid medications without relief.has not been evaluated by surgeon (spine, ortho, or neurosurgeon) for consultation.Currently, takes Hydrocodone max 3 per day for pain relief.Patients are not exibiting side effects from listed medication(s) above. Patient maintains a bowel management regimen of fiber diet, OTC laxatives, or stool softeners.Medication enable pt to function with activities of daily living.As of this visit, pt has been compliant with pain medications with no apparent signs of abuse or misuse of opioid pain medication.07/05/2023Ref for Pain Mgt eval. She states she can not get her pain meds consistently from one MD and here for pain management to take over her pain care, she still has very high HgbA1c and difficulty controlling her DMHPI Interval since last visit:08/22/2023: pt was admitted 08-14-23 for re-infection of foot ulcer, getting daily IV abxNoannemarieo is helping her painHere for routine med RFs, no SE w meds.With current treatment of pain meds, pt is able to function with ADLs, activities of daily living.Physical Exam:GENERAL: Not in acute distress, well developed, well nourishedHEADNormocephalic, atraumaticPupils: without miosis or mydriasisCERVICALDecreased AROM/PROM with painAlignment: Blunted/flat with lateral-collisTrigger points: nontender trapezius, splenius capitus, paraspinatusUPPER EXTREMITIESSensory: Normal C5-T1 dermatomes bilateral except decreased glovesTone: Normal; no muscle atrophyReflexes: Unobtainable C5, C6, C7 bilateralMotor: C5-T1 myotomes bilateral -5/5SHOULDERROM: full, without pain (active or passive)Impingement: AbsentHawkin's: negativeSupraspinatus stress test: negativeWRIST/HANDHeberden's nodules: bilateral posTHORACIC/LUMBARDecreased AROM/PROM with painAlignment: Blunted lordosisScoliosis: AbsentTrigger points: absentLumbar scar: noneFacet joints: nontenderFacet loading: bilateral positiveLOWER EXTREMITIESReflexes: Unobtainable Patella and ankle bilateralTone: Normal; no muscle atrophyEdema: AbsentSensory: Dermatomes L2-S1 normal bilateral except decreased socksMotor: Myotomes L3-S1 bilateral -5/5Straight Leg Raise: bilateral negativeHIP/PELVISROM: Full, internal rotation and external rotationAlignment: normalSACROILIAC JOINTPatrick's: bilateral negativePSIS: nontenderKNEEROM: FullSwelling: noneANKLEROM: FullNEUROLOGICALGait: antalgicPSYCHMood: Flat affectPain behavior: noneDiagnostic studies:A1C:Results for orders placed or performed in visit on 09/15/22HGB A1C WITH MBG ESTIMATIONResult Value Ref RangeHEMOGLOBIN A1C 10.0 (High) 4.8 - 5.6 %ESTIM. AVG GLU (EAG) 240 mg/dL@LASTPROC([id number]) @Reviewed [employer] prescription monitoring program report, no discrepency 07/05/2023*The following may be discussed with patient based on pt's treatment plan:Opiate Risk Tool Scorin-3 Low risk: 6% change of developing problematic behaviors4-7 Moderate risk: 28% change of developing problematic behaviors>=8 High risk: >90% change of developing problematic behaviorsGoals of Therapy:Improve ambulation, quality of life, minimize medications, improve sleep pattern, increase level of activities, return to work, or improve ability to work. Patient understands their responsibility of their involvement to achieve the above goals, better quality of life, better function, and possible pain control. Patient also understands the nature of chronic pain and disease process.Options:Conservative options have been reviewed and discussed in detail. These include additional physical therapy, medication, exercise conditioning, and weight loss. Interventional treatment options include epidural steroid injections, sacroiliac injections, medial branch block, or radiofrequency ablation. The patient has decided to proceed with interventional injection therapy. We discussed the role of surgery consult as well. That decision was deferred at this time.Risks:Risks of conservative treatment were discussed and include progression of the underlying condition, including permanent or increased neurological sequelae.Risks of interventional injection treatment were also reviewed in detail and include , hemorrhage, infection, nerve damage, paralysis, recurrence, worsening or non-resolution of symptoms, dural tear, dural puncture headache, meningitis. No guarantees were given. Certain components of the symptoms may not resolve as a result of interventional injection therapy. Patient is aware that spinal injection with varies types of corticosteroids is not FDA approved. The patient agrees to proceed with this treatment recommendation.Counseling Given:The diagnosis, prognosis, treatment options, risks; alternatives were discussed in detail using language understandable to this patient. Questions have been elicited and all questions have been answered to the patient s satisfaction in understandable terms. Realistic reassurance has been given to the patient regarding any fears or anxieties expressed today. Risks, benefits and options of recommended interventional procedures and proposed treatments were discussed. Preoperative instructions were reviewed including the use of anticoagulants. The patient was instructed to call if any change in medical status occurs, including infections which may necessitate schedule changes.Opiate Controlled Substance Therapy Requirements:Urine Drug Screen: Agree to submit to urine and/or blood screening tests to detect the use of non-prescribed medications, inappropriate pain medication, (including alcohol) or illicit drugs at any time.Psychology Clearance: Opiate controlled substance therapy for chronic pain represents a complex problem that may benefit from physical therapy, psychotherapy, and behavioral medicine strategies.Safety: Patient is aware that driving is prohibited while using opiate medications, muscle relaxants, antidepressants, or antiepileptics.Patients are prohibited to use any sedative hypnotics or sleeping aid, benzodiazepines or barbiturates while on medications from the pain clinic.Controlled substance medications should be in a locked, inaccessible to others, including children.Medication therapy of opiate controlled substance, muscle relaxant, antidepressant, antiepileptic, benzodiazepine, tranquilizer, or sedative may cause:Psychological dependence (addiction) to controlled substances that willrequire participation in any treatment program prescribed at facilities,which may include;?? detoxification and/or?? psychological, and medical treatment2. multiple side effects include:- respiratory depression or failure that may lead to sudden .- intractable constipation that may cause bowel impaction orobstruction, which may require surgery.- urinary retention that may lead to renal problems- decrease of hormone levels with possible impotence, decreased libido,or sexual dysfunction.- Methadone or various antidepressants may cause heart arrhythmias that may lead to .- withdrawal symptoms such as, abdominal cramps, sweats, chills,generalized aching, and sudden .- sedation caused by medications: opiates (oral, patch, or infusion pump) muscle relaxants, anti-epileptic, benzodiazapines,antidepressants, sedatives, and/or tranquilizers, the drug receptionist scheduler,recommends not operating ANY machinery or ANY form of motorizedequipment (this includes a motor vehicle).- sedation from medications may cause increase risk of falls whichrequires 24 hrs supervision when starting a new medication.- any other side effects that may require immediate ER medical attention.- Patient is aware the possible of developing seriotonin syndrome while being on various antidepressants or tramadol type medications which may lead to sudden . 69410-4Mcgkrdl and physical zsoaSM0809-22-93C01:45:22History and physical noteTXT1.2.840.338761.1.13.131.2.7.2.7 54918|[id number] for patient mepv72331-1Alxqfox and physical noteLNNARRATIVEFormatted C-CDA narrative Formerly named [facility]2727 Formerly [facility] [id number] 955-37-23Z51:45:221.2.840.303899.1.72. 3.15|1.2.840.756546.1.13.131.2.7.2.727 [id number] [facility] Notes Date/Time Note Provider Source 2023-08-22 10:29:53 slnnlsPPeB2Zk3JWH+Z7orZUEq0Zq2rv2V maguqxT6dvp3sOpn/Q9xBzanOVMAjB2207 -01-09T10:29:53 Kenny Llanes is a 47 year old femaleChief ComplaintPatient presents withFollow-up47 year old Female patient c/o bilateral foot pain here for follow up. Pain 04/23.[place]aneth Váz[place] [address]-8Mhamc WzlfCX5823-60-93J68:45:22Nurse NoteTXT1.2.840.655733.1.13.131.2.7 .2.379888|[id number] for patient ezrd23891-8Lyrqu NoteLNNARRATIVEFormatted C-CDA narrative Formerly named [facility]2727 [facility].CLOJFGFANKFHRHRPYU6726604525W POM3105-10-65A55:45:221.2.840.1143 50.1.72.3.15|1.2.840.933571.1.13.1 31.2.7.2.727879_[id number] [facility] 2023-04-20 15:24:07 ouxSPla7YIGCQapdNGtKT9Q9Lc7vRQIemI cJgqfL/er5B9pxbnE89b38k2nSUNsa1531 -09-07T15:24:07 CHP [place]. [address]-1Djumeeyfr encounter SbhyKH7843-15-70S96:24:23Telephone encounter NoteTXT1.2.840.880877.1.13.104.2.7 .2.240962|[id number] for patient cmnm00490-9ArabUE862791364Zaozwiwb sandie Olivier [address] Sd[id number] 27APSYPJHMMTUDJSFHZXMNVS9861-82-30 T15:24:231.2.840.501689.1.72.3.15| 1.2.840.748608.1.13.104.2.7.2.7278 [id number] Ofelia Olivier LVN [facility] 2023-04-20 15:19:35 cIbifb4XLCaxNWqBeiS9Ng2mkXq/h/vKf+ eu0Klbvg5PIRpWilkuJiB6k+1s58Xi69362022T15:19:35 TRANSITIONAL CARE MANAGEMENT ASSESSMENT04/20/2023 Kenny LlanesUydxnh268063YBfilma Uzma Llanes is a 47 year old /White female was admitted on 04/19/23 to [facility], [facility] MED SURG. She was discharged on 04/19/23 with discharge disposition of HR- Routine Discharge.Admitting Physician: Joan Dias Diagnosis: Ulcer of left foot, unspecified ulcer stage [L97.529]Pt. States she was not discharged. Pt. C/o pain requested Neurontin, and did not get any or any other pain medication, states after two hours did leave via walked out. Pt. Did state at other hospital at this time. Pt. Did agree to participate in [facility] for education and medical resources assistance.No linked episodesTCM Xfn-nydb-ko-face outreach documentation: Future Appointments: 51160-6Imxpqieyw encounter YneoYP8731-44-71R69:23:03Telephone encounter NoteTXT1.2.840.131385.1.13.104.2.7 .2.706108|[id number] for patient cdnf27634-1XsvyJT564922396Redeuvlf sandie Olivier [address] Qeij[id number] 37SWFYTPSTYDWJIRAGCYNJAU9865-83-43 T15:23:031.2.840.351972.1.72.3.15| 1.2.840.871109.1.13.104.2.7.2.7278 [id number] Ofelia Olivier LVN [facility] 2023-04-19 14:58:37 ywNwZgflmN/SWq+h3MNvCM07hS/JgA14/y +2+PNr5PvOknGT1q8papV5ZTE1wsON3174 -09-06T14:58:37 Pt up via personal wheelchair to [address] [place] [address]-1Zruhyxirh department GbxqZJ3042-88-20R09:58:57[facility] NoteTXT1.2.840.022544.1.13.104.2.7 .2.207090|[id number] for patient jfrp65038-6GwitSA330922469Pocbtb M. Barton RNUT[address] [id number] 54JQQDNWHOQTSNENMPHUMEDP3317-17-22 T14:58:571.2.840.500937.1.72.3.15| 1.2.840.549891.1.13.104.2.7.2.7278 [id number] Jennifer Schneider RN [facility] 2023-04-19 14:53:50 tb3Kn8qlrg9zBM+t3Je6eGuSjJtP1sqBzJ iLN3beWus5veJONCli68HYjtHkTYya3740 -09-06T14:53:50 Nurse Report Report given to Juani HOLLINGSWORTH, Chief complaint, assessment findings, infusion verify and orders reviewed. [place] [address]-9Gehnofltg department SmgvTV6154-21-04M25:54:45[facility] NoteTXT1.2.840.720666.1.13.104.2.7 .2.843256|[id number] for patient eofw27859-8XjttVCGIQMPNWL17 [address] [id number] 67FROYDVJBZAAZMIPTOEULJL3617-30-81 T14:54:451.2.840.358675.1.72.3.15| 1.2.840.604885.1.13.104.2.7.2.7278 [id number] [facility] 2023-04-19 14:34:00 +TbtRuOU+SYOJHSn8JeHCUJSGBo9vurkJ9 JZPbtEt362nf15UdiU8PFlBKOecoqJ2727 -09-06T14:34:00 Called to give report reciving unavailable 36678-0Uoznasqmu department BujqMG2948-51-34L73:42:46[facility] NoteTXT1.2.840.947518.1.13.104.2.7 .2.144273|[id number] for patient ivpy19561-4PxusUCJMZRYGLR17 [address] [id number] 67MLWWSNRFSYLMGWYAYCVCGO4703-80-13 T14:42:461.2.840.001447.1.72.3.15| 1.2.840.155839.1.13.104.2.7.2.7278 [id number] [facility] 2023-04-19 13:27:01 9oi/WEGHUgbA7b6p/muqh7WhDMtIsG/7zI H/oZoDCSgtRXZutRb9EyGQHbYS21ja0517 -09-06T13:27:01 Pt continues in no distress, awaiting disposition 87656-8Lxylcuxgk department XpgrHY0128-04-23R40:27:16[facility] NoteTXT1.2.840.446265.1.13.104.2.7 .2.146742|[id number] for patient cdkm29141-8WfwqUGGMPFHBWI[id number] 46RCKQUMBQFGJYNQPQTKWUHL0985-34-21 T13:27:161.2.840.435126.1.72.3.15| 1.2.840.081490.1.13.104.2.7.2.7278 [id number] [facility] 2023-04-19 11:50:38 c+eK4C222YQB9UZfH2MdlxAQKNlS73Rsuc 6KGmkrz33kvLIbsObL3F/pkGo+8Klv9434 -09-06T11:50:38 Pt hasn't been to the doctor in almost a year, states had a callus on the bottom of her foot 2 yrs ago and while in the shower in came off and she has had an open wound since then. doesn't take her diabetes medicine d/t no insurance, states last took meds in October, states her foot is more swollen and warmer than usual, no drainage from the foot wound noted, quarter size to bottom of left foot, smokes daily, denies etoh, does take gabapentin and norco that she gets from friends, states takes 3 norco daily 65169-2Hdnyuxyhd department OvzwEQ7379-32-97Z60:05:50[facility] NoteTXT1.2.840.374887.1.13.104.2.7 .2.748569|[id number] for patient tsqq98549-1KquaAHVZLFYSSA[id number] 28TRLGFRDLTAMVHCITPFGWDW8981-64-94 T12:05:501.2.840.479241.1.72.3.15| 1.2.840.117385.1.13.104.2.7.2.7[address] [id number] [facility] 2023-04-19 11:15:54 Sa0u3i8Zn59/RBsCqW7ZKBBDqTKhcMPmQj cJ51ef2Dlhp8X+niG9Re4s8qPaF1Vk1951 -09-06T11:15:54 Pt arrived via private car with c/o a chronic diabetic wound on her left foot. States states that "it was doing really well, and a couple of weeks ago it started getting bigger and by foot swells, this is the first time I have not been able to walk on it." States since october she has been off her diabetic medications due to finances and insurance issues. 41237-0Lbkugbskc department Triage nnrjEF5462-13-66E20:20:00Emergency department Triage noteTXT1.2.840.924328.1.13.104.2.7 .2.044134|[id number] for patient ukyg86079-7Gzdymjoes department NoteLNUT[address] LnozPwzlgwqmdYpdletkweDBHB87643030 07CFZNEKGKCKATGIGSMATVJE6778-65-74 T11:20:001.2.840.645102.1.72.3.15| 1.2.840.744849.1.13.104.2.7.2.7278 [id number] [facility] 2023-04-19 11:10:00 37Ivssa4WrLcX3S6fFia3pZGy5bQeTTxPO JfSfhaHiNCihIf/4BKgoPox2EY2HSl3756 -09-06T11:10:00 Images from the original note were not included.EMERGENCY DEPARTMENT [facility]Patient Name: Kenny Ayala of : 1975 47 year oldMRN: [id number] Room:9/[address] Care [facility] Patient Escorted by: Family [5]Mode of Arrival: Personal means [1]EMS Treatment Prior to ED Arrival: ED Events Date/Time Event User Comments 04/19/23 1149 Medical Screening Begins DENIA RIOS MD -- 04/19/23 1149 First Provider Evaluation DENIA RIOS MD -- Chief Complaint Chief Complaint Patient presents with Diabetic Foot Ulcer left ED Triage Notes Jenny Mccloud RN 04/19/2023 11:20 Pt arrived via private car with c/o a chronic diabetic wound on her [...] HPI The is the patient is a 47-year-old female with history of diabetes who presents for left foot swelling. The patient states she has had funding issues and has not taken her medications follow-up with any physicians. She denies any systemic symptoms for such as nausea, vomiting, or fever. The patient presents for evaluation.Foot PainLocation: FootTime since incident: 2 weeksInjury: no Foot location: L footPain details: Quality: swelling. Radiates to: Does not radiate Severity: Moderate Onset quality: Gradual Duration: 2 weeks Timing: ConstantChronicity: NewRelieved by: NothingWorsened by: NothingAssociated symptoms: no fatigue and no fever Past Medical History / Immunizations Past Medical History: Diagnosis Date Mitral valve prolapse Neuropathy Tetanus received in last 5 years: UnknownChildhood immunizations: Pq-ug-ezprSwms Surgical History No past surgical history on file.Allergies Allergies Allergen Reactions Darvocet A500 [Propoxyphene N-Acetaminophen] Swelling Keflex [Cephalexin] Rash Vancomycin (Bulk) Itching Social History Substance & Sexual Activity No substance use or sexual activity history on file. Review of Systems Review of Systems Constitutional: Negative. Negative for chills, fatigue, fever and unexpected weight change. HENT: Negative. Eyes: Negative. Negative for discharge and itching. Respiratory: Negative. Negative for cough, chest tightness, shortness of breath and wheezing. Cardiovascular: Negative. Negative for chest pain and palpitations. Gastrointestinal: Negative. Negative for abdominal distention, abdominal pain, nausea and vomiting. Genitourinary: Negative. Negative for dysuria, urgency, frequency and flank pain. Musculoskeletal: Negative. Skin: Negative. Negative for color change, pallor and wound. Neurological: Negative. Negative for dizziness, syncope, light-headedness and headaches. Psychiatric/Behavioral: Negative. Negative for agitation and behavioral problems. All other systems reviewed and are negative.Endocrine: Endocrine negativePhysical Exam ED Triage Vitals [04/19/23 1119] Weight 69.9 kg (154 lb) Actual or estimated Estimated by patient/family report Height BP (!) 154/91 Pulse 93 Resp 16 Temp 36.7 ?C (98.1 ?F) Temp source Oral SpO2 100 % Measured on Room air Physical ExamVitals reviewed. Constitutional: Appearance: She is well-developed. HENT: Head: Normocephalic and atraumatic. Nose: Nose normal. Eyes: Conjunctiva/sclera: Conjunctivae normal. Neck: Trachea: No tracheal deviation. Cardiovascular: Rate and Rhythm: Normal rate and regular rhythm. Heart sounds: Normal heart sounds. No murmur heard. No friction rub. Pulmonary: Effort: Pulmonary effort is normal. No respiratory distress. Breath sounds: Normal breath sounds. No stridor. No wheezing or rales. Abdominal: General: Bowel sounds are normal. There is no distension. Palpations: Abdomen is soft. Tenderness: There is no abdominal tenderness. There is no guarding or rebound. Musculoskeletal: General: Normal range of motion. Cervical back: Normal range of motion and neck supple. Legs:Skin: General: Skin is warm. Comments: Cellulitis Left foot Neurological: Mental Status: She is alert and oriented to person, place, and time. Cranial Nerves: No cranial nerve deficit. Sensory: No sensory deficit. Psychiatric: Behavior: Behavior normal. Thought Content: Thought content normal. Judgment: Judgment normal. Labs Lab Results - No data to displayImaging No orders to display Orders and Treatments Orders Placed This Encounter Procedures XR FOOT 3+ VW LEFT CBC WITH DIFF COMP. METABOLIC PANEL (61790) No orders of the defined types were placed in this encounter.Procedures ProceduresNotes & MDM Patient was evaluated for an emergency medical condition related to Diabetic Foot Ulcer (left).History and/or review of systems is limited by:History limited: None.Diagnosis/Impression as of 04/19/23 1208 Ulcer of left foot, unspecified ulcer stage Medical Decision MakingProblems Addressed:Ulcer of left foot, unspecified ulcer stage: acute illness or injuryAmount and/or Complexity of Data ReviewedLabs: ordered. Decision-making details documented in ED Course.Radiology: ordered and independent interpretation performed. Decision-making details documented in ED Course.RiskDecision regarding hospitalization.Limitations to patient care and compliance: none.Assessment/Summary:The patient is a 47-year-old female with a history of diabetes and a diabetic foot ulcer who presents for redness and swelling of the left foot. She has been having difficulty this wound for some time. She has been noncompliant with her at home meds secondary to funding issues. She states recently left foot has become more swollen. Work-up today demonstrates that she has cellulitis of the left foot x-ray does not demonstrate any free air however she does have signs of osteomyelitis. The patient was started on IV antibiotics. The patient was admitted to the medicine service.History, physical exam findings, results of visit, differential diagnosis, medication regimens and plan of future care have been considered. Additional MDM may be found in the ED course. Differential diagnosis considered and final disposition made based on information gathered during evaluation and may not be completely ruled out or specifically listed. Vital signs were rechecked before final disposition.Diagnosis Final diagnoses: [L97.529] Ulcer of left foot, unspecified ulcer stage (Primary) Disposition & Follow Up ED Disposition None Patient's Medications START taking these medications No medications on file CONTINUE taking these medications which have NOT CHANGED ALBUTEROL (VENTOLIN) 90 MCG/ACTUATION INHALER Inhale 2 Puffs every 4 (four) hours as needed for Wheezing or Shortness of Breath. GABAPENTIN (NEURONTIN) 300 MG CAPSULE Take 900 mg by mouth 3 (three) times daily. HYDROCODONE-ACETAMINOPHEN (NORCO) 10-325 MG TABLET Take 1 tablet by mouth every 6 (six) hours as needed. INDOMETHACIN 50 MG CAPSULE Take 1 capsule by mouth 3 (three) times daily with meals as needed for Pain. LIDOCAINE 5 % (700 MG/PATCH) PATCH Apply 1 Patch to area(s) every 8 (eight) hours as needed for Localized pain. START taking Modified Medications as Prescribed No medications on file STOP taking these medications No medications on file Denia Rios Jr. MDClinical Douper [facility] Emergency DepartmentDragon Dictation Software is used frequently and may produce errors. Promptly contact for obvious discrepancies. Denia Rios MD04/19/23 1733 87446-8Fcxbuthmy Emergency department TknyAM0224-47-64C05:33:29[facility] Emergency department NoteTXT1.2.840.184006.1.13.104.2.7 .2.247732|[id number] for patient pasq77696-0Znraisrdg department NoteLN[address]vdG[id number] 37GMNUAKHCRRBNJFPZILBHYB5610-23-82 T17:33:291.2.840.557619.1.72.3.15| 1.2.840.867099.1.13.104.2.7.2.7278 [id number] [facility]
--- NOTE | 2023-09-03 01:43 | ER ---
Nurse's Notes [facility] Name: Nohelia Llanes Age: 47 yrs Sex: Female : 1975 Arrival Date: 09/03/2023 Time: 01:04 Bed 8 Private MD: Donny Nguyen Diagnosis: PICC line pain Presentation: 09/03 01:25 Chief complaint: Patient states: A nurse changed my dressing and pushed the picc line jb4 in too far by accident. Coronavirus screen: At this time, the client does not indicate any symptoms associated with coronavirus-19. Ebola Screen: No symptoms or risks identified at this time. Initial Sepsis Screen: Does the patient meet any 2 criteria? No. Patient's initial sepsis screen is negative. Does the patient have a suspected source of infection? No. Patient's initial sepsis screen is negative. Risk Assessment: Do you want to hurt yourself or someone else? Patient reports no desire to harm self or others. Onset of symptoms was September 03, 2023. Transition of care: patient was not received from another setting of care. 01:25 Method Of Arrival: Ambulatory jb4 01:25 Acuity: ALISIA 5 jb4 Historical: - Allergies: 01:26 Darvocet-N 100; jb4 01:26 Demerol; jb4 01:26 Keflex; jb4 01:26 PENICILLINS; jb4 01:26 Vancomycin; jb4 - PMHx: 01:26 Chronic pain; Diabetes - IDDM; gestational diabetes; neuroapthy; jb4 - PSHx: 01:26 Cholecystectomy; toe amputation; jb4 - Immunization history:: Adult Immunizations up to date. - Social history:: Smoking status: Patient reports the use of cigarette tobacco products, smokes one pack cigarettes per day. Screenin:47 [facility] ED Fall Risk Assessment (Adult) History of falling in the last 3 months, tm6 including since admission No falls in past 3 months (0 pts). Abuse screen: Denies threats or abuse. Denies injuries from another. Nutritional screening: No deficits noted. Tuberculosis screening: No symptoms or risk factors identified. Assessment: 01:47 Reassessment: see triage assessment. tm6 Vital Signs: 01:24 BP 146 / 74; Pulse 99; Resp 18; Temp 98.2; Pulse Ox 96% ; vc1 01:48 BP 117 / 68; Pulse 90; Pulse Ox 97% on R/A; tm6 ED Course: 01:10 Patient arrived in ED. gm2 01:11 Donny Nguyen DO is Private Physician. gm2 01:12 Matt Beth DO is Attending Physician. ms3 01:25 Triage completed. jb4 01:26 Arm band placed on right wrist. jb4 01:29 Donny Nguyen DO is Referral Physician. ms3 01:47 Patient has correct armband on for positive identification. Bed in low position. Call tm6 light in reach. Side rails up X2. Provided Education on: plan of care. Client placed on continuous cardiac and pulse oximetry monitoring. NIBP monitoring applied. 01:47 No provider procedures requiring assistance completed. Patient did not have IV access tm6 during this emergency room visit. 01:58 Dressings: Changed dressing on right upper arm PICC, performed sterile procedure. vc1 Administered Medications: No medications were administered Medication: 01:48 VIS not applicable for this client. tm6 Outcome: 01:43 Discharge ordered by . ms3 02:04 Patient left the ED. vc1 Signatures: Cuba Chacon, RN RN jb4 Matt Beth DO DO ms3 Nataliia Ryan, RN RN vc1 Mayela Ye gm2 Nora Noel, DARRICK RN tm6
--- NOTE | 2023-09-03 01:44 | EDPHYS ---
Physician Documentation [facility] Name: Nohelia Llanes Age: 47 yrs Sex: Female : 1975 Arrival Date: 09/03/2023 Time: 01:04 Bed 8 Private MD: Donny Nguyen ED Physician Matt Beth HPI: 09/03 01:43 This 47 yrs old Female presents to ER via Ambulatory with complaints of PIC LINE ISSUE. ms3 01:43 47-year-old female with past medical history of chronic pain, diabetes, neuropathy ms3 presents to the emergency department for PICC line pain. Patient states her PICC line slid and further and is causing pain. Patient denies redness or drainage at the site. Historical: - Allergies: 01:26 Darvocet-N 100; jb4 01:26 Demerol; jb4 01:26 Keflex; jb4 01:26 PENICILLINS; jb4 01:26 Vancomycin; jb4 - PMHx: 01:26 Chronic pain; Diabetes - IDDM; gestational diabetes; neuroapthy; jb4 - PSHx: 01:26 Cholecystectomy; toe amputation; jb4 - Immunization history:: Adult Immunizations up to date. - Social history:: Smoking status: Patient reports the use of cigarette tobacco products, smokes one pack cigarettes per day. ROS: 01:43 Constitutional: Negative for fever, and chills. Neck: Negative for injury, pain, and ms3 swelling, Cardiovascular: Negative for chest pain, and palpitations. Respiratory: Negative for shortness of breath, cough, wheezing, and pleuritic chest pain, Abdomen/GI: Negative for abdominal pain, nausea, vomiting, diarrhea, and constipation, MS/Extremity: Negative for injury and deformity, 01:43 All other systems are negative, Exam: 01:43 Constitutional: This is a well developed, well nourished patient who is awake, alert, ms3 and in no acute distress. Neck: Trachea midline, no cervical lymphadenopathy. Supple, full range of motion without nuchal rigidity, or vertebral point tenderness. No Meningismus. Chest/axilla: Normal chest wall appearance and motion. Nontender with no deformity. Cardiovascular: Regular rate and rhythm with a normal S1 and S2. No gallops, murmurs, or rubs. Normal PMI, no JVD. No pulse deficits. Respiratory: Lungs have equal breath sounds bilaterally, clear to auscultation and percussion. No rales, rhonchi or wheezes noted. No increased work of breathing, no retractions or nasal flaring. Abdomen/GI: Soft, non-tender, with normal bowel sounds. No distension or tympany. No guarding or rebound. No evidence of tenderness throughout. 01:43 Skin: PICC line in right upper arm without surrounding erythema, swelling, drainage. Vital Signs: 01:24 BP 146 / 74; Pulse 99; Resp 18; Temp 98.2; Pulse Ox 96% ; vc1 01:48 BP 117 / 68; Pulse 90; Pulse Ox 97% on R/A; tm6 MDM: 01:29 Patient medically screened. ms3 01:43 Differential Diagnosis PICC line pain. Data reviewed: vital signs, nurses notes, and as ms3 a result, I will discharge patient. Counseling: I had a detailed discussion with the patient and/or guardian regarding the historical points, exam findings, and any diagnostic results supporting the discharge/admit diagnosis, the need for outpatient follow up, to return to the emergency department if symptoms worsen or persist or if there are any questions or concerns that arise at home. ED course: Discussed physical exam findings and dressing was changed around PICC line to better support it. Patient to follow-up with her primary care physician 2 to 3 days. Patient understands agrees to plan. All questions were answered. Return precautions discussed include worsening symptoms, or any other concerns.. Administered Medications: No medications were administered Disposition Summary: 09/03/23 01:43 Discharge Ordered Notes: Location: Home ms3 Condition: Stable ms3 Diagnosis - PICC line pain ms3 Followup: ms3 - With: Donny Nguyen DO - When: 2 - 3 days - Reason: Recheck today's complaints Discharge Instructions: - Discharge Summary Sheet ms3 - PICC Home Care Guide ms3 Forms: - Medication Reconciliation Form ms3 - Thank You Letter ms3 - Antibiotic Education ms3 - Prescription Opioid Use ms3 - Patient Portal Instructions ms3 - Leadership Thank You Letter ms3 Signatures: [place] Chacon RN RN jb4 Matt Beth DO DO ms3
[2023-09-03 04:13] VITALS: BP 117/68; TEMP 98.2; O2SAT 97
== END ==
LOC: ER 01:04
DX: T82.848A Pain due to vascular prosthetic devices, implants and grafts, initial encounter (principal)
CPT/HCPCS: 99283

== ENCOUNTER 2024-09-02 17:24 | Inpatient (IN) | payer SELFPAY ==
--- OUTSIDE RECORDS SUMMARY | 2024-09-02 17:28 | XMS REPORT | Continuity of Care Document ---
Author Name Unknown Address [address] [facility] [address] [place] [address] [facility] Address [address] [facility] 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 Name Role Phone Kerry Pichardo Primary Care Physician [phone] BARB BENITO Attending Clinician UnavailLEONEL Sage Attending Clinician Unavailxiang OLIVER MD Attending Clinician Unavailab HUSSEIN Mcgill Attending Clinician Unavailable LAURENCE COTA Attending Clinician Unavailable LAB53 Attending Clinician Unavailable JAYA ACOSTA Attending Clinician Unavailable LAB90 Attending Clinician Unavailable KARLA STANLEY Attending Clinician Unavailable YOLA SIMON Attending Clinician Unavailable LAB39 Attending Clinician Unavailable Ale Harvey RN Attending Clinician [phone] Alessandra Gramajo RN Attending Clinician [phone] Ofelia Olivier LVN Attending Clinician [phone] Vin Rios MD Attending Clinician [phone] Tirso Dias DO Attending Clinician [phone] TIRSO DIAS Attending Clinician Unavailable JASPER FIELDS Attending Clinician Unavailable JASON DIAMOND Attending Clinician Unavailable LAB91 Attending Clinician Unavailable ROSETTE TRAN Attending Clinician Unavailable Rosette Tran NP Attending Clinician [phone] SUSANA CRUZ Attending Clinician Unavailable Susana Cruz MD Attending Clinician Tirso Dias DO Admitting Clinician [phone] TIRSO DIAS Admitting Clinician Unavailable ROSETTE TRAN Admitting Clinician Unavailable SUSANA CRUZ Admitting Clinician Unavailable Payers Payer Name Policy Type Policy Number Effective Date Expirati on Date Source [employer] MP [facility] [employer] [employer] 94 [place] 9 [id number] 2023 00:00:00 [facility] [id number] 2016 00:00:00 Problems Condition Name Condition Details Condition Category Status Onset Date Resolution Date Last Treatment Date Treating Clinician Comments Source Opioid dependence with opioid-ind uced disorder (multi HCC) Opioid dependence with opioid-ind uced disorder (multi HCC) Disease Active 20 00:00: 00 Cynthia Sekennold - Externa l 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 type 2 diabetes mellitus (multi HCC) 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 type 2 diabetes mellitus (multi HCC) Disease Active -14 00:00: 00 Cynthia Seybold - Externa l Bipolar affective disorder, remission status unspecifie d (multi HCC) Bipolar affective disorder, remission status unspecifie d (multi HCC) Disease Active 09-19 00:00: 00 Cynthia Seybold - Externa l DM type 2 with diabetic mixed hyperlipid emia (multi HCC) DM type 2 with diabetic mixed hyperlipid emia (multi HCC) Disease Active 09-19 00:00: 00 Cynthia Seybold - Externa l Diabetic ulcer of left midfoot associated with type 2 diabetes mellitus, with muscle involvemen t without evidence of necrosis (multi HCC) Diabetic ulcer of left midfoot associated with type 2 diabetes mellitus, with muscle involvemen t without evidence of necrosis (multi HCC) Disease Active 09-19 00:00: 00 Cynthia Campbellybold - Externa l History of amputation of lesser toe, left (multi HCC) History of amputation of lesser toe, left (multi HCC) Disease Active 09-19 00:00: 00 Cynthia Seybold - Externa l Ulcer of left foot, unspecifie d ulcer stage Ulcer of left foot, unspecifie d ulcer stage Disease Active 9-06 00:00: 00 [facility] Intermitte nt claudicati on Intermitte nt claudicati on Disease Active 2-02 00:00: 00 Cynthia Seybold - Externa l Diabetes mellitus with peripheral vascular disease (multi HCC) Diabetes mellitus with peripheral vascular disease (multi HCC) Disease Active 2-02 00:00: 00 Cynthia Seybold - Externa l Immunodefi ciency due to DM (multi HCC) Immunodefi ciency due to DM (multi HCC) Disease Active 1- 00:00: 00 Cynthia Seybold - Externa l No known active problems No known active problems Disease Cynthia Seybold - Externa l Allergies, Adverse Reactions, Alerts Allergy Name Allergy Type Status Severity Reaction(s) Onset Date Inactive Date Treating Clinician Comments Source VANCOMYC IN (BULK) DRUG Active ITCHING 2021-08 0-20 00:00: 00 [facility] Vancomyc in (Bulk) Propensi ty to adverse reaction s Active Itching 2021-08 0-20 00:00: 00 [facility] Vancomyc in Propensi ty to adverse reaction s Active Hives 2021-08 0-20 00:00: 00 Cynthia Seybold - Externa l Acetamin ophen Injectio n Propensi ty to adverse reaction s Active - 00:00: 00 Other reaction( s): Itching/H trupti/Rash Cynthia Seybold - Externa l Cephalex in Monohydr ate Propensi ty to adverse reaction s Active 4- 00:00: 00 Other reaction( s): Itching/H trupti/Rash Cynthia Seybold - Externa l Meperidi ne Hcl Propensi ty to adverse reaction s Active 4- 00:00: 00 Other reaction( s): Itching/H trupti/Rash Cynthia Seybold - Externa l Propoxyp hene Propensi ty to adverse reaction s Active - 00:00: 00 Other reaction( s): Itching/H trupti/Rash Cynthia Seybold - Externa l Acetamin ophen Injectio n Propensi ty to adverse reaction s Active 12-02 00:00: 00 Other reaction( s): Itching/H trupti/Rash Other Reaction( s): Itching/H trupti/Rash Cynthia Seybold - Externa l Penicill ins Propensi ty to adverse reaction s Active 2019-08 00:00: 00 Other reaction( s): Itching Cynthia Seybold - Externa l Propoxyp hene N-Acetam inophen Propensi ty to adverse reaction s Active Swelling 03-27 00:00: 00 Allergic to propoxyph akash [facility] Propoxyp hene Compound Propensi ty to adverse reaction s Active Swelling 03-27 00:00: 00 Allergic to propoxyph akash Cynthia Seybold - Externa l Cephalex in Propensi ty to adverse reaction s Active Rash 03-27 00:00: 00 [facility] PROPOXYP HENE N-ACETAM INOPHEN DRUG Active Swelling 03-27 00:00: 00 [facility] CEPHALEX IN DRUG INGREDI Active Rash 03-27 00:00: 00 [facility] Social History Social Habit Start Date Stop Date Quantity Comments Source Gender identity [facility] ASSERTION Not Cynthia Evans - External History of tobacco use Cigarette Smoker Cynthia farrar - External Sexual orientation Niki Evans - External Cigarettes smoked current (pack per day) - Reported 2024-01-01 00:00:00 2024-01-01 00:00:00 Cynthia Evans - External Cigarette pack-years 2024-01-01 00:00:00 2024-01-01 00:00:00 Cynthia Evans - External Tobacco use and exposure 2023-04-19 00:00:00 2023-04-19 00:00:00 Smokeless tobacco non-user [facility] Education - What is the highest level of school you have completed or the highest degree you have received? 2023-04-19 00:00:00 2023-04-19 00:00:00 High school graduate [facility] Tobacco Comment 2023-04-19 00:00:00 2023-04-19 00:00:00 Patient stated that she wants to quit but it is too stressful at this times due to life. Patient reports 1PPD [facility] History of Social function 2022-09-15 00:00:00 2022-09-15 00:00:00 Cynthia Campbellkenncharan - External Sex 2022-08-11 16:03:10 2022-08-11 16:03:10 Female (finding) Cynthia Nathan Hi External Exposure to SARS-CoV-2 (event) 2022-07-06 00:00:00 2022-07-16 18:31:00 Not sure [facility] Sex assigned at 1975 00:00:00 1975 00:00:00 Cynthia Campbellkenncharan Sussy External Smoking Status Start Date Stop Date Source Tobacco smoking consumption unknown [facility] Smokes tobacco daily 2024-01-01 00:00:00 Cynthia Sekenncharan Sussy External Medications Ordered Medication Name Filled Medication Name Start Date Stop Date Current Medication? Ordering Clinician Indication Dosage Frequency Signature (SIG) Comments Components Source HYDROcodone -Acetaminop hen 10-325 MG oral Tablet 04-26 00:00: 00 Yes [id number] 1{tbl} Q.31376026 [id number] 3D Take 1 tablet by mouth every 8 hours as needed. Cynthia Tony l HYDROcodone -Acetaminop hen 10-325 MG oral Tablet 03-22 00:00: 00 Yes [id number] 1{tbl} Q.85706616 [id number] 3D take one tablet by mouth every 8 hours as needed for pain Cynthia Hi Externa l HYDROcodone -Acetaminop hen 10-325 MG oral Tablet 01-22 00:00: 00 04-26 00:00 :00 No [id number] 1{tbl} Q.41199912 [id number] 3D Take 1 tablet by mouth every 8 hours as needed. Cynthia Dobbinsa l Gabapentin 600 MG oral Tablet 01-02 00:00: 00 Yes [id number] 1200mg Q.97139400 [id number] 3D Take 2 tablets (1,200 mg total) by mouth 3 times daily. Cynthia wilkinson Gabapentin 600 MG oral Tablet 12-31 00:00: 00 Yes [id number] 600mg Take 1 tablet (600 mg total) by mouth 3 times daily TAKE 2 TABLETS (1,200 MG TOTAL) BY MOUTH 3 TIMES A DAY. Cynthia wilkinson Dulaglutide (Trulicity) 1.5 MG/0.5ML subcutaneou s Solution Pen-injecto r 12-31 00:00: 00 Yes [id number] 1.5mg Q1W Inject 1.5 mg into the skin once a week. Cynthia wilkinson Duloxetine HCl [address] Particles 12-31 00:00: 00 Yes [id number] 20mg QD Take 1 capsule (20 mg total) by mouth daily. Cynthia wilkinson HYDROcodone -Acetaminop hen 10-325 MG oral Tablet 12-18 00:00: 00 Yes 1{tbl} Q.16500471 [id number] 3D Take 1 tablet by mouth every 8 hours as needed for pain. Cynthia wilkinson GlipiZIDE 5 MG oral TABLET SR 24 HR 12-13 00:00: 00 Yes [id number] 5mg QD TAKE 1 TABLET (5 MG TOTAL) BY MOUTH DAILY. Cynthia wilkinson Duloxetine HCl [address] Particles 12-13 00:00: 00 12-31 00:00 :00 No [id number] 120mg TAKE 2 CAPSULES BY MOUTH DAILY Cynthia wilkinson HYDROcodone -Acetaminop hen 10-325 MG oral Tablet 30 00:00: 00 Yes 1{tbl} Q.15351531 [id number] 3D Take 1 tablet by mouth every 8 hours as needed for pain. Cynthia wilkinson Gabapentin 600 MG oral Tablet 4-11 00:00: 00 12-31 00:00 :00 No [id number] 600mg Take 1 tablet (600 mg total) by mouth 3 times daily TAKE 2 TABLETS (1,200 MG TOTAL) BY MOUTH 3 TIMES A DAY. Cynthia wilkinson HYDROcodone -Acetaminop hen 10-325 MG oral Tablet -02 00:00: 00 12-31 00:00 :00 No 1{tbl} Q.80438369 [id number] 3D Take 1 tablet by mouth every 8 hours as needed for pain. Cynthia wilkinson Clopidogrel Bisulfate (PLAVIX) 75 MG oral Tablet 10-30 16:41: 26 Yes 1{tbl} Take 1 tablet (75 mg total) by mouth. Cynthia wilkinson Ketoconazol e 2 % apply externally Cream 10-30 00:00: 00 Yes Apply twice daily x 4 weeks. Cynthia wilkinson Mupirocin (BACTROBAN) 2 % apply externally Ointment 10-30 00:00: 00 12-31 00:00 :00 No 1{appli cation} Apply 1 Applicatio n topically 3 times daily. Cynthia wilkinson Trulicity 1.5 MG/0.5ML subcutaneou s Solution Pen-injecto r 10-28 00:00: 00 12-31 00:00 :00 No [id number] 1.5mg Inject 1.5 mg into the skin once a week. Cynthia wilkinson Clopidogrel Bisulfate (PLAVIX) 75 MG oral Tablet 10-16 10:00: 54 Yes 75mg Take 1 tablet (75 mg total) by mouth. Cynthia wilkinson HYDROcodone -Acetaminop hen 10-325 MG oral Tablet 10-16 00:00: 00 01-22 00:00 :00 No 1{tbl} Q.48292758 [id number] 3D Take 1 tablet by mouth every 8 hours as needed. Cynthia wilkinson Clopidogrel Bisulfate (PLAVIX) 75 MG oral Tablet 2-14 10:45: 22 Yes 75mg Take 1 tablet (75 mg total) by mouth. Cynthia wilkinson Clopidogrel Bisulfate (PLAVIX) 75 MG oral Tablet 2- 10:21: 37 Yes 75mg Take 1 tablet (75 mg total) by mouth. Cynthia wilkinson Dulaglutide (Trulicity) 0.75 MG/0.5ML subcutaneou s Solution Pen-injecto r 2- 00:00: 00 Yes [id number] .75mg Inject 0.75 mg into the skin once a week. Cynthia wilkinson HYDROcodone -Acetaminop hen 10-325 MG oral Tablet - 00:00: 00 10-15 00:00 :00 No 1{tbl} Q.42955880 [id number] 3D Take 1 tablet by mouth every 8 hours as needed. Cynthia wilkinson Gabapentin 600 MG oral Tablet 09-12 00:00: 00 Yes [id number] TAKE 2 TABLETS (1,200 MG TOTAL) BY MOUTH 3 TIMES A DAY Cynthia wilkinson Clopidogrel Bisulfate (PLAVIX) 75 MG oral Tablet - 10:30: 15 Yes 75mg Take 1 tablet (75 mg total) by mouth. Cynthia wilkinson HYDROcodone -Acetaminop hen 10-325 MG oral Tablet 08-22 00:00: 00 Yes 1{tbl} Q.48052305 [id number] 3D Take 1 tablet by mouth every 8 hours as needed. Cynthia wilkinson Linezolid 600 MG oral Tablet - 00:00: 00 Yes 600mg Q.5D Take 600 mg by mouth 2 times daily. Cynthia wilkinson Nicotine 14 MG/24HR transdermal PATCH 24 HR - 00:00: 00 09-19 00:00 :00 No 14mg 14 mg. Cynthia wilkinson Duloxetine HCl [address] Particles 2022-08 00:00: 00 12-31 00:00 :00 No 120mg 6 capsules (120 mg total). Cynthia wilkinson HYDROcodone -Acetaminop hen 10-325 MG oral Tablet 2022-08 00:00: 00 08-21 00:00 :00 No 1{tbl} Q.18887152 [id number] 3D Take 1 tablet by mouth every [...] oral Tablet 2022-08 00:00: 00 Yes 1{tbl} Q.40959354 [id number] 3D Take 1 tablet by mouth every [...] 75 MG oral Tablet 2022-08 11:22: 19 12-31 00:00 :00 No 75mg Take 1 tablet (75 mg total) by mouth. Cynthia wilkinson Aspirin 81 MG oral Chewable Tablet 2022-08 11:21: 56 06-19 00:00 :00 No 81mg Take 1 tablet (81 mg total) by mouth daily. Cynthia wilkinson Gabapentin 600 MG oral Tablet 2022-08 00:00: 00 Yes [id number] 1200mg Take 2 tablets (1,200 mg total) by mouth 3 times daily. Cynthia wilkinson Duloxetine HCl [address] Particles 2022-08 00:00: 00 Yes [id number] 120mg Take 2 capsules (120 mg total) by mouth daily. Cynthia wilkinson GlipiZIDE 5 MG oral TABLET SR 24 HR 2022-08 00:00: 00 Yes [id number] 5mg Take 1 tablet (5 mg total) by mouth daily. Cynthia wilkinson Atorvastati n Calcium 10 MG oral Tablet 2022-08 00:00: 00 Yes [id number] 10mg QD Take 1 tablet (10 mg total) by mouth nightly. Cynthia wilkinson Metformin HCl 1000 MG oral Tablet 2022-08 00:00: 00 Yes [id number] 1000mg Take 1 tablet (1,000 mg total) by mouth in the morning and 1 tablet (1,000 mg total) in the evening. Take with meals. Cynthia wilkinson Trulicity 0.75 MG/0.5ML subcutaneou s Solution Pen-injecto r 2022-08 00:00: 00 09-19 00:00 :00 No [id number] .75mg Inject 0.75 mg into the skin once a week. Cynthia wilkinson Dulaglutide (Trulicity) 3 MG/0.5ML subcutaneou s Solution Pen-injecto r 2022-08 00:00: 00 06-19 00:00 :00 No [id number] 3mg Inject 3 mg into the skin once a week. Cynthia wilkinson TRIMETHOPRI M-SULFAMETH OXAZOLE (BACTRIM DS) 800-160 MG oral Tablet 04-22 00:00: 00 09-19 00:00 :00 No 1{tbl} Take 1 tablet by mouth 2 times daily. Cynthia Hi Mufrancis wilkinson Minocycline HCl 100 MG oral Capsule 04-22 00:00: 00 06-19 00:00 :00 No 100mg Take 1 capsule (100 mg total) by mouth 2 times daily. Cynthia Hi Chavo jaja docusate (COLACE) capsule 100 mg 04-20 14:00: 00 Yes 100mg 100 mg, Oral, DAILY, First dose on Mon04/20/23 at 0900, Until Discontinu ed, Routine [facility] nicotine (NICODERM) 21 mg/24 hr patch 1 Patch 04-19 23:30: 00 Yes 1{patch } 1 Patch, Topical, Administer over 24 Hours, Q24H, First dose on Mon04/19/23 at 1830, Until Discontinu ed, Routine [facility] HYDROcodone -acetaminop hen (NORCO) 10-325 mg tablet 04-19 22:35: 45 Yes 1{tbl} Take 1 tablet by mouth every 6 (six) hours as needed. [facility] gabapentin (NEURONTIN) 300 mg capsule 04-19 22:35: 45 Yes 900mg Take 3 capsules by mouth in the morning and 3 capsules at noon and 3 capsules in the evening. [facility] atorvastati n 10 mg tablet 04-19 22:35: 45 Yes 10mg Take 1 tablet by mouth at bedtime. Patient reports she is supposed to take this medication but has not since October. Due to "lost (her) insurance and can not afford it." [facility] glipiZIDE 5 mg tablet 04-19 22:35: 45 Yes 5mg Take 1 tablet by mouth in the morning. Patient reports she is supposed to take this medication but has not since October. Due to "lost (her) insurance and can not afford it." [facility] aspirin 81 mg chewable tablet 04-19 22:35: 45 Yes 81mg Take 1 tablet by mouth in the morning. [facility] metFORMIN 500 mg tablet 04-19 22:35: 45 Yes 500mg Take 1 tablet by mouth in the morning and 1 tablet in the evening. Take with meals. Patient reports she is supposed to take this medication but has not since October. Due to "lost (her) insurance and can not afford it." [facility] DULoxetine 60 mg capsule 04-19 22:35: 45 Yes 60mg Take 1 capsule by mouth in the morning. [facility] Sliding Scale Insulin - Lispro (HumaLOG) 04-19 22:00: 00 Yes Subcutaneo us, TID MEALS+HS, First dose on Mon04/19/23 at 1700, Until Discontinu ed, Routine [facility] enoxaparin (LOVENOX) injection 40 mg 04-19 22:00: 00 Yes 40mg 40 mg, Subcutaneo us, DAILY, First dose on Mon04/19/23 at 1700, Until Discontinu ed, Routine [facility] metroNIDAZO LE in NaCl (iso-os) (FLAGYL [...] Soft tissue
Duration of therapy: 5 days [facility] levoFLOXaci n in D5W (LEVAQUIN) 750 [...] Wound
D uration of therapy: 5 days [facility] glucagon (GLUCAGEN DIAGNOSTIC KIT) injection 1 mg 04-19 18:43: 34 Yes 1mg 1 mg, Intramuscu lar, PRN, Starting on Mon04/19/23 at 1343, Until Discontinu ed, KENNY, Blood Glucose < or = 70 mg/dL and patient is NPO, unable to swallow or has mental changes. [facility] dextrose 50 % in water (D50W) injection 25 mL 04-19 18:43: 34 Yes 25mL 25 mL, Slow IV Push, PRN, Starting on Mon04/19/23 at 1343, Until Discontinu ed, KENNY, Blood Glucose < or = 70 mg/dL and patient is NPO, unable to swallow or has mental status changes. [facility] ondansetron (ZOFRAN (PF)) injection 4 mg 04-19 18:43: 20 Yes 4mg 4 mg, Slow IV Push, Q6HPRN, Starting on Mon04/19/23 at 1343, Until Discontinu ed, Routine, Nausea and Vomiting (N/V) [facility] HYDROcodone -acetaminop hen (NORCO 5) 5-325 mg tablet 1 tablet 04-19 18:43: 12 04-21 18:42 :12 No 1{tbl} 1 tablet, Oral, Q6HPRN, Starting on Mon04/19/23 at 1343, Until Mon04/21/23 at 1342, Routine, Pain (scale 4-6) [facility] acetaminoph en (TYLENOL) tablet 650 mg 04-19 18:43: 09 Yes 650mg 650 mg, Oral, Q6HPRN, Starting on Mon04/19/23 at 1343, Until Discontinu ed, Routine, Pain (scale 1-3) [facility] Duloxetine HCl [address] Particles 01-02 00:00: 00 06-19 00:00 :00 No [id number] TAKE 2 CAPSULES BY MOUTH EVERY DAY Cynthia wilkinson Trulicity 3 MG/0.5ML subcutaneou s Solution Pen-injecto r 01-02 00:00: 06-19 00:00 :00 No [id number] 3mg Inject 3 mg into the skin once a week Cynthia wilkinson Atorvastati n Calcium 10 MG oral Tablet 12-13 00:00: 06-19 00:00 :00 No [id number] TAKE 1 TABLET BY MOUTH EVERY DAY Cynthia wilkinson Metformin HCl 1000 MG oral Tablet 11-08 00:00: 06-19 00:00 :00 No [id number] 1000mg Take 1 tablet (1,000 mg total) by mouth in the morning and 1 tablet (1,000 mg total) in the evening. Take with meals. Cynthia wilkinson GlipiZIDE 5 MG oral TABLET SR 24 HR 11-08 00:00: 00 06-19 00:00 :00 No [id number] 5mg TAKE 1 TABLET (5 MG TOTAL) BY MOUTH DAILY. Cynthia wilkinson Gabapentin 600 MG oral Tablet 10-13 00:00: 00 06-19 00:00 :00 No [id number] 1200mg Take 2 tablets (1,200 mg total) [...] apply externally Ointment 09-15 00:00: 00 Yes [id number] Q.09210203 [id number] 3D Apply 1 applicatio n topically 3 times daily Cynthia wilkinson Trulicity 0.75 MG/0.5ML subcutaneou s Solution Pen-injecto r 09-15 00:00: 00 Yes [id number] .75mg Inject 0.75 mg into the skin once a week Cynthia wilkinson Metformin HCl 500 MG oral Tablet 09-02 00:00: 00 Yes [id number] 1000mg Take 2 tablets (1,000 mg total) [...] MG oral Tablet 09-01 00:00: 00 Yes [id number] 1000mg Take 2 tablets (1,000 mg total) by mouth in the morning and 2 tablets (1,000 mg total) in the evening. Take with meals. Cynthia wilkinson Duloxetine HCl [address] Particles 09-01 00:00: 00 Yes [id number] 120mg Take 2 capsules (120 mg total) by mouth daily Cynthia wilkinson Gabapentin 600 MG oral Tablet 09-01 00:00: 00 Yes [id number] 1200mg Take 2 tablets (1,200 mg total) by mouth 3 times daily Cynthia wilkinson Benzonatate (Tessalon Perles) 100 MG oral Capsule 09-01 00:00: 00 09-15 00:00 :00 No [id number] 100mg Q.39184419 [id number] 3D Take 1 capsule (100 mg total) by mouth 3 times daily as needed for cough Cynthia wilkinson methylPREDN ISolone 4 MG oral Tablet Therapy Pack 09-01 00:00: 00 09-15 00:00 :00 No [id number] 1{lana} Take 1 lana by mouth See Admin Instructio ns Use as directed Cynthia wilkinson Dicloxacill in Sodium 500 MG oral Capsule 2021-08 00:00: 00 09-01 00:00 :00 No 1{capsu le} Take 1 capsule by mouth daily Cynthia wilkinson Metformin HCl 500 MG oral Tablet 2021-08 00:00: 09-01 00:00 :00 No TAKE 1 TABLET [...] 1 dose, On 07/16/22 at 2115, Routine [facility] NaCl 0.9% (NS) bolus infusion 1,000 mL 2021-08 01:00: 00 07-17 02:29 :00 No 1000mL at 999 mL/hr, 1,000 mL, IV Infusion, ONCE, 1 dose, On 07/16/22 at 1900, KENNY [facility] ampicillin- sulbactam (UNASYN) 3 g in NaCl 0.9% (NS) 100 mL MINI-BAG 2021-08 00:15: 00 07-17 02:12 :00 No 3g 3 g, IV Piggyback, ONCE, 1 dose, On 07/16/22 at 1815, Administer over 30 Minutes, 100 mL
Reas on for Anti-Infec tive: Documented Infection< br>Documen ronald Infection Site: Skin / Soft Tissue
Duration of Therapy: 7 days [facility] indomethaci n 50 mg capsule 2021-08 00:00: 00 04-19 00:00 :00 No [id number] 50mg Take 1 capsule by mouth 3 (three) times daily with meals as needed for Pain. [facility] metFORMIN 500 mg tablet 2021-08 00:00: 00 08-16 05:59 :00 No [id number] 500mg Take 1 tablet by mouth in the morning and 1 tablet in the evening. Do all this for 30 days. [facility] dicloxacill in 500 mg capsule 2021-08 00:00: 00 07-24 05:59 :00 No [id number] 500mg Take 1 capsule by mouth 4 (four) times daily for 7 days. [facility] Gabapentin 600 MG oral Tablet 2021-08 00:00: 00 Yes 1200mg Take 1,200 mg by mouth 3 times daily Cynthia wilkinson nicotine (NICODERM) 21 mg/24 hr patch 1 Patch 2021-08 21:30: 00 Yes 1{patch } 1 Patch, Topical, Administer over 24 Hours, Q24H, First dose on Rochelle 06/02/22 at 1630, Until Discontinu ed, Routine [facility] diphenhydrA MINE (BENADRYL) tablet 25 mg 2021-08 21:30: 00 06-02 21:24 :00 No 25mg 25 mg, Oral, ONCE, 1 dose, On Rochelle 06/02/22 at 1630, KENNY [facility] vancomycin (VANCOCIN) 1,000 mg in NaCl 0.9% (NS) 250 mL VIAL-MATE IV piggyback 2021-08 20:00: 00 Yes 1000mg 1,000 mg, IV Piggyback, Q12H ABX, First dose on Rochelle 06/02/22 at 1500, Until Discontinu ed, Administer over 60 Minutes, 250 mL
Reas on for Anti-Infec tive: Documented Infection< br>Documen ronald Infection Site: Skin / Soft Tissue
Duration of Therapy: Other (see Comments) [facility] ondansetron (ZOFRAN (PF)) injection 4 mg 2021-08 19:45: 00 06-02 19:47 :00 No 4mg 4 mg, Slow IV Push, ONCE, 1 dose, On Rochelle 06/02/22 at 1445, KENNY [facility] morpHINE (4 mg/mL) injection 4 mg 2021-08 19:00: 00 06-02 19:52 :00 No 4mg 4 mg, Slow IV Push, ONCE, 1 dose, On Mon06/02/22 at 1400, STAT [facility] piperacilli n-tazobacta m (ZOSYN) 3.375 g in NaCl 0.9% (NS) 50 mL MINI-BAG 2021-08 19:00: 00 06-02 20:29 :00 No 3.375g 3.375 g, IV Piggyback, ONCE, 1 dose, On Mon06/02/22 at 1400, Administer over 30 Minutes, 50 mL
Reas on for Anti-Infec tive: Documented Infection< br>Documen ronald Infection Site: Skin / Soft Tissue
Duration of Therapy: Other (see Comments) [facility] gabapentin (NEURONTIN) 300 mg capsule 2021-08 16:10: 56 Yes 900mg Take 900 mg by mouth 3 (three) times daily. [facility] sulfamethox azole-trime thoprim 800-160 mg per tablet 2021-08 00:00: 00 06-10 04:59 :00 No [id number] 1{tbl} Take 1 tablet by mouth every 12 (twelve) hours for 7 days. [facility] dicloxacill in 500 mg capsule 2021-08 00:00: 00 06-10 04:59 :00 No [id number] 500mg Take 1 capsule by mouth 4 (four) times daily for 7 days. [facility] gabapentin 300 mg capsule 2021-08 00:00: 00 06-10 04:59 :00 No [id number] 300mg Take 1 capsule by mouth in the morning and 1 capsule at noon and 1 capsule in the evening. Do all this for 7 days. [facility] lidocaine 5 % (700 mg/patch) patch 12-18 00:00: 00 04-19 00:00 :00 No [id number] 1{patch } Apply 1 Patch to area(s) every 8 (eight) hours as needed for Localized pain. [facility] HYDROcodone -acetaminop hen (NORCO) 10-325 mg tablet 04-02 01:38: 54 Yes 1{tbl} Take 1 tablet by mouth every 6 (six) hours as needed. [facility] albuterol (VENTOLIN) 90 mcg/actuati on inhaler 04-02 00:00: 00 Yes 2{puff} Inhale 2 Puffs every 4 (four) hours as needed for Wheezing or Shortness of Breath. [facility] Vital Signs Vital Name Observation Time Observation Value Comments S ource Systolic blood pressure 2024-04-26 16:20:00 135 mm[Hg] Cynthia Seybo ld - External Diastolic blood pressure 2024-04-26 16:20:00 76 mm[Hg] Cynthia Seybo ld - External Heart rate 2024-04-26 16:20:00 86 /min Tequila Lopezold - External Systolic blood pressure 2024-01-23 19:09:00 147 mm[Hg] Cynthia Seybo ld - External Diastolic blood pressure 2024-01-23 19:09:00 84 mm[Hg] Cynthia Seybo ld - External Heart rate 2024-01-23 19:09:00 89 /min Tequila barriga Seybold - External Systolic blood pressure 2024-01-01 20:04:00 144 mm[Hg] Cynthia Seybo ld - External Diastolic blood pressure 2024-01-01 20:04:00 74 mm[Hg] Cynthia Seybo ld - External Heart rate 2024-01-01 20:04:00 106 /min Tequila Lopezold - External Body temperature 2024-01-01 20:04:00 36.44 Cecilia Cynthia Lopezold - External Respiratory rate 2024-01-01 20:04:00 14 /min Cynthia Evans - External Body height 2024-01-01 20:04:00 167.6 cm Katherine ey Seybold - External Body weight 2024-01-01 20:04:00 74.844 kg Katherine ey Seybold - External BMI 2024-01-01 20:04:00 26.63 kg/m2 Katherine ey Seybold - External Systolic blood pressure 2023-10-31 21:42:00 144 mm[Hg] Cynthia Seybo ld - External Diastolic blood pressure 2023-10-31 21:42:00 83 mm[Hg] Cynthia Seybo ld - External Heart rate 2023-10-31 21:38:00 92 /min Kelse y Seybold - External Body temperature 2023-10-31 21:38:00 36.33 Cecilia Cynthia Seybold - External Respiratory rate 2023-10-31 21:38:00 18 /min Cynthia Seybold - External Body height 2023-10-31 21:38:00 167.6 cm Katherine ey Seybold - External Body weight 2023-10-31 21:38:00 73.936 kg Katherine ey Seybold - External BMI 2023-10-31 21:38:00 26.31 kg/m2 Katherine ey Seybold - External Oxygen saturation in Arterial blood by Pulse oximetry 2023-10-31 21:38:00 98 /min Cynthia Seybo ld - External Systolic blood pressure 2023-09-19 16:18:00 140 mm[Hg] Cynthia Seybo ld - External Diastolic blood pressure 2023-09-19 16:18:00 76 mm[Hg] Cynthia Seybo ld - External Heart rate 2023-09-19 16:18:00 102 /min Kelse y Seybold - External Body temperature 2023-09-19 16:18:00 35.67 Cecilia Cynthia Seybold - External Body height 2023-09-19 16:18:00 167.6 cm Katherine ey Seybold - External Systolic blood pressure 2023-07-05 17:39:00 126 mm[Hg] [...] blood pressure 2023-06-19 17:18:00 64 mm[Hg] Cynthia Campbellybo ld - External Heart rate 2023-06-19 17:18:00 91 /min Kelse y Seybold - External Body temperature 2023-06-19 17:18:00 36.5 Cecilia Cynthia Seybold - External Body height 2023-06-19 17:18:00 162.6 cm Katherine ey Seybold - External Systolic blood pressure 2023-04-20 00:27:00 122 mm[Hg] [facility] acute hospital Diastolic blood pressure 2023-04-20 00:27:00 79 mm[Hg] General acute hospital Heart rate 2023-04-20 00:27:00 93 /min [facility] 2023-04-20 00:27:00 36.22 Cecilia [facility] Respiratory rate 2023-04-20 00:27:00 18 /min [facility] Oxygen saturation in Arterial blood by Pulse oximetry 2023-04-20 00:27:00 100 /min [facility] acute hospital Body height 2023-04-19 20:54:00 162.6 cm [facility] Body weight 2023-04-19 20:54:00 72 kg [facility] BMI 2023-04-19 20:54:00 27.25 kg/m2 [facility] Systolic blood pressure 2022-09-15 14:58:00 148 mm[Hg] Cynthia Campbellybo ld - External Diastolic blood pressure 2022-09-15 [...] Pulse oximetry 2022-09-01 21:12:00 97 /min Cynthia Campbellybo ld - External Systolic blood pressure 2022-07-17 01:40:00 128 mm[Hg] General acute hospital Diastolic blood pressure 2022-07-17 01:40:00 66 mm[Hg] General acute hospital Heart rate 2022-07-17 01:40:00 88 /min [facility] Respiratory rate 2022-07-17 01:40:00 16 /min [facility] Oxygen saturation in Arterial blood by Pulse oximetry 2022-07-17 01:40:00 99 /min [facility] acute hospital Body temperature 2022-07-16 23:42:00 37.22 Cecilia [facility] Body height 2022-07-16 23:42:00 165.1 cm [facility] Body weight 2022-07-16 23:42:00 72.122 kg [facility] BMI 2022-07-16 23:42:00 26.46 kg/m2 [facility] Systolic blood pressure 2022-06-02 22:00:00 132 mm[Hg] General acute hospital Diastolic blood pressure 2022-06-02 22:00:00 78 mm[Hg] General acute hospital Heart rate 2022-06-02 22:00:00 89 /min [facility] Respiratory rate 2022-06-02 22:00:00 15 /min [facility] Oxygen saturation in Arterial blood by Pulse oximetry 2022-06-02 22:00:00 100 /min [facility] acute hospital Body temperature 2022-06-02 18:10:00 36.72 Cecilia [facility] Body weight 2022-06-02 18:10:00 72.576 kg [facility] BMI 2022-06-02 18:10:00 26.63 kg/m2 [facility] Procedures Procedure Date / Time Performed Performing Clinician Source MR FOOT LEFT WO CONTRAST 2023-04-19 23:19:07 Dionne Dias [facility] POCT GLUCOSE (AUTOMATED) 2023-04-19 21:45:00 [facility] TEST, SERUM 2023-04-19 18:39:00 Zev Dias [facility] XR FOOT 3+ VW LEFT 2023-04-19 17:31:44 Vin Rios [facility] COMP. METABOLIC PANEL ([id number]) 2023-04-19 17:01:00 Vin Rios [facility] CBC WITH DIFF 2023-04-19 17:01:00 Vin Rios [facility] GLYCOSYLATED HEMOGLOBIN (A1C) 2023-04-19 17:01:00 Tirso Dias [facility] CONSENT/REFUSAL FOR DIAGNOSIS AND TREATMENT 2023-04-19 16:10:45 Doctor Unassigned, [place] [facility] XR FOOT <3 VW LEFT 2022-07-17 00:48:57 Rosette Tran [facility] COMP. METABOLIC PANEL ([id number]) 2022-07-17 00:35:00 Rosette Tran [facility] CBC WITH DIFF 2022-07-17 00:35:[address] [facility] GLYCOSYLATED HEMOGLOBIN (A1C) 2022-07-17 00:35:00 Rosette Tran [facility] URINALYSIS 2022-07-17 00:35:00 Rosette Tran [facility] URINE DRUG (IMMUNOASSAY) - COMPREHENSIVE DRUG SCREEN W/O REFLEX 2022-07-17 00:35:00 Rosette Tran [facility] LACTIC ACID WHOLE BLOOD 2022-07-17 00:32:00 Miah Tran [facility] CONSENT/REFUSAL FOR DIAGNOSIS AND TREATMENT 2022-07-16 23:35:46 Doctor Unassigned, [place] [facility] XR FOOT 3+ VW LEFT 2022-06-02 19:31:01 Susana Cruz [facility] COMP. METABOLIC PANEL ([id number]) 2022-06-02 19:20:00 Susana Cruz [facility] CBC WITH DIFF 2022-06-02 19:20:[address] [facility] URINALYSIS 2022-06-02 19:20:00 Susana Cruz [facility] CONSENT/REFUSAL FOR DIAGNOSIS AND TREATMENT 2022-06-02 17:56:13 Doctor Unassigned, [place] [facility] Encounters Start Date/Time End Date/Time Encounter Type Admission Type Attending [facility] Care Department Encounter ID Source 2024-09-20 09:30:00 2024-09-20 09:30:00 Outpatient BARB BENITO [id number] Cynthia Evans 2024-09-12 10:30:00 2024-09-12 10:30:00 Outpatient ANSOANUUR, BARB CYNTHIA DIAZ [id number] Cynthia Seybchraan 2024-08-22 00:00:00 2024-08-22 00:00:00 Outpatient ANSOANUUR, BARB DIAZ [id number] Cynthia Seybold 2024-08-22 00:00:00 2024-08-22 00:00:00 Outpatient NASMARIOLEONEL CYNTHIA DIAZ [id number] Cynthia Seybold 2024-07-26 11:15:00 2024-07-26 11:15:00 Outpatient ANSOANUUR, BARB DIAZ [id number] Cynthia Seybcharan 2024-07-25 00:00:00 2024-07-25 00:00:00 Outpatient ANSOANUUR, BARB DIAZ [id number] Cynthia Seybold 2024-07-24 00:00:00 2024-07-24 00:00:00 Outpatient MD CYNTHIA WILKS [id number] [facility] 2024-07-03 00:00:00 2024-07-03 00:00:00 Outpatient HUSSEIN PETERSON [id number] Cynthia Seybold 2024-06-21 00:00:00 2024-06-21 00:00:00 Outpatient ANSOANUUR, BARB DIAZ [id number] Cynthia Seybold 2024-05-23 00:00:00 2024-05-23 00:00:00 Outpatient ANSOANUUR, ABRB DIAZ [id number] Cynthia Seybold 2024-05-21 00:00:00 2024-05-21 00:00:00 Outpatient LAURENCE COTA [id number] Cynthia Seybold 2024-05-17 00:00:00 2024-05-17 00:00:00 Outpatient HUSSEIN PETERSON [id number] Cynthia Seybold 2024-05-01 00:00:00 2024-05-01 00:00:00 Outpatient HUSSEIN PETERSON [id number] Cynthia Campbellybcharan 2024-04-26 11:50:00 2024-04-26 11:50:00 Outpatient LAB53 CYNTHIA DIAZ [id number] Cynthia Campbellybcharan 2024-04-26 11:15:00 2024-04-26 11:15:00 Outpatient ANSOANUUR, BARB DIAZ [id number] [facility] 2024-04-25 10:30:00 2024-04-25 10:30:00 Outpatient ANSOANUUR, BARB DIAZ [id number] Cynthia ybcharan 2024-03-22 00:00:00 2024-03-22 00:00:00 Outpatient ANSOANUUR, BARB DIAZ [id number] [facility] 2024-02-13 00:00:00 2024-02-13 00:00:00 Outpatient MD CYNTHIA WILKS [id number] [facility] 2024-02-06 09:30:00 2024-02-06 09:30:00 Outpatient LAURENCE COTA [id number] [facility] 2024-02-02 00:00:00 2024-02-02 00:00:00 Outpatient ANSOANUUR, BARB DIAZ [id number] [facility] 2024-02-02 00:00:00 2024-02-02 00:00:00 Outpatient ANSOANUUR, BARB DIAZ [id number] [facility] 2024-01-23 14:45:00 2024-01-23 14:45:00 Outpatient LAB53 CYNTHIA DIAZ [id number] [facility] 2024-01-23 14:00:00 2024-01-23 14:00:00 Outpatient ANSOANUUR, BARB DIAZ [id number] [facility] 2024-01-10 00:00:00 2024-01-10 00:00:00 Outpatient AHMED JAYAFrancis DIAZ [id number] Cynthia Seybold 2024-01-01 15:45:00 2024-01-01 15:45:00 Outpatient LAB90 CYNTHIA DIAZ [id number] Cynthia Seybold 2024-01-01 15:00:00 2024-01-01 15:00:00 Outpatient HUNDL, LAURENCE CYNTHIA DIAZ [id number] Cynthia Seybold 2023-12-19 00:00:00 2023-12-19 00:00:00 Outpatient KARLA STANLEY CYNTHIA DIAZ [id number] Cynthia Seybold 2023-12-13 00:00:00 2023-12-13 00:00:00 Outpatient HUNDL, LAURENCE CYNTHIA DIAZ [id number] Cynthia Seybold 2023-11-28 09:30:00 2023-11-28 09:30:00 Outpatient HUNDL, LAURENCE DIAZ [id number] Cynthia Seybold 2023-11-27 10:40:00 2023-11-27 10:40:00 Outpatient YOLA SIMON [id number] Cynthia Seybold 2023-11-17 00:00:00 2023-11-17 00:00:00 Outpatient PREZAS, HUSSEIN DIAZ [id number] Cynthia Seybold 2023-11-09 00:00:00 2023-11-09 00:00:00 Outpatient AHMED, JAYA CYNTHIA DIAZ [id number] Cynthia Seybold 2023-11-03 14:00:00 2023-11-03 14:00:00 Outpatient LAB90 CYNTHIA DIAZ [id number] Cynthia Seybold 2023-10-31 16:30:00 2023-10-31 16:30:00 Outpatient AHMED, JAYA CYNTHIA DIAZ [id number] Cynthia Seybold 2023-10-31 16:30:00 2023-10-31 16:30:00 Outpatient AHMED, JAYAFrancis DIAZ [id number] Cynthia Seybold 2023-10-29 00:00:00 2023-10-29 00:00:00 Outpatient HUNDLLAURENCE [id number] Cynthia Seybold 2023-10-19 00:00:00 2023-10-19 00:00:00 Outpatient PREZAHUSSEIN Bruce [id number] Cynthia Seybold 2023-10-18 09:30:00 2023-10-18 09:30:00 Outpatient LAURENCE COTA CYNTHIA DIAZ [id number] Cynthia Nathan 2023-10-17 10:00:00 2023-10-17 10:00:00 Outpatient KARLA STANLEY CYNTHIA DIAZ [id number] Cynthia Nathan 2023-10-05 13:30:00 2023-10-05 13:30:00 Outpatient JAYA ACOSTA CYNTHIA DIAZ [id number] Cynthia ybcharan 2023-10-05 00:00:00 2023-10-05 00:00:00 Outpatient MD CYNTHIA WILKS [id number] Cynthia ybcharan 2023-09-28 00:00:00 2023-09-28 00:00:00 Outpatient JOSJajaLAURENCE [id number] Cynthia ybcharan 2023-09-27 10:40:00 2023-09-27 10:40:00 Outpatient YOLA SIMON [id number] Cynthia Seybcharan 2023-09-21 00:00:00 2023-09-21 00:00:00 Outpatient JOSJaja LAURENCE DIAZ [id number] Cynthia ybcharan 2023-09-19 11:15:00 2023-09-19 11:15:00 Outpatient LAB90 CYNTHIA DIAZ [id number] Cynthia Nathan 2023-09-19 10:30:00 2023-09-19 10:30:00 Outpatient JOSJaja LAURENCE DIAZ [id number] Cynthia ybcharan 2023-09-12 00:00:00 2023-09-12 00:00:00 Outpatient KARLA STANLEY CYNTHIA DIAZ [id number] Cynthia Seybold 2023-09-12 00:00:00 2023-09-12 00:00:00 Outpatient CIPRIANO LAURENCE DIAZ [id number] Cynthia Seybcharan 2023-08-22 10:55:00 2023-08-22 10:55:00 Outpatient LAB39 CYNTHIA DIAZ [id number] Cynthia Seybcharan 2023-08-22 10:00:00 2023-08-22 10:00:00 Outpatient KARLA STANLEY CYNTHIA [id number] [facility] 2023-08-18 00:00:00 2023-08-18 00:00:00 Outpatient CYNTHIA CYNTHIA [id number] Cynthia Campbellcharan 2023-08-13 00:00:00 2023-08-13 00:00:00 Outpatient CYNTHIA CYNTHIA [id number] Cynthia Campbellcharan 2023-07-19 00:00:00 2023-07-19 00:00:00 Outpatient HUSSEIN PETERSON CYNTHIA DIAZ [id number] Cynthia [facility] 2023-07-12 00:00:00 2023-07-12 00:00:00 Patient Outreach Ale Harvey .2.840.114 350.1.13.10 4.2.7.2.686 [id number] [facility] 2023-07-10 00:00:00 2023-07-10 00:00:00 Outpatient KARLA STANLEY CYNTHIA CYNTHIA [id number] Cynthia [facility] 2023-07-05 13:45:00 2023-07-05 13:45:00 Outpatient KARLA STANLEY CYNTHIA DIAZ [id number] Cynthia [facility] 2023-06-30 00:00:00 2023-06-30 00:00:00 Patient Outreach Ale Harvey .2.840.114 350.1.13.10 4.2.7.2.686 [id number] [facility] 2023-06-21 00:00:00 2023-06-21 00:00:00 Outpatient LAURENCE COTA [id number] Cynthia [facility] 2023-06-21 00:00:00 2023-06-21 00:00:00 Outpatient LAURENCE COTA [id number] Cynthia [facility] 2023-06-19 11:55:00 2023-06-19 11:55:00 Outpatient LAB90 [facility]NHIA DIA[id number] [facility]23-[facility]-19 11:00:00 2023-06-19 11:00:00 Outpatient CIPRIANO LAURENCE CYNTHIA DIAZ [id number] [facility] 2023-06-19 00:00:00 2023-06-19 00:00:00 Outpatient CYNTHIA DIAZ [id number] Cynthia [facility] 2023-05-16 00:00:00 2023-05-16 00:00:00 Patient Outreach Alessandra Gramajo [id number] 350.1.13.10 4.2.7.2.686 [id number] [facility] 2023-04-20 00:00:00 2023-04-20 00:00:00 Transition of Care Ofelia Olivier 1.2.840.114 350.1.13.10 4.2.7.2.686 [id number] [facility] 2023-04-20 00:00:00 2023-04-20 00:00:00 Transition of Care Ofelia Olivier 1.2.840.114 350.1.13.10 4.2.7.2.686 [id number] [facility] 2023-04-19 11:22:00 2023-04-19 21:15:00 Hospital Encounter Vin Rios David [facility] 1.2.840.114 350.1.13.10 4.2.7.2.686 [id number] [facility] 2023-04-19 11:22:00 2023-04-19 21:15:00 Inpatient [facility] [id number] [facility] 2023-02-23 00:00:00 2023-02-23 00:00:00 Outpatient LAURENCE COTA [id number] [facility] 2023-01-20 14:40:00 2023-01-20 14:40:00 Outpatient DONNIE, JASPER CYNTHIA DIAZ [id number] Cyn[facility] 2022-12-31 00:00:00 2022-12-31 00:00:00 Outpatient HUNDL, LAURENCE DIAZ [id number] Cyn[facility] 2022-12-11 00:00:00 2022-12-11 00:00:00 Outpatient HUNDL, LAURENCE DIAZ [id number] [facility] 2022-12-08 00:00:00 2022-12-08 00:00:00 Outpatient TING, JASON CYNTHIA DIAZ [id number] Cynthia [facility] 2022-11-07 00:00:00 2022-11-07 00:00:00 Outpatient HUNDL, LAURENCE DIAZ [id number] [facility] 2022-11-02 00:00:00 2022-11-02 00:00:00 Outpatient HUNDL, LAURENCE DIAZ [id number] [facility] 2022-10-31 14:00:00 2022-10-31 14:00:00 Outpatient HUNDL, LAURENCE DIAZ [id number] [facility] 2022-10-13 09:00:00 2022-10-13 09:00:00 Outpatient HUNDL, LAURENCE DIAZ [id number] [facility] 2022-10-13 00:00:00 2022-10-13 00:00:00 Outpatient HUNDL, LAURENCE DIAZ [id number] [facility] 2022-10-13 00:00:00 2022-10-13 00:00:00 Outpatient HUNDL, LAURENCE DIAZ [id number] [facility] 2022-09-26 00:00:00 2022-09-26 00:00:00 Outpatient HUNDL, LAURENCE DIAZ [id number] [facility] 2022-09-20 00:00:00 2022-09-20 00:00:00 Outpatient HUNDL, LAURENCE DIAZ [id number] [facility] 2022-09-17 00:00:00 2022-09-17 00:00:00 Outpatient HUNDL, LAURENCE DIAZ [id number] Cynthia Campbellcharan 2022-09-15 10:05:00 2022-09-15 10:05:00 Outpatient LAB90 CYNTHIA CYNTHIA [id number] Cynthia Evans 2022-09-15 09:00:00 2022-09-15 09:00:00 Outpatient LAURENCE COTA CYNTHIA CYNTHIA [id number] Cynthia [facility] 2022-09-07 11:45:00 2022-09-07 11:45:00 Outpatient LAB91 CYNTHIA CYNTHIA [id number] [facility] 2022-09-07 11:00:00 2022-09-07 11:00:00 Outpatient ANSANA MARÍABARB Barroso CYNTHIA DIAZ [id number] [facility] 2022-09-06 00:00:00 2022-09-06 00:00:00 Outpatient ANSSAMEERABARB CYNTHIA DIAZ [id number] [facility] 2022-09-01 15:00:00 2022-09-01 15:00:00 Outpatient LAURENCE COTA CYNTHIA [id number] [facility] 2022-09-01 00:00:00 2022-09-01 00:00:00 Outpatient LAURENCE COTA CYNTHIA DIAZ [id number] [facility] 2022-09-01 00:00:00 2022-09-01 00:00:00 Outpatient KARLA STANLEY CYNTHIA DIAZ [id number] [facility] 2022-08-29 11:00:00 2022-08-29 11:00:00 Outpatient LAURENCE COTA CYNTHIA [id number] [facility] 2022-07-16 17:45:00 2022-07-16 21:16:00 Emergency X ROSETTE TRAN ERT [id number] [facility] 2022-07-16 17:45:00 2022-07-16 21:16:00 Emergency DustinRosette lopez Kellie [facility] 1.2.840.114 350.1.13.10 4.2.7.2.686 [id number] [facility] 2022-06-02 13:12:00 2022-06-02 17:06:00 Emergency X SUSANA CRUZ [facility] ERT [id number] [facility] 2022-06-02 13:12:00 2022-06-02 17:06:00 Emergency Susana Cruz [facility] 1.2.840.114 350.1.13.10 4.2.7.2.686 [id number] [facility] Results Test Description Test Time Test Comments Results Result Co mments Source [facility] [id number] 00:43:06* Test Item Value Reference Range Interpretation Comme nts LACTIC ACID (test code = 7074903461) 1.18 mmol/L 0.50-2.20 Lab Interpretation (test cod e = 84220-6) Normal [facility] ([id number])2022-06-02 19:55:41* Test Item Value Reference Range Interpretation Comme nts NA (test code = 9982153050) 135 mmol/L 135-145 K (test code = 4113619374) 4.0 mmol/L 3.5-5 CL (test code = 1458111216) 99 mmol/L 98-108 CO2 TOTAL (test code = 0266475287) 29 mmol/L 23-31 AGAP (test code = 2259595112) 2-16 BUN (test code = 2882199367) 5 mg/dL 7-23 L GLUCOSE (test code = 3925255011) 281 mg/dL 70-110 H CREATININE (test code = 1734959818) 0.35 mg/dL 0.5-1.04 L TOTAL BILI (test code = 2002474427) 1.0 mg/dL 0.1-1.1 CALCIUM (test code = 1835581037) 9.2 mg/dL 8.6-10.6 T PROTEIN (test code = 6703929871) 6.2 g/dL 6.3-8.2 L ALBUMIN (test code = 5725421071) 3.6 g/dL 3.5-5 ALK PHOS (test code = 2087221727) 72 U/L 34-122 ALTv (test code = 1742-6) 18 U/L 5-35 AST(SGOT) (test code = 6773835686) 20 U/L 13-40 eGFR (test code = 0108098799) mL/min/1.73m2 FRANCISCO (test code = FRANCISCO) Association [...] imaging tests). Lab Interpretation (test code = 85485-8) Abnormal [facility] WITH [id number] 19:41:53* Test Item Value Reference Range Interpretation Comme nts WBC (test code = 6690-2) See_Comment [HidInImage] The system which generated this result transmitted reference range: 4.30 - 11.10 10*3/?L. The reference range was not used to interpret this result as normal/abnormal. RBC (test code = 789-8) See_Comment [HidInImage] The system which generated this result transmitted [...] 34.6 g/dL 31.6-35.1 RDW-SD (test code = 10201-7) 41.0 fL 39-49.9 RDW-CV (test code = 788-0) 13.2 % 12-15.5 PLT (test code = 777-3) See_Comment [Automated messa ge] The system which generated this result transmitted reference range: 166 - 358 10*3/?L. The reference range was not used to interpret this result as normal/abnormal. MPV (test code = 49926-0) 11.3 fL 9.5-12.9 NRBC/100 WBC (test code = 0923192446) See_Comment [Automated me ssage] The system which generated this result transmitted reference range: 0.0 - 10.0 /100 WBCs. The reference range was not used to interpret this result as normal/abnormal. NRBC x10^3 (test code = 1524986705) See_Comment [Automated me ssage] The system which generated this result transmitted reference range: 10*3/?L. The reference range was not used to interpret this result as normal/abnormal. GRAN MAT (NEUT) % (test code = 770-8) 74.6 % IMM GRAN % (test code = 1262176500) 0.60 % LYMPH % (test code = 736-9) 18.5 % MONO % (test code = 5905-5) 5.4 % EOS % (test code = 713-8) 0.6 % BASO % (test code = 706-2) 0.3 % GRAN MAT x10^3(ANC) (test code = 8742862051) 6.61 10*3/uL 1.88-7.09 IMM GRAN x10^3 (test code = 3959348052) 0.05 10*3/uL 0-0.06 LYMPH x10^3 (test code = 731-0) 1.64 10*3/uL 1.32-3.29 MONO x10^3 (test code = 742-7) 0.48 10*3/uL 0.33-0.92 EOS x10^3 (test code = 711-2) 0.05 10*3/uL 0.03-0.39 BASO x10^3 (test code = 704-7) 0.03 10*3/uL 0.01-0.07 [facility] History and Physical Notes Date/Time Note Provider Source 2023-10-17 10:07:44 Images from the original note were not included. [facility] Karla Stanley MD, ROSA Wiley PA-C, MPAS ASSESSMENT 1. Chronic pain syndrome 2. Lumbar radiculitis 3. Chronic prescription opiate use 4. Pain management contract agreement 5. Chronic lumbosacral pain 6. Diabetic peripheral neuropathy (multi HCC) Blood Thinners: None PLAN Pt Declined Psych referral PT:No Pt Declined Physical therapy SURGERY:No MEDS: Opioids: Hydrocodone, Anti-epileptic drugs Neurontin, Muscle Relaxant: Zanaflex NSAIDs (OTC or Rx) Other: INJECTIONS: No TODAY: UDS WNL 09/06 Elsa 10/325 1 PO q 8 prn #90 x 3 Transfer opiate refills care per PCP Significant education provided today on diagnosis, conservative management options, injections, and when surgical consultation is indicated. Patient agrees with current plan and management options as described below. Recommend routine physical Continue bowel management Patient instructed to continue with home exercise program. Patient instructed to go to nearest ER if developed any sudden weakness in the extremities or sudden bowel and/or bladder incontinence. Pt's chart and history were reviewed; physical exam have been updated with no significant changes of the above chronic pain noted. 07/05/2023 Opiate agreement and opiate risk tool calculated and signed. Pt was given [facility] instruction list of opioids DO's and DON'T's, risks and side effects related to intermittent/chronic usage of scheduled CII and CIII opioids. Pain Management Referral to Primary Care Kenny Llanes is being referred for ongoing medical management of her chronic pain. This patient has been evaluated by the [facility] section and has been offered appropriate medical, interventional, and/or surgical treatment for management of her pain and is now on a stable dose of pain medications. This patient has signed a Controlled Substance Agreement and agrees to abide by the terms of this agreement. Guidelines/Recommendations for Primary Care Physician: This patient has been on stabilized optimal narcotic medications dosage and is returning for your continuity of care. Medication and Dosage: The following are some recommended guidelines, if deemed necessary by PCP. Supply: 1 Month supply for C3 prescriptions with no refill restrictions Multiple C2 prescriptions may be written with "earliest fill date" restrictions, max of 3 monthly prescriptions Monitoring: Pharmacy Board website [employer] (Prescription Monitoring Program) Random urine drug tests: Minimum once per year or more often as needed if indicated on a case by case basis Suggested office visit frequency: Pt needs to be seen on an average, at least once every 3 months: Pt on C2 or C3 opiates cannot exceed more than 3 months for followups Monthly for high risk pts, Every 2 - 3 months for stable pts. Chief complaint or Subjective: Area of pain : Foot: bilateral What is the duration of your pain? constantly Kind of pain (quality):Sharp, Burning, Pins/Dixon, Stabbing, Throbbing, Cramping, Numbness What makes it worse? Sitting, Bending, Standing, Walking, Lying Down, Climbing Stairs, Lifting, Driving, Coughing, Squatting Do you have any - WEAKNESS Bilateral LOWER extremity NUMBNESS Bilateral LOWER extremity Changes in pattern of pain or weakness? No Current modalities for pain management: Rest Functional Status: Independent with all Activities of Daily Living and mobility Routine physical within the past year? YES HISTORY: Kenny Llanes is a female, with PMH of: Chronic Pain Central pain syndrome Complaining of Foot: bilateral, with chronic intermittet muscle spasms,spontaneously. Denies any recent bowel or bladder incontinence or rentention, saddle paresthesia, or sexual dysfunction Denies fever, chills, unintentional weight loss or any associated constiutional changes. Denies any suicide thoughts or ideation, no diagnosis of psychological disorders.. Conservative teatments including trial of PT, OTC analgesics, and non opioid medications without relief. has not been evaluated by surgeon (spine, ortho, or neurosurgeon) for consultation. Currently, takes Hydrocodone max 3 per day for pain relief. Patients are not exibiting side effects from listed medication(s) above. Patient maintains a bowel management regimen of fiber diet, OTC laxatives, or stool softeners. Medication enable pt to function with activities of daily living. As of this visit, pt has been compliant with pain medications with no apparent signs of abuse or misuse of opioid pain medication. 07/05/2023 Ref for Pain Mgt eval. She states she can not get her pain meds consistently from one MD and here for pain management to take over her pain care, she still has very high HgbA1c and difficulty controlling her DM 08/22/2023: pt was admitted 08-14-23 for re-infection of foot ulcer, getting daily IV abx Elsa is helping her pain Here for routine med RFs, no SE w meds. With current treatment of pain meds, pt is able to function with ADLs, activities of daily living. HPI Interval since last visit: 10/17/2023: Stable pain meds helping Here for routine med RFs, no SE w meds. With current treatment of pain meds and injections, pt is able to function with ADLs, activities of daily living. Physical Exam: GENERAL: Not in acute distress, well developed, well nourished HEAD Normocephalic, atraumatic Pupils: without miosis or mydriasis CERVICAL Decreased AROM/PROM with pain Alignment: Blunted/flat with lateral-lius Trigger points: nontender trapezius, splenius capitus, paraspinatus UPPER EXTREMITIES Sensory: Normal C5-T1 dermatomes bilateral except decreased gloves Tone: Normal; no muscle atrophy Reflexes: Unobtainable C5, C6, C7 bilateral Motor: C5-T1 myotomes bilateral -5/5 SHOULDER ROM: full, without pain (active or passive) Impingement: Absent Hawkin's: negative Supraspinatus stress test: negative WRIST/HAND Heberden's nodules: bilateral pos THORACIC/LUMBAR Decreased AROM/PROM with pain Alignment: Blunted lordosis Scoliosis: Absent Trigger points: absent Lumbar scar: none Facet joints: nontender Facet loading: bilateral positive LOWER EXTREMITIES Reflexes: Unobtainable Patella and ankle bilateral Tone: Normal; no muscle atrophy Edema: Absent Sensory: Dermatomes L2-S1 normal bilateral except decreased socks Motor: Myotomes L3-S1 bilateral -5/5 Straight Leg Raise: bilateral negative HIP/PELVIS ROM: Full, internal rotation and external rotation Alignment: normal SACROILIAC JOINT Rowdy's: bilateral negative PSIS: nontender KNEE ROM: Full Swelling: none ANKLE ROM: Full NEUROLOGICAL Gait: antalgic PSYCH Mood: Flat affect Pain behavior: none Diagnostic studies: A1C: Results for orders placed or performed in visit on 09/15/22 HGB A1C WITH MBG ESTIMATION Result Value Ref Range HEMOGLOBIN A1C 10.0 (High) 4.8 - 5.6 % ESTIM. AVG GLU (EAG) 240 [id number] @ Reviewed [employer] prescription monitoring program report, no discrepency 07/05/2023 Reviewed [employer] prescription monitoring program report, no discrepency 10/17/2023 *The following may be discussed with patient based on pt's treatment plan: Opiate Risk Tool Scorin 0-3 Low risk: 6% change of developing problematic behaviors 4-7 Moderate risk: 28% change of developing problematic behaviors >=8 High risk: >90% change of developing problematic behaviors Goals of Therapy: Improve ambulation, quality of life, minimize medications, improve sleep pattern, increase level of activities, return to work, or improve ability to work. Patient understands their responsibility of their involvement to achieve the above goals, better quality of life, better function, and possible pain control. Patient also understands the nature of chronic pain and disease process. Options: Conservative options have been reviewed and discussed in detail. These include additional physical therapy, medication, exercise conditioning, and weight loss. Interventional treatment options include epidural steroid injections, sacroiliac injections, medial branch block, or radiofrequency ablation. The patient has decided to proceed with interventional injection therapy. We discussed the role of surgery consult as well. That decision was deferred at this time. Risks: Risks of conservative treatment were discussed and include progression of the underlying condition, including permanent or increased neurological sequelae. Risks of interventional injection treatment were also reviewed [...] patient agrees to proceed with this treatment recommendation. Counseling Given: The diagnosis, prognosis, treatment options, risks; alternatives were [...] occurs, including infections which may necessitate schedule changes. Opiate Controlled Substance Therapy Requirements: Urine Drug Screen: Agree to submit to urine and/or blood screening tests to detect the use of non-prescribed medications, inappropriate pain medication, (including alcohol) or illicit drugs at any time. Psychology Clearance: Opiate controlled substance therapy for chronic pain represents a complex problem that may benefit from physical therapy, psychotherapy, and behavioral medicine strategies. Safety: Patient is aware that driving is prohibited while using opiate medications, muscle relaxants, antidepressants, or antiepileptics. Patients are prohibited to use any sedative hypnotics or sleeping aid, benzodiazepines or barbiturates while on medications from the pain clinic. Controlled substance medications should be in a locked, inaccessible to others, including children. Medication therapy of opiate controlled substance, muscle relaxant, antidepressant, antiepileptic, benzodiazepine, tranquilizer, or sedative may cause: Psychological dependence (addiction) to controlled substances that will require participation in any treatment program prescribed at facilities, which may include; ?? detoxification and/or ?? psychological, and medical treatment 2. multiple side effects include: - respiratory depression or failure that may lead to sudden . - intractable constipation that may cause bowel impaction or obstruction, which may require surgery. - urinary retention that may lead to renal problems - decrease of hormone levels with possible impotence, decreased libido, or sexual dysfunction. - Methadone or various antidepressants may cause heart arrhythmias that may lead to . - withdrawal symptoms such as, abdominal cramps, sweats, chills, generalized aching, and sudden . - sedation caused by medications: opiates (oral, patch, or infusion pump) muscle relaxants, anti-epileptic, benzodiazapines, antidepressants, sedatives, and/or tranquilizers, the drug senior microsoft net developer, recommends not operating ANY machinery or ANY form of motorized equipment (this includes a motor vehicle). - sedation from medications may cause increase risk of falls which requires 24 hrs supervision when starting a new medication. - any other side effects that may require immediate ER medical attention. - Patient is aware the possible of developing seriotonin syndrome while being on various antidepressants or tramadol type medications which may lead to sudden . [facility] 2023-08-22 10:34:04 Images from the original note were not included. [facility] Karla Stanley MD, ROSA Wiley PA-C, MPAS ASSESSMENT 1. Chronic pain syndrome 2. Diabetic peripheral neuropathy (multi HCC) 3. Lumbar radiculitis 4. Chronic prescription opiate use 5. Pain management contract agreement 6. Chronic central neuropathic pain Blood Thinners: None PLAN Pt Declined Psych referral PT:No Pt Declined Physical therapy SURGERY:No MEDS: Opioids: Hydrocodone, Anti-epileptic drugs Neurontin, Muscle Relaxant: Zanaflex NSAIDs (OTC or Rx) Other: INJECTIONS: No TODAY: UDS WNL 09/05 UDS - Last Hydrocodone, dosage - this AM Elsa 1 PO q 8 prn #90 x 1 2 months Significant education provided today on diagnosis, conservative management options, injections, and when surgical consultation is indicated. Patient agrees with current plan and management options as described below. Recommend routine physical Continue bowel management Patient instructed to continue with home exercise program. Patient instructed to go to nearest ER if developed any sudden weakness in the extremities or sudden bowel and/or bladder incontinence. Pt's chart and history were reviewed; physical exam have been updated with no significant changes of the above chronic pain noted. 07/05/2023 Opiate agreement and opiate risk tool calculated and signed. Pt was given [facility] instruction list of opioids DO's and DON'T's, risks and side effects related to intermittent/chronic usage of scheduled CII and CIII opioids. Chief complaint or Subjective: Area of pain : Foot: bilateral What is the duration of your pain? constantly Kind of pain (quality):Sharp, Burning, Pins/Dixon, Stabbing, Throbbing, Cramping, Numbness What makes it worse? Sitting, Bending, Standing, Walking, Lying Down, Climbing Stairs, Lifting, Driving, Coughing, Squatting Do you have any - WEAKNESS Bilateral LOWER extremity NUMBNESS Bilateral LOWER extremity Changes in pattern of pain or weakness? No Current modalities for pain management: Rest Functional Status: Independent with all Activities of Daily Living and mobility Routine physical within the past year? YES HISTORY: Kenny Llanes is a female, with PMH of: Chronic Pain Central pain syndrome Complaining of Foot: bilateral, with chronic intermittet muscle spasms,spontaneously. Denies any recent bowel or bladder incontinence or rentention, saddle paresthesia, or sexual dysfunction Denies fever, chills, unintentional weight loss or any associated constiutional changes. Denies any suicide thoughts or ideation, no diagnosis of psychological disorders.. Conservative teatments including trial of PT, OTC analgesics, and non opioid medications without relief. has not been evaluated by surgeon (spine, ortho, or neurosurgeon) for consultation. Currently, takes Hydrocodone max 3 per day for pain relief. Patients are not exibiting side effects from listed medication(s) above. Patient maintains a bowel management regimen of fiber diet, OTC laxatives, or stool softeners. Medication enable pt to function with activities of daily living. As of this visit, pt has been compliant with pain medications with no apparent signs of abuse or misuse of opioid pain medication. 07/05/2023 Ref for Pain Mgt eval. She states she can not get her pain meds consistently from one MD and here for pain management to take over her pain care, she still has very high HgbA1c and difficulty controlling her DM HPI Interval since last visit: 08/22/2023: pt was admitted 08-14-23 for re-infection of foot ulcer, getting daily IV abx uGy is helping her pain Here for routine med RFs, no SE w meds. With current treatment of pain meds, pt is able to function with ADLs, activities of daily living. Physical Exam: GENERAL: Not in acute distress, well developed, well nourished HEAD Normocephalic, atraumatic Pupils: without miosis or mydriasis CERVICAL Decreased AROM/PROM with pain Alignment: Blunted/flat with lateral-luis Trigger points: nontender trapezius, splenius capitus, paraspinatus UPPER EXTREMITIES Sensory: Normal C5-T1 dermatomes bilateral except decreased gloves Tone: Normal; no muscle atrophy Reflexes: Unobtainable C5, C6, C7 bilateral Motor: C5-T1 myotomes bilateral -5/5 SHOULDER ROM: full, without pain (active or passive) Impingement: Absent Hawkin's: negative Supraspinatus stress test: negative WRIST/HAND Heberden's nodules: bilateral pos THORACIC/LUMBAR Decreased AROM/PROM with pain Alignment: Blunted lordosis Scoliosis: Absent Trigger points: absent Lumbar scar: none Facet joints: nontender Facet loading: bilateral positive LOWER EXTREMITIES Reflexes: Unobtainable Patella and ankle bilateral Tone: Normal; no muscle atrophy Edema: Absent Sensory: Dermatomes L2-S1 normal bilateral except decreased socks Motor: Myotomes L3-S1 bilateral -5/5 Straight Leg Raise: bilateral negative HIP/PELVIS ROM: Full, internal rotation and external rotation Alignment: normal SACROILIAC JOINT Rowdy's: bilateral negative PSIS: nontender KNEE ROM: Full Swelling: none ANKLE ROM: Full NEUROLOGICAL Gait: antalgic PSYCH Mood: Flat affect Pain behavior: none Diagnostic studies: A1C: Results for orders placed or performed in visit on 09/15/22 HGB A1C WITH MBG ESTIMATION Result Value Ref Range HEMOGLOBIN A1C 10.0 (High) 4.8 - 5.6 % ESTIM. AVG GLU (EAG) 240 [id number] @ Reviewed [employer] prescription monitoring program report, no discrepency 07/05/2023 *The following may be discussed with patient based on pt's treatment plan: Opiate Risk Tool Scorin 0-3 Low risk: 6% change of developing problematic behaviors 4-7 Moderate risk: 28% change of developing problematic behaviors >=8 High risk: >90% change of developing problematic behaviors Goals of Therapy: Improve ambulation, quality of life, minimize medications, improve sleep pattern, increase level of activities, return to work, or improve ability to work. Patient understands their responsibility of their involvement to achieve the above goals, better quality of life, better function, and possible pain control. Patient also understands the nature of chronic pain and disease process. Options: Conservative options have been reviewed and discussed in detail. These include additional physical therapy, medication, exercise conditioning, and weight loss. Interventional treatment options include epidural steroid injections, sacroiliac injections, medial branch block, or radiofrequency ablation. The patient has decided to proceed with interventional injection therapy. We discussed the role of surgery consult as well. That decision was deferred at this time. Risks: Risks of conservative treatment were discussed and include progression of the underlying condition, including permanent or increased neurological sequelae. Risks of interventional injection treatment were also reviewed [...] patient agrees to proceed with this treatment recommendation. Counseling Given: The diagnosis, prognosis, treatment options, risks; alternatives were [...] occurs, including infections which may necessitate schedule changes. Opiate Controlled Substance Therapy Requirements: Urine Drug Screen: Agree to submit to urine and/or blood screening tests to detect the use of non-prescribed medications, inappropriate pain medication, (including alcohol) or illicit drugs at any time. Psychology Clearance: Opiate controlled substance therapy for chronic pain represents a complex problem that may benefit from physical therapy, psychotherapy, and behavioral medicine strategies. Safety: Patient is aware that driving is prohibited while using opiate medications, muscle relaxants, antidepressants, or antiepileptics. Patients are prohibited to use any sedative hypnotics or sleeping aid, benzodiazepines or barbiturates while on medications from the pain clinic. Controlled substance medications should be in a locked, inaccessible to others, including children. Medication therapy of opiate controlled substance, muscle relaxant, antidepressant, antiepileptic, benzodiazepine, tranquilizer, or sedative may cause: Psychological dependence (addiction) to controlled substances that will require participation in any treatment program prescribed at facilities, which may include; ?? detoxification and/or ?? psychological, and medical treatment 2. multiple side effects include: - respiratory depression or failure that may lead to sudden . - intractable constipation that may cause bowel impaction or obstruction, which may require surgery. - urinary retention that may lead to renal problems - decrease of hormone levels with possible impotence, decreased libido, or sexual dysfunction. - Methadone or various antidepressants may cause heart arrhythmias that may lead to . - withdrawal symptoms such as, abdominal cramps, sweats, chills, generalized aching, and sudden . - sedation caused by medications: opiates (oral, patch, or infusion pump) muscle relaxants, anti-epileptic, benzodiazapines, antidepressants, sedatives, and/or tranquilizers, the drug senior microsoft net developer, recommends not operating ANY machinery or ANY form of motorized equipment (this includes a motor vehicle). - sedation from medications may cause increase risk of falls which requires 24 hrs supervision when starting a new medication. - any other side effects that may require immediate ER medical attention. - Patient is aware the possible of developing seriotonin syndrome while being on various antidepressants or tramadol type medications which may lead to sudden . [facility]
--- NOTE | 2024-09-02 18:33 | RAD REPORT ---
EXAM: Foot Left 3 View HISTORY: SWELLING COMPARISON: 08/11/2023 FINDINGS: Bones: No acute fracture identified. 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 Interpretation of the fourth toe at the level of the MTP joint. Alignment:No significant malalignment. Degenerative changes:None significant. Other: n/a IMPRESSION: No evidence of acute osseous abnormality involving the imaged foot. Postoperative changes. No radiogr aphic evidence of osteomyelitis.
--- NOTE | 2024-09-02 19:48 | RAD REPORT ---
EXAM: Chest Single View HISTORY: left foot infection COMPARISON: 08/15/2023 FINDINGS: LUNGS/PLEURA: Increased hazy opacities bilaterally. No gertrudis consolidation.. MEDIASTINUM: The mediastinal silhouette is within normal limits. CARDIAC: The cardiac silhouette is within normal limits. UPPER ABDOMEN: No significant abnormality. BONES: No acute abnormality. LINES/TUBES/OTHER: N/A IMPRESSION: Increased hazy opacities bilaterally could be due to overlapping soft tissues versus edema. A standar d PA and lateral could further evaluate.
[2024-09-02 19:50] LABS: Specific Gravity 1.008 (1.005-1.030); Sqamous Epithelial <5 /HPF (None Seen); Urine Bacteria <20 /HPF (<20); Urine Bilirubin NEGATIVE (Negative); Urine Blood Negative (Negative); Urine Clarity Turbid (Clear); Urine Color Colorless (Yellow); Urine Crystals Unidentified Few /HPF (None Seen); Urine Culture Reflex Order NOT NEEDED; Urine Glucose 4+ (Over) (Negative); Urine Ketones NEGATIVE (Negative); Urine Microscopic Reflex YN ORDER UMIC; Urine Mucus Slight /HPF (None Seen); Urine Nitrite 1+ (Negative); Urine Protein NEGATIVE (Negative); Urine RBC <5 /HPF (None Seen); Urine Urobilinogen Normal (Normal); Urine WBC Clump Rare /HPF (None Seen); Urine Yeast (Budding) Trace /HPF (None Seen)
[2024-09-02 19:50] LABS: Absolute Basophils 0.1 K/uL (0-0.5); Absolute Eosinophils 0.2 K/uL (0-0.5); Absolute Lymphocytes (CBC) 2.7 K/uL (0.7-4.9); Absolute Monocytes 0.6 K/uL (0.1-1.3); Absolute Neutrophil 5.1 K/uL (1.8-8.0); Basophils % 0.6 % (0-1.3); Eosinophils % 2.6 % (0-4.4); Hemoglobin 14.9 g/dL (12.0-15.0); Lymphocytes % 31.5 % (15.3-44.8); MCH 30.9 pg (27.0-35.0); MCHC 34.6 g/dL (32.0-36.0); MCV 89.2 fL (80-100); MPV 9.7 fL (7.6-11.3); Neutrophils % 58.3 % (41.7-73.7); Nucleated Red Blood Cells % 0.2 % (0-0); Platelets 239 thou/uL (152-406); RBC Red Blood Cell Count 4.82 M/uL (3.86-4.86); Red Cell Distribution Width 13.5 % (12.1-15.2)
[2024-09-02] MEDS ORDERED: Meropenem 1000 MG/VIAL IV ONE (19:50)
[2024-09-02 19:57] LABS: PTT, Activated Partial Thromb 30.2 SECONDS (24.3-36.9); Protime INR 1.05
--- NOTE | 2024-09-02 20:05 | EDPHYS ---
Physician Documentation [facility] Name: Nohelia Llanes Age: 48 yrs Sex: Female : 1975 Arrival Date: 09/02/2024 Time: 17:24 Bed 20 Private MD: ED Physician Rambo Rey HPI: 09/02 18:10 This 48 yrs old Female presents to ER via Wheelchair with complaints of Wound Check - cp left foot. 18:10 The patient presents with tenderness, wound. cp 18:10 The complaints affect the left foot. Context: resulted from an unknown cause, the cp patient can fully bear weight. Onset: The symptoms/episode began/occurred 1 week(s) ago. Associated signs and symptoms: Pertinent negatives: fever. Patient with history of left fourth toe amputation. Reports new wound at amputation site. 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 - Infectious Disease History:: Denies. - Social history:: Smoking status: Patient reports the use of cigarette tobacco products, smokes one pack cigarettes per day. ROS: 18:15 MS/extremity: Positive for of the left foot, open wound, cp 18:15 Eyes: Negative for injury, pain, redness, and discharge, cp 18:15 Constitutional: Negative for body aches, chills, fever, poor PO intake, 18:15 ENT: Negative for drainage from ear(s), ear pain, sore throat, difficulty swallowing, difficulty handling secretions, 18:15 Cardiovascular: Negative for chest pain, palpitations, 18:15 Respiratory: Negative for cough, shortness of breath, wheezing, 18:15 Abdomen/GI: Negative for abdominal pain, vomiting, diarrhea, constipation, 18:15 Neuro: Negative for altered mental status, dizziness, headache, weakness, 18:15 All other systems are negative, Exam: 18:20 Constitutional: The patient appears in no acute distress, alert, awake, cp non-diaphoretic, non-toxic, well developed, well nourished, 18:20 Head/Face: Normocephalic, atraumatic. cp 18:20 Eyes: Periorbital structures: appear normal, Conjunctiva: normal, no exudate, no injection, Sclera: no appreciated abnormality, Lids and lashes: appear normal, bilaterally, 18:20 ENT: External ear(s): are unremarkable, Nose: is normal, Mouth: Lips: moist, Oral mucosa: moist, Posterior pharynx: is normal, airway is patent, no erythema, no exudate, 18:20 Neck: ROM/movement: is normal, is supple, without pain, no range of motions limitations, 18:20 Chest/axilla: Inspection: normal, 18:20 Cardiovascular: Rate: normal, Rhythm: regular, Edema: is not appreciated, JVD: is not appreciated, 18:20 Respiratory: the patient does not display signs of respiratory distress, Respirations: normal, no use of accessory muscles, no retractions, labored breathing, is not present, Breath sounds: are clear throughout, no decreased breath sounds, 18:20 Abdomen/GI: Exam negative for discomfort, distension, guarding, Inspection: abdomen appears normal, 18:20 Back: pain, is absent, ROM is normal, 18:20 Musculoskeletal/extremity: Extremities: noted in the left foot: tender, fluctuant area noted at amputation site, no active drainage, mild advancing erythema. fourth toe surgically absent, Perfusion: the extremity is normally perfused throughout, the left foot Sensation intact. 20:14 ECG was reviewed by the Attending Physician. cp Vital Signs: 17:40 BP 160 / 82; Pulse 86; Resp 15; Temp 97.8(O); Pulse Ox 99% on R/A; Weight 74.84 kg; cm10 Height 5 ft. 4 in. ; Pain 0/10; 19:38 BP 148 / 74; Pulse 87; Resp 17; Temp 98.2; Pulse Ox 99% on R/A; rg5 20:16 BP 147 / 77; Pulse 78; Resp 18; Pulse Ox 97% on R/A; rg5 21:30 BP 159 / 99; Pulse 81; Resp 17; Pulse Ox 96% on R/A; Pain 0/10; rg5 22:00 BP 134 / 76; Pulse 82; Resp 17; Pulse Ox 98% on R/A; Pain 0/10; rg5 17:40 Body Mass Index 28.32 (74.84 kg, 162.56 cm) cm10 17:40 Pain Scale: Adult cm10 21:30 Pain Scale: Adult rg5 22:00 Pain Scale: Adult rg5 MDM: 18:30 Differential diagnosis: cellulitis, abscess, osteomyelitis, sepsis. 19:05 Management of patient was discussed with the following: Pedicab Driver: DR Miner who will consult for surgery after discussion. 20:05 Medical Screening Exam initiated 20:10 Management of patient was discussed with the following: Hospitalist: DR Infante will admit after discussion. 20:25 Data reviewed: vital signs, nurses notes, lab test result(s), EKG, radiologic studies, cp plain films, and as a result, I will admit patient. 20:25 I considered the following discharge prescriptions or medication management in the emergency department Medications were administered in the Emergency Department. See MAR. Independent interpretation of the following test(s) in the Emergency Department EKG: See my EKG interpretation above. Counseling: I had a detailed discussion with the patient and/or guardian regarding the historical points, exam findings, and any diagnostic results supporting the discharge/admit diagnosis, lab results, radiology results, the need for further work-up and treatment in the hospital. 09/02 19:02 Order name: Blood Culture Adult (2) 09/02 19:02 Order name: CBC with Diff; Complete Time: 19:55 09/02 19:55 Interpretation: Reviewed. 09/02 19:02 Order name: CMP 09/02 20:22 Interpretation: Normal except: NA 134; GLUC 372; AST 14; ALB 3.1; GLOB 3.7; A/G 0.8. 09/02 19:02 Order name: Lactate w/ 2H reflex if indic.; Complete Time: 20:22 09/02 19:02 Order name: Protime (+inr); Complete Time: 20:22 09/02 19:02 Order name: Ptt, Activated; Complete Time: 20:22 09/02 19:02 Order name: Urinalysis w/ reflexes; Complete Time: 19:55 09/02 19:55 Interpretation: Normal except: [facility] Turbid; UGLUC 4+ (Over); UNIT 1+; UESTR 25; BYST cp Trace. 09/02 19:02 Order name: CRP cp 09/02 20:22 Interpretation: Abnormal: C-REACTIVE PROT 10.10. cp 09/02 21:32 Order name: Creatine Phosphokinase EDCT 09/02 21:32 Order name: CBC with Automated Diff EDMS 09/02 21:32 Order name: CBC with Automated Diff EDCT 09/02 21:32 Order name: Comprehensive Metabolic Panel EDCT 09/02 21:32 Order name: Comprehensive Metabolic Panel EDCT 09/02 18:00 Order name: XRAY Foot LEFT 3 View; Complete Time: 18:44 cp 09/02 19:02 Order name: Chest Single View XRAY; Complete Time: 19:55 cp 09/02 21:35 Order name: CT LEFT FOOT WO CONTRAST EDCT 09/02 22:19 Order name: CT EDCT 09/02 19:02 Order name: EKG; Complete Time: 19:03 cp 09/02 21:32 Order name: CONS Physician Consult EDCT 09/02 19:02 Order name: Accucheck; Complete Time: 20:00 cp 09/02 19:02 Order name: Cardiac monitoring; Complete Time: 19:37 cp 09/02 19:02 Order name: EKG - Nurse/Tech; Complete Time: 19:37 cp 09/02 19:02 Order name: IV Saline Lock - Large Bore; Complete Time: 19:38 cp 09/02 19:02 Order name: Labs collected and sent; Complete Time: 19:38 cp 09/02 19:02 Order name: O2 Per Protocol; Complete Time: 19:38 cp 09/02 19:02 Order name: O2 Sat Monitoring; Complete Time: 19:38 cp 09/02 19:02 Order name: Vital Signs; Complete Time: 19:38 cp EC:14 Rate is 77 beats/min. Rhythm is regular. SD interval is normal. QRS interval is normal. cp QT interval is normal. T waves are Inverted in leads aVL, aVR. Interpreted by me. Reviewed by me. Administered Medications: 19:39 Not Given (Physician Discretion): [id number] mg IVPB once over 30 mins; (mix in 50 cp mL) 19:59 Drug: Meropenem IV 1 grams IV at calculated rate once; (mix in NS 100 mL) Route: IV; rg5 Rate: calculated rate; Site: right forearm; 20:38 Follow up: IV Status: Completed infusion; IV Intake: 100ml rg5 Disposition Summary: 09/02/24 20:05 Hospitalization Ordered Notes: Hospitalization Status: Inpatient Admission cp Provider: Oren Infante cp Location: Telemetry/MedSurg (Inpatient) cp Condition: Stable cp Problem: new cp Symptoms: have improved cp Bed/Room Type: Standard cp Room Assignment: 231(09/02/24 21:43) rv1 Diagnosis - Cellulitis of left lower limb cp - Cutaneous abscess of left foot cp Forms: - Medication Reconciliation Form cp - SBAR form cp - Leadership Thank You Letter cp Addendum: 09/04/2024 17:40 I was immediately available for consultation during this patient's visit. I did not e c2 personally see the patient or discuss the patient with the LIZBETH. . Signatures: Dispatcher [employer] EDMS Danish Smalls PA PA cp Selina Mclain rv1 Tess Miner RN RN cm10 Rambo Rey MD MD ec2 Mayo Valencia RN RN rg5 Corrections: (The following items were deleted from the chart) 09/02 21:43 20:05 cp rv1
--- NOTE | 2024-09-02 20:05 | ER ---
Nurse's Notes [facility] Name: Nohelia Llanes Age: 48 yrs Sex: Female : 1975 Arrival Date: 09/02/2024 Time: 17:24 Bed 20 Private MD: Diagnosis: Cellulitis of left lower limb;Cutaneous abscess of left foot Presentation: 09/02 17:40 Chief complaint: Patient states: Wound to bottom of left foot onset 1 week ago. Pt cm10 denies drainage from wound. No fever or chills. Coronavirus screen: Client denies travel out of the [place] in the last 14 days. Ebola Screen: Patient denies travel to an Ebola-affected area in the 21 days before illness onset. Initial Sepsis Screen: Does the patient meet any 2 criteria? No. Patient's initial sepsis screen is negative. Does the patient have a suspected source of infection? No. Patient's initial sepsis screen is negative. Risk Assessment: Do you want to hurt yourself or someone else? Patient reports no desire to harm self or others. Onset of symptoms was September 02, 2024. 17:40 Method Of Arrival: Wheelchair cm10 17:40 Acuity: ALISIA 4 cm10 Triage Assessment: 17:41 General: Appears in no apparent distress. uncomfortable, Behavior is calm, cooperative. cm10 Neuro: No deficits noted. Level of Consciousness is awake, alert, obeys commands, Oriented to person, place, time, situation, Appropriate for age. Respiratory: No deficits noted. Airway is patent Respiratory effort is even, unlabored, Respiratory pattern is regular, symmetrical. Derm: Wound noted left foot. 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 - Infectious Disease History:: Denies. - Social history:: Smoking status: Patient reports the use of cigarette tobacco products, smokes one pack cigarettes per day. Screenin:45 [facility] ED Fall Risk Assessment (Adult) History of falling in the last 3 months, kc6 including since admission No falls in past 3 months (0 pts) Confusion or Disorientation No (0 pts) Intoxicated or Sedated No (0 pts) Impaired Gait No (0 pts) Mobility Assist Device Used No (0 pt) Altered Elimination No (0 pt) Score/Fall Risk Level 0 - 2 = Low Risk Oriented to surroundings, Maintained a safe environment, Educated pt \T\ family on fall prevention, incl call for assistance when getting out of bed. Abuse screen: Denies threats or abuse. Denies injuries from another. Nutritional screening: No deficits noted. Tuberculosis screening: No symptoms or risk factors identified. Assessment: 18:24 General: Appears in no apparent distress. comfortable, well groomed, well developed, kc6 Behavior is calm, cooperative, appropriate for age. Pain: Complains of pain in left foot. Neuro: Level of Consciousness is awake, alert, obeys commands, Oriented to person, place, time, situation, Appropriate for age. Cardiovascular: Capillary refill < 3 seconds. Respiratory: Airway is patent Trachea midline Respiratory effort is even, unlabored, Respiratory pattern is regular, symmetrical. GI: No signs and/or symptoms were reported involving the gastrointestinal system. : No signs and/or symptoms were reported regarding the genitourinary system. EENT: No signs and/or symptoms were reported regarding the EENT system. Derm: Skin is healthy with good turgor, Skin is pink, warm \T\ dry. Wound noted left foot. Musculoskeletal: No signs and/or symptoms reported regarding the musculoskeletal system. Circulation, motion, and sensation intact. Range of motion: intact in all extremities. 19:05 Reassessment: No changes from previously documented assessment. Patient and/or family rg5 updated on plan of care and expected duration. Pain level reassessed. 20:34 Reassessment: No changes from previously documented assessment. Patient is alert, rg5 oriented x 3, equal unlabored respirations, skin warm/dry/pink. 21:30 Reassessment: No changes from previously documented assessment. Patient and/or family rg5 updated on plan of care and expected duration. Pain level reassessed. Patient is alert, oriented x 3, equal unlabored respirations, skin warm/dry/pink. 22:00 Reassessment: Patient and/or family updated on plan of care and expected duration. Pain rg5 level reassessed. Patient is alert, oriented x 3, equal unlabored respirations, skin warm/dry/pink. Patient states feeling better. Vital Signs: 17:40 BP 160 / 82; Pulse 86; Resp 15; Temp 97.8(O); Pulse Ox 99% on R/A; Weight 74.84 kg; cm10 Height 5 ft. 4 in. ; Pain 0/10; 19:38 BP 148 / 74; Pulse 87; Resp 17; Temp 98.2; Pulse Ox 99% on R/A; rg5 20:16 BP 147 / 77; Pulse 78; Resp 18; Pulse Ox 97% on R/A; rg5 21:30 BP 159 / 99; Pulse 81; Resp 17; Pulse Ox 96% on R/A; Pain 0/10; rg5 22:00 BP 134 / 76; Pulse 82; Resp 17; Pulse Ox 98% on R/A; Pain 0/10; rg5 17:40 Body Mass Index 28.32 (74.84 kg, 162.56 cm) cm10 17:40 Pain Scale: Adult cm10 21:30 Pain Scale: Adult rg5 22:00 Pain Scale: Adult rg5 ED Course: 17:28 Patient arrived in ED. im 17:30 Danish Smalls PA is PHCP. cp 17:30 Rambo Rey MD is Attending Physician. cp 17:34 Hazel Price, DARRICK is Primary Nurse. kc6 17:41 Triage completed. cm10 17:41 Arm band placed on right wrist. Patient placed in an exam room, on a stretcher, on cm10 pulse oximetry. 17:45 Patient has correct armband on for positive identification. Bed in low position. Call kc6 light in reach. Side rails up X 1. Adult w/ patient. Pulse ox on. NIBP on. Door closed. Noise minimized. Lights dimmed. Warm blanket given. Pillow given. 18:19 XRAY Foot LEFT 3 View In Process Unspecified. EDMS 18:23 Patient maintains SpO2 saturation greater than 95% on room air. kc6 19:38 Chest Single View XRAY In Process Unspecified. EDMS 20:04 Oren Infante MD is Hospitalizing Provider. cp 20:35 Provided Education on: needs for admit. rg5 20:35 No provider procedures requiring assistance completed. rg5 22:31 Patient admitted, IV remains in place. intact. rg5 Administered Medications: 19:39 Not Given (Physician Discretion): [id number] mg IVPB once over 30 mins; (mix in 50 cp mL) 19:59 Drug: Meropenem IV 1 grams IV at calculated rate once; (mix in NS 100 mL) Route: IV; rg5 Rate: calculated rate; Site: right forearm; 20:38 Follow up: IV Status: Completed infusion; IV Intake: 100ml rg5 Medication: 20:35 VIS not applicable for this client. rg5 Intake: 20:38 IV: 100ml; Total: 100ml. rg5 Outcome: 20:05 Decision to Hospitalize by Provider. cp 22:31 Admitted to Med/surg accompanied by jess, rg5 22:31 Condition: stable 22:31 Instructed on the need for admit, 22:31 Patient left the ED. rg5 Signatures: Dispatcher [employer] EDMS Danish Smalls PA PA cp Campbell, Kaitlyn, RN RN kc6 Luz Maria Horn Clarissa, RN RN cm10 Mayo Valencia RN RN rg5
[2024-09-02 20:15] LABS: Albumin 3.1 g/dL (3.4-5.0); Albumin/Globulin Ratio 0.8 (1.1-1.8); Anion Gap 8.5 mEq/L (5.0-15.0); Bilirubin Total 0.5 mg/dL (0.2-1.0); C-Reactive Protein 10.1 mg/L (<3.00); Globulin 3.7 g/dL (2.3-3.5); Protein, Total 6.8 g/dL (6.4-8.2)
[2024-09-02 20:17] LABS: Potassium 3.5 mEq/L (3.5-5.1)
--- NOTE | 2024-09-02 21:18 | P.HP ---
Certification for Inpatient With expected LOS: >2 Midnights Patient will require the following post-hospital care: None Practitioner: I am a practitioner with admitting privileges, knowledge of patient current condition, hospital course, and medical plan of care. Services: Services provided to patient in accordance with Admission requirements found in Title 42 Section 412.3 of the Code of Federal Regulations Patient History Date of Service: 09/02/24 History of Present Illness: 48-year-old female with past medical history of HTN, DM, PVD, DM neuropathy, status post left foot fifth toe amputation 2 years ago, presented after developing wound over the distal left foot fourth plantar surface with draining ulcer since the last 1 week. Patient admits to pain with ambulation patient denies any fever or chills. She denies any nausea or vomiting. She states symptoms appear to be getting worse with worsening pain at rest over the ulcer area. She presented because of worsening symptoms. Arrival in the ED vital signs were stable afebrile, CBC shows no WBC elevation, x-ray of the left foot shows periostitis changes of the left foot fourth digit. No evidence of osteomyelitis. General surgery Dr. Miner has been discussed with him plan for debridement of the wound on Monday. Patient has been admitted for further evaluation. Allergies meperidine HCl [From Demerol] Allergy (Severe, Verified 12/03/20 00:43) Itching/Hives/Rash propoxyphene [From Darvocet-N 100] Allergy (Severe, Verified 12/03/20 00:43) Itching/Hives/Rash acetaminophen [From Darvocet-N 100] Allergy (Intermediate, Verified 12/03/20 00:43) Itching/Hives/Rash cephalexin monohydrate [From Keflex] Allergy (Intermediate, Verified 12/03/20 00:43) Itching/Hives/Rash vancomycin Allergy (Intermediate, Verified 04/21/23 00:58) Itching Penicillins Allergy (Intermediate, Uncoded 07/31/20 14:20) Itching Home Medications: Atorvastatin Calcium 1 tab PO BEDTIME 08/11/23 Duloxetine HCl 120 mg PO DAILY 08/11/23 Gabapentin 2 tab PO TID PRN 08/11/23 Hydrocodone Bit/Acetaminophen [[place] 10-325 Tablet] 1 tab PO Q8H PRN 08/11/23 Metformin HCl 1 tab PO BID 08/11/23 glipiZIDE [Glipizide] 1 tab PO DAILY 08/11/23 Linezolid [Zyvox*] 600 mg PO BID 42 Days #84 tab 08/16/23 Nicotine [Nicoderm*] 14 mg TD DAILY 42 Days #42 patch 08/16/23 - Past Medical/Surgical History Diabetic: Yes -: Neuropathy -: Mitral valve prolapse -: Diabetes -: HLD -: Cholecystectomy 1996 -: Tubal ligation -: -: Left 4th toe Amputation - Family History Father -: Hypertension, Stroke, Other (see notes) Notes: PVD Mother -: Hypertension, Diabetes - Social History Smoking Status: Current every day smoker Smoking therapy provided: Yes Patient receptive to therapy: Yes Alcohol use: Yes CD- Drugs: No Caffeine use: Yes Place of Residence: Home Review of Systems General: Weakness Musculoskeletal: Foot Pain Physical Examination - Physical Exam General: Alert, In no apparent distress, Oriented x3, Cooperative HEENT: Atraumatic, Normocephalic, PERRLA, Mucous membr. moist/pink Neck: Supple, 2+ carotid pulse no bruit, JVD not distended Respiratory: Clear to auscultation bilaterally, Normal air movement Cardiovascular: Normal pulses, Regular rate/rhythm, Normal S1 S2 Capillary refill: <2 Seconds Gastrointestinal: Normal bowel sounds, Soft and benign, Non-distended, No ascites, No tenderness Musculoskeletal: Swelling, Erythema (left foot 4th MTP joint plantar surface ), Tenderness Integumentary: Skin breakdown, Diabetic ulcer Neurological: Normal speech, Normal strength at 5/5 x4 extr, Normal tone, Cranial nerves 3-12 intact, Abnormal gait (limping ) - Studies Laboratory Data (last 24 hrs) 09/02/24 09/02/24 09/02/24 19:30 19:15 19:15 WBC 8.70 Hgb 14.9 Hct 43.0 Plt Count 239 PT 11.0 INR 1.05 APTT 30.2 Sodium 134 L Potassium 3.5 BUN 10 Creatinine 0.64 Glucose 372 H Total Bilirubin 0.5 AST 14 L ALT 24 Alkaline Phosphatase 90 Assessment and Plan - Problems (Diagnosis) (1) Diabetic ulcer of left foot Current Visit: No Status: Acute (2) Peripheral neuropathy Current Visit: No Status: Acute (3) Hyperlipidemia Current Visit: No Status: Chronic Qualifiers: - Plan Impression Left foot fourth metatarsal wound with cellulitisrule out osteomyelitis, of the digits Diabetic neuropathy Hypertension DM Chronic tobacco use Abnormal UA Plan Will admit patient to inpatient status Start gentle IV fluid Start meropenem every 8 as well as Levaquin General Surgery consult with Dr. Miner Wound care Obtain MRI of the left foot to rule out osteomyelitis-if unable will obtain CT of the foot DM Insulin sliding scale with Accu-Cheks Resume home medication regimen ADA diet Chronic tobacco usecessation advised, start nicotine patch Hypertensionnot on any meds, IV hydralazine as needed for now Abnormal UApositive leukocyte esterase but asymptomatic, will monitor for now DVT prophylaxissubcutaneous Lovenox Advanced directivefull code Disposition possible hospital stay for 48 to 72 hours - Advance Directives Does patient have a Living Will: No Does patient have a Durable POA for Healthcare: No - Code Status/Comfort Care Code Status: Full Code Time Spent Managing Pts Care (In Minutes): 65
[2024-09-02] MEDS ORDERED: ONDANSETRON 4 MG/2 ML VIAL IV PRN (21:21)
[2024-09-02] MEDS ORDERED: MORPHINE 2 MG/ML SYR IV PRN (21:21)
[2024-09-02] MEDS ORDERED: GLUCAGON 1 MG/VIAL IM PRN (21:21)
[2024-09-02] MEDS ORDERED: ACETAMINOPHEN 500 MG TAB PO PRN (21:21)
[2024-09-02] MEDS ORDERED: D10W 125 ML IV PRN (21:21)
[2024-09-02] MEDS ORDERED: ALBUTEROL 2.5 MG/3 ML NEB SOL NEB PRN (21:21)
[2024-09-02] MEDS ORDERED: HYDRALAZINE HCL 20 MG/ML VIAL IV PRN (21:26)
[2024-09-02] MEDS ORDERED: MELATONIN 3 MG TABLET PO PRN (21:26)
[2024-09-02] MEDS ORDERED: Oxycodone HCl/Acetaminophen 5/325 MG TAB PO PRN (21:26)
--- NOTE | 2024-09-02 22:19 | RAD REPORT ---
EXAMINATION: Foot Left W Contrast CLINICAL INDICATION: Female, 48 years old.Suspected left foot osteomyelitis TECHNIQUE: CT above extremity was performed with contrast. Reformats were performed. One or more of t he following dose reduction techniques were used: Automated exposure control, adjustment of the mA and/or kV according to patient size, and/or iterative reconstruction. Unless otherwise specified, inc idental findings do not require dedicated imaging follow-up. [id number]. COMPARISON: Same-day radiographs FINDINGS: Enhancing fluid present at the fourth metatarsal head measuring approximately 15 x 13 mm. Surgical ch anges from amputation at the level of the fourth MTP. This also been prior surgical changes at the fifth metatarsal. No definite destructive osseous changes at the first metatarsal to suggest osteomye litis. There is a small ulceration and fluid collection at the operative site at the fifth metatarsal measuring 7 x 4 mm. See image 87, series 204. There is a superficial fluid collection at t he distal aspect of the left foot overlying the fourth metatarsal measuring approximately 3.9 x 2.3 cm. This is of indeterminate sterility. No fractures identified. IMPRESSION: 1. Status post partial amputation of the fourth toe at the level of the MTP joint. A fluid collection at the tip of the fourth metatarsal is present that is of indeterminate sterility. There has likely been some operative changes at the metatarsal head but no overt evidence of osteomyelitis. 2. Post operative changes from partial resection of the fifth metatarsal. A small enhancing fluid col lection is present near the operative bed which is of indeterminate sterility. 3. Superficial fluid collection along the stump overlying the fourth toe operative site that has inde terminate sterility. 4. No acute fracture.
[2024-09-02 22:49] VITALS: BMI 28.5
[2024-09-03] MEDS: Levofloxacin500mg IV 500 MG/100 ML BAG IV SCH
[2024-09-03] MEDS: NA CHLORIDE 0.9% 1,000 ML IV SCH (00:01)
[2024-09-03] MEDS ORDERED: HYDROCODONE/APAP 10/325 TAB PO PRN (00:02)
[2024-09-03] MEDS ORDERED: MORPHINE 2 MG/ML SYR IV PRN (00:03)
[2024-09-03] MEDS: HYDROCODONE/APAP 10/325 TAB PO PRN (04:24)
[2024-09-03] MEDS: GABAPENTIN 400 MG CAP PO PRN (04:26)
[2024-09-03 04:55] LABS: Absolute Eosinophils 0.2 K/uL (0-0.5); Absolute Monocytes 0.7 K/uL (0.1-1.3); Absolute Neutrophil 4.8 K/uL (1.8-8.0); Basophils % 0.4 % (0-1.3); Eosinophils % 2.6 % (0-4.4); Hematocrit 43.3 % (36.0-45.0); Lymphocytes % 33.8 % (15.3-44.8); MCH 30.8 pg (27.0-35.0); MCHC 34.7 g/dL (32.0-36.0); MCV 88.6 fL (80-100); MPV 9.3 fL (7.6-11.3); Monocytes % 8.1 % (3.3-12.3); Neutrophils % 55.1 % (41.7-73.7); Nucleated Red Blood Cells % 0.1 % (0-0); Platelets 235 thou/uL (152-406); RBC Red Blood Cell Count 4.89 M/uL (3.86-4.86); Red Cell Distribution Width 13.8 % (12.1-15.2)
[2024-09-03 05:25] LABS: Albumin 2.8 g/dL (3.4-5.0); Albumin/Globulin Ratio 0.7 (1.1-1.8); Bilirubin Total 0.5 mg/dL (0.2-1.0); Protein, Total 6.8 g/dL (6.4-8.2)
[2024-09-03] MEDS: FLU (Fluarix Triv) TS24-25(6MOS UP)/PF 45 MCG/0.5 ML Syringe IM ONE (07:00)
[2024-09-03] MEDS: glipiZIDE 5 MG TAB PO SCH (07:30)
[2024-09-03] MEDS: INSULIN REGULAR (HUMAN) 100 UNIT/ML SQ SCH (07:30)
[2024-09-03] MEDS: METFORMIN HCL 500 MG TAB PO SCH (08:00)
[2024-09-03] MEDS: FAMOTIDINE 20 MG TAB PO SCH (09:00)
[2024-09-03] MEDS: DULOXETINE 30 MG CAP PO SCH (09:00)
[2024-09-03] MEDS: ENOXAPARIN 40 MG/0.4 ML SQ SCH (09:00)
[2024-09-03] MEDS: NICOTINE 14 MG/PAT TD SCH (09:00)
[2024-09-03] MEDS: Meropenem 1,000 MG in NA CHLORIDE 0.9% 100 ML IV SCH (10:23)
--- NOTE | 2024-09-03 17:47 | P.PN ---
Subjective Date of Service: 09/03/24 Patient has no new complaint. No recorded fever. She states that she has no recollection of how she developed a blister on the tip of her left fourth amputation stump. Physical Examination - Vital Signs Temperature: 98.5 F Blood Pressure: 145/70 Pulse: 82 Respirations: 16 Pulse Ox (%): 98 - Studies Laboratory Data (last 24 hrs) 09/02/24 09/02/24 09/02/24 19:30 19:15 19:15 WBC 8.70 Hgb 14.9 Hct 43.0 Plt Count 239 PT 11.0 INR 1.05 APTT 30.2 Sodium 134 L Potassium 3.5 BUN 10 Creatinine 0.64 Glucose 372 H Total Bilirubin 0.5 AST 14 L ALT 24 Alkaline Phosphatase 90 Assessment And Plan - Plan Physical examination General: Alert and oriented x3, NAD, HEENT: Conjunctiva not pale, anicteric sclera Neck: Supple, no elevated JVD Heart: Heart sounds 1 and 2 normal, regular rhythm, normal rate, no pedal edema Lungs: Clear to auscultation bilaterally, adequate breath sounds bilaterally, no rhonchi or crackles. Abdomen: Soft, nondistended, nontender, normal bowel sounds. Extremities: No tenderness, left fourth amputated toe stump with fluctuant blister. No open wound. Skin: Normal skin turgor, no rash, no nodules or ulcers. Neuro: No focal motor deficit. Normal speech. Psychiatry: Normal mood, no agitation. Diagnosis Left foot fourth toe amputation stump with blister. Diabetic neuropathy Hypertension DM Chronic tobacco use Plan Left foot fourth toe amputation stump blister Patient's wound abscess and wound cultures have grown Enterobacter. Continue IV meropenem and Levaquin General Surgery Dr. Miner consulted. No open wound for now. CT the foot did not show any significant evidence of osteomyelitis. MRI of the left foot to rule out osteomyelitis. DM type II Insulin sliding scale with Accu-Cheks ADA diet Chronic tobacco use cessation advised, start nicotine patch Hypertension not on any meds. IV hydralazine as needed for now DVT prophylaxis: subcutaneous Lovenox Advanced directive: full code
[2024-09-03] MEDS: ATORVASTATIN 10 MG TAB PO SCH (21:26)
[2024-09-03] MEDS: Levofloxacin 250mg IV 500 MG/100 ML BAG IV SCH ×2 (22:00→23:55)
--- NOTE | 2024-09-03 22:25 | CON ---
Date of Consultation: 09/03/2024 Diagnosis: Left foot cellulitis. Indications: This is a case of a 48-year-old patient with diabetes, in the last few days developed s welling and erythema over the left foot region. Diagnosed with cellulitis, possible abscess, admittisaura truong to the hospital for IV antibiotics, and surgical consult was obtained for possible I and D or jana henley, the patient has not in the past. Several years ago, she has an amputation of the fourth toe over that region. She said in the last few days, she noticed a small blister and then that developed into erythema. She has been trying to be careful over the last few years, but this time she just no ticed that small opening and decided to come to the ER. Allergies: INCLUDE DEMEROL, DARVOCET, KEFLEX, VANCOMYCIN, PENICILLIN. Medications: Gabapentin, hydrocodone, metformin, glipizide, Zyvox, Nicoderm. Past Medical History: Include neuropathy, mitral valve prolapse, diabetes. Past Surgical History: Include cholecystectomy, tubal ligation, , amputation of the left fo ot fourth toe. Family History: Includes hypertension, stroke. Social History: She smokes, she was advised the importance of a smoke cessation. She drinks alcohol occasionally. Review of Systems: Left foot pain and erythema. No nausea, vomiting. No shortness of breath. No chest pain. Review o f systems ten points otherwise unremarkable. Physical Examination: Vital Signs: Stable. General: The patient is awake, alert. HEENT: Pupils are equal and reactive. Anicteric. Neck: Supple. Chest: Clear. Heart: S1, S2. Abdomen: Soft and depressible. Extremities: Over the left foot, the patient has swelling, erythema, some fluctuance starting to dev elop and I believe she is developing an abscess in that region, it is on the area of the dorsum and p lantar abscess of the lateral foot. There is a small opening on the bottom of that plantar region, p robably the source of this infection. Dorsalis pedis pulses still present, although diminished. Laboratory Data: Blood work shows WBC count of 8.7, hemoglobin of 14.9, and platelets 239, INR of 1. 05, potassium 4.0, glucose 296, total bilirubin of 0.5. Foot x-ray and CT shows fluid collection of the area of the fourth metatarsal region. Assessment: This is a 48-year-old with an abscess of the left foot. The patient will need incision and drainage and debridement with benefits, alternatives, and risks including, but not limited to inf ection, bleeding, damage to adjacent structures, anesthesia complication, recurrence, [place], and even de ath. She also understands this may not relieve symptoms. She might need more than one surgical inte rvention and she was advised she may need wound care. She was advised the importance of smoking cess ation and also the importance of diabetes control. HM/MODL Voice ID: [id number] Report ID: [id number]
[2024-09-04 05:40] LABS: Anion Gap 6.5 mEq/L (5.0-15.0); Potassium 3.5 mEq/L (3.5-5.1)
[2024-09-04] MEDS: BUPIVACAINE 0.5% PF 10 ML VIAL ONE (12:52)
[2024-09-04] MEDS ORDERED: propofoL 200 MG/20 ML VIAL IV ONE (13:45)
[2024-09-04] MEDS ORDERED: LIDOCAINE 2% MPF 5 ML VIAL ONE (13:46)
[2024-09-04] MEDS ORDERED: dexAMETHasone 10 MG/ML VIAL ONE (13:46)
[2024-09-04] MEDS ORDERED: KETOROLAC 30 MG/ML INJ ONE (13:46)
[2024-09-04] MEDS ORDERED: FENTANYL CITR 100 MCG/2 ML ONE (13:46)
[2024-09-04] MEDS ORDERED: ONDANSETRON 4 MG/2 ML VIAL ONE (13:46)
[2024-09-04] MEDS ORDERED: MIDAZOLAM HCL 2 MG/2 ML INJ ONE (13:46)
[2024-09-04] MEDS: COLLAGENASE 30 GM OINTMENT TOP ONE (14:38)
--- NOTE | 2024-09-04 14:58 | P.BOP ---
Preoperative diagnosis: celullitis, abscess, necrotic infected diabetic ulcer left foot Postoperative diagnosis: same Primary procedure: Excisional biopsy of necrotic infected diabetic ulcer left foot 4x3cm Estimated blood loss: <10cc Specimen: pus Findings: abscess down to bone, metatarsal head Anesthesia: General Complications: None Transferred to: Recovery Room Condition: Good
--- NOTE | 2024-09-04 16:56 | OP ---
Date of Procedure: 09/04/2024 Surgeon: Case Miner MD Preoperative Diagnosis: Cellulitis and abscess of the left foot. Postoperative Diagnosis: Cellulitis and abscess of the left foot. Procedure: Excisional debridement with drainage of abscess of the left foot, necrotic diabetic ulcer . Anesthesia: General plus local. Complications: None. Findings: The patient has abscess and necrotic tissue present involving the left fourth metatarsal r egion. Complications: None. Indications: This is the case of a 48-year-old with diabetes, known in the past for peripheral vascu lar disease and diabetic ulcer, previous amputation of the toe several years ago. Now comes with an open wound on the base of the foot extending into an abscess into the area of the dorsal aspect of th e foot. The patient was admitted to the hospital and explained the need for debridement and I and D with benefits, alternatives, and risks including, but not limited to infection, bleeding, damage to a djacent structures, anesthesia complication, recurrence, [place], even . She also understands this m ay not relieve symptoms, she might need more than one surgical intervention. She also understands sh e needs to control diabetes, offloading, use diabetic shoes. She understands also that she may need more than one surgical intervention. She signed the consent. Description Of Procedure: The patient was brought to the operating room, placed in supine position. Anesthesia was induced without complication. Foot area was prepped and draped in the usual sterile fashion. A time-out was called. Lidocaine applied. Then, after that with sharp incision, the skin was opened. We noticed the necrotic tissue extending from the dorsum of the foot between third and f ifth toe and then looked like the origin is a plantar ulcer on the head of metatarsal region. When t hat area of necrotic tissue was removed, we could see the bone was nearby in the fourth metatarsal re gion, that clinically may resemble osteomyelitis. The area was profusely irrigated. Hemostasis obta ined. Then, the area was packed with Santyl wet-to-dry. The patient sent to recovery in stable cond ition. HM/MODL Voice ID: [id number] Report ID: [id number]
--- NOTE | 2024-09-04 18:52 | P.PN ---
Subjective Date of Service: 09/04/24 Status post I&D and excisional debridement of left foot fourth toe amputation stump abscess. No recorded fever. Physical Examination - Vital Signs Temperature: 97.1 F Blood Pressure: 120/62 Pulse: 77 Respirations: 16 Pulse Ox (%): 95 Assessment And Plan - Plan Physical examination General: Alert and oriented x3, NAD, Heart: Heart sounds 1 and 2 normal, regular rhythm, normal rate, no pedal edema Lungs: Clear to auscultation bilaterally, adequate breath sounds bilaterally, no rhonchi or crackles. Abdomen: Soft, nondistended, nontender, normal bowel sounds. Extremities: No tenderness, left fourth amputated toe stump with fluctuant blister. Skin: Normal skin turgor, no rash, no nodules or ulcers. Neuro: No focal motor deficit. Normal speech. Psychiatry: Normal mood, no agitation. Diagnosis Left foot fourth toe amputation stump with blister. Diabetic neuropathy Hypertension DM Chronic tobacco use Plan Left foot fourth toe amputation stump blister Patient's previous wound abscess and wound cultures have grown Enterobacter. Continue IV meropenem and Levaquin General Surgery Dr. Miner performed I&D and excisional debridement of the abscess. Possible bone involvement per Dr. Miner Infectious disease consult. Patient will need IV antibiotics for osteomyelitis. DM type II Insulin sliding scale with Accu-Cheks ADA diet Chronic tobacco use cessation advised. Nicotine patch Hypertension not on any meds. Stable BP. IV hydralazine as needed for now DVT prophylaxis: subcutaneous Lovenox Advanced directive: full code
[2024-09-05] MEDS: COLLAGENASE 30 GM OINTMENT TOP SCH (09:13)
--- NOTE | 2024-09-05 11:07 | RAD REPORT ---
Procedure: Chest Single View HISTORY: PICC line placement FINDINGS: A PICC line has its tip in the SVC.
--- NOTE | 2024-09-05 13:01 | EKG ---
Test Date: 2024-09-02 Test Time: 20:10:07 Intranet Support: RAMILA MEASUREMENT RESULTS: Intervals: Rate: 77 [place]: 158 QRSD: 82 QT: 382 QTc: 432 Thompson: P: 60 KY: 158 QRS: 67 T: 79 INTERPRETIVE STATEMENTS: Normal sinus rhythm Normal ECG Compared to ECG 08/11/2023 16:03:59 No significant changes Electronically Signed On 09-05-24 12:58:49 COUPON CLERK by Elvin Arevalo
--- NOTE | 2024-09-05 17:56 | P.PN ---
Subjective Date of Service: 09/05/24 Patient denies any new complaint. She has had no fever. She denies any loss of appetite and eating well. Physical Examination - Vital Signs Temperature: 98.1 F Blood Pressure: 110/53 Pulse: 81 Respirations: 18 Pulse Ox (%): 93 Assessment And Plan - Plan Physical examination General: Alert and oriented x3, NAD, Heart: Heart sounds 1 and 2 normal, regular rhythm, normal rate, no pedal edema Lungs: Clear to auscultation bilaterally, adequate breath sounds bilaterally, no rhonchi or crackles. Abdomen: Soft, nondistended, nontender, normal bowel sounds. Extremities: No tenderness, left fourth amputated toe stump with fluctuant blister. Skin: Normal skin turgor, no rash, no nodules or ulcers. Neuro: No focal motor deficit. Normal speech. Psychiatry: Normal mood, no agitation. Diagnosis Left foot fourth toe amputation stump with blister. Diabetic neuropathy Hypertension DM Chronic tobacco use Plan Left foot fourth toe amputation stump blister Patient's previous wound abscess and wound cultures have grown Enterobacter. Continue IV meropenem, add vancomycin. Levaquin discontinued General Surgery Dr. Miner performed I&D and excisional debridement of the abscess. Possible bone involvement per Dr. Miner. Deep tissue wound cultures pending Infectious disease consult. Patient will need IV antibiotics for osteomyelitis. PICC line placed for outpatient IV antibiotics. DM type II Insulin sliding scale with Accu-Cheks ADA diet Chronic tobacco use cessation advised. Nicotine patch Hypertension not on any meds. Stable BP. IV hydralazine as needed for now DVT prophylaxis: subcutaneous Lovenox Advanced directive: full code
--- NOTE | 2024-09-05 20:20 | PN ---
Date of Progress Note: 09/05/2024 Diagnosis: Cellulitis and abscess of the left foot. Subjective: The patient had debridement yesterday and drainage of the abscess. We noticed the bone to be exposed after necrotic tissue and pus was removed. I did not see any destruction or fracture o f it, but the tip of the metatarsal area was exposed into this abscess and we believe that clinically she may be having osteomyelitis. The patient feels better. Plan: We might have to get an MRI. It is not done yet and then treat the patient maybe clinically b ecause the bone is exposed and I know I cannot tell in Surgery whether it is just exposed to abscess or part of it. I leave that medical decision making to the primary doctor, but a PICC line and long- term antibiotics with Infectious Disease consult may be recommended. TAMI/KELLEY Voice ID: [id number] Report ID: [id number]
[2024-09-05] MEDS: Mupirocin NASAL 2 APPL/1 GM TUBE NAS SCH (21:00)
[2024-09-06] MEDS ORDERED: VANCOMYCIN 1.25 GM in NA CHLORIDE 0.9% 250 ML IVPB SCH (13:40)
[2024-09-06] MEDS ORDERED: VANCOMYCIN 1.5 GM in NA CHLORIDE 0.9% 500 ML IVPB SCH (14:00)
[2024-09-06] MEDS ORDERED: ALBUTEROL 2.5 MG/3 ML NEB SOL NEB PRN (16:30)
[2024-09-06] MEDS: Meropenem 1,000 MG in NA CHLORIDE 0.9% 100 ML IV SCH (17:26)
--- NOTE | 2024-09-06 18:24 | CON ---
History Of Present Illness: This is a 48-year-old woman. I was consulted for osteomyelitis of left foot and cellulitis. The patient is currently on Merrem. Has significant past medical history of neuropathy, mitral valve prolapse, diabetes mellitus, hyperlipidemia, cholecystectomy in 97, tubal ligation, C- section, left fourth toe amputation. Social History: Tobacco positive. Alcohol negative. Family History: Noncontributory. Medications: Meropenem. See MARs for other medications. Allergies: MEPERIDINE, VANCOMYCIN, PENICILLIN, DARVOCET, KEFLEX WITH OSTEOMYELITIS OF LEFT FOOT, SEEN ON SURGICAL NOTE. Assessment And Plan: This is a 48-year-old female with multiple medical problems, currently being treated with meropenem. Consider switching to Levaquin or Cipro for next 42 days. Continue current treatment. Monitor signs of infection with WBC and fever trend. We will follow the patient closely. NF/MODL Voice ID: [id number] Report ID: [id number] VICENTA
--- NOTE | 2024-09-06 18:50 | P.PN ---
Subjective Date of Service: 09/06/24 Patient denies any new complaint. She reports itching with vancomycin and therefore declined to take vancomycin for osteomyelitis. No recorded fever. Physical Examination - Vital Signs Temperature: 98 F Blood Pressure: 132/67 Pulse: 67 Respirations: 16 Pulse Ox (%): 95 Assessment And Plan - Plan Physical examination General: Alert and oriented x3, NAD, Heart: Heart sounds 1 and 2 normal, regular rhythm, normal rate, no pedal edema Lungs: Clear to auscultation bilaterally, adequate breath sounds bilaterally, no rhonchi or crackles. Abdomen: Soft, nondistended, nontender, normal bowel sounds. Extremities: No tenderness, left fourth amputated toe stump with fluctuant blister. Skin: Normal skin turgor, no rash, no nodules or ulcers. Neuro: No focal motor deficit. Normal speech. Psychiatry: Normal mood, no agitation. Diagnosis Left foot fourth toe amputation stump with blister. Diabetic neuropathy Hypertension DM Chronic tobacco use Plan Left foot fourth toe amputation stump blister Patient's previous wound abscess and wound cultures have grown Enterobacter. Deep tissue wound culture showed mixed skin melanie Antibiotics changed from IV meropenem vancomycin to IV Levaquin and Zyvox General Surgery Dr. Miner performed I&D and excisional debridement of the abscess. Possible bone involvement per Dr. Miner. Infectious disease Dr. Miranda evaluated patient and recommend IV Levaquin and vancomycin. However patient reports allergy to vancomycin, so vancomycin changed to Zyvox for outpatient treatment of the osteomyelitis. PICC line placed for outpatient IV antibiotics. human services manager assisting with arrangement for outpatient IV antibiotics. DM type II Insulin sliding scale with Accu-Cheks ADA diet Chronic tobacco use cessation advised. Nicotine patch DVT prophylaxis: subcutaneous Lovenox Advanced directive: full code
[2024-09-06] MEDS: Levofloxacin 750mg IV 750 MG/150 ML BAG IV SCH (19:52)
[2024-09-06] MEDS: LINEZOLID 600 MG IVPB 600 MG/300 ML BAG IV SCH (22:25)
[2024-09-07 08:53] LABS: Anion Gap 6.1 mEq/L (5.0-15.0); Potassium 4.1 mEq/L (3.5-5.1)
[2024-09-07 08:55] LABS: Absolute Eosinophils 0.3 K/uL (0-0.5); Absolute Lymphocytes (CBC) 2.4 K/uL (0.7-4.9); Absolute Monocytes 0.6 K/uL (0.1-1.3); Absolute Neutrophil 3.9 K/uL (1.8-8.0); Basophils % 0.4 % (0-1.3); Hematocrit 45.3 % (36.0-45.0); Hemoglobin 15.6 g/dL (12.0-15.0); Lymphocytes % 32.9 % (15.3-44.8); MCH 30.6 pg (27.0-35.0); MCHC 34.5 g/dL (32.0-36.0); MCV 88.6 fL (80-100); MPV 9.8 fL (7.6-11.3); Monocytes % 8.7 % (3.3-12.3); Nucleated Red Blood Cells % 0.2 % (0-0); Platelets 207 thou/uL (152-406); RBC Red Blood Cell Count 5.12 M/uL (3.86-4.86); Red Cell Distribution Width 13.4 % (12.1-15.2)
--- NOTE | 2024-09-07 12:55 | PN ---
Status post debridement due to an abscess on the left foot. The patient is doing well. No complaint . Found to have clinical evidence of osteomyelitis. She has a PICC line and now through the social science analyst trying to find out the proper way to treat her medically. Intact surgical site. From the s urgical standpoint, she can be discharged, we will follow recommendations of Dr. Miranda. From the [place] rgical standpoint, we just need [facility] gets [facility]. We explained to her the need of dressing changes in the form of wet-to-dry. She is familiar with that. We took care of her mother too. We have the same condition. She has been in this situation before. So she feels comfortable doing dressing changes. TAMI/KELLEY Voice ID: [id number] Report ID: [id number]
--- NOTE | 2024-09-07 17:12 | P.PN ---
Subjective Date of Service: 09/07/24 Wound culture is showing gram-negative rods. Patient informed she may no need vancomycin or Zyvox. She has no other complaint. No recorded fever. Physical Examination - Vital Signs Temperature: 98.4 F Blood Pressure: 132/78 Pulse: 95 Respirations: 16 Pulse Ox (%): 98 Assessment And Plan - Plan Physical examination General: Alert and oriented x3, NAD, Heart: Heart sounds 1 and 2 normal, regular rhythm, normal rate, no pedal edema Lungs: Clear to auscultation bilaterally, adequate breath sounds bilaterally, no rhonchi or crackles. Abdomen: Soft, nondistended, nontender, normal bowel sounds. Extremities: No tenderness, left fourth amputated toe stump with fluctuant blister. Skin: Normal skin turgor, no rash, no nodules or ulcers. Neuro: No focal motor deficit. Normal speech. Psychiatry: Dysphoric. Diagnosis Left foot fourth toe amputation stump with blister. Diabetic neuropathy Hypertension DM Chronic tobacco use Plan Left foot fourth toe amputation stump blister Patient's previous wound abscess and wound cultures have grown Enterobacter sensitive to fluoroquinolones. Deep tissue wound culture growing gram-negative rods, coagulase-negative staph. Coagulase-negative staph likely skin contamination. Antibiotics changed from IV meropenem vancomycin to IV Levaquin and Zyvox and then changed to IV ciprofloxacin 09/07. General Surgery Dr. Miner performed I&D and excisional debridement of the abscess. Possible bone involvement per Dr. Miner. Infectious disease Dr. Miranda recommend 6 weeks of IV antibiotics PICC line placed for outpatient IV antibiotics. information services assistant assisting with arrangement for outpatient IV antibiotics. DM type II Insulin sliding scale with Accu-Cheks ADA diet Continue glipizide. Chronic tobacco use cessation advised. Nicotine patch DVT prophylaxis: subcutaneous Lovenox Advanced directive: full code
[2024-09-07] MEDS: CIPROFLOXACIN 400mg IV 400 MG/200 ML BAG IV SCH (21:33)
--- NOTE | 2024-09-08 17:02 | P.PN ---
Subjective Date of Service: 09/08/24 Wound culture is showing gram-negative rods. Patient informed she may no need vancomycin or Zyvox. She has no other complaint. No recorded fever. Physical Examination - Vital Signs Temperature: 98.6 F Blood Pressure: 119/72 Pulse: 88 Respirations: 16 Pulse Ox (%): 94 - Studies Microbiology Data (last 24 hrs): 09/02/24 19:30 Blood - Blood Aerobic Blood Culture - Final No growth in 5 days. 09/02/24 19:30 Blood - Blood Anaerobic Blood Culture - Final No growth in 5 days. 09/02/24 19:15 Blood - Blood Aerobic Blood Culture - Final No growth in 5 days. 09/02/24 19:15 Blood - Blood Anaerobic Blood Culture - Final No growth in 5 days. Assessment And Plan - Plan Physical examination General: Alert and oriented x3, NAD, Heart: Heart sounds 1 and 2 normal, regular rhythm, normal rate, no pedal edema Lungs: Clear to auscultation bilaterally, adequate breath sounds bilaterally, no rhonchi or crackles. Abdomen: Soft, nondistended, nontender, normal bowel sounds. Extremities: No tenderness, left fourth amputated toe stump with fluctuant blister. Skin: Normal skin turgor, no rash, no nodules or ulcers. Neuro: No focal motor deficit. Normal speech. Psychiatry: Dysphoric. Diagnosis Left foot fourth toe amputation stump with blister. Diabetic neuropathy Hypertension DM Chronic tobacco use Plan Left foot fourth toe amputation stump blister Patient's previous wound abscess and wound cultures have grown Enterobacter sensitive to fluoroquinolones. Deep tissue wound culture growing gram-negative rods, coagulase-negative staph. Coagulase-negative staph likely skin contamination. Antibiotics changed from IV meropenem vancomycin to IV Levaquin and Zyvox and then changed to IV ciprofloxacin 09/07. General Surgery Dr. Miner performed I&D and excisional debridement of the abscess. Possible bone involvement per Dr. Miner. Infectious disease Dr. Miranda recommend 6 weeks of IV antibiotics PICC line placed for outpatient IV antibiotics. cargo services coordinator assisting with arrangement for outpatient IV antibiotics. DM type II Insulin sliding scale with Accu-Cheks ADA diet Continue glipizide. Chronic tobacco use cessation advised. Nicotine patch DVT prophylaxis: subcutaneous Lovenox Advanced directive: full code
--- NOTE | 2024-09-08 17:18 | P.PN ---
Subjective Date of Service: 09/08/24 Wound culture is growing Sternotrphmoonas and Staph lugdunensis. She has no other complaint. No recorded fever. Physical Examination - Vital Signs Temperature: 98.6 F Blood Pressure: 119/72 Pulse: 88 Respirations: 16 Pulse Ox (%): 94 - Studies Microbiology Data (last 24 hrs): 09/02/24 19:30 Blood - Blood Aerobic Blood Culture - Final No growth in 5 days. 09/02/24 19:30 Blood - Blood Anaerobic Blood Culture - Final No growth in 5 days. 09/02/24 19:15 Blood - Blood Aerobic Blood Culture - Final No growth in 5 days. 09/02/24 19:15 Blood - Blood Anaerobic Blood Culture - Final No growth in 5 days. Assessment And Plan - Plan Physical examination General: Alert and oriented x3, NAD, Heart: Heart sounds 1 and 2 normal, regular rhythm, normal rate, no pedal edema Lungs: Clear to auscultation bilaterally, adequate breath sounds bilaterally, no rhonchi or crackles. Abdomen: Soft, nondistended, nontender, normal bowel sounds. Extremities: No tenderness, left fourth amputated toe stump with fluctuant blister. Skin: Normal skin turgor, no rash, no nodules or ulcers. Neuro: No focal motor deficit. Normal speech. Psychiatry: Dysphoric. Diagnosis Left foot fourth toe amputation stump with blister. Diabetic neuropathy Hypertension DM Chronic tobacco use Plan Left foot fourth toe amputation stump blister Patient's previous wound abscess and wound cultures have grown Enterobacter sensitive to fluoroquinolones. Deep tissue wound culture growing Sternotrphmoonas and Staph lugdunensis. Staph lugdunensis is likely a skin contamination. Both organisms sensitive to Levaquin. Antibiotics changed from IV meropenem vancomycin to IV Levaquin and Zyvox and then changed to IV ciprofloxacin 09/07 and then to Levaquin 09/[address] Miner performed I&D and excisional debridement of the abscess. Possible bone involvement per Dr. Miner. Infectious disease Dr. Miranda recommend 6 weeks of IV Levaquin. PICC line placed for outpatient IV antibiotics. director of cardiopulmonary services assisting with arrangement for outpatient IV antibiotics. DM type II Insulin sliding scale with Accu-Cheks ADA diet Continue glipizide. Chronic tobacco use cessation advised. Nicotine patch DVT prophylaxis: subcutaneous Lovenox Advanced directive: full code
[2024-09-08] MEDS ORDERED: Levofloxacin 750mg IV 750 MG/150 ML BAG IV ONE (18:21)
[2024-09-08] MEDS: Levofloxacin 750mg IV 750 MG/150 ML BAG IV SCH (18:26)
[2024-09-08 23:04] VITALS: O2SAT 98
[2024-09-09 06:31] LABS: Absolute Lymphocytes (CBC) 3.3 K/uL (0.7-4.9); Absolute Monocytes 0.8 K/uL (0.1-1.3); Absolute Neutrophil 4.6 K/uL (1.8-8.0); Basophils % 0.9 % (0-1.3); Hematocrit 46.5 % (36.0-45.0); Lymphocytes % 35.8 % (15.3-44.8); MCH 30.6 pg (27.0-35.0); MCHC 34.4 g/dL (32.0-36.0); MPV 9.6 fL (7.6-11.3); Neutrophils % 50.3 % (41.7-73.7); Platelets 207 thou/uL (152-406); RBC Red Blood Cell Count 5.22 M/uL (3.86-4.86); Red Cell Distribution Width 13.2 % (12.1-15.2)
[2024-09-09 06:32] LABS: Absolute Basophils 0.1 K/uL (0-0.5); Absolute Eosinophils 0.4 K/uL (0-0.5)
[2024-09-09 06:55] LABS: Anion Gap 7.1 mEq/L (5.0-15.0); Potassium 4.1 mEq/L (3.5-5.1)
--- NOTE | 2024-09-09 13:29 | P.PN ---
Subjective Date of Service: 09/09/24 Patient has no new complaint. He has had no fever. Physical Examination - Vital Signs Temperature: 97.4 F Blood Pressure: 127/72 Pulse: 105 Respirations: 18 Pulse Ox (%): 96 Assessment And Plan - Plan Physical examination General: Alert and oriented x3, NAD, Heart: Heart sounds 1 and 2 normal, regular rhythm, normal rate, no pedal edema Lungs: Clear to auscultation bilaterally, adequate breath sounds bilaterally, no rhonchi or crackles. Abdomen: Soft, nondistended, nontender, normal bowel sounds. Extremities: No tenderness, left fourth amputated toe stump with fluctuant blister. Skin: Normal skin turgor, no rash, no nodules or ulcers. Neuro: No focal motor deficit. Normal speech. Psychiatry: Dysphoric. Diagnosis Left foot fourth toe amputation stump with blister. Diabetic neuropathy Hypertension DM Chronic tobacco use Plan Left foot fourth toe amputation stump blister Patient's previous wound abscess and wound cultures have grown Enterobacter sensitive to fluoroquinolones. Deep tissue wound culture this admission growing Sternotrphmoonas and Staph lugdunensis. Staph lugdunensis is likely a skin contamination. Both organisms sensitive to Levaquin. Antibiotics changed from IV meropenem vancomycin to IV Levaquin and Zyvox and then changed to IV ciprofloxacin 09/07 and then to Levaquin 09/[address] Miner performed I&D and excisional debridement of the abscess. Likely bone involvement per Dr. Miner. Infectious disease Dr. Miranda recommend 6 weeks of IV Levaquin. PICC line placed for outpatient IV antibiotics. office services assistant assisting with arrangement for outpatient IV Levaquin. Patient is clinically stable for discharge once IV antibiotics has been arranged. DM type II Insulin sliding scale with Accu-Cheks ADA diet Continue glipizide. Chronic tobacco use Nicotine patch DVT prophylaxis: subcutaneous Lovenox Advanced directive: full code
[2024-09-09 16:04] VITALS: BP 143/78; TEMP 98.1
[2024-09-09] MEDS: Levofloxacin 250mg IV 750 MG/150 ML BAG IV ONE (16:52)
--- NOTE | 2024-09-09 19:03 | P.DS ---
Admission Date: 09/02/24 Discharge Date: 09/09/24 Disposition: ROUTINE DISCHARGE Discharge Condition: GOOD Brief History of Present Illness: 48-year-old female with past medical history of HTN, DM, PVD, DM neuropathy, status post left foot fifth toe amputation 2 years ago, presented after developing wound over the distal left foot fourth plantar surface with draining ulcer since the last 1 week. Patient admits to pain with ambulation patient denies any fever or chills. She denies any nausea or vomiting. She states symptoms appear to be getting worse with worsening pain at rest over the ulcer area. She presented because of worsening symptoms. Arrival in the ED vital signs were stable afebrile, CBC shows no WBC elevation, x-ray of the left foot shows periostitis changes of the left foot fourth digit. No evidence of osteomyelitis. General surgery Dr. Miner has been discussed with him plan for debridement of the wound on Monday. Patient has been admitted for further evaluation. Hospital Course: Diagnosis Left foot fourth toe amputation stump with blister. Diabetic neuropathy Hypertension DM Chronic tobacco use Patient admitted to the medical floor and the following medical problems addressed: Plan Left foot fourth toe amputation stump blister Osteomyelitis of Left toe phalanx Patient's previous wound abscess and wound cultures grew Enterobacter sensitive to fluoroquinolones. Deep tissue wound culture this admission growing Sternotrphmoonas and Staph lugdunensis. Staph lugdunensis is likely a skin contamination. Both organisms sensitive to Levaquin. Antibiotics changed from IV meropenem vancomycin to IV Levaquin and Zyvox and then changed to IV ciprofloxacin 09/07 and then to Levaquin 09/[address] Miner performed I&D and excisional debridement of the abscess. Likely bone involvement per Dr. Miner. Infectious disease Dr. Miranda recommend 6 weeks of IV Levaquin to treat osteomyelitis PICC line placed for outpatient IV antibiotics. outpatient IV Levaquin arranged. Patient is clinically stable for discharge. DM type II Managed with insulin sliding scale with Accu-Cheks ADA diet Patient also placed on glipizide. Chronic tobacco use Nicotine patch Vital Signs/Physical Exam: Temp Pulse Resp BP Pulse Ox 98.1 F 88 16 143/78 H 99 09/09/24 16:00 09/09/24 16:00 09/09/24 16:00 09/09/24 16:09/09/24 16:00 General: Alert, In no apparent distress, Oriented x3 HEENT: Mucous membr. moist/pink Neck: Supple, JVD not distended Respiratory: Clear to auscultation bilaterally, Normal air movement Cardiovascular: Regular rate/rhythm, Normal S1 S2 Gastrointestinal: Normal bowel sounds, Soft and benign, Non-distended, No tenderness Musculoskeletal: No swelling Neurological: Normal strength at 5/5 x4 extr Laboratory Data at Discharge: WBC 9.10 thou/uL (4.3-10.9) 09/09/24 06:20 Hgb 16.0 g/dL (12.0-15.0) H 09/09/24 06:20 Hct 46.5 % (36.0-45.0) H 09/09/24 06:20 Plt Count 207 thou/uL (152-406) 09/09/24 06:20 PT 11.0 SECONDS (9.4-12.5) 09/02/24 19:30 INR 1.05 09/02/24 19:30 APTT 30.2 SECONDS (24.3-36.9) 09/02/24 19:30 Sodium 136 mEq/L (136-145) 09/09/24 06:20 Potassium 4.1 mEq/L (3.5-5.1) 09/09/24 06:20 BUN 15 mg/dL (7-18) 09/09/24 06:20 Creatinine 0.75 mg/dL (0.55-1.02) 09/09/24 06:20 Glucose 308 mg/dL (74-106) H 09/09/24 06:20 Total Bilirubin 0.5 mg/dL (0.2-1.0) 09/03/24 04:23 AST 18 U/L (15-37) 09/03/24 04:23 ALT 23 U/L (13-56) 09/03/24 04:23 Alkaline Phosphatase 93 U/L (45-117) 09/03/24 04:23 Home Medications: Gabapentin 2 tab PO TID PRN 08/11/23 Hydrocodone Bit/Acetaminophen [Bradley 10-325 Tablet] 1 tab PO Q8H PRN 08/11/23 glipiZIDE [Glucotrol*] 5 mg PO ACB 30 Days #30 tab 09/09/24 New Medications: glipiZIDE [Glucotrol*] 5 mg PO ACB 30 Days #30 tab Diet: ADA Activity: Fall precautions Followup: Brii Shipman FNP [Primary Care Provider] - Time spent managing pt's care (in minutes): 34
== END 2024-09-09 18:44 | disposition home or self-care (01) | DRG 629 ==
LOC: ER 17:24 → ERHOLD 21:21 → 2ND 21:58
PROVIDERS: ADMIT Internal Medicine; ATTEND Internal Medicine
PROC: 0QBP0ZX Excision of Left Metatarsal, Open Approach, Diagnostic (ICD-10-PCS; principal; 2024-09-04 14:05)
PROC: 02HV33Z Insertion of Infusion Device into Superior Vena Cava, Percutaneous Approach (ICD-10-PCS; 2024-09-05)
DX: E11.69 Type 2 diabetes mellitus with other specified complication (principal); E11.52 Type 2 diabetes mellitus with diabetic peripheral angiopathy with gangrene; L02.416 Cutaneous abscess of left lower limb; L03.116 Cellulitis of left lower limb; M86.172 Other acute osteomyelitis, left ankle and foot; E11.51 Type 2 diabetes mellitus with diabetic peripheral angiopathy without gangrene; E11.42 Type 2 diabetes mellitus with diabetic polyneuropathy; E11.621 Type 2 diabetes mellitus with foot ulcer; L97.529 Non-pressure chronic ulcer of other part of left foot with unspecified severity; E78.5 Hyperlipidemia, unspecified; I10 Essential (primary) hypertension; B95.7 Other staphylococcus as the cause of diseases classified elsewhere; B96.89 Other specified bacterial agents as the cause of diseases classified elsewhere; F17.210 Nicotine dependence, cigarettes, uncomplicated; Z88.5 Allergy status to narcotic agent; Z88.1 Allergy status to other antibiotic agents; Z88.0 Allergy status to penicillin; Z88.8 Allergy status to other drugs, medicaments and biological substances; Z90.49 Acquired absence of other specified parts of digestive tract; Z89.422 Acquired absence of other left toe(s); Z79.84 Long term (current) use of oral hypoglycemic drugs; Z79.899 Other long term (current) drug therapy
CPT/HCPCS: 36415; 71045; 73701; 80048; 80053; 80202; 81001; 82550; 82947; 83036; 83605; 85025; 85610; 85730; 86140; 87040; 87070; 87075; 87077; 87186; 87205; 88304; 93005; 94760; 96365; 99285; J0744; J1100; J1650; J2003; J2020; J2185; J2250; J2270; J2405; J2704; J3010; J3590; J7030; J7040; Q9967

== ENCOUNTER 2025-05-26 14:23 | Emergency (ER) | payer OTHER, SELFPAY ==
--- OUTSIDE RECORDS SUMMARY | 2025-05-26 15:29 | XMS REPORT | Continuity of Care Document ---
Author Name Unknown Address [address] [place] [address] [facility] Address [address] [place] [address] Care Team Providers Care Costuming Supervisor Name Role Phone Kerry Pichardo Primary Care Physician [phone] BARB BENITO Attending Clinician UnavailDONNY Siddiqui Attending Clinician Unavailable LAB53 Attending Clinician Unavailable MD BENITO Attending Clinician Unavailab KENNY Garber Attending Clinician Unavailable LAURENCE COTA Attending Clinician Unavailable ORLANDO WAYNE Attending Clinician Unavailable LEONEL HARRINGTON Attending Clinician UnavailJAYA Mills Attending Clinician Unavailable LAB90 Attending Clinician Unavailable MARÍA ELENA SR Attending Clinician Unavailable YOLA SIMON Attending Clinician Unavailable LAB39 Attending Clinician Unavailable Ale Harvey RN Attending Clinician [phone] Alessandra Gramajo RN Attending Clinician [phone] Ofelia Olivier LVN Attending Clinician [phone] Denia Rois MD Attending Clinician [phone] Tirso Dias DO Attending Clinician [phone] TIRSO DIAS Attending Clinician Unavailable JASPER FIELDS Attending Clinician Unavailable JASON DIAMOND Attending Clinician Unavailable LAB91 Attending Clinician Unavailable ROSETTE TRAN Attending Clinician Unavailable Rosette Tran NP Attending Clinician SUSANA CRUZ Attending Clinician Unavailable Susana Cruz MD Attending Clinician [phone] Tirso Dias DO Admitting Clinician [phone] TIRSO DIAS Admitting Clinician Unavailable ROSETTE TRAN Admitting Clinician Unavailable SUSANA CRUZ Admitting Clinician Unavailable Payers Payer Name Policy Type Policy Number Effective Date Expirati on Date Source [facility] WILDA [employer]RED [employer] 9 [id number] 2025 00:00:00 [employer] 94 9 [id number] 2024 00:00:00 [employer] [employer] 2 [id number] 2024 00:00:00 [facility] [id number] 2016 00:00:00 Problems Condition Name Condition Details Condition Category Status Onset Date Resolution Date Last Treatment Date Treating Clinician Comments Source 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, without long-term current use of insulin 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, without long-term current use of insulin Disease Active 05-09 00:00: 00 Cynthia Hi Externa jaja 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 Disease Active 05-09 00:00: 00 Cynthia Lopezold - Externa l Chronic pain syndrome Chronic pain syndrome Disease Active 10-03 00:00: 00 Cynthia Hi Externa l Opioid dependence with opioid-ind uced disorder Opioid dependence with opioid-ind uced disorder Disease Active 12-31 00:00: 00 Cynthia Lopezold - Externa l 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 type 2 diabetes mellitus 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 type 2 diabetes mellitus Disease Active - 00:00: 00 Cynthia Evans - Externa l Bipolar affective disorder, remission status unspecifie d Bipolar affective disorder, remission status unspecifie d Disease Active 09-19 00:00: 00 Cynthia Seybold - Externa l DM type 2 with diabetic mixed hyperlipid emia DM type 2 with diabetic mixed hyperlipid emia Disease Active 2 00:00: 00 Cynthia Dobbinsa jaja History of amputation of lesser toe, left History of amputation of lesser toe, left Disease Active 2- 00:00: 00 Cynthia Dobbinsa jaja Ulcer of left foot, unspecifie d ulcer stage Ulcer of left foot, unspecifie d ulcer stage Disease Active 9-06 00:00: 00 [facility] Diabetes mellitus with peripheral vascular disease Diabetes mellitus with peripheral vascular disease Disease Active 2- 00:00: 00 Cynthia Dobbinsa jaja Intermitte nt claudicati on Intermitte nt claudicati on Disease Active 2 00:00: 00 Cynthia Dobbinsa jaja Diabetes mellitus with peripheral vascular disease (multi HCC) Diabetes mellitus with peripheral vascular disease (multi HCC) Disease Active 09-15 00:00: 00 Cynthia Dobbinsa jaja 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 ciency due to DM Disease Active 1- 00:00: 00 Cynthia Dobbinsa jaja No known active problems No known active problems Disease Cynthia Dobbinsa jaja Tobacco use Tobacco use Disease Active Cynthia Hi Externa jaja COPD (chronic obstructiv e pulmonary disease) COPD (chronic obstructiv e pulmonary disease) Disease Active Cynthia Hi Externa jaja Diabetic ulcer of left midfoot associated with type 2 diabetes mellitus, with muscle involvemen t without evidence of necrosis Diabetic ulcer of left midfoot associated with type 2 diabetes mellitus, with muscle involvemen t without evidence of necrosis Disease Resolve d 2 00:00: 00 2025-05-09 00:00:00 2025-05-09 11:30:04 Cynthia Dobbinsa jaja Allergies, Adverse Reactions, Alerts Allergy Name Allergy Type Status Severity Reaction(s) Onset Date Inactive Date Treating Clinician Comments Source VANCOMYC IN (BULK) DRUG Active ITCHING 2021-08 0-20 00:00: 00 [facility] Vancomyc in (Bulk) Propensi ty to adverse reaction s Active Itching 2021-08 0-20 00:00: 00 [facility] Vancomyc in Propensi ty to [...] 03-27 00:00: 00 Allergic to propoxyph akash [facility] Cephalex in Propensi ty to adverse reaction s Active Rash 03-27 00:00: 00 [facility] PROPOXYP HENE N-ACETAM INOPHEN DRUG Active Swelling 03-27 00:00: 00 [facility] CEPHALEX IN DRUG INGREDI Active Rash 03-27 00:00: 00 [facility] Propoxyp hene Compound Propensi ty to adverse reaction s Active Swelling 2015-0 8-14 00:00: 00 Allergic to propoxyph akash Cynthia Evans - Externa l Social History Social Habit Start Date Stop Date Quantity Comments Source ASSERTION Not Cynthia Evans - External Gender identity Katherine anguiano Nathan - External History of tobacco use Cigarette Smoker Cynthia farrar - External Sexual orientation Niki adair Nathan - External Cigarettes smoked current (pack per day) - Reported 2025-05-09 00:00:00 2025-05-09 00:00:00 Cynthia Evans - External Cigarette pack-years 2025-05-09 00:00:00 2025-05-09 00:00:00 Cynthia Evans - External Tobacco use and exposure 2023-04-19 00:00:00 2023-04-19 00:00:00 Smokeless tobacco non-user [facility] Education - What is the highest level of school you have completed or the highest degree you have received? 2023-04-19 00:00:00 2023-04-19 00:00:00 High school graduate [facility] Tobacco Comment 2023-04-19 00:00:00 2023-04-19 00:00:00 Patient stated that she wants to quit but it is too stressful at this times due to life. Patient reports 1PPD [facility] History of Social function 2022-09-15 00:00:00 2022-09-15 00:00:00 Cynthia Evans - External Sex 2022-08-11 16:03:10 2022-08-11 16:03:10 Female (finding) Cynthia Evans - External Exposure to SARS-CoV-2 (event) 2022-07-06 00:00:00 2022-07-16 18:31:00 Not sure [facility] Sex assigned at 1975 00:00:00 1975 00:00:00 Cynthia Evans - External Smoking Status Start Date Stop Date Source Tobacco smoking consumption unknown [facility] Smokes tobacco daily 2025-05-09 00:00:00 Cynthia Evans - External Medications Ordered Medication Name Filled Medication Name Start Date Stop Date Current Medication? Ordering Clinician Indication Dosage Frequency Signature (SIG) Comments Components Source HYDROcodone -Acetaminop hen 10-325 MG oral Tablet HYDROcodone -Acetaminop hen 10-325 MG oral Tablet 2024-08 00:00: 00 Yes [id number] 1{tbl} Q.58062291 [id number] 3D Take 1 tablet by mouth every 8 hours as needed. Cynthia wilkinson Levofloxaci n in Dextrose 5 % (LEVAQUIN) 750 MG/150ML intravenous Solution Levofloxaci n in Dextrose 5 % (LEVAQUIN) 750 MG/150ML intravenous Solution 05-09 11:33: 33 05-09 00:00 :00 No 750mg Inject 150 mL (750 mg total) into the vein once QD for 6 weeks. Cynthia wilkinson Dulaglutide 0.75 MG/0.5ML subcutaneou s Solution Auto-inject or Dulaglutide 0.75 MG/0.5ML subcutaneou s Solution Auto-inject or 05-09 00:00: 00 Yes [id number] 3 .75mg Q1W Inject 0.75 mg into the skin once a week. Cynthia wilkinson Gabapentin 600 MG oral Tablet Gabapentin 600 MG oral Tablet 05-09 00:00: 00 Yes [id number] 1200mg Q.26483855 [id number] 3D Take 2 tablets (1,200 mg total) by mouth 3 times daily. Cynthia wilkinson GlipiZIDE 10 MG oral TABLET SR 24 HR GlipiZIDE 10 MG oral TABLET SR 24 HR 05-09 00:00: 00 Yes [id number] 3 10mg QD Take 1 tablet (10 mg total) by mouth daily. Cynthia wilkinson Metformin HCl 500 MG oral Tablet Metformin HCl 500 MG oral Tablet 05-09 00:00: 00 Yes [id number] 3 500mg Take 1 tablet (500 mg total) by mouth in the morning and 1 tablet (500 mg total) in the evening. Take with meals. Cynthia wilkinson Atorvastati n Calcium 10 MG oral Tablet Atorvastati n Calcium 10 MG oral Tablet 05-09 00:00: 00 Yes [id number] 3 10mg QD Take 1 tablet (10 mg total) by mouth nightly. Cynthia wilkinson Fluticasone -Salmeterol (Advair Diskus) 250-50 MCG/ACT inhalation AEROSOL POWDER, BREATH ACTIVATED Fluticasone -Salmeterol (Advair Diskus) 250-50 MCG/ACT inhalation AEROSOL POWDER, BREATH ACTIVATED 05-09 00:00: 00 Yes [id number] 1{puff} Q.5D Inhale 1 puff into the lungs 2 times daily. Cynthia wilkinson Albuterol HFA 108 (90 Base) MCG/ACT IN AERS Albuterol HFA 108 (90 Base) MCG/ACT IN AERS 05-09 00:00: 00 Yes [id number] 2{puff} Q.25D Inhale 2 puffs into the lungs every 6 hours as needed for wheezing. Cynthia wilkinson PAXLOVID STANDARD (30) (300/100) Therapy Pack PAXLOVID STANDARD (30) (300/100) Therapy Pack 04-16 00:00: 00 05-09 00:00 :00 No Cynthia wilkinson HYDROcodone -Acetaminop hen 10-325 MG oral Tablet HYDROcodone -Acetaminop hen 10-325 MG oral Tablet 04-11 00:00: 00 Yes [id number] 1{tbl} Q.79931974 [id number] 3D Take 1 tablet by mouth every 8 hours as needed. Cynthia wilkinson HYDROcodone -Acetaminop hen 10-325 MG oral Tablet - 00:00: 00 Yes [id number] 1{tbl} Q.14805713 [id number] 3D Take 1 tablet by mouth every 8 hours as needed. Cynthia wilkinson Levofloxaci n in Dextrose 5 % (LEVAQUIN) 750 MG/150ML intravenous Solution 02-06 09:24: 44 Yes 750mg Inject 150 mL (750 mg total) into the vein once QD for 6 weeks. Cynthia wilkinson Gabapentin 600 MG oral Tablet Gabapentin 600 MG oral Tablet 2025-0 6-05 00:00: 00 05-09 00:00 :00 No [id number] 1200mg Q.60624483 [id number] 3D Take 2 tablets (1,200 mg total) by mouth 3 times daily. Cynthia wilkinson HYDROcodone -Acetaminop hen 10-325 MG oral Tablet 6-04 00:00: 00 02-06 00:00 :00 No [id number] 1{tbl} Q.98890806 [id number] 3D Take 1 tablet by mouth every 8 hours as needed. Cynthia wilkinson GlipiZIDE 5 MG oral TABLET SR 24 HR GlipiZIDE 5 MG oral TABLET SR 24 HR 5-15 00:00: 00 05-09 00:00 :00 No [id number] 5mg QD TAKE 1 TABLET (5 MG TOTAL) BY MOUTH DAILY. Cynthia wilkinson Levofloxaci n in Dextrose 5 % (LEVAQUIN) 750 MG/150ML intravenous Solution -12 09:36: 09 Yes 750mg Inject 150 mL (750 mg total) into the vein once QD for 6 weeks. Cynthia wilkinson GlipiZIDE 5 MG oral TABLET SR 24 HR -12 00:00: 00 Yes [id number] 5mg QD Take 1 tablet (5 mg total) by mouth daily. Cynthia wilkinson Atorvastati n Calcium 10 MG oral Tablet Atorvastati n Calcium 10 MG oral Tablet -12 00:00: 00 05-09 00:00 :00 No [id number] 10mg QD Take 1 tablet (10 mg total) by mouth nightly. Cynthia wilkinson Metformin HCl 1000 MG oral Tablet Metformin HCl 1000 MG oral Tablet -12 00:00: 00 05-09 00:00 :00 No [id number] 1000mg Take 1 tablet (1,000 mg total) by mouth in the morning and 1 tablet (1,000 mg total) in the evening. Take with meals. Cynthia wilkinson Gabapentin 600 MG oral Tablet 2-10 00:00: 00 Yes [id number] TAKE 2 TABLETS (1,200 MG TOTAL) BY MOUTH 3 TIMES A DAY Cynthia Hi Externa l HYDROcodone -Acetaminop hen 10-325 MG oral Tablet 2-07 00:00: 00 Yes [id number] 1{tbl} Q.97658104 [id number] 3D Take 1 tablet by mouth every 8 hours as needed. Cynthia Hi Externa l HYDROcodone -Acetaminop hen 10-325 MG oral Tablet 1- 00:00: 00 09-20 00:00 :00 No [id number] 1{tbl} Q.59785039 [id number] 3D Take 1 tablet by mouth every 8 hours as needed. Cynthia Hi Externa l Gabapentin 600 MG oral Tablet 2023-08 0- 00:00: 00 Yes [id number] TAKE 2 TABLETS (1,200 MG TOTAL) BY MOUTH 3 TIMES A DAY Cynthia Tony l HYDROcodone -Acetaminop hen 10-325 MG oral Tablet 9- 00:00: 00 Yes [id number] 1{tbl} Q.77628822 [id number] 3D Take 1 tablet by mouth every 8 hours as needed. Cynthia Tony l HYDROcodone -Acetaminop hen 10-325 MG oral Tablet 8-09 00:00: 00 Yes [id number] 1{tbl} Q.62652505 [id number] 3D take one tablet by mouth every 8 hours as needed for pain Cynthia Hi Externa l HYDROcodone -Acetaminop hen 10-325 MG oral Tablet 6-11 00:00: 00 04-26 00:00 :00 No [id number] 1{tbl} Q.24216479 [id number] 3D Take 1 tablet by mouth every 8 hours as needed. Cynthia Campbellkenncharan Hi Externa l Gabapentin 600 MG oral Tablet 5-22 00:00: 00 Yes [id number] 1200mg Q.23679155 [id number] 3D Take 2 tablets (1,200 mg total) by mouth 3 times daily. Cynthia Campbellkenncharan Hi Externa l Gabapentin 600 MG oral Tablet 12-31 00:00: 00 Yes [id number] 600mg Take 1 tablet (600 mg total) by mouth 3 times daily TAKE 2 TABLETS (1,200 MG TOTAL) BY MOUTH 3 TIMES A DAY. Cynthia wilkinson Dulaglutide (Trulicity) 1.5 MG/0.5ML subcutaneou s Solution Pen-injecto r 12-31 00:00: 00 Yes [id number] 1.5mg Q1W Inject 1.5 mg into the skin once a week. Cynthia wilkinson Dulaglutide (Trulicity) 1.5 MG/0.5ML subcutaneou s Solution Pen-injecto r Dulaglutide (Trulicity) 1.5 MG/0.5ML subcutaneou s Solution Pen-injecto r 12-31 00:00: 00 05-09 00:00 :00 No [id number] 1.5mg Q1W Inject 1.5 mg into the skin once a week. Cynthia wilkinson Duloxetine HCl [address] Particles 12-31 00:00: 00 09-25 00:00 :00 No [id number] 20mg QD Take 1 capsule (20 mg total) by mouth daily. Cynthia wilkinson HYDROcodone -Acetaminop hen 10-325 MG oral Tablet 07 00:00: 00 Yes 1{tbl} Q.11676945 [id number] 3D Take 1 tablet by mouth every 8 hours as needed for pain. Cynthia wilkinson GlipiZIDE 5 MG oral TABLET SR 24 HR 12-13 00:00: 00 09-25 00:00 :00 No [id number] 5mg QD TAKE 1 TABLET (5 MG TOTAL) BY MOUTH DAILY. Cynthia wilkinson Duloxetine HCl [address] Particles 12-13 00:00: 00 12-31 00:00 :00 No [id number] 120mg TAKE 2 CAPSULES BY MOUTH DAILY Cynthia wilkinson HYDROcodone -Acetaminop hen 10-325 MG oral Tablet 30 00:00: 00 Yes 1{tbl} Q.21990825 [id number] 3D Take 1 tablet by mouth every 8 hours as needed for pain. Cynthia wilkinson Gabapentin 600 MG oral Tablet 11-22 00:00: 00 12-31 00:00 :00 No [id number] 600mg Take 1 tablet (600 mg total) by mouth 3 times daily TAKE 2 TABLETS (1,200 MG TOTAL) BY MOUTH 3 TIMES A DAY. Cynthia wilkinson HYDROcodone -Acetaminop hen 10-325 MG oral Tablet 11-13 00:00: 00 12-31 00:00 :00 No 1{tbl} Q.76907556 [id number] 3D Take 1 tablet by mouth every 8 hours as needed for pain. Cynthia wilkinson Clopidogrel Bisulfate (PLAVIX) 75 MG oral Tablet 10-30 16:41: 26 Yes 1{tbl} Take 1 tablet (75 mg total) by mouth. Cynthia wilkinson Ketoconazol e 2 % apply externally Cream 10-30 00:00: 00 09-25 00:00 :00 No Apply twice daily x 4 weeks. Cynthia wilkinson Mupirocin (BACTROBAN) 2 % apply externally Ointment 10-30 00:00: 00 12-31 00:00 :00 No 1{appli cation} Apply 1 Applicatio n topically 3 times daily. Cynthia wilkinson Trulicity 1.5 MG/0.5ML subcutaneou s Solution Pen-injecto r 10-28 00:00: 00 12-31 00:00 :00 No [id number] 1.5mg Inject 1.5 mg into the skin once a week. Cynthia wilkinson Clopidogrel Bisulfate (PLAVIX) 75 MG oral Tablet 10-16 10:00: 54 Yes 75mg Take 1 tablet (75 mg total) by mouth. Cynthia wilkinson HYDROcodone -Acetaminop hen 10-325 MG oral Tablet 2024-0 3-05 00:00: 00 01-22 00:00 :00 No 1{tbl} Q.20091209 [id number] 3D Take 1 tablet by mouth every 8 hours as needed. Cynthia wilkinson Clopidogrel Bisulfate (PLAVIX) 75 MG oral Tablet 14 10:45: 22 Yes 75mg Take 1 tablet (75 mg total) by mouth. Cynthia wilkinson Clopidogrel Bisulfate (PLAVIX) 75 MG oral Tablet 09-19 10:21: 37 Yes 75mg Take 1 tablet (75 mg total) by mouth. Cynthia wilkinson Dulaglutide (Trulicity) 0.75 MG/0.5ML subcutaneou s Solution Pen-injecto r 09-19 00:00: 00 Yes [id number] .75mg Inject 0.75 mg into the skin once a week. Cynthia wilkinson HYDROcodone -Acetaminop hen 10-325 MG oral Tablet 09-19 00:00: 00 10-15 00:00 :00 No 1{tbl} Q.35371542 [id number] 3D Take 1 tablet by mouth every 8 hours as needed. Cynthia wilkinson Gabapentin 600 MG oral Tablet 09-12 00:00: 00 Yes [id number] TAKE 2 TABLETS (1,200 MG TOTAL) BY MOUTH 3 TIMES A DAY Cynthia wilkinson Clopidogrel Bisulfate (PLAVIX) 75 MG oral Tablet - 10:30: 15 Yes 75mg Take 1 tablet (75 mg total) by mouth. Cynthia wilkinson HYDROcodone -Acetaminop hen 10-325 MG oral Tablet 08-22 00:00: 00 Yes 1{tbl} Q.00958648 [id number] 3D Take 1 tablet by mouth every 8 hours as needed. Cynthia wilkinson Linezolid 600 MG oral Tablet - 00:00: 00 09-25 00:00 :00 No 600mg Q.5D Take 600 mg by mouth 2 times daily. Cynthia wilkinson Nicotine 14 MG/24HR transdermal PATCH 24 HR 08-16 00:00: 00 09-19 00:00 :00 No 14mg 14 mg. Cynthia wilkinson Duloxetine HCl [address] Particles 2022-08 00:00: 00 12-31 00:00 :00 No 120mg 6 capsules (120 mg total). Cynthia wilkinson HYDROcodone -Acetaminop hen 10-325 MG oral Tablet 2022-08 00:00: 00 08-21 00:00 :00 No 1{tbl} Q.93924278 [id number] 3D Take 1 tablet by mouth every [...] oral Tablet 2022-08 00:00: 00 Yes 1{tbl} Q.33583438 [id number] 3D Take 1 tablet by mouth every [...] MG oral Tablet 2022-08 00:00: 00 Yes [id number] 1200mg Take 2 tablets (1,200 mg total) by mouth 3 times daily. Cynthia wilkinson Duloxetine HCl [address] Particles 2022-08 00:00: 00 Yes [id number] 120mg Take 2 capsules (120 mg total) by mouth daily. Cynthia wilkinson GlipiZIDE 5 MG oral TABLET SR 24 HR 2022-08 00:00: 00 Yes [id number] 5mg Take 1 tablet (5 mg total) by mouth daily. Cynthia wilkinson Atorvastati n Calcium 10 MG oral Tablet 2022-08 00:00: 00 09-25 00:00 :00 No [id number] 10mg QD Take 1 tablet (10 mg total) by mouth nightly. Cnythia wilkinson Metformin HCl 1000 MG oral Tablet 2022-08 00:00: 00 09-25 00:00 :00 No [id number] 1000mg Take 1 tablet (1,000 mg total) by mouth in the morning and 1 tablet (1,000 mg total) in the evening. Take with meals. Cynthia wilkinson Trulicity 0.75 MG/0.5ML subcutaneou s Solution Pen-injecto r 2022-08 00:00: 00 09-19 00:00 :00 No [id number] .75mg Inject 0.75 mg into the skin once a week. Cynthia wilkinson Dulaglutide (Trulicity) 3 MG/0.5ML subcutaneou s Solution Pen-injecto r 2022-08 00:00: 00 06-19 00:00 :00 No [id number] 3mg Inject 3 mg into the skin [...] by mouth 2 times daily. Cynthia wilkinson docusate (COLACE) capsule 100 mg 04-20 14:00: 00 Yes 100mg 100 mg, Oral, DAILY, First dose on Mon04/20/23 at 0900, Until Discontinu ed, Routine [facility] nicotine (NICODERM) 21 mg/24 hr patch 1 Patch 04-19 23:30: 00 Yes 1{patch } 1 Patch, Topical, Administer over 24 Hours, Q24H, First dose on Mon04/19/23 at 1830, Until Discontinu ed, Routine [facility] HYDROcodone -acetaminop hen (NORCO) 10-325 mg tablet 04-19 22:35: 45 Yes 1{tbl} Take 1 tablet by mouth every 6 (six) hours as needed. [facility] gabapentin (NEURONTIN) 300 mg capsule 04-19 22:35: 45 Yes 900mg Take 3 capsules by mouth in the morning and 3 capsules at noon and 3 capsules in the evening. [facility] atorvastati n 10 mg tablet 04-19 22:35: 45 Yes 10mg Take 1 tablet by mouth at bedtime. Patient reports she is supposed to take this medication but has not since October. Due to "lost (her) insurance and can not afford it." [facility] glipiZIDE 5 mg tablet 04-19 22:35: 45 Yes 5mg Take 1 tablet by mouth in the morning. Patient reports she is supposed to take this medication but has not since October. Due to "lost (her) insurance and can not afford it." [facility] aspirin 81 mg chewable tablet 04-19 22:35: 45 Yes 81mg Take 1 tablet by mouth in the morning. [facility] metFORMIN 500 mg tablet 04-19 22:35: 45 Yes 500mg Take 1 tablet by mouth in the morning and 1 tablet in the evening. Take with meals. Patient reports she is supposed to take this medication but has not since October. Due to "lost (her) insurance and can not afford it." [facility] DULoxetine 60 mg capsule 04-19 22:35: 45 Yes 60mg Take 1 capsule by mouth in the morning. [facility] Sliding Scale Insulin - Lispro (HumaLOG) 04-19 22:00: 00 Yes Subcutaneo us, TID MEALS+HS, First dose on Mon04/19/23 at 1700, Until Discontinu ed, Routine [facility] enoxaparin (LOVENOX) injection 40 mg 04-19 22:00: 00 Yes 40mg 40 mg, Subcutaneo us, DAILY, First dose on Mon04/19/23 at 1700, Until Discontinu ed, Routine [facility] metroNIDAZO LE in NaCl (iso-os) [...] Soft tissue
Duration of therapy: 5 days [facility] levoFLOXaci n in D5W (LEVAQUIN) 750 [...] Wound
D uration of therapy: 5 days [facility] glucagon (GLUCAGEN DIAGNOSTIC KIT) injection 1 mg 04-19 18:43: 34 Yes 1mg 1 mg, Intramuscu lar, PRN, Starting on Mon04/19/23 at 1343, Until Discontinu ed, KENNY, Blood Glucose < or = 70 mg/dL and patient is NPO, unable to swallow or has mental changes. [facility] dextrose 50 % in water (D50W) injection 25 mL 04-19 18:43: 34 Yes 25mL 25 mL, Slow IV Push, PRN, Starting on Mon04/19/23 at 1343, Until Discontinu ed, KENNY, Blood Glucose < or = 70 mg/dL and patient is NPO, unable to swallow or has mental status changes. [facility] ondansetron (ZOFRAN (PF)) injection 4 mg 04-19 18:43: 20 Yes 4mg 4 mg, Slow IV Push, Q6HPRN, Starting on Mon04/19/23 at 1343, Until Discontinu ed, Routine, Nausea and Vomiting (N/V) [facility] HYDROcodone -acetaminop hen (NORCO 5) 5-325 mg tablet 1 tablet 04-19 18:43: 12 04-21 18:42 :12 No 1{tbl} 1 tablet, Oral, Q6HPRN, Starting on Mon04/19/23 at 1343, Until Mon04/21/23 at 1342, Routine, Pain (scale 4-6) [facility] acetaminoph en (TYLENOL) tablet 650 mg 04-19 18:43: 09 Yes 650mg 650 mg, Oral, Q6HPRN, Starting on Mon04/19/23 at 1343, Until Discontinu ed, Routine, Pain (scale 1-3) [facility] Duloxetine HCl [address] Particles 01-02 00:00: 06-19 00:00 :00 No [id number] TAKE 2 CAPSULES BY MOUTH EVERY DAY Cynthia wilkinson Trulicity 3 MG/0.5ML subcutaneou s Solution Pen-injecto r 01-02 00:00: 00 06-19 00:00 :00 No [id number] 3mg Inject 3 mg into the skin once a week Cynthia wilkinson Atorvastati n Calcium 10 MG oral Tablet 12-13 00:00: 00 06-19 00:00 :00 No [id number] TAKE 1 TABLET BY MOUTH EVERY DAY Cynthia wilkinson Metformin HCl 1000 MG oral Tablet 11-08 00:00: 00 06-19 00:00 :00 No [id number] 1000mg Take 1 tablet (1,000 mg total) by mouth in the morning and 1 tablet (1,000 mg total) in the evening. Take with meals. Cynthia wilkinson GlipiZIDE 5 MG oral TABLET SR 24 HR 11-08 00:00: 00 06-19 00:00 :00 No [id number] 5mg TAKE 1 TABLET (5 MG TOTAL) BY MOUTH DAILY. Cynthia wilkinson Gabapentin 600 MG oral Tablet 10-13 00:00: 06-19 00:00 :00 No [id number] 1200mg Take 2 tablets (1,200 mg total) by mouth 3 times daily Cynthia wilkinson HYDROcodone -Acetaminop hen 10-325 MG oral Tablet 2-02 09:03: 04 Yes 1{tbl} Q.25D Take 1 tablet by mouth every 6 hours as needed Cynthia wilkinson Gabapentin 300 MG oral Capsule 09-15 09:02: 44 09-15 00:00 :00 No 900mg Take 900 mg by mouth 3 times daily Cynthia wilkinson Trulicity 0.75 MG/0.5ML subcutaneou s Solution Pen-injecto r 09-15 00:00: 00 Yes [id number] .75mg Inject 0.75 mg into the skin once a week Cynthia wilkinson Mupirocin (BACTROBAN) 2 % apply externally Ointment 09-15 00:00: 00 09-25 00:00 :00 No [id number] Q.68770292 [id number] 3D Apply 1 applicatio n topically 3 times daily Cynthia wilkinson Metformin HCl 500 MG oral Tablet 09-02 00:00: 00 Yes [id number] 1000mg Take 2 tablets (1,000 mg total) [...] MG oral Tablet 09-01 00:00: 00 Yes [id number] 1000mg Take 2 tablets (1,000 mg total) by mouth in the morning and 2 tablets (1,000 mg total) in the evening. Take with meals. Cynthia wilkinson Duloxetine HCl [address] Particles 09-01 00:00: 00 Yes [id number] 120mg Take 2 capsules (120 mg total) by mouth daily Cynthia wilkinson Gabapentin 600 MG oral Tablet 09-01 00:00: 00 Yes [id number] 1200mg Take 2 tablets (1,200 mg total) by mouth 3 times daily Cynthia wilkinson Benzonatate (Tessalon Perles) 100 MG oral Capsule 09-01 00:00: 00 09-15 00:00 :00 No [id number] 100mg [id number] 3D Take 1 capsule (100 mg total) by mouth 3 times daily as needed for cough Cynthia wilkinson methylPREDN ISolone 4 MG oral Tablet Therapy Pack 09-01 00:00: 00 09-15 00:00 :00 No [id number] 1{lana} Take 1 lana by mouth See [...] 1 dose, On 07/16/22 at 2115, Routine [facility] NaCl 0.9% (NS) bolus infusion 1,000 mL 2021-08 01:00: 00 07-17 02:29 :00 No 1000mL at 999 mL/hr, 1,000 mL, IV Infusion, ONCE, 1 dose, On 07/16/22 at 1900, KENNY [facility] ampicillin- sulbactam (UNASYN) 3 g in NaCl 0.9% (NS) 100 mL MINI-BAG 2021-08 00:15: 00 07-17 02:12 :00 No 3g 3 g, IV Piggyback, ONCE, 1 dose, On 07/16/22 at 1815, Administer over 30 Minutes, 100 mL
Reas on for Anti-Infec tive: Documented Infection< br>Documen ronald Infection Site: Skin / Soft Tissue
Duration of Therapy: 7 days [facility] indomethaci n 50 mg capsule 2021-08 00:00: 00 04-19 00:00 :00 No [id number] 50mg Take 1 capsule by mouth 3 (three) times daily with meals as needed for Pain. [facility] metFORMIN 500 mg tablet 2021-08 00:00: 00 08-16 05:59 :00 No [id number] 500mg Take 1 tablet by mouth in the morning and 1 tablet in the evening. Do all this for 30 days. [facility] dicloxacill in 500 mg capsule 2021-08 00:00: 00 07-24 05:59 :00 No [id number] 500mg Take 1 capsule by mouth 4 (four) times daily for 7 days. [facility] Gabapentin 600 MG oral Tablet 2021-08 00:00: 00 Yes 1200mg Take 1,200 mg by mouth 3 times daily Cynthia wilkinson nicotine (NICODERM) 21 mg/24 hr patch 1 Patch 2021-08 21:30: 00 Yes 1{patch } 1 Patch, Topical, Administer over 24 Hours, Q24H, First dose on Rochelle 06/02/22 at 1630, Until Discontinu ed, Routine [facility] diphenhydrA MINE (BENADRYL) tablet 25 mg 2021-08 21:30: 00 06-02 21:24 :00 No 25mg 25 mg, Oral, ONCE, 1 dose, On Rochelle 06/02/22 at 1630, KENNY [facility] vancomycin (VANCOCIN) 1,000 mg in NaCl 0.9% (NS) 250 mL VIAL-MATE IV piggyback 2021-08 20:00: 00 Yes 1000mg 1,000 mg, IV Piggyback, Q12H ABX, First dose on Rochelle 06/02/22 at 1500, Until Discontinu ed, Administer over 60 Minutes, 250 mL
Reas on for Anti-Infec tive: Documented Infection< br>Documen ronald Infection Site: Skin / Soft Tissue
Duration of Therapy: Other (see Comments) [facility] ondansetron (ZOFRAN (PF)) injection 4 mg 2021-08 19:45: 00 06-02 19:47 :00 No 4mg 4 mg, Slow IV Push, ONCE, 1 dose, On Mon06/02/22 at 1445, KENNY [facility] morpHINE (4 mg/mL) injection 4 mg 2021-08 19:00: 00 06-02 19:52 :00 No 4mg 4 mg, Slow IV Push, ONCE, 1 dose, On Mon06/02/22 at 1400, STAT [facility] piperacilli n-tazobacta m (ZOSYN) 3.375 g in NaCl 0.9% (NS) 50 mL MINI-BAG 2021-08 19:00: 00 06-02 20:29 :00 No 3.375g 3.375 g, IV Piggyback, ONCE, 1 dose, On Rochelle 06/02/22 at 1400, Administer over 30 Minutes, 50 mL
Reas on for Anti-Infec tive: Documented Infection< br>Documen ronald Infection Site: Skin / Soft Tissue
Duration of Therapy: Other (see Comments) [facility] gabapentin (NEURONTIN) 300 mg capsule 2021-08 16:10: 56 Yes 900mg Take 900 mg by mouth 3 (three) times daily. [facility] sulfamethox azole-trime thoprim 800-160 mg per tablet 2021-08 00:00: 00 06-10 04:59 :00 No [id number] 1{tbl} Take 1 tablet by mouth every 12 (twelve) hours for 7 days. [facility] dicloxacill in 500 mg capsule 2021-08 00:00: 00 06-10 04:59 :00 No [id number] 500mg Take 1 capsule by mouth 4 (four) times daily for 7 days. [facility] gabapentin 300 mg capsule 2021-08 00:00: 00 06-10 04:59 :00 No [id number] 300mg Take 1 capsule by mouth in the morning and 1 capsule at noon and 1 capsule in the evening. Do all this for 7 days. [facility] lidocaine 5 % (700 mg/patch) patch 12-18 00:00: 00 04-19 00:00 :00 No [id number] 1{patch } Apply 1 Patch to area(s) every 8 (eight) hours as needed for Localized pain. [facility] HYDROcodone -acetaminop hen (NORCO) 10-325 mg tablet 04-02 01:38: 54 Yes 1{tbl} Take 1 tablet by mouth every 6 (six) hours as needed. [facility] albuterol (VENTOLIN) 90 mcg/actuati on inhaler 04-02 00:00: 00 Yes 2{puff} Inhale 2 Puffs every 4 (four) hours as needed for Wheezing or Shortness of Breath. [facility] Vital Signs Vital Name Observation Time Observation Value Comments S ourleonardo Systolic blood pressure 2025-05-15 10:37:00 122 mm[Hg] Cynthia Seybo ld - External Diastolic blood pressure 2025-05-15 10:37:00 89 mm[Hg] Cynthia Campbellybo ld - External Heart rate 2025-05-15 10:37:00 91 /min Tequila Evans - External Systolic blood pressure 2025-05-09 11:19:00 126 mm[Hg] Cynthia Campbellybo ld - External Diastolic blood pressure 2025-05-09 11:19:00 62 mm[Hg] Cynthia Campbellybo ld - External Heart rate 2025-05-09 11:19:00 82 /min Tequila Evans - External Body temperature 2025-05-09 11:19:00 36.5 Cecilia Cynthia Seybold - External Respiratory rate 2025-05-09 11:19:00 16 /min Cynthia Seybold - External Body height 2025-05-09 11:19:00 167.6 cm Katherine ey Seybold - External Body weight 2025-05-09 11:19:00 74.844 kg Katherine ey Seybold - External BMI 2025-05-09 11:19:00 26.63 kg/m2 Katherine ey Seybold - External Systolic blood pressure 2025-02-06 14:23:00 151 mm[Hg] Cynthia Seybo ld - External Diastolic blood pressure 2025-02-06 14:23:00 73 mm[Hg] Cynthia Seybo ld - External Heart rate 2025-02-06 14:23:00 79 /min Kelse y Seybold - External Systolic blood pressure 2024 15:28:00 124 mm[Hg] Cynthia Seybo ld - External Diastolic blood pressure 2024 15:28:00 72 mm[Hg] Cynthia Seybo ld - External Heart rate 2024 15:28:00 82 /min Kelse y Seybold - External Body temperature 2024 15:28:00 36.78 Cecilia Cynthia Seybold - External Respiratory rate 2024 15:28:00 20 /min Cynthia Seybold - External Body height 2024 15:28:00 167.6 cm Katherine ey Seybold - External Body weight 2024 15:28:00 75.297 kg Katherine ey Seybold - External BMI 2024 15:28:00 26.79 kg/m2 Katherine ey Seybold - External Oxygen saturation in Arterial blood by Pulse oximetry 2024 15:28:00 98 /min Cynthia Seybo ld - External Systolic blood pressure 2024-09-20 17:16:00 158 mm[Hg] Cynthia Seybo ld - External Diastolic blood pressure 2024-09-20 17:16:00 84 mm[Hg] Cynthia Seybo ld - External Heart rate 2024-09-20 17:16:00 79 /min Kelse y Seybold - External Systolic blood pressure 2024-04-26 16:20:00 135 mm[Hg] Cynthia Seybo ld - External Diastolic blood pressure 2024-04-26 16:20:00 76 mm[Hg] Cynthia Seybo ld - External Heart rate 2024-04-26 16:20:00 86 /min Kelse y Seybold - External Systolic blood pressure 2024-01-23 19:09:00 147 mm[Hg] Cynthia Seybo ld - External Diastolic blood pressure 2024-01-23 19:09:00 84 mm[Hg] Cynthia Seybo ld - External Heart rate 2024-01-23 19:09:00 89 /min Kelse y Seybold - External Systolic blood pressure 2024-01-01 20:04:00 144 mm[Hg] Cynthia Seybo ld - External Diastolic blood pressure 2024-01-01 20:04:00 74 mm[Hg] Cynthia Seybo ld - External Heart rate 2024-01-01 20:04:00 106 /min Kelse y Seybold - External Body temperature 2024-01-01 20:04:00 36.44 Cecilia Cynthia Seybold - External Respiratory rate 2024-01-01 20:04:00 14 /min Cynthia Seybold - External Body height 2024-01-01 20:04:00 167.6 [...] External Heart rate 2023-07-05 17:39:00 92 /min Wilmanse y Seybold - External Respiratory rate 2023-07-05 [...] External Heart rate 2023-06-19 17:18:00 91 /min Wilmanse y Seybold - External Body temperature 2023-06-19 17:18:00 36.5 Cecilia Cynthia Seybold - External Body height 2023-06-19 17:18:00 162.6 cm Katherine ey Seybold - External Systolic blood pressure 2023-04-20 00:27:00 122 mm[Hg] [facility] Diastolic blood pressure 2023-04-20 00:27:00 79 mm[Hg] [facility] Heart rate 2023-04-20 00:27:00 93 /min [facility] Body temperature 2023-04-20 00:27:00 36.22 Cecilia [facility] Respiratory rate 2023-04-20 00:27:00 18 /min [facility] Oxygen saturation in Arterial blood by Pulse oximetry 2023-04-20 00:27:00 100 /min [facility] Body height 2023-04-19 20:54:00 162.6 cm [facility] Body weight 2023-04-19 20:54:00 72 kg [facility] BMI 2023-04-19 20:54:00 27.25 kg/m2 [facility] Systolic blood pressure 2022-09-15 14:58:00 148 mm[Hg] Cynthia Seybo ld - External Diastolic blood pressure 2022-09-15 14:58:00 74 mm[Hg] Cynthia Campbellybo ld - External Heart rate 2022-09-15 14:58:00 [...] blood pressure 2022-09-01 21:12:00 137 mm[Hg] Cynthia Lopezo ld - External Diastolic blood pressure 2022-09-01 21:12:00 74 mm[Hg] Cynthia Lopezo ld - External Heart rate 2022-09-01 21:12:00 82 /min Tequila barriga Seybcharan - External Body temperature 2022-09-01 21:12:00 36.61 Cecilia Cynthia Campbellybold - External Respiratory rate 2022-09-01 21:12:00 12 /min Cynthia Campbellybold - External Body height 2022-09-01 21:12:00 165.1 cm Katherine anguiano Seybold - External Body weight 2022-09-01 21:12:00 70.308 kg Katherine anguiano Seybold - External BMI 2022-09-01 21:12:00 25.79 kg/m2 Katherine anguiano Seybcharan - External Oxygen saturation in Arterial blood by Pulse oximetry 2022-09-01 21:12:00 97 /min Cynthia Farr ld - External Systolic blood pressure 2022-07-17 01:40:00 128 mm[Hg] [facility] Diastolic blood pressure 2022-07-17 01:40:00 66 mm[Hg] [facility] Heart rate 2022-07-17 01:40:00 88 /min [facility] Respiratory rate 2022-07-17 01:40:00 16 /min [facility] Oxygen saturation in Arterial blood by Pulse oximetry 2022-07-17 01:40:00 99 /min [facility] Body temperature 2022-07-16 23:42:00 37.22 Cecilia [facility] Body height 2022-07-16 23:42:00 165.1 cm [facility] Body weight 2022-07-16 23:42:00 72.122 kg [facility] BMI 2022-07-16 23:42:00 26.46 kg/m2 [facility] Systolic blood pressure 2022-06-02 22:00:00 132 mm[Hg] [facility] Diastolic blood pressure 2022-06-02 22:00:00 78 mm[Hg] [facility] Heart rate 2022-06-02 22:00:00 89 /min [facility] Respiratory rate 2022-06-02 22:00:00 15 /min [facility] Oxygen saturation in Arterial blood by Pulse oximetry 2022-06-02 22:00:00 100 /min [place] [facility] Body temperature 2022-06-02 18:10:00 36.72 Cecilia [facility] Body weight 2022-06-02 18:10:00 72.576 kg [facility] BMI 2022-06-02 18:10:00 26.63 kg/m2 [facility] Procedures Procedure Date / Time Performed Performing Clinician Source DRUG SCREEN 14 W/CONF, PEDS, UR 2025-05-15 00:00:00 Cynthia Evans - External CBC WITH DIFFERENTIAL 2025-05-10 00:00:00 Cynthia Evans - External COMP. METABOLIC PANEL (14) 2025-05-10 00:00:00 Cynthia Evans - External LIPID PANEL 2025-05-10 00:00:00 Cynthia polanco - External HEMOGLOBIN (HB) A1C WITH EAG 2025-05-10 00:00:00 Cynthia Lopezold - External TSH+FREE T4 2025-05-10 00:00:00 Cynthia alcantarld - External MAMMO 3D ANAMARIA SCREENING BILAT 2025-05-09 00:00:00 Cynthia Evans - External CT CHEST LUNG CA SCR W/O CON 2025-05-09 00:00:00 Cynthia Evans - External MR FOOT LEFT WO CONTRAST 2023-04-19 23:19:07 Chelita Dias [facility] POCT GLUCOSE (AUTOMATED) 2023-04-19 21:45:00 [facility] TEST, SERUM 2023-04-19 18:39:00 Zev Dias [facility] XR FOOT 3+ VW LEFT 2023-04-19 17:31:44 Denia Rios [facility] COMP. METABOLIC PANEL ([id number]) 2023-04-19 17:01:00 Denia Rios [facility] CBC WITH DIFF 2023-04-19 17:01:00 Denia Rios [facility] GLYCOSYLATED HEMOGLOBIN (A1C) 2023-04-19 17:01:00 Tirso Dias [facility] CONSENT/REFUSAL FOR DIAGNOSIS AND TREATMENT 2023-04-19 16:10:45 Doctor Unassigned, [place] [facility] XR FOOT <3 VW LEFT 2022-07-17 00:48:57 Rosette Trna [facility] COMP. METABOLIC PANEL ([id number]) 2022-07-17 00:35:00 Rosette Tran [facility] CBC WITH DIFF 2022-07-17 00:35:[address] [facility] GLYCOSYLATED HEMOGLOBIN (A1C) 2022-07-17 00:35:00 Rosette Tran [facility] URINALYSIS 2022-07-17 00:35:00 Rosette Tran [facility] URINE DRUG (IMMUNOASSAY) - COMPREHENSIVE DRUG SCREEN W/O REFLEX 2022-07-17 00:35:00 Rosette Tran [facility] LACTIC ACID WHOLE BLOOD 2022-07-17 00:32:00 Miah Tran [facility] CONSENT/REFUSAL FOR DIAGNOSIS AND TREATMENT 2022-07-16 23:35:46 Doctor Unassigned, [place] [facility] XR FOOT 3+ VW LEFT 2022-06-02 19:31:01 Susana Cruz [facility] COMP. METABOLIC PANEL ([id number]) 2022-06-02 19:20:00 Susana Cruz [facility] CBC WITH DIFF 2022-06-02 19:20:[address] [facility] URINALYSIS 2022-06-02 19:20:00 Susana Cruz [facility] CONSENT/REFUSAL FOR DIAGNOSIS AND TREATMENT 2022-06-02 17:56:13 Doctor Unassigned, [place] [facility] Plan of Care Planned Activity Planned Date Details Comments Source Encounters Start Date/Time End Date/Time Encounter Type Admission Type Attending [facility] Care Department Encounter ID Source 2025-08-29 10:45:00 2025-08-29 10:45:00 Outpatient BARB BENITO [id number] Cynthia Evans 2025-06-12 10:30:00 2025-06-12 10:30:00 Outpatient DONNY NGUYEN CYNTHIA DIAZ [id number] Cynthia Evans 2025-05-15 11:05:00 2025-05-15 11:05:00 Outpatient ALBERTO CYNTHIA DIAZ [id number] Cynthia Campbellcharan 2025-05-15 10:30:00 2025-05-15 10:30:00 Outpatient ANSBARB BRASHER [id number] Cynthia charan 2025-05-14 00:00:00 2025-05-14 00:00:00 Outpatient MD CYNTHIA WILKS [id number] [facility]25-05-14 00:00:00 2025-05-14 00:00:00 Outpatient BARB BENITO [id number] [facility] 2025-05-09 11:15:00 2025-05-09 11:15:00 Outpatient DONNY NGUYEN CYNTHIA DIAZ [id number] [facility] 2025-05-09 00:00:00 2025-05-09 00:00:00 Outpatient CYNTHIA DIAZ [id number] Cynthia [facility] 2025-05-09 00:00:00 2025-05-09 00:00:00 Outpatient MD CYNTHIA WILKS [id number] Cynthia [facility] 2025-04-16 00:00:00 2025-04-16 00:00:00 Outpatient DONNY NGUYEN CYNTHIA DIAZ [id number] [facility] 2025-04-15 00:00:00 2025-04-15 00:00:00 Outpatient KENNY PALMA [id number] [facility] 2025-04-11 00:00:00 2025-04-11 00:00:00 Outpatient BARB BENITO [id number] Cynthia [facility] 2025-04-11 00:00:00 2025-04-11 00:00:00 Outpatient BARB BEINTO [id number] Cynthia [facility] 2025-03-14 00:00:00 2025-03-14 00:00:00 Outpatient ANSOANUUR, BARB DIAZ [id number] [facility]thia [facility] 2025-02-26 00:00:00 2025-02-26 00:00:00 Outpatient PREDONNY GUTIERREZ CYNTHIA DIAZ [id number] [facility] 2025-02-06 09:30:00 2025-02-06 09:30:00 Outpatient ANSOANUUR, BARB DIAZ [id number] [facility] 2025-01-15 00:00:00 2025-01-15 00:00:00 Outpatient ANSOANUUR, BARB DIAZ [id number] Cynthia [facility] 2025-01-15 00:00:00 2025-01-15 00:00:00 Outpatient LAURENCE COTA [id number] [facility] 2025-01-15 00:00:00 2025-01-15 00:00:00 Outpatient ORLANDO WAYNE [id number] [facility] 2024-12-31 00:00:00 2024-12-31 00:00:00 Out[facility]IA WILKS [id number] [facility]24-12-26 00:00:00 2024-12-26 00:00:00 Out[facility] [id number] [facility] 2024-12-24 13:30:00 2024-12-24 13:30:00 Outpatient ANSOANUUBARB Barroso [id number] [facility] 2024-12-13 00:00:00 2024-12-13 00:00:00 Outpatient ANSOANUUBARB Barroso [id number] [facility] 2024-11-18 00:00:00 2024-11-18 00:00:00 Outpatient ANSOANBARB ROWLAND [id number] [facility] 2024-11-18 00:00:00 2024-11-18 00:00:00 Outpatient ANSOANUUR, BARB DIAZ [id number] Cynthia Campbellcharan 2024-10-17 00:00:00 2024-10-17 00:00:00 Outpatient ANSOANUUR, BARB DIAZ [id number] Cynthia Campbellcharan 2024-10-03 08:00:00 2024-10-03 08:00:00 Outpatient PALMA, KENNY DIAZ [id number] Cynthia Campbellcharan 2024 09:30:00 2024 09:30:00 Outpatient PALMA, KENNY DIAZ [id number] [facility] 2024-09-24 14:00:00 2024-09-24 14:00:00 Outpatient PALMA, KENNY DIAZ [id number] [facility] 2024-09-23 00:00:00 2024-09-23 00:00:00 Outpatient [facility] COTA [id number] [facility] 2024-09-20 11:45:00 2024-09-20 11:45:00 Outpatient ALBERTO DIAZ [id number] [facility] 2024-09-20 11:15:00 2024-09-20 11:15:00 Outpatient ANSOANUUR, BARB DIAZ [id number] [facility]thia [facility] 2024-09-20 09:30:00 2024-09-20 09:30:00 Outpatient ANSOANUUR, BARB DIAZ [id number] [facility] 2024-09-12 10:30:00 2024-09-12 10:30:00 Outpatient ANSOANUUR, BARB DIAZ [id number] [facility] 2024-08-22 00:00:00 2024-08-22 00:00:00 Outpatient ANSOANUUR, BARB DIAZ [id number] Cynthia [facility] 2024-08-22 00:00:00 2024-08-22 00:00:00 Outpatient LEONEL HARRINGTON [id number] [facility] 2024-07-26 11:15:00 2024-07-26 11:15:00 Outpatient ANSOANUUR, BARB DIAZ [id number] Cynthia Seybcharan 2024-07-25 00:00:00 2024-07-25 00:00:00 Outpatient ANSOANUUR, BARB DIAZ [id number] Cynthia Seybcharan 2024-07-24 00:00:00 2024-07-24 00:00:00 Outpatient MD CYNTHIA WILKS [id number] Cynthia Seybold 2024-07-03 00:00:00 2024-07-03 00:00:00 Outpatient PREZASDONNY [id number] Cynthia Seybold 2024-06-21 00:00:00 2024-06-21 00:00:00 Outpatient ANSOANUUBARB Barroso [id number] Cynthia Seybcharan 2024-05-23 00:00:00 2024-05-23 00:00:00 Outpatient ANSOANUURBARB [id number] [facility] 2024-05-21 00:00:00 2024-05-21 00:00:00 Outpatient LAURENCE COTA [id number] Cynthia Seybold 2024-05-17 00:00:00 2024-05-17 00:00:00 Outpatient PREZAS, DONNY DIAZ [id number] Cynthia Seybold 2024-05-01 00:00:00 2024-05-01 00:00:00 Outpatient PREZASDONNY [id number] Cynthia Seybold 2024-04-26 11:50:00 2024-04-26 11:50:00 Outpatient LAB53 CYNTHAI DIAZ [id number] Cynthia Seybold 2024-04-26 11:15:00 2024-04-26 11:15:00 Outpatient ANSOANUUBARB Barroso [id number] Cynthia Seybold 2024-04-25 10:30:00 2024-04-25 10:30:00 Outpatient ANSOANUURBARB [id number] Cynthia Seybold 2024-03-22 00:00:00 2024-03-22 00:00:00 Outpatient ANSOANKASHIFBARB CYNTHIA DIAZ [id number] Cynthia ybcharan 2024-02-13 00:00:00 2024-02-13 00:00:00 Outpatient MD CYNTHIA WILKS [id number] Cynthia Seybcharan 2024-02-06 09:30:00 2024-02-06 09:30:00 Outpatient LAURENCE COTA [id number] [facility] 2024-02-02 00:00:00 2024-02-02 00:00:00 Outpatient ANSOATIMOTHYBARB CYNTHIA DIAZ [id number] [facility] 2024-02-02 00:00:00 2024-02-02 00:00:00 Outpatient ANSMARIENKASHIF BARB DIAZ [id number] [facility] 2024-01-23 14:45:00 2024-01-23 14:45:00 Outpatient LAB53 CYNTHIA DIAZ [id number] [facility] 2024-01-23 14:00:00 2024-01-23 14:00:00 Outpatient ANSSAMEERABARB CYNTHIA DIAZ [id number] [facility] 2024-01-10 00:00:00 2024-01-10 00:00:00 Outpatient JAYA ACOSTA [id number] [facility] 2024-01-01 15:45:00 2024-01-01 15:45:00 Outpatient LABElizabeth DIAZ [id number] Cynthia Seybold 2024-01-01 15:00:00 2024-01-01 15:00:00 Outpatient LAURENCE COTA [id number] Cynthia Seybold 2023-12-19 00:00:00 2023-12-19 00:00:00 Outpatient MARÍA ELENA SR [id number] Cynthia Seybold 2023-12-13 00:00:00 2023-12-13 00:00:00 Outpatient LAURENCE COTA [id number] Cynthia Seybold 2023-11-28 09:30:00 2023-11-28 09:30:00 Outpatient HUNDLLAURENCE CYNTHIA DIAZ [id number] Cynthia Seybold 2023-11-27 10:40:00 2023-11-27 10:40:00 Outpatient YOLA SIMON CYNTHIA DIAZ [id number] Cynthia Seybold 2023-11-17 00:00:00 2023-11-17 00:00:00 Outpatient PREZADONNY Bruce CYNTHIA DIAZ [id number] Cynthia Seybold 2023-11-09 00:00:00 2023-11-09 00:00:00 Outpatient AHDARIUS, JAYA CYNTHIA DIAZ [id number] Cynthia Seybold 2023-11-03 14:00:00 2023-11-03 14:00:00 Outpatient SHAY CYNTHIA DIAZ [id number] Cynthia Seybold 2023-10-31 16:30:00 2023-10-31 16:30:00 Outpatient AHMED, JAYA CYNTHIA DIAZ [id number] Cynthia Seybold 2023-10-31 16:30:00 2023-10-31 16:30:00 Outpatient AHMED, JAYA CYNTHIA DIAZ [id number] Cynthia Seybold 2023-10-29 00:00:00 2023-10-29 00:00:00 Outpatient JOSL LAURENCE DIAZ [id number] Cynthia Seybold 2023-10-19 00:00:00 2023-10-19 00:00:00 Outpatient PREZASDONNY CYNTHIA DIAZ [id number] Cynthia Seybold 2023-10-18 09:30:00 2023-10-18 09:30:00 Outpatient HUNDJaja LAURENCE DIAZ [id number] Cynthia Seybold 2023-10-17 10:00:00 2023-10-17 10:00:00 Outpatient MARÍA ELENA SR [id number] Cynthia Seybold 2023-10-05 13:30:00 2023-10-05 13:30:00 Outpatient AHMED, JAYA CYNTHIA DIAZ [id number] Cynthia Seybold 2023-10-05 00:00:00 2023-10-05 00:00:00 Outpatient MD CYNTHIA WILKS [id number] Cynthia Nathan 2023-09-28 00:00:00 2023-09-28 00:00:00 Outpatient CIPRIANO LAURENCE CYNTHIA DIAZ [id number] Cynthia Evans 2023-09-27 10:40:00 2023-09-27 10:40:00 Outpatient ALFREDYOLA CYNTHIA DIAZ [id number] Cynthia Nathan 2023-09-21 00:00:00 2023-09-21 00:00:00 Outpatient CIPRIANO LAURENCE CYNTHIA DIAZ [id number] Cynthia ybcharan 2023-09-19 11:15:00 2023-09-19 11:15:00 Outpatient LAB90 CYNTHIA DIAZ [id number] Cynthia Nathan 2023-09-19 10:30:00 2023-09-19 10:30:00 Outpatient CIPRIANO LAURENCE CYNTHIA DIAZ [id number] Cynthia Evans 2023-09-12 00:00:00 2023-09-12 00:00:00 Outpatient MARÍA ELENA SR CYNTHIA DIAZ [id number] Cynthia Seybcharan 2023-09-12 00:00:00 2023-09-12 00:00:00 Outpatient CIPRIANO LAURENCE CYNTHIA DIAZ [id number] Cynthia Evans 2023-08-22 10:55:00 2023-08-22 10:55:00 Outpatient LAB39 CYNTHIA DIAZ [id number] Cynthia Seybcharan 2023-08-22 10:00:00 2023-08-22 10:00:00 Outpatient MARÍA ELENA SR CYNTHIA DIAZ [id number] Cynthia Seybold 2023-08-18 00:00:00 2023-08-18 00:00:00 Outpatient CYNTHIA DIAZ [id number] Cynthia Seybcharan 2023-08-13 00:00:00 2023-08-13 00:00:00 Outpatient CYNTHIA DIAZ [id number] Cynthia Sejh 2023-07-19 00:00:00 2023-07-19 00:00:00 Outpatient DONNY NGUYEN [id number] Cynthia Seybold 2023-07-12 00:00:00 2023-07-12 00:00:00 Patient Outreach Moreno Harveyki Sheree ALFREDA [place] [employer] 1..840.114 [id number] [facility] 2023-07-10 00:00:00 2023-07-10 00:00:00 Outpatient MARÍA ELENA SR [id number] Cynthia [facility] 2023-07-05 13:45:00 2023-07-05 13:45:00 Outpatient MARÍA ELENA SR [id number] Cynthia [facility] 2023-06-30 00:00:00 2023-06-30 00:00:00 Patient Outreach Ale Harvey ALFREDA [place] [employer] 1..840.114 [id number] [facility] [facility]21 00:00:00 2023-06-21 00:00:00 Outpatient CIPRIANO LAURENCE DIAZ [id number] [facility] 2023-06-21 00:00:00 2023-06-21 00:00:00 Outpatient CIPRIANO LAURENCE DIAZ [id number] [facility] 2023-06-19 11:55:00 2023-06-19 11:55:00 Outpatient LABElizabeth DIAZ [id number] [facility] 2023-06-19 11:00:00 2023-06-19 11:00:00 Outpatient CIPRIANO LAURENCE DIAZ [id number] [facility] 2023-06-19 00:00:00 2023-06-19 00:00:00 Outpatient CYNTHIA DIAZ [id number] [facility] 2023-05-16 00:00:00 2023-05-16 00:00:00 Patient Outreach Alessandra Gramajo ALFREDA [facility] 1.2.840.114 350.1.13.10 4.2.7.2.686 [id number] [facility] 2023-04-20 00:00:00 2023-04-20 00:00:00 Transition of Care Ofelia Olivier 1.2.840.114 350.1.13.10 4.2.7.2.686 [id number] [facility] 2023-04-20 00:00:00 2023-04-20 00:00:00 Transition of Care Ofelia Olivier 1.2.840.114 350.1.13.10 4.2.7.2.686 [id number] [facility] 2023-04-19 11:22:00 2023-04-19 21:15:00 Hospital Encounter Denia Rios David [facility] 1.2.840.114 350.1.13.10 4.2.7.2.686 [id number] [facility] 2023-04-19 11:22:00 2023-04-19 21:15:00 Inpatient TIRSO MOSLEY [facility] [id number] [facility] 2023-02-23 00:00:00 2023-02-23 00:00:00 Outpatient LAURENCE COTA [id number] [facility] 2023-01-20 14:40:00 2023-01-20 14:40:00 Outpatient JASPER FIELDS [id number] [facility] 2022-12-31 00:00:00 2022-12-31 00:00:00 Outpatient LAURENCE COTA [id number] [facility] 2022-12-11 00:00:00 2022-12-11 00:00:00 Outpatient LAURENCE COTA [id number] [facility] 2022-12-08 00:00:00 2022-12-08 00:00:00 Outpatient JASON DIAMOND [id number] [facility] 2022-11-07 00:00:00 2022-11-07 00:00:00 Outpatient HUNDL, LAURENCE CYNTHIA DIAZ [id number] [facility] 2022-11-02 00:00:00 2022-11-02 00:00:00 Outpatient HUNDL, LAURENCE CYNTHIA DIAZ [id number] [facility] 2022-10-31 14:00:00 2022-10-31 14:00:00 Outpatient HUNDL, LAURENCE DIAZ [id number] [facility] 2022-10-13 09:00:00 2022-10-13 09:00:00 Outpatient HUNDL, LAURENCE DIAZ [id number] [facility] 2022-10-13 00:00:00 2022-10-13 00:00:00 Outpatient HUNDL, LAURENCE DIAZ [id number] [facility] 2022-10-13 00:00:00 2022-10-13 00:00:00 Outpatient HUNDL, LAURENCE DIAZ [id number] [facility] 2022-09-26 00:00:00 2022-09-26 00:00:00 Outpatient HUNDL, LAURENCE DIAZ [id number] [facility] 2022-09-20 00:00:00 2022-09-20 00:00:00 Outpatient HUNDL, LAURENCE DIAZ [id number] [facility] 2022-09-17 00:00:00 2022-09-17 00:00:00 Outpatient HUNDL, LAURENCE DIAZ [id number] [facility] 2022-09-15 10:05:00 2022-09-15 10:05:00 Outpatient LAB90 CYNTHIA DIAZ [id number] [facility] 2022-09-15 09:00:00 2022-09-15 09:00:00 Outpatient HUNDL, LAURENCE DIAZ [id number] [facility] 2022-09-07 11:45:00 2022-09-07 11:45:00 Outpatient LAB91 CYNTHIA DIAZ [id number] [facility] 2022-09-07 11:00:00 2022-09-07 11:00:00 Outpatient ANSOANUUR, BARB CYNTHIA CYNTHIA [id number] [facility] 2022-09-06 00:00:00 2022-09-06 00:00:00 Outpatient BARB BENITO CYNTHIA [id number] [facility] 2022-09-01 15:00:00 2022-09-01 15:00:00 Outpatient LAURENCE COTA CYNTHIA [id number] [facility] 2022-09-01 00:00:00 2022-09-01 00:00:00 Outpatient LAURENCE COTA CYNTHIA [id number] [facility] 2022-09-01 00:00:00 2022-09-01 00:00:00 Outpatient MARÍA ELENA SR CYNTHIA DIAZ [id number] [facility] 2022-08-29 11:00:00 2022-08-29 11:00:00 Outpatient LAURENCE COTA CYNTHIA DIAZ [id number] [facility] 2022-07-16 17:45:00 2022-07-16 21:16:00 Emergency X ROSETTE TRAN [facility] ERT [id number] [facility] 2022-07-16 17:45:00 2022-07-16 21:16:00 Emergency Rosette Tran [facility] 1.2.840.114 350.1.13.10 4.2.7.2.686 [id number] [facility] 2022-06-02 13:12:00 2022-06-02 17:06:00 Emergency X SUSANA CRUZ [facility] ERT [id number] [facility] 2022-06-02 13:12:00 2022-06-02 17:06:00 Emergency Juana Cruzbing Bruce [facility] 1.2.840.114 350.1.13.10 4.2.7.2.686 [id number] [facility] Results Test Description Test Time Test Comments Results Result Co mments Source [facility] [id number] 00:43:06* Test Item Value Reference Range Interpretation Comme nts LACTIC ACID (test code = 2963469353) 1.18 mmol/L 0.50-2.20 Lab Interpretation (test cod e = 81989-5) Normal [facility]. METABOLIC PANEL (60905)2022-06-02 19:55:41* Test Item Value Reference Range Interpretation Comme nts NA (test code = 5462268215) 135 mmol/L 135-145 K (test code = 4422217797) 4.0 mmol/L 3.5-5 CL (test code = 2060230646) 99 mmol/L 98-108 CO2 TOTAL (test code = 0157022881) 29 mmol/L 23-31 AGAP (test code = 2478558614) 2-16 BUN (test code = 6741614622) 5 mg/dL 7-23 L GLUCOSE (test code = 3439959660) 281 mg/dL 70-110 H CREATININE (test code = 3372040907) 0.35 mg/dL 0.5-1.04 L TOTAL BILI (test code = 5534292583) 1.0 mg/dL 0.1-1.1 CALCIUM (test code = 8422085084) 9.2 mg/dL 8.6-10.6 T PROTEIN (test code = 0904274032) 6.2 g/dL 6.3-8.2 L ALBUMIN (test code = 8972445842) 3.6 g/dL 3.5-5 ALK PHOS (test code = 9779836185) 72 U/L 34-122 ALTv (test code = 1742-6) 18 U/L 5-35 AST(SGOT) (test code = 6234717676) 20 U/L 13-40 eGFR (test code = 5839132820) mL/min/1.73m2 FRANCISCO (test code = FRANCISCO) Association [...] imaging tests). Lab Interpretation (test code = 87661-0) Abnormal [facility] WITH [id number] 19:41:53* Test Item Value Reference Range Interpretation Comme nts WBC (test code = 6690-2) See_Comment [[employer]] The system which generated this result transmitted reference range: 4.30 - 11.10 10*3/?L. The reference range was not used to interpret this result as normal/abnormal. RBC (test code = 789-8) See_Comment [[employer]] The system which generated this result transmitted [...] 34.6 g/dL 31.6-35.1 RDW-SD (test code = 04662-5) 41.0 fL 39-49.9 RDW-CV (test code = 788-0) 13.2 % 12-15.5 PLT (test code = 777-3) See_Comment [Automated messa ge] The system which generated this result transmitted reference range: 166 - 358 10*3/?L. The reference range was not used to interpret this result as normal/abnormal. MPV (test code = 79457-1) 11.3 fL 9.5-12.9 NRBC/100 WBC (test code = 8528493108) See_Comment [Automated me ssage] The system which generated this result transmitted reference range: 0.0 - 10.0 /100 WBCs. The reference range was not used to interpret this result as normal/abnormal. NRBC x10^3 (test code = 8298856389) See_Comment [Automated me ssage] The system which generated this result transmitted reference range: 10*3/?L. The reference range was not used to interpret this result as normal/abnormal. GRAN MAT (NEUT) % (test code = 770-8) 74.6 % IMM GRAN % (test code = 1805889024) 0.60 % LYMPH % (test code = 736-9) 18.5 % MONO % (test code = 5905-5) 5.4 % EOS % (test code = 713-8) 0.6 % BASO % (test code = 706-2) 0.3 % GRAN MAT x10^3(ANC) (test code = 5576398102) 6.61 10*3/uL 1.88-7.09 IMM GRAN x10^3 (test code = 7210336096) 0.05 10*3/uL 0-0.06 LYMPH x10^3 (test code = 731-0) 1.64 10*3/uL 1.32-3.29 MONO x10^3 (test code = 742-7) 0.48 10*3/uL 0.33-0.92 EOS x10^3 (test code = 711-2) 0.05 10*3/uL 0.03-0.39 BASO x10^3 (test code = 704-7) 0.03 10*3/uL 0.01-0.07 [facility] History and Physical Notes Date/Time Note Provider Source 2023-10-17 10:07:44 Images from the original note were not included. [facility] María Elena Sr MD, ROSA Wiley PA-C, MPAS ASSESSMENT 1. [...] Other: INJECTIONS: No TODAY: UDS WNL 09/06 [place] 1 PO q 8 prn #90 x [...] tool calculated and signed. Pt was given [facility] instruction list of opioids DO's and DON'T's, risks and side effects related to intermittent/chronic usage of scheduled CII and CIII opioids. Pain Management Referral to Primary Care Kenny Llanes is being referred for ongoing medical management of her chronic pain. This patient has been evaluated by the [facility] Pain Management section and has been [...] 3 monthly prescriptions Monitoring: Pharmacy Board website [employer] (Prescription Monitoring Program) Random urine drug tests: [...] pain? constantly Kind of pain (quality):Sharp, Burning, Pins/[place], Stabbing, Throbbing, Cramping, Numbness What makes it [...] of foot ulcer, getting daily IV abx Guy is helping her pain Here for routine [...] % ESTIM. AVG GLU (EAG) 240 [id number] @ Reviewed [employer] prescription monitoring program report, no discrepency 07/05/2023 Reviewed [employer] prescription monitoring program report, no discrepency 10/17/2023 [...] benzodiazapines, antidepressants, sedatives, and/or tranquilizers, the drug manual arts therapist, recommends not operating ANY machinery or ANY [...] medications which may lead to sudden . [facility] 2023-08-22 10:34:04 Images from the original note were not included. [facility] María Elena Sr MD, FIPP Adryene Wiley, PA-C, MPAS ASSESSMENT 1. Chronic pain syndrome [...] - Last Hydrocodone, dosage - this AM [place] 1 PO q 8 prn #90 x [...] tool calculated and signed. Pt was given [employer] [facility] [employer] instruction list of opioids DO's and DON'T's, risks and side effects related to intermittent/chronic usage of scheduled CII and CIII opioids. Chief complaint or Subjective: Area of pain : Foot: bilateral What is the duration of your pain? constantly Kind of pain (quality):Sharp, Burning, Pins/[place], Stabbing, Throbbing, Cramping, Numbness What makes it [...] of foot ulcer, getting daily IV abx [place] is helping her pain Here for routine [...] % ESTIM. AVG GLU (EAG) 240 mg/dL @[facility]([id number]) @ Reviewed [employer] prescription monitoring program report, no discrepency 07/05/2023 [...] benzodiazapines, antidepressants, sedatives, and/or tranquilizers, the drug manual arts therapist, recommends not operating ANY machinery or ANY [...] medications which may lead to sudden . [facility] Notes Date/Time Note Provider Source 2025-05-15 10:51:[address] [facility]2025-10-02 10:51:38* BP Answer Date of Assessment Author 122/89 05/15/2025 10:37 AM CDT Dinora Mooney MA * Pulse Answer Date of Assessment Author 91 05/15/2025 10:37 AM CDT Dinora Mooney MA * Pain Score Answer Date of Assessment Author 03/2305/15/2025 10:37 AM CDT Dinora Mooney MA * Position Answer Date of Assessment Author SITTING 05/15/2025 10:37 AM CDT Dinora Mooney MA [facility]2025-10-02 10:51:38* Barb Benito MD - 05/15/2025 10:39 AM CDT Images from the original note were not included. [facility] Barb Benito MD Workers Comp? No Case in Litigation? No AllergiesAllergen Reactions Cephalexin Monohydrate Other reaction(s): Itching/Hives/Rash Meperidine Hcl Other reaction(s): Itching/Hives/Rash Penicillins Other reaction(s): Itching Propoxyphene Other reaction(s): Itching/Hives/Rash Vancomycin Hives Propoxyphene Compound Swelling Allergic to propoxyphene A) Chief complaint or Subjective: Area of pain : Foot: bilateral Pain status since onset - worsening Have you had this pain before? Yes Frequency of flare up? Daily What is the duration of your pain? constantly Kind of pain (quality):Burning, Numbness What makes it worse? Walking What have you tried for this pain? Rest, Ice Pack, Physical Therapy,Medications -hydrocodone-acetaminophen, gabapentin, Cymbalta Do you have any - WEAKNESS NoneNUMBNESS None Changes in pattern of pain or weakness? No Current modalities for pain management: See above Functional Status: Independent with all Activities of Daily Living and mobility Social History Tobacco UseSmoking status: Every Day Average packs/day: 1 pack/day for 30.0 years (30.0 ttl pk-yrs) Types: Cigarettes Start date: 1990 ROS Review of SystemsConstitutional: Negative for chills, diaphoresis, fatigue and fever. HENT: Negative for congestion, rhinorrhea, tinnitus and trouble swallowing. Eyes: Negative for photophobia and pain. Respiratory: Negative for apnea, cough and choking. Cardiovascular: Negative for chest pain and leg swelling. Gastrointestinal: Negative for abdominal pain, constipation, diarrhea, nausea and vomiting. Endocrine: Negative for cold intolerance, heat intolerance and polyphagia. Genitourinary: Negative for difficulty urinating, dysuria, frequency and hematuria. Skin: Negative for color change, pallor and rash. Allergic/Immunologic: Negative for environmental allergies. Neurological: Positive for numbness. Negative for dizziness, seizures, weakness and headaches. Psychiatric/Behavioral: Negative for agitation, confusion, hallucinations and suicidal ideas. PCP or referring MD is aware of the above symptom(s) HPI Kenny Casper a 48 year old female with a past medical history ofPast Medical History: Diagnosis Date Diabetes mellitus with peripheral vascular disease (multi HCC) 09/15/2022 Diabetic foot ulcer (multi HCC) left Intermittent claudication (CMS-HCC) 09/15/2022 MVP (mitral valve prolapse) who presents to clinic with Foot Pain (Bilateral feet pain, patient currently on Gabapentin 600 mg and Hydrocodone 10-325 mg, she has been seen in the past for the same issue) . her pain is localized to Foot. her pain started 15 years ago. The pain has progressively gotten Worse There was not an Inciting event . The pain is described as burning, electric shock, and numb. There is no radiation. The pain occurs constantly . The pain is aggravated by walking. The pain is alleviated by rest. At its worst the pain is rated as a 10 out of 10, at its best the pain is rated as a 2 out of 10 and on average the pain is rated as a 2 out of 10. So far the patient has tried injections . Current medications include Gabapentin 600 mg 3 times a day and Hydrocodone 10-325 mg every 8 hours. They have used these for the past several years These medications can take their worst pain rating down to a 2 out of 10. Endorses a previous urine drug screen that was positive for PCP. Patient alsohad a urine drug screen that was absent the medications that were prescribed for her. Patient denies bowel or bladder incontinence. Patient denies weakness. Denies fever, chills, unintentional weight loss.Denies depression, denies suicidal ideation. Trial of OTC analgesics, and medications without relief. Interval history04/26 Patient presents to clinic for follow-up she reports that the hydrocodone-acetaminophen 10-325 mg is helping her manage her pain. She uses this 3 times a day as needed. Her current pain level is an 8 out of 10. She is continue to take Cymbalta 20 mg and gabapentin 1200 mg 3 times daily. Her most recent dose of the hydrocodone-acetaminophen was this morning 09/20Patient presents to clinic for follow-up current pain level is 8 out of 10 as she is recently had osteomyelitis of the foot and is currently on IV antibiotics through PICC line. She reports the hydrocodone-acetaminophen 10-325 mg every 8 hours as needed has been helpful. Most recent dose of the medication was this morning at 11 AM. Denies any side effects 02/06/2025Wound at bottom of foot is healing well, hydrocodone-acetaminophen 10- 325 mg every 8 hours as needed is managing her pain well as well as gabapentin 1200 mg 3 times daily. Patient is no longer on Cymbalta 20 mg daily. Pain is currently a 0 out of 10. Patient denies any side effects of both medications most recent dose of the hydrocodone-acetaminophen was this morning 05/15/25Patient presents to clinic for follow-up with a pain level that is a 8 out of 10 she continues hydrocodone-acetaminophen 10-325 mg every 8 hours as needed. She also is taking gabapentin 1200 mg 3 times daily and she is trying to get her hemoglobin A1c down. Denies any side effects of the medications most recent dose of hydrocodone-acetaminophen was this morning. Analgesia-patient finds medications are helpful for pain, patient has greater than 50% improvement of pain ADLs-Patient is able to perform usual ADLs with medications Adverse effects-Patient denies adverse effects of medication Routine physical or WWE within the past year? YES PHYSICAL EXAMINATION Vital sign and Nursing Note Reviewed. GENERAL: Not in acute distress, well developed, well nourished HEADNormocephalic, atraumatic Cranial nerves II - XII: grossly intact Pupils: PERRLA, without miosis or mydriasis Greater occipital tenderness: none UPPER EXTREMITIES Sensory: Normal C5-T1 dermatomes bilateralTone: Normal; no muscle atrophy Pulses: 2+ bilaterally Reflexes: Normal C5, C6, C7 bilateral Motor: C5-T1 myotomes 5/5 bilateral SHOULDER ROM: full, without pain (active or passive) THORACIC/LUMBAR ROM: full, without pain (active or passive)Alignment: Normal Trigger points: absent Tender points: absent Facet joints: non tender Facet loading: Negative LOWER EXTREMITIES Reflexes: Trace patella and ankle bilateralTone: Normal; no muscle atrophy Edema: Absent Patient has a missing toe on the left foot as well as an active wound at the plantar surface of the left foot Sensory: Diminished light touch sensation in a stocking distribution bilaterally Motor: Myotomes L3-S1 are 5/5 bilateral Straight Leg Raise: Negative NEUROLOGICAL Gait: normalHoffman: Negative Clonus: Negative Diminished proprioception bilaterally PSYCHMood: stable Stable Pain behavior: none Diagnostic studiesNone pertinent Blood ThinnersNone ASSESSMENT 1. Pain management contract agreement DRUG SCREEN 14 W/CONF, PEDS, UR 2. Chronic prescription opiate use DRUG SCREEN 14 W/CONF, PEDS, UR 3. Chronic pain syndrome 4. Chronic lumbosacral pain 5. Lumbar radiculitis 6. Chronic central neuropathic pain 7. Diabetic peripheral neuropathy (multi HCC) PLAN Please see my office visit note from 09/07/2022 to get my initial impression and history of the patient 01/22Will take over pain management duties from Dr. Sr I had originally seen patient before and at that time there was concerns for drug-seeking behavior due to history urine drug screen positive for PCP. Additionally I reviewed patient's outside medical records and the PDMP which revealed episodes of urine drug screens that were negative for medications that were prescribed to her. Since that time with Dr. Sr it appears that she has been very consistent and very compliant, therefore I will give her a second chance Hydrocodone-acetaminophen 10-325 every 8 hours as needed has been refilled; #90 tablets sent to pharmacy on file Gabapentin 1200 mg 3 times daily patient should continue as well as Cymbalta 20 mg daily Follow-up in 3 months Follow-up urine drug screen patient reports that her most recent dose of the medication was this afternoon 04/26Will refill hydrocodone-acetaminophen 10-325 mg every 8 hours as needed; #90 tablets at the pharmacy on file Continue gabapentin 1200 mg 3 times daily Continue Cymbalta 20 mg daily Follow-up urine drug screen most recent dose of hydrocodone-acetaminophen was this morning Follow-up in 3 months 09/20refill hydrocodone-acetaminophen 10-325 mg every 8 hours as needed; #90 tablets at the pharmacy on file Continue gabapentin 1200 mg 3 times daily Continue Cymbalta 20 mg daily Follow-up urine drug screen most recent dose of hydrocodone-acetaminophen was this morning Follow-up in 3 months 02/06/2025refill hydrocodone-acetaminophen 10-325 mg every 8 hours as needed; #90 tablets at the pharmacy on file Continue gabapentin 1200 mg 3 times daily Follow-up in 3 months 05/15/21. Pain management contract agreement DRUG SCREEN 14 W/CONF, PEDS, UR 2. Chronic prescription opiate use DRUG SCREEN 14 W/CONF, PEDS, UR 3. Chronic pain syndrome 4. Chronic lumbosacral pain 5. Lumbar radiculitis 6. Chronic central neuropathic pain 7. Diabetic peripheral neuropathy (multi HCC) Plan: Continue hydrocodone-acetaminophen 10-325 mg every 8 hours as needed Continue gabapentin 1200 mg 3 times daily Follow-up urine drug screen most recent dose of medication was this morning Follow-up in 3 months PDMP reviewed on 05/15/25 PDMP reviewed on 02/06/25 PDMP reviewed on 09/20/24 PDMP reviewed on 04/26/24 *The following may be discussed with patient based on pt's treatment plan: Opiate Risk Tool Scorin-3 Low risk: 6% change of developing problematic behaviors 4-7 Moderate risk: 28% change of developing problematic behaviors >=8 High risk: >90% change of developing problematic behaviors Goals of Therapy:Improve ambulation, quality of life, minimize medications, improve sleep pattern, increase level of activities, return to work, or improve ability to work. Patient understands their responsibility of their involvement to achieve the above goals, better quality of life, better function, and possible pain control. Patient also understands the nature of chronic pain and disease process. Options:Conservative options have been reviewed and discussed in detail. These include additional physical therapy, medication, exercise conditioning, and weight loss. Interventional treatment options include epidural steroid injections, sacroiliac injections, medial branch block, or radiofrequency ablation. That decision was deferred at this time. Risks:Risks of conservative treatment were discussed and include [...] to proceed with this treatment recommendation. Counseling Given:The diagnosis, prognosis, treatment options, risks; alternatives were discussed in detail using language understandable to this patient. Questions have been elicited and all questions have been answered to the patient’s satisfaction in understandable terms. Realistic reassurance has [...] necessitate schedule changes. Opiate Controlled Substance Therapy Requirements:Urine Drug Screen: Agree [...] Psychological dependence (addiction) to controlled substances that willrequire participation in any treatment program prescribed at facilities, which may include; ?? detoxification and/or ?? psychological, and medical treatment 2. multiple side effects include:- respiratory depression or [...] benzodiazapines, antidepressants, sedatives, and/or tranquilizers, the drug manual arts therapist, recommends not operating ANY machinery or ANY [...] medications which may lead to sudden . Barb Benito [facility] This document was created using a voice recognition transcribing system. Incorrect words may have been transcribed or phrases may have been missed during proofreading. Please interpret accordingly. [facility]2025-10-02 10:51:38Upcoming Encounters Scheduled Orders Name Type Priority Associated Diagnoses Orde r Schedule DRUG SCREEN 14 W/CONF, PEDS, UR Lab Routine Pain management contract agreement Chronic prescription opiate use Expected: 05/15/2025 (Approximate), Expires: 08/13/2025 Health Maintenance Due Date Last Done Comments COLONOSCOPY 1973 CT Colonography 1973 FIT Tests 1973 Sigmoidoscopy 1973 PAP SMEAR WITH HPV 2003 Mammogram 2013 Lipid Panel 09/15/2023 09/15/2022 Physical Exam 09/15/2023 09/15/2022 Lung Cancer Screening 2023 Diabetes: Hemoglobin A1C 04/02/2024 024, 09/19/2023, 06/19/2023, Additional history exists Diabetes: Retinopathy Screening 09/27/2024 09/27/2023, 09/27/2023 Creatinine Level (Kidney Function Test) 12/31/2024 01/01/2024, 11/03/2023, 06/19/2023, Additional history exists Diabetes: Urine Protein Screening 09/20/2025 09/20/2024, 08/22/2023, 09/07/2022 Cologuard 10/21/2025 10/21/2022, 10/21/2022 Colorectal Cancer Screening 10/21/2025 Influenza Vaccines (#1) 2026 Post poned from 04/14/2025 (Patient Refused) Pneumococcal Vaccine: 50+ Years (1 of 2 - PCV) 05/09/2026 Postponed from 1992 (Patient Refused) Tdap Vaccines 05/09/2026 Postponed from 1992 (Patient Refused) Zoster Vaccines (1 of 2) 05/09/2026 Pos tponed from 2023 (Patient Refused) RSV Vaccines (1 - 1-dose 75+ series) 2048 [facility]2025-10-02 10:51:38 Diagnosis Pain management contract agr eement - Primary Chronic prescription opiate use Chronic pain syndrome Chronic lumbosacral pain Lumbago Lumbar radiculitis Thoracic or lumbosacral neuritis or radiculitis, unspecified Chronic central neuropathic pain Diabetic peripheral neuropathy (multi HCC) Type II or unspecified type diabetes mellitus with neurological manifestations, not stated as uncontrolled [facility]2025-10-02 10:51:38 [facility]2025-10-02 10:38:06 Chief Complaint Patient presents with Follow-up On foot pain. LANEY 02/06/2025. Says pain is unchanged. JESSIE Terrell III [facility]2025-09-26 12:16:02* Consultation (Routine) Specialty Diagnoses / Procedures Referred By Contac t Referred To Contact Diagnoses Bipolar affective disorder, remission status unspecified (multi HCC) Donny Nguyen DO [address] [place] [address] Phone: tel: fax: Referral ID Status Reason Start Date Expiration Date Visits Re quested Visits Authorized Scheduling Instructions [facility] makes it easy to live a happy, healthy life with options for both in-person and virtual care from licensed psychiatrists and therapists. [facility] provides treatment for a range of conditions, including depression, anxiety, ADHD, bipolar disorder, sleep disorders, PTSD, panic disorder, dementia, borderline personality disorder, schizophrenia, as well as pre-procedure assessments, and pre-operative assessments for specific procedures such as bariatric surgery. A operations support representative from [facility] will contact you within 24-48 hours. If you have not received a phone call after 48 hours, please call to speak with a operations support representative. If you, your child, or someone you know is in crisis Call 701, go to the nearest emergency room, or reach out to the following national resources. You're never alone. Call 119 or [phone] ([phone] to reach a 24-hour crisis line. Text [phone] to reach the Crisis Text Line. * Consultation (Routine) - Authorized Specialty Diagnoses / Procedures Referred By Contac t Referred To Contact Internal Medicine-Pulmonary Disease Diagnoses Simple chronic bronchitis (multi HCC) Procedures OFFICE/OUTPATIENT [facility] 60 MINUTES Donny Nguyen DO [address] [place] [address] Phone: tel: fax: Dedrick Stephens MD [address] [place] [id number] Phone: tel: fax: Referral ID Status Reason Start Date Expiration Date Visits Requested Visits Authorized [id number] Authorized Provider Preference 05/09/2025 08/07/2025 1 1 * Outpatient Diagnostic Radiology (Routine) - Authorized Specialty Diagnoses / Procedures Referred By Brett mtz Referred To Contact Diagnoses Tobacco use Screening for malignant neoplasm of respiratory organ Procedures CT CHEST LUNG CA SCR W/O CON COMPUTED TOMOGRAPHY THORAX LW DOSE LNG CA SCR C- Donny Nguyen DO [address] [place] [address] Phone: tel: fax: [place] [id number] [place] [address] fax: Referral ID Status Reason Start Date Expiration Date V isits Requested Visits Authorized [id number] Authorized 05/09/2025 08/07/2025 1 1 * Consultation (Routine) - Authorized Specialty Diagnoses / Procedures Referred By Brett mtz Referred To Contact Optometry Diagnoses Mild nonproliferative diabetic retinopathy of both eyes without macular edema associated with type 2 diabetes mellitus (multi HCC) Procedures OFFICE/OUTPATIENT [facility] 60 MINUTES Donny Nguyen DO [address] [place] [address] Phone: tel: fax: Referral ID Status Reason Start Date Expiration Date Visits Requested Visits Authorized [id number] Authorized Specialty Services Required 05/09/2025 08/07/2025 1 1 * Medication Prior Authorization - Pending Review Specialty Diagnoses / Procedures Referred By Brett mtz Referred To Contact Diagnoses Type 2 diabetes mellitus with diabetic polyneuropathy, without long-term current use of insulin (multi HCC) Diabetes mellitus with peripheral vascular disease (multi HCC) DM type 2 with diabetic mixed hyperlipidemia (multi HCC) Donny Nguyen DO [address] [place] [address] Phone: tel: fax: Referral ID Status Reason Start Date Expiration Date V isits Requested Visits Authorized [id number] Pending Review 1 1 [id number] 12:16:02* [facility] [id number] 12:16:02 [place] [id number] 12:16:02* AUDIT-C Score Answer Date of Assessment Author 0 05/09/2025 11:36 AM CDT Donny Nguyen DO * [facility] [id number] 12:16:02* Patient Instructions* Donny Nguyen DO - 05/09/2025 12:15 PM CDT Diabetes mellitus/immunodeficiency secondary to uncontrolled diabetes: - Elevated A1c, poorly controlled diabetes. Last A1c above 10 was done last year. - Order routine blood work to monitor current status. - Initiate Trulicity 0.75 mg weekly, metformin 500 mg twice daily and glipizide 10 mg daily. - Recommend to decrease carbohydrate intake to less than 45 g per meal. Recommend to check blood sugars at least twice daily. Recommend to maintain blood sugars less than 140 fasting and less than 200 after meals. If blood sugar remains above 200 further adjustment in medication may be required. -Reassess within 1 month. Diabetic neuropathy: - Stable. Refill gabapentin 600 mg, 2 pills TID, send to pharmacy Hyperlipidemia: - Refill atorvastatin 10 mg daily. - Obtain lab to monitor current status. 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 Stephens, weighmaster lead to further evaluate. - Prescribe Advair inhaler, 1 puff BID, rinse mouth post-use - Provide albuterol PRN to be used as needed for wheezing Bipolar disorder: - Did not tolerate Cymbalta in the past. - Refer to psychiatrist within [facility] for evaluation and medication management Chronic pain/opioid dependence: - Managed by pain management. Currently on hydrocodone 10/325 mg 3 times a day Health maintenance: - Order mammogram and chest CT scan due to smoking history - Order mammogram for screening purposes. Tobacco use: - Cessation addressed in detail [facility]2025-09-26 12:16:02* Donny Nguyen DO - 05/09/2025 11:15 AM CDT Patient and patient’s participants in attendance, if any, consented to the use of [employer] ([employer]), a new technology product that uses artificial intelligence to assist the provider to document the patient encounter and to record this visit. Chief Complaint OTHER (Patient is present for medication refill) History of Present Illness Kenny Llanes is a(n) 49 year old female with a past medical history as documented below who presents today for evaluation of OTHER (Patient is present for medication refill) . History of Present IllnessThe patient is a 48-year-old female with diabetes, diabetic neuropathy, COPD, bipolar disorder, and health maintenance concerns. Pain Management- Sees a paint spray tender every 3 months - Current medications: hydrocodone 10/325 mg TID, gabapentin 600 mg 2 tablets TID - Requests gabapentin refill - Discontinued Cymbalta due to nausea - No current antibiotics Diabetes- Previously on metformin 1000 mg BID (caused stomach upset), glipizide QD, and Trulicity 1.5 mg (tolerated well, not used for a year) - No home blood sugar monitoring, not on insulin - Diabetic eye changes, unable to afford specialist Bipolar Disorder- Previously on duloxetine (possible stomach upset with metformin, not always effective, led to outbursts) Respiratory Issues- Wheezing for 6 months, previously diagnosed with bronchial asthma/COPD, inhaler discontinued - Contracted COVID-19 two weeks ago Health Maintenance- No mammogram history, no Pap smear since 2008 - Smoker since age 15, currently 1 pack/day - Wants to quit but finds it difficult due to living conditions - Occasional alcohol use - Previous CT scan Diabetic Complications- Lost a toe due to diabetes, amputation 2 years ago - No current foot ulcers, dry skin - Plans to seek immediate medical attention for any redness or swelling Social History- Alcohol: Occasionally - Tobacco: Smokes cigarettes, started at age 15, currently smokes a pack a day - Living Condition: Lives with mother and [id number] Past Surgical History- Toe amputation 2 years ago FAMILY HISTORYMother has Alzheimer's disease. Results - Labs: - A1c: 10 (01/01/2024) - Urine microalbumin: High (09/20/2024) Pain management note 02/06/2025: Reviewed PLAN Please see my office visit note from 09/07/2022 to get my initial impression and history of the patient ll take over pain management duties from Dr. Sr I had originally seen patient before and at that time there was concerns for drug-seeking behavior due to history urine drug screen positive for PCP. Additionally I reviewed patient's outside medical records and the PDMP which revealed episodes of urine drug screens that were negative for medications that were prescribed to her. Since that time with Dr. Sr it appears that she has been very consistent and very compliant, therefore I will give her a second chance Hydrocodone-acetaminophen 10-325 every 8 hours as needed has been refilled; #90 tablets sent to pharmacy on file Gabapentin 1200 mg 3 times daily patient should continue as well as Cymbalta 20 mg daily Follow-up in 3 months Follow-up urine drug screen patient reports that her most recent dose of the medication was this afternoon 04/26Will refill hydrocodone-acetaminophen 10-325 mg every 8 hours as needed; #90 tablets at the pharmacy on file Continue gabapentin 1200 mg 3 times daily Continue Cymbalta 20 mg daily Follow-up urine drug screen most recent dose of hydrocodone-acetaminophen was this morning Follow-up in 3 months 09/20refill hydrocodone-acetaminophen 10-325 mg every 8 hours as needed; #90 tablets at the pharmacy on file Continue gabapentin 1200 mg 3 times daily Continue Cymbalta 20 mg daily Follow-up urine drug screen most recent dose of hydrocodone-acetaminophen was this morning Follow-up in 3 months 02/06/2025refill hydrocodone-acetaminophen 10-325 mg every 8 hours as needed; #90 tablets at the pharmacy on file Continue gabapentin 1200 mg 3 times daily Follow-up in 3 months PDMP reviewed on 02/06/25 PDMP reviewed on 09/20/24 PDMP reviewed on 04/26/24 *The following may be discussed with patient based on pt's treatment plan: Opiate Risk Tool Scorin-3 Low risk: 6% change of developing problematic behaviors 4-7Moderate risk: 28% change of developing problematic behaviors >=8High risk:>90% change of developing problematic behaviors Goals of Therapy: Improve ambulation, quality of life, minimize medications, improve sleep pattern, increase level of activities, return to work, or improve ability to work. Patient understands their responsibility of their involvement to achieve the above goals, better quality of life, better function, and possible pain control. Patient also understands the nature of chronic pain and disease process. Options:Conservative options have been reviewed and discussed in detail. These include additional physical therapy, medication, exercise conditioning, and weight loss. Interventional treatment options include epidural steroid injections, sacroiliac injections, medial branch block, or radiofrequency ablation. That decision was deferred at this time. Risks:Risks of conservative treatment were discussed and include [...] to proceed with this treatment recommendation. Counseling Given:The diagnosis, prognosis, treatment options, risks; alternatives were discussed in detail using language understandable to this patient. Questions have been elicited and all questions have been answered to the patient’s satisfaction in understandable terms. Realistic reassurance has [...] necessitate schedule changes. Opiate Controlled Substance Therapy Requirements:Urine Drug Screen: Agree [...] Psychological dependence (addiction) to controlled substances that willrequire [...] benzodiazapines, antidepressants, sedatives, and/or tranquilizers, the drug manual arts therapist, recommends not operating ANY machinery or ANY [...] medications which may lead to sudden . Barb Benito MD PMR-Pain Medicine [facility] Current Medications Current Medications[1] Past Medical History Past Medical History[2] Past Surgical History Past Surgical History:Procedure Laterality Date AMPUTATION TOE METATARSOPHALANGEAL JOINT Left 4th toe DELIVERY ONLY CHOLECYSTECTOMY Family Medical History Family History[3] Social History Social History[4] Review of Systems Review of Systems Physical Exam BP 126/62 (Side: Left Arm, Position: SITTING, Cuff Size: Medium Adult) | Pulse82 | Temp 97.7 ?F (36.5 ?C) (Tympanic) | Resp 16 | Ht 5' 6" (1.676 m) | Wt 165 lb (74.8 kg) | BMI 26.63 kg/m? General: Alert, Conversant, cooperative, oriented x3.HEENT: Head atraumatic. Extraocular movements intact. Ears atraumatic. Nares patent. Oropharynx moist. Dentition appears normal. Neck: Supple. No thyromegaly. Heart: Regular rate and rhythm. No murmurs. Lungs: Mild wheezing bilateral Abdomen: Soft, nontender, nondistended. Extremities: Good range of motion to all extremities. No focal deficits. Skin: Normal skin turgor. Skin appears dry. No significant edema. Neuro: No focal deficits. Mental: Patient appears in good mood. Intact judgement and insight. Patient interactive and appropriate. Assessment and Plan 1. Type 2 diabetes mellitus with diabetic polyneuropathy, without long-term current use of insulin (multi HCC) - Dulaglutide 0.75 MG/0.5ML subcutaneous Solution Auto-injector; Inject 0.75 mg into the skin once a week. Dispense: 4 mL; Refill: 1 - Gabapentin 600 MG oral Tablet; Take 2 tablets (1,200 mg total) by mouth 3 times daily. Dispense: 180 tablet; Refill: 3 - GlipiZIDE 10 MG oral TABLET SR 24 HR; Take 1 tablet (10 mg total) by mouth daily. Dispense: 90 tablet; Refill: 3 - Metformin HCl 500 MG oral Tablet; Take 1 tablet (500 mg total) by mouth in the morning and 1 tablet (500 mg total) in the evening. Take with meals. Dispense: 180 tablet; Refill: 3 - CBC WITH DIFFERENTIAL; Future - COMP. METABOLIC PANEL (14); Future - LIPID PANEL; Future - HEMOGLOBIN (HB) A1C WITH EAG; Future - TSH+FREE T4; Future 2. Diabetes mellitus with peripheral vascular disease (multi HCC)- Dulaglutide 0.75 MG/0.5ML subcutaneous Solution Auto-injector; Inject 0.75 mg into the skin once a week. Dispense: 4 mL; Refill: 1 - GlipiZIDE 10 MG oral TABLET SR 24 HR; Take 1 tablet (10 mg total) by mouth daily. Dispense: 90 tablet; Refill: 3 - Metformin HCl 500 MG oral Tablet; Take 1 tablet (500 mg total) by mouth in the morning and 1 tablet (500 mg total) in the evening. Take with meals. Dispense: 180 tablet; Refill: 3 - Atorvastatin Calcium 10 MG oral Tablet; Take 1 tablet (10 mg total) by mouth nightly. Dispense: 90 tablet; Refill: 3 - CBC WITH DIFFERENTIAL; Future - COMP. METABOLIC PANEL (14); Future - LIPID PANEL; Future - HEMOGLOBIN (HB) A1C WITH EAG; Future - TSH+FREE T4; Future 3. DM type 2 with diabetic mixed hyperlipidemia (multi HCC)- Dulaglutide 0.75 MG/0.5ML subcutaneous Solution Auto-injector; Inject 0.75 mg into the skin once a week. Dispense: 4 mL; Refill: 1 - GlipiZIDE 10 MG oral TABLET SR 24 HR; Take 1 tablet (10 mg total) by mouth daily. Dispense: 90 tablet; Refill: 3 - Metformin HCl 500 MG oral Tablet; Take 1 tablet (500 mg total) by mouth in the morning and 1 tablet (500 mg total) in the evening. Take with meals. Dispense: 180 tablet; Refill: 3 - Atorvastatin Calcium 10 MG oral Tablet; Take 1 tablet (10 mg total) by mouth nightly. Dispense: 90 tablet; Refill: 3 - CBC WITH DIFFERENTIAL; Future - COMP. METABOLIC PANEL (14); Future - LIPID PANEL; Future - HEMOGLOBIN (HB) A1C WITH EAG; Future - TSH+FREE T4; Future 4. Opioid dependence with opioid-induced disorder (multi HCC) 5. Chronic pain syndrome- Gabapentin 600 MG oral Tablet; Take 2 tablets (1,200 mg total) by mouth 3 times daily. Dispense: 180 tablet; Refill: 3 6. History of amputation of lesser toe, left ([facility]) 7. 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 METABOLIC PANEL (14); Future - LIPID PANEL; Future - HEMOGLOBIN (HB) A1C WITH EAG; Future - TSH+FREE T4; Future 8. Encounter for screening mammogram for breast cancer- MAMMO 3D [facility] SCREENING BILAT; Future 9. Tobacco use- CT CHEST LUNG CA SCR W/O CON; Future 10. Screening for malignant neoplasm of respiratory organ- CT CHEST LUNG CA SCR W/O CON; Future 11. Simple chronic bronchitis (multi [facility])- Fluticasone-Salmeterol (Advair Diskus) 250-50 MCG/ACT inhalation AEROSOL POWDER, BREATH ACTIVATED; Inhale 1 puff into the lungs 2 times daily. Dispense: 1 each; Refill: 6 - Albuterol HFA 108 (90 Base) MCG/ACT IN AERS; Inhale 2 puffs into the lungs every 6 hours as needed for wheezing. Dispense: 1 each; Refill: 6 - REFERRAL TO PULMONARY- EXTERNAL 12. Bipolar affective disorder, remission status unspecified (multi HCC)- REFERRAL TO [facility]CH[facility]-EXTERNAL Assessment & Plan Diabetes mellitus/immunodeficiency secondary to uncontrolled diabetes: - Elevated A1c, poorly controlled diabetes. Last A1c above 10 was done last year. - Order routine blood work to monitor current status. - Initiate Trulicity 0.75 mg weekly, metformin 500 mg twice daily and glipizide 10 mg daily. - Recommend to decrease carbohydrate intake to less than 45 g per meal. Recommend to check blood sugars at least twice daily. Recommend to maintain blood sugars less than 140 fasting and less than 200 after meals. If blood sugar remains above 200 further adjustment in medication may be required. -Reassess within 1 month. Diabetic neuropathy:- Stable. Refill gabapentin 600 mg, 2 pills TID, send to pharmacy Hyperlipidemia:- Refill atorvastatin 10 mg daily. - Obtain lab to monitor current status. 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 Stephens, weighmaster lead to further evaluate. - Prescribe Advair inhaler, 1 puff BID, rinse mouth post-use - Provide albuterol PRN to be used as needed for wheezing Bipolar disorder:- Did not tolerate Cymbalta in the past. - Refer to psychiatrist within [facility] for evaluation and medication management Health maintenance:- Order mammogram and chest CT scan due to smoking history - Order mammogram for screening purposes. Chronic pain/opioid dependence:- Managed by pain management. Currently on hydrocodone 10/325 mg 3 times a day Tobacco use:- Cessation addressed in detail Follow-up:- 2 to 4 weeks for physical examination Questions answered. Instructions/handouts given. Risks and benefits of any prescription medicines, including any side effects, addressed in detail with the patient. Patient understands and agrees with plan of care. Follow-Up Return in about 4 weeks (around 06/06/2025) for PHysical. DONNY NGUYEN DO [1]Current Outpatient Medications Medication Sig Dispense Refill Albuterol HFA 108 (90 Base) MCG/ACT IN AERS Inhale 2 puffs into the lungs every 6 hours as needed for wheezing. 1 each 6 Atorvastatin Calcium 10 MG oral Tablet Take 1 tablet (10 mg total) by mouth nightly. 90 tablet 3 Dulaglutide 0.75 MG/0.5ML subcutaneous Solution Auto-injector Inject 0.75 mg into the skin once a week. 4 mL 1 Fluticasone-Salmeterol (Advair Diskus) 250-50 MCG/ACT inhalation AEROSOL POWDER, BREATH ACTIVATED Inhale 1 puff into the lungs 2 times daily. 1 each 6 Gabapentin 600 MG oral Tablet Take 2 tablets (1,200 mg total) by mouth 3 times daily. 180 tablet 3 GlipiZIDE 10 MG oral TABLET SR 24 HR Take 1 tablet (10 mg total) by mouth daily. 90 tablet 3 HYDROcodone-Acetaminophen 10-325 MG oral Tablet Take 1 tablet by mouth every 8 hours as needed. 90 tablet 0 Metformin HCl 500 MG oral Tablet Take 1 tablet (500 mg total) by mouth in the morning and 1 tablet (500 mg total) in the evening. Take with meals. 180 tablet 3 No current facility-administered medications for this visit.[2] Past Medical History: Diagnosis Date COPD (chronic obstructive pulmonary disease) (multi HCC) Diabetes mellitus with peripheral vascular disease (multi HCC) 09/15/2022 Diabetic foot ulcer (multi HCC) left Diabetic ulcer of left midfoot associated with type 2 diabetes mellitus, with muscle involvement without evidence of necrosis (multi HCC) 09/19/2023 Intermittent claudication 09/15/2022 MVP (mitral valve prolapse) Tobacco use [3] Family History Problem Relation Name Age of Onset Hypertension Mother Hyperlipidemia Mother Diabetes Mellitus Mother Hypertension Father Diabetes Mellitus Maternal Grandmother Heart Disease Maternal Grandmother Dementia Maternal Grandfather Bone cancer Paternal Grandmother [4] Social History Socioeconomic History Marital status: Significant Other Tobacco Use Smoking status: Every Day Average packs/day: 1 pack/day for 30.0 years (30.0 ttl pk-yrs) Types: Cigarettes Start date: 1990 [facility]2025-09-26 12:16:02Upcoming Encounters Scheduled Orders Name Type Priority Associated Diagnoses Orde r Schedule MAMMO 3D ANAMAR[facility] SCREENING BILAT Imaging Routine Encounter for screen ing mammogram for breast cancer Expected: 05/09/2025, Expires: 05/09/2026 CBC WITH DIFFERENTIAL Lab Routine Type 2 diabetes mellitus with diabetic polyneuropathy, without long-term current use of insulin (multi HCC) Diabetes mellitus with peripheral vascular disease (multi HCC) DM type 2 with diabetic mixed hyperlipidemia (multi HCC) Mild nonproliferative diabetic retinopathy of both eyes without macular edema associated with type 2 diabetes mellitus (multi HCC) Expected: 05/10/2025, Expires: 08/08/2025 COMP. METABOLIC PANEL (14) Lab Routine Type 2 diabetes mellitus with diabetic polyneuropathy, without long-term current use of insulin (multi HCC) Diabetes mellitus with peripheral vascular disease (multi HCC) DM type 2 with diabetic mixed hyperlipidemia (multi HCC) Mild nonproliferative diabetic retinopathy of both eyes without macular edema associated with type 2 diabetes mellitus (multi HCC) Expected: 05/10/2025, Expires: 08/08/2025 LIPID PANEL Lab Routine Type 2 diabetes mellitus with diabetic polyneuropathy, without long-term current use of insulin (multi HCC) Diabetes mellitus with peripheral vascular disease (multi HCC) DM type 2 with diabetic mixed hyperlipidemia (multi HCC) Mild nonproliferative diabetic retinopathy of both eyes without macular edema associated with type 2 diabetes mellitus (multi HCC) Expected: 05/10/2025 (Approximate), Expires: 08/08/2025 HEMOGLOBIN (HB) A1C WITH EAG Lab Routine Type 2 diabetes mellitus with diabetic polyneuropathy, without long-term current use of insulin (multi HCC) Diabetes mellitus with peripheral vascular disease (multi HCC) DM type 2 with diabetic mixed hyperlipidemia (multi HCC) Mild nonproliferative diabetic retinopathy of both eyes without macular edema associated with type 2 diabetes mellitus (multi HCC) Expected: 05/10/2025, Expires: 08/08/2025 TSH+FREE T4 Lab Routine Type 2 diabetes mellitus with diabetic polyneuropathy, without long-term current use of insulin (multi HCC) Diabetes mellitus with peripheral vascular disease (multi HCC) DM type 2 with diabetic mixed hyperlipidemia (multi HCC) Mild nonproliferative diabetic retinopathy of both eyes without macular edema associated with type 2 diabetes mellitus (multi HCC) Expected: 05/10/2025, Expires: 08/08/2025 CT CHEST LUNG CA SCR W/O CON Imaging Routine Tobacco use Screening for malignant neoplasm of respiratory organ Expected: 05/09/2025 (Approximate), Expires: 05/09/2026 Scheduled Referrals Name Type Priority Associated Diagnoses Orde r Schedule REFERRAL TO OPTOMETRY- .[facility] Referral Routine Mild nonproliferativ e diabetic retinopathy of both eyes without macular edema associated with type 2 diabetes mellitus (multi HCC) Ordered: 05/09/2025 REFERRAL TO PULMONARY- EXTERNAL Referral Routine Simple chronic bronc hitis (multi HCC) Ordered: 05/09/2025 REFERRAL TO PSYCHPLUS-EXTERNAL Referral Routine Bipolar affective di sorder, remission status unspecified (multi HCC) Ordered: 05/09/2025 Health Maintenance Due Date Last Done Comments COLONOSCOPY 1975 CT Colonography 1975 FIT Tests 1975 Sigmoidoscopy 1975 Mammogram 2013 Lipid Panel 09/15/2023 09/15/2022 Physical Exam 09/15/2023 09/15/2022 Lung Cancer Screening 2023 Diabetes: Hemoglobin A1C 04/02/2024 024, 09/19/2023, 06/19/2023, Additional history exists Diabetes: Retinopathy Screening 09/27/2024 09/27/2023, 09/27/2023 Creatinine Level (Kidney Function Test) 12/31/2024 01/01/2024, 11/03/2023, 06/19/2023, Additional history exists PAP SMEAR WITH HPV 05/12/2025 Postponed from 2003 (Patient Does Not Have Time) Diabetes: Urine Protein Screening 09/20/2025 09/20/2024, 08/22/2023, 09/07/2022 Cologuard 10/21/2025 10/21/2022, 10/21/2022 Colorectal Cancer Screening 10/21/2025 Influenza Vaccines (#1) 2026 Post poned from 04/14/2025 (Patient Refused) Pneumococcal Vaccine: 50+ Years (1 of 2 - PCV) 05/09/2026 Postponed from 1992 (Patient Refused) Tdap Vaccines 05/09/2026 Postponed from 1992 (Patient Refused) Zoster Vaccines (1 of 2) 05/09/2026 Pos tponed from 2023 (Patient Refused) RSV Vaccines (1 - 1-dose 75+ series) 2048 [facility]2025-09-26 12:16:02 Diagnosis DM type 2 with diabetic mixed hyperlipidemia (multi HCC) - Primary Type II or unspecified type diabetes mellitus with other specified manifestations, not stated as uncontrolled Type 2 diabetes mellitus wit h diabetic polyneuropathy, without long-term current use of insulin (multi HCC) Diabetes mellitus with peripheral vascular disease (multi HCC) Type II or unspecified type diabetes mellitus with peripheral circulatory disorders, not stated as uncontrolled Opioid dependence with opioid-induced disorder (multi HCC) Unspecified drug-induced mental disorder Chronic pain syndrome History of amputation of les ser toe, left ([facility]) Mild nonproliferative diabet ic retinopathy of both eyes without macular edema associated with type 2 diabetes mellitus (multi HCC) Encounter for screening mamm ogram for breast cancer Tobacco use Tobacco use disorder Screening for malignant neoplasm of respiratory organ Special screening for malignant neoplasm of the respiratory organs Simple chronic bronchitis (multi HCC) Simple chronic bronchitis Bipolar affective disorder, remission status unspecified ([facility]) Immunodeficiency due to cond itions classified elsewhere ([facility]) [facility]2025-09-26 12:16:02 [facility]2025-09-26 11:22:10 Chief Complaint Patient presents with OTHER Patient is present for medication refill Care gaps addressed with patient and provider. Dona Toscano MA [facility]oscano [facility] [id number] 09:24:18 Chief Complaint Patient presents with Follow-up On bilateral foot pain. LANEY 09/20/2024. Says pain is the same. JESSIE Terrell III Allison ShannonNathan [id number] 09:33:46 Chief Complaint Patient presents with Follow-up Hospitalization Was in hospital for 5 days for wound infection to left foot Suyapa Grijalva LVN [facility] [id number] 11:14:40 Chief Complaint Patient presents with Follow-up On foot pain. LANEY 04/26/2024. Says pain is the same, recently got out of hospital for infection in the foot. JESSIE Terrell III RAL UTILITY WORKER Allison Mooney [facility] [id number] 11:20:34 Chief Complaint Patient presents with Follow-up On bilateral foot pain. [facility] 01/23/2024. Says pain is not better, medicine seems to wear off faster. Does hydrocodone-acetaminophen 10-325 mg. JESSIE Terrell II Allison [facility] 14:05:54 Kenny Casper a 48 year old female with a past medical history of Past Medical History: Diagnosis Date Diabetes mellitus with peripheral vascular disease (multi HCC) 09/15/2022 Diabetic foot ulcer ([facility] HCC) left Intermittent claudication (CMS-HCC) 09/15/2022 MVP (mitral valve prolapse) who presents to clinic with Foot Pain (Bilateral feet pain, patient currently on Gabapentin 600 mg and Hydrocodone 10-325 mg, she has been seen in the past for the same issue) . her pain is localized to Foot. her pain started 15 years ago. The pain has progressively gotten Worse There was not an Inciting event . The pain is described as burning, electric shock, and numb. There is no radiation. The pain occurs constantly . The pain is aggravated by walking. The pain is alleviated by rest. At its worst the pain is rated as a 10 out of 10, at its best the pain is rated as a 2 out of 10 and on average the pain is rated as a 2 out of 10. So far the patient has tried injections . Current medications include Gabapentin 600 mg 3 times a day and Hydrocodone 10-325 mg every 8 hours. They have used these for the past several years These medications can take their worst pain rating down to a 2 out of 10. Patient denies bowel or bladder incontinence. Patient denies weakness. [facility] 15:07:31 Chief Complaint Patient presents with Diabetes DIABETIC FOLLOW UP Suzy Eastman MA II T CynthiaNathan [id number] 16:40:16 Chief Complaint Patient presents with Foot Ulcer Pt states she has and ulcer on left foot. JESSIE Bojorquez II [facility] Center[facility]an [id number] 10:03:35 Kenny Llanes is a 48 year old female Chief Complaint Patient presents with Follow-up 48 year old Female patient c/o bilateral foot pain here for follow up. Pain 03/23. Yaneth Vázquez MA II [facility] CynthiaNathan [id number] 10:21:40 Chief Complaint Patient presents with Diabetes 3 week diabetic follow up Suzy Eastman MA II [facility] CynthiaNathan [id number] 10:29:53 Kenny Llanes is a 47 year old female Chief Complaint Patient presents with Follow-up 47 year old Female patient c/o bilateral foot pain here for follow up. Pain 04/23. Yaneth Vázquez MA II [facility]2023-09-07 15:24:07 CHP referral submitted to Alessandra Gramajo CM. Ofelia Olivier [facility]2023-09-07 15:19:35 TRANSITIONAL CARE MANAGEMENT ASSESSMENT 04/20/2023 Kenny Llanes [id number] Kenny Llanes is a 47 year old /White female was admitted on 04/19/23 to [facility], [facility] MED SURG. She was discharged on 04/19/23 with discharge disposition of HR- RoutineDischarge. Admitting Physician: Tirso Dias Discharge Diagnosis: Ulcer of left foot, unspecified ulcer stage [L97.529] Pt. States she was not discharged. Pt. C/o pain requested Neurontin, and did not get any or any other pain medication, states after two hours did leave via walked out. Pt. Did state at other hospitalat this time. Pt. Did agree to participate in [facility] for education and medical resources assistance. No linked episodes TCM Tcm-qgya-tn-face outreach documentation: Future Appointments: Ofelia Olivier [facility]2023-09-06 14:58:37 Pt up via personal wheelchair to 2213 with PCT [id number] 14:53:50 Nurse Report Report given to Juani HOLLINGSWORTH, Chief complaint, assessment findings, infusion verify and orders reviewed. Pt prepared for transport Jennifer Schneider RN [place] [address]-09-06 14:34:00 Called to give report reciving unavailable [place] [address]-09-06 13:27:01 Pt continues in no distress, awaiting disposition [place] [address]-09-06 11:50:38 Pt states hasn't been to the doctor in almost a year, states had a callus on the bottom of her foot2 yrs ago and while in the shower in came off and she has had an open wound since then. States doesn't take her diabetes medicine d/t no insurance, states last took meds in October, states her foot is more swollen and warmer than usual, no drainage from the foot wound noted, quarter size to bottom ofleft foot, smokes daily, denies etoh, does take gabapentin and norco that she gets from friends, states takes 3 norco daily [place] [id number] 11:15:54 Pt arrived via private car with c/o [...] medications due to finances and insurance issues. [place] [address]-09-06 11:10:00 Images from the original note were not included. EMERGENCY DEPARTMENT ENCOUNTER [facility] Patient Name: Kenny Llanes Date of : 1975 47 year old Exam Room:TR9/9 Primary Care Physician: Kerry Pichardo [facility] Patient Escorted by: Family [5] Mode of Arrival: Personal means [1] EMS Treatment Prior to ED Arrival: ED Events Date/Time Event User Comments 04/19/23 1149 Medical Screening Begins DENIA RIOS MD -- 04/19/23 114 First Provider Evaluation DENIA RIOS MD -- [...] and has not taken her medications follow-up withany physicians. She denies any systemic symptoms for [...] LEFT CBC WITH DIFF COMP. METABOLIC PANEL (37036) No orders of the defined types were placed in this encounter. Procedures Procedures Notes & MDM Patient was evaluated for an emergency medical condition related to Diabetic Foot Ulcer (left) . History and/or review of systems is limited by:History limited: None. Diagnosis/Impression as of 04/19/23 1208 Ulcer of left foot, unspecified ulcer stage Medical Decision Making Problems Addressed: Ulcer of left foot, unspecified ulcer stage: acute illness or injury Amount and/or Complexity of Data Reviewed Labs: ordered. Decision-making details documented in ED Course. Radiology: ordered and independent interpretation performed. Decision-making details documented in ED Course. Risk Decision regarding hospitalization. Limitations to patient care and compliance: none. Assessment/Summary: The patient is a 47-year-old female [...] to the medicine service. History, physical exam findings, results of visit, differential diagnosis, medication regimens and plan of future care have been considered. Additional MDM may be found in the ED course. Differentialdiagnosis considered and final disposition made based on information gathered during evaluation andmay not be completely ruled out or specifically listed. Vital signs were rechecked before final disposition. Diagnosis Final diagnoses: [L97.529] Ulcer of left foot, [...] on file Denia Rios Jr., MD Clinical [employer] [facility] Emergency Department Dragon Dictation Software is used frequently and may produce errors. Promptly contact for obvious discrepancies. Denia Rios MD 04/19/23 1732 [facility]
--- NOTE | 2025-05-26 15:40 | RAD REPORT ---
EXAMINATION: XR RIGHT FOOT CLINICAL INDICATION: Female, 49 years old. PAIN TECHNIQUE: Multiple views of the right foot were obtained. COMPARISON: No prior exam. FINDINGS: Soft tissue swelling is present about the forefoot. No soft tissue gas seen. No fracture o r dislocation.
--- NOTE | 2025-05-26 16:01 | RAD REPORT ---
EXAMINATION: US RIGHT LOWER EXTREMITY VENOUS DOPPLER CLINICAL INDICATION: SWELLING RIGHT TECHNIQUE: Complete bilateral duplex sonography of the RIGHT lower extremity veins was performed. The examination included compression for vein patency, color Doppler imaging and flow augmentation in response to distal compression of the distal external iliac, common femoral, femoral, popliteal, tibi al, and great and small saphenous veins. COMPARISON: No prior exam. FINDINGS: Duplex sonography testing of the veins of the RIGHT lower extremity was performed. Color flow imaging shows all veins to be compressible with dekf-in-qyja color filling. Pulsatile and phasic flow is present within all lower extremity deep and superficial veins examined. IMPRESSION: There is no deep vein or superficial vein thrombosis.
--- NOTE | 2025-05-26 16:07 | ER ---
Nurse's Notes [facility] Name: Nohelia Llanes Age: 49 yrs Sex: Female : 1975 Arrival Date: 05/26/2025 Time: 14:23 Bed 10 Private MD: Diagnosis: Foot swelling Presentation: 05/26 14:54 Chief complaint: Patient states: right foot swelling, started 4 days ago. Denies fever. me1 Coronavirus screen: At this time, the client does not indicate any symptoms associated with coronavirus-19. Ebola Screen: No symptoms or risks identified at this time. Initial Sepsis Screen: Does the patient meet any 2 criteria? No. Patient's initial sepsis screen is negative. Does the patient have a suspected source of infection? No. Patient's initial sepsis screen is negative. Risk Assessment: Do you want to hurt yourself or someone else? Patient reports no desire to harm self or others. Onset of symptoms was May 22, 2025. 14:54 Method Of Arrival: Wheelchair [facility] 14:54 Acuity: ALISIA 3 me1 Triage Assessment: 16:36 General: Appears in no apparent distress. Behavior is calm, cooperative, appropriate hh1 for age. 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 - Infectious Disease History:: Denies. - Social history:: Smoking status: Patient reports the use of cigarette tobacco products, smokes one pack cigarettes per day. Screenin:16 [facility] ED Fall Risk Assessment (Adult) History of falling in the last 3 months, hh1 including since admission No falls in past 3 months (0 pts) Confusion or Disorientation No (0 pts) Intoxicated or Sedated No (0 pts) Impaired Gait Yes (1 pt) Mobility Assist Device Used Yes (1 pt) Altered Elimination Score/Fall Risk Level 0 - 2 = Low Risk Oriented to surroundings, Maintained a safe environment, Educated pt \T\ family on fall prevention, incl call for assistance when getting out of bed, Assessed \T\ reinforced patient's understanding of fall precautions, Hourly rounding (assess needs \T\ fall precautionary measures) done, Used ambulatory aids as needed (educated on \T\ assisted with). Abuse screen: Denies threats or abuse. Denies injuries from another. Nutritional screening: No deficits noted. Tuberculosis screening: No symptoms or risk factors identified. Assessment: 15:16 General:. Pain: Denies pain. Neuro: No deficits noted. Cardiovascular: No deficits hh1 noted. Respiratory: No deficits noted. Musculoskeletal: Reports pt c/o right foot swelling for about 3-4 days. Vital Signs: 14:54 BP 171 / 96; Pulse 87; Resp 16; Temp 98.2; Pulse Ox 99% ; Weight 74.84 kg; Height 5 ft. me1 6 in. ; Pain 0/10; 15:16 BP 178 / 92; Pulse 75; Resp 16; Pulse Ox 100% ; Pain 0/10; hh1 16:35 BP 165 / 82; Pulse 77; Resp 18; Temp 98.3; Pulse Ox 100% ; hh1 14:54 Body Mass Index 26.63 (74.84 kg, 167.64 cm) me1 14:54 Pain Scale: Adult me1 15:16 Pain Scale: Adult 1 ED Course: 14:38 Patient arrived in ED. cj3 14:41 Dana Resendiz FNP-C is [facility]. kb 14:41 Xander Ortega MD is Attending Physician. kb 14:56 Triage completed. me1 14:57 Arm band placed on Patient placed in waiting room. me1 15:16 Patient has correct armband on for positive identification. Bed in low position. Call 1 light in reach. Provided Education on: plan of care. 15:16 No provider procedures requiring assistance completed. hh1 15:18 Wen Saldivar, DARRICK is Primary Nurse. hh1 15:18 Patient moved to radiology via wheelchair. hh1 15:30 Foot Right 3 View XRAY In Process Unspecified. EDMS 15:47 US Extremity Venous Unilateral Ltd In Process Unspecified. EDMS 16:35 Patient did not have IV access during this emergency room visit. hh1 Administered Medications: No medications were administered Medication: 15:16 VIS not applicable for this client. hh1 Outcome: 16:07 Discharge ordered by . andres 16:35 Discharged to home via wheelchair, 1 16:35 Condition: good 16:35 Discharge instructions given to patient, Instructed on discharge instructions, follow up and referral plans. Demonstrated understanding of instructions, follow-up care, 16:36 Patient left the ED. 1 Signatures: Dispatcher [employer] EDDana Teran, SUNG-C SUNG-Marisol Alcala, RN RN vt1 Rhonda Ace 3 Wen Saldivar, RN RN 1
--- NOTE | 2025-05-26 16:07 | EDPHYS ---
Physician Documentation [facility] Name: Nohelia Llanes Age: 49 yrs Sex: Female : 1975 Arrival Date: 05/26/2025 Time: 14:23 Bed 10 Private MD: ED Physician Xander Ortega HPI: 05/26 14:56 This 49 yrs old Female presents to ER via Unassigned with complaints of Foot Problem-RT.kb 14:56 Patient is a 49-year-old female presents for right foot swelling that started 4 days kb ago. States she can hear a popping noise when she walks that she is concerned that she broke it without realizing it. Denies any known injury or trauma. States she does not have feeling in her feet due to neuropathy.. 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 - Infectious Disease History:: Denies. - Social history:: Smoking status: Patient reports the use of cigarette tobacco products, smokes one pack cigarettes per day. ROS: 14:56 Constitutional: As per HPI kb Exam: 14:56 Constitutional: This is a well developed, well nourished patient who is awake, alert, kb and in no acute distress. Head/Face: Normocephalic, atraumatic. ENT: Moist Mucous membranes Respiratory: Respirations even and unlabored. No increased work of breathing. Talking in full sentences Skin: Warm, dry with normal turgor. Normal color. Neuro: Awake and alert, GCS 15, oriented to person, place, time, and situation. 14:56 Musculoskeletal/extremity: Extremities: grossly normal except: noted in the right foot: swelling, ROM: intact in all extremities, Circulation is intact in all extremities. Sensation intact. Vital Signs: 14:54 BP 171 / 96; Pulse 87; Resp 16; Temp 98.2; Pulse Ox 99% ; Weight 74.84 kg; Height 5 ft. me1 6 in. ; Pain 0/10; 15:16 BP 178 / 92; Pulse 75; Resp 16; Pulse Ox 100% ; Pain 0/10; hh1 16:35 BP 165 / 82; Pulse 77; Resp 18; Temp 98.3; Pulse Ox 100% ; hh1 14:54 Body Mass Index 26.63 (74.84 kg, 167.64 cm) me1 14:54 Pain Scale: Adult me1 15:16 Pain Scale: Adult hh1 MDM: 14:41 Medical Screening Exam initiated kb 16:06 Differential diagnosis: fracture, sprain, dvt. Data reviewed: vital signs, nurses kb notes. Counseling: I had a detailed discussion with the patient and/or guardian regarding the historical points, exam findings, and any diagnostic results supporting the discharge/admit diagnosis, radiology results, the need for outpatient follow up, a family practitioner, to return to the emergency department if symptoms worsen or persist or if there are any questions or concerns that arise at home. 05/26 14:55 Order name: Foot Right 3 View XRAY; Complete Time: 15:42 kb 05/26 14:55 Order name: US Extremity Venous Unilateral Ltd; Complete Time: 16:02 kb Administered Medications: No medications were administered Disposition: 17:52 Co-signature as Attending Physician, Xander Ortega MD I reviewed the patient's care rn provided by the Advanced Practice Provider and agree with the diagnosis and treatment plan. Disposition Summary: 05/26/25 16:07 Discharge Ordered Notes: Location: Home kb Condition: Stable kb Diagnosis - Foot swelling kb Followup: kb - With: Emergency Department - When: As needed - Reason: Worsening of condition Followup: kb - With: Private Physician - When: 2 - 3 days - Reason: Recheck today's complaints, Continuance of care, Re-evaluation by your physician Discharge Instructions: - Discharge Summary Sheet kb - Edema, [id number] kb Forms: - Medication Reconciliation Form kb - Antibiotic Education kb - Prescription Opioid Use kb - Patient Portal Instructions kb - Leadership Thank You Letter kb Signatures: Dispatcher [employer] Dana Morton, SUNG-C REFINING EQUIPMENT OPERATOR-Ckb Ortega, Xander, MD MD rn Eddleman, Marisol, RN RN me1
== END 2025-05-26 16:36 | disposition home or self-care (01) ==
LOC: ER 14:23
DX: R22.41 Localized swelling, mass and lump, right lower limb (principal); E11.9 Type 2 diabetes mellitus without complications; E11.21 Type 2 diabetes mellitus with diabetic nephropathy; F17.210 Nicotine dependence, cigarettes, uncomplicated; Z88.0 Allergy status to penicillin; Z88.1 Allergy status to other antibiotic agents; Z88.5 Allergy status to narcotic agent; Z79.4 Long term (current) use of insulin
CPT/HCPCS: 93971; 99283